=== PATIENT | female | born 1940 | race Hispanic/Latino ===

== ENCOUNTER 2017-01-24 11:18 | Day surgery (SDC) | payer MEDICARE, OTHER ==
[~2017-01-24 11:18] MED LIST: ANCEF/STERILE WATER 2 GM/20 ML 2 GM/20 ML SYRINGE IV NR
[2017-01-24] MEDS ORDERED: ZOFRAN IV PRN (12:28)
--- NOTE | 2017-01-24 12:29 | Anesthesia Day of Surgery ---
Anesthesia Day of Surgery - Day of Surgery Patient Examined: Yes Patient H&P Reviewed: Yes Patient is NPO: Yes Beta Blockers: Yes Cardiac Clearance: No Pulmonary Clearance: Yes
--- NOTE | 2017-01-24 12:32 | Anesthesia Consultation ---
Anesthesia Consult and Med Hx Date of service: 01/24/17 - Airway Anesthetic Teeth Evaluation: Dentures ROM Head & Neck: Inadequate Mental/Hyoid Distance: Inadequate Mallampati Class: Class III Intubation Access Assessment: Possibly Difficult - Pulmonary Exam CTA: Yes - Cardiac Exam Cardiac Exam: RRR - Pre-Operative Health Status ASA Pre-Surgery Classification: ASA4 Proposed Anesthetic Plan: Spinal (ga if needed/aware of pulmonary rx and hx) - Pulmonary Hx Smoking: Yes (STOPPED X 4 YRS-2PPD X 50 YRS) SOB: Yes (SOB WITH ANY ACTIVITY- IN WHEELCHAIR) COPD: Yes (SEVERE) Home Oxygen Therapy: Yes Hx Sleep Apnea: Yes (DX SLEEP APNEA WITH CPAP USE.) - Cardiovascular System Hx Hypertension: Yes (NO MEDS) - Central Nervous System Hx Back Pain: Yes - Endocrine Hx Renal Disease: Yes (CKD) - Hematic Hx Anemia: Yes (NO RECENT) - Other Systems Hx Cancer: No Hx Obesity: Yes (morbid obesity)
[2017-01-24 12:48] LABS: Eosinophils % (Auto) 4.4 % (0.0-4.3); Hematocrit 40.6 % (30.3-42.9); Hemoglobin 13.5 gm/dl (10.1-14.3); Mean Corpuscular HGB Conc 33 % (30-34); Mean Corpuscular Hemoglobin 28 pg (28-32); Mean Corpuscular Volume 85 fl (79-97); Platelet Count 263 K/mm3 (140-440); Red Cell Distribution Width 15.1 % (13.2-15.2); White Blood Count 8.3 K/mm3 (4.5-11.0)
[2017-01-24] MEDS ORDERED: PEPCID PO NR (13:00)
[2017-01-24] MEDS ORDERED: NACL 0.9% 1000 ML 1,000 ML IV SCH (13:00)
[2017-01-24] MEDS ORDERED: VERSED ONE ×2 (13:11→13:42)
[2017-01-24 13:21] LABS: BUN/Creatinine Ratio 9.23; Calcium 8.8 mg/dL (8.4-10.2); Chloride 107.4 mmol/L (98-107); Potassium 4.6 mmol/L (3.6-5.0)
[2017-01-24] MEDS ORDERED: ePHEDrine SULFATE ONE (13:28)
[2017-01-24] MEDS ORDERED: SUBLIMAZE ONE (13:32)
[2017-01-24] MEDS ORDERED: DIPRIVAN 10 MG/ML IV ONE (13:33)
[2017-01-24] MEDS ORDERED: XYLOCAINE MPF 2% ONE ×3 (13:35→14:19)
[2017-01-24] MEDS ORDERED: XYLOCAINE 2% UROJET ONE (13:40)
[2017-01-24] MEDS ORDERED: KETALAR IV ONE (13:46)
[2017-01-24] MEDS ORDERED: ANCEF ONE (14:09)
[2017-01-24] MEDS ORDERED: ZOFRAN ONE ×2 (14:15)
[2017-01-24] MEDS ORDERED: LASIX ONE (14:19)
[2017-01-24] MEDS ORDERED: WATER FOR IRRIG STERILE IR ONE (14:30)
[2017-01-24] MEDS ORDERED: XYLOCAINE 2% UROJET UR ONE (14:30)
[2017-01-24] MEDS ORDERED: SORBITOL-MANNITOL IRRIG IR ONE (14:30)
[2017-01-24] MEDS ORDERED: PHENERGAN PO PRN (15:03)
[2017-01-24] MEDS ORDERED: TRANSDERM-SCOP TD ONE (15:34)
[2017-01-24] MEDS ORDERED: TRANSDERM-SCOP TD PRN (15:38)
[2017-01-24] MEDS ORDERED: REGLAN ONE (15:47)
[2017-01-24] MEDS ORDERED: REGLAN IV PRN (15:56)
--- NOTE | 2017-01-24 16:03 | Fluoroscopy Report ---
RETROGRADE PYELOGRAM: There is adequate filling of the ureters and intrarenal collecting systems with no filling defects or anatomic abnormalities identified.
--- NOTE | 2017-01-24 16:23 | Operative Report ---
PREOPERATIVE DIAGNOSIS: Bladder cancer. POSTOPERATIVE DIAGNOSIS: Bladder cancer. PROCEDURE: Cystoscopy, transurethral resection of bladder tumor. SURGEON: NYLA ZAMBRANO M.D. ANESTHESIA: Spinal epidural combination. FINDINGS: This is a morbidly obese woman with severe COPD and medical problems, who could not be put to sleep safely. She is constantly having nausea and vomiting and she has refused treatment initially. She then came back and wants to have these treated. The tumors are right anterior wall, difficult location. She understands all the risks as does the family. DESCRIPTION OF PROCEDURE: The patient was brought to the operating room and placed on the operating table. Following induction of epidural anesthesia, placed in lithotomy position, draped in usual sterile fashion. Cystourethroscopy showed chronic inflammation with two moderately sessile tumors which looked to be a more aggressive than usual. The retrograde showed no persistent filling defects. The tumors had to be resected with the resectoscope and measured approximately 3 cm in length. It was quite difficult the angulation with her buttocks and her obesity and her intermittent nausea throughout the procedure and moving to resect this. Finally, we resected it and cauterized the base. Whether we have or not, I cannot be sure, but this was quite paralysis because they did not feel comfortable putting her to sleep and she was moving and there were not sure whether the anesthesia was taken. The patient tolerated the procedure well. We obtained good hemostasis with the ball electrode. She was brought to recovery room with a 24 Elise. Family notified, in stable condition. JOB# [id number] JULIA/[place]
[2017-01-24 17:44] VITALS: BP 138/75
== END 2017-01-24 17:55 | disposition home or self-care (01) ==
LOC: OR 11:18
PROVIDERS: ATTEND Urology
DX: C67.3 Malignant neoplasm of anterior wall of bladder (principal); J44.9 Chronic obstructive pulmonary disease, unspecified; G47.30 Sleep apnea, unspecified; I12.9 Hypertensive chronic kidney disease with stage 1 through stage 4 chronic kidney disease, or unspecified chronic kidney disease; N18.9 Chronic kidney disease, unspecified; D64.9 Anemia, unspecified; E66.01 Morbid (severe) obesity due to excess calories; Z68.43 Body mass index [BMI] 50.0-59.9, adult; Z87.891 Personal history of nicotine dependence
CPT/HCPCS: 36415; 52235; 74420; 80048; 82962; 85025; 88305; A4217; J0690; J1940; J2250; J2405; J2704; J2765; J3010; J7030; Q9967; Q0169

== ENCOUNTER 2017-08-06 04:36 | Emergency (ER) | payer MEDICARE, OTHER ==
[2017-08-06 05:30] LABS: Basophils % (Auto) 1.1 % (0.0-1.8); Hematocrit 38.5 % (30.3-42.9); Mean Corpuscular HGB Conc 34 % (30-34); Mean Corpuscular Hemoglobin 28 pg (28-32); Mean Corpuscular Volume 85 fl (79-97); Platelet Count 288 K/mm3 (140-440); Red Blood Count 4.56 M/mm3 (3.65-5.03); Red Cell Distribution Width 14.1 % (13.2-15.2); White Blood Count 8.6 K/mm3 (4.5-11.0)
[2017-08-06 05:45] LABS: Albumin 3.5 g/dL (3.9-5); Albumin/Globulin Ratio 1.8 %; Alkaline Phosphatase 108 units/L (35-129); Anion Gap 19 mmol/L; BUN/Creatinine Ratio 10; Blood Urea Nitrogen 22 mg/dL (7-17); Calcium 9.1 mg/dL (8.4-10.2); Carbon Dioxide 21 mmol/L (22-30); Chloride 104.9 mmol/L (98-107); Glucose 97 mg/dL (65-100); Lipase 29 units/L (13-60); Potassium 4.4 mmol/L (3.6-5.0); Sodium 140 mmol/L (137-145); Total Protein 5.5 g/dL (6.3-8.2)
[2017-08-06 05:50] LABS: Alanine Aminotransferase < 5 units/L (7-56)
[2017-08-06] MEDS: ZOFRAN IV ONE (07:37)
[2017-08-06] MEDS: MORPHINE IV ONE (07:37)
[2017-08-06] MEDS: NACL 0.9% 1000 ML 1,000 ML IV ONE (07:37)
[2017-08-06 08:00] LABS: Bilirubin,Urine NEG (Negative); Blood,Urine NEG (Negative); Ketones,Urine NEG (Negative); Leukocyte Esterase,Urine NEG (Negative); Mucus,Urine FEW /HPF; Nitrite,Urine NEG (Negative); Protein,Urine <15 mg/dL mg/dL (Negative); Urobilinogen,Urine < 2.0 mg/dL (<2.0)
--- NOTE | 2017-08-06 08:38 | Cat Scan Report ---
CT OF THE ABDOMEN AND PELVIS WITHOUT CONTRAST HISTORY: Abdominal pain. TECHNIQUE: Helical CT without contrast. Sagittal and coronal reformatted images. FINDINGS: Within the limits of a noncontrast exam, the abdominal and pelvic viscera are within normal limits. The liver, biliary system, pancreas, spleen, kidneys, adrenal glands and bladder are unremarkable. The bowel loops are normal caliber and wall thickness. Normal appendix. A 3.1 cm infrarenal AAA is identified. The remainder of the aorta is within normal limits. No ascites, bulky adenopathy or inflammatory changes. Hysterectomy and appendectomy changes are suspected. The lung bases are clear. Normal heart size. No suspicious bony lesion. IMPRESSION: No acute process s identified in the pelvis. No significant change since 09/19/16.
--- NOTE | 2017-08-06 10:44 | Emergency Department Report ---
HPI - General Chief Complaint: Abdominal Pain Time Seen by Provider: 08/06/17 06:44 - HPI HPI: 77 female coming in with diffuse abdominal pain starting on this morning patient had a history of irritable bowel syndrome. She states that her pain is accompanied by nausea, but no vomiting, urinary symptoms, diarrhea. Patient has been taking her usual medication at home for these symptoms. She denies any exacerbating factors. She denies any alleviating factors. She denies any recent travel, or unusual foods. She denies any sick contacts. MD Complaint: abdominal pain -: Gradual Location: Diffuse Radiation: none Migration to: no migration Severity scale (0 -10): 6 Quality: sharp Improves With: nothing Associated Symptoms: nausea, ED Past Medical Hx - Past Medical History Previous Medical History?: Yes Hx Hypertension: Yes (NO MEDS) Hx Diabetes: Yes (NO MEDS) Hx GERD: Yes Hx Renal Disease: Yes (renal insufficiency ) Hx Arthritis: Yes Hx COPD: Yes Additional medical history: bowel syndrome, hiatal hernia - Surgical History Past Surgical History?: Yes Hx Cholecystectomy: Yes Hx Appendectomy: Yes Hx Breast Surgery: Yes (LEFT BREAST MASS REMOVED) Additional Surgical History: left foot, hysterectomy, right breast, left shoulder, right eye - cataract, left eye - macula, - Social History Smoking Status: Former Smoker Substance Use Type: None - Medications Home Medications: Home Medications Medication Instructions Recorded Confirmed Last Taken Type ALPRAZolam [Xanax TAB] 0.25 mg PO PRN PRN 09/13/16 02/05/17 1 Day Ago History 0.25 Beclomethasone Dipropionate [Qvar] 2 puff IH BID 09/13/16 02/05/17 1 Day Ago History 2 Esomeprazole Magnesium [NexIUM] 40 mg PO QDAY 09/13/16 02/05/17 1 Day Ago History 40 Ipratropium/Albuterol Sulfate 1 ampul IH PRN PRN 09/13/16 02/05/17 1 Day Ago History [DUONEB *Not for PRN Use*] 1 Promethazine [Phenergan TAB] 25 mg PO Q6HR PRN 09/13/16 02/05/17 1 Day Ago History 25 Sucralfate 1 gm PO QID 09/13/16 02/05/17 1 Day Ago History 1 Theophylline Anhydrous [Chris-24] 200 mg PO BID 09/13/16 02/05/17 1 Day Ago History 200 Tiotropium [place] [Spiriva 4 gm IH DAILY 09/13/16 02/05/17 1 Day Ago History Respimat] 4 traMADol [Ultram 50 MG tab] 50 mg PO PRN PRN 09/13/16 02/05/17 1 Day Ago History 50 Indacaterol Maleate [Arcapta 75 mcg IH DAILY 01/22/17 02/05/17 1 Day Ago History Neohaler] 75 Ipratropium/Albuter (Nf) 2 puff IH QID 01/22/17 02/05/17 1 Day Ago History [Combivent Inhaler] 2 Ondansetron [Zofran TAB] 4 mg PO PRN 01/24/17 02/05/17 1 Day Ago History 4 Azithromycin [Zithromax] 250 mg PO Q24H #6 tablet 02/10/17 Unknown Rx Prednisone [predniSONE 10 mg 10 mg PO .TAPER #1 tab.ds.pk 02/10/17 Unknown Rx (6-Day Pack, 21 Tabs)] Dicyclomine [Bentyl] 20 mg PO QID #20 tablet 08/06/17 Unknown Rx ED Review of Systems ROS: Stated complaint: ABDOMINAL PAIN Other details as noted in HPI Respiratory: cough Gastrointestinal: as per HPI, abdominal pain, nausea Musculoskeletal: as per HPI Physical Exam - Physical Exam Vital Signs: Vital Signs 08/06/17 08/06/17 08/06/17 04:41 05:14 05:17 Temperature 97.9 F Pulse Rate 75 96 H 63 Respiratory 22 13 10 L Rate Blood Pressure 155/66 O2 Sat by Pulse 97 96 Oximetry 08/06/17 08/06/17 08/06/17 05:31 05:45 06:01 Temperature Pulse Rate 58 L 62 61 Respiratory 14 10 L 17 Rate Blood Pressure 102/51 102/51 145/59 O2 Sat by Pulse 96 97 96 Oximetry 08/06/17 08/06/17 08/06/17 06:15 06:44 06:45 Temperature Pulse Rate 68 60 56 L Respiratory 12 14 11 L Rate Blood Pressure 130/99 130/99 130/99 O2 Sat by Pulse 96 Oximetry 08/06/17 08/06/17 08/06/17 07:00 07:15 07:31 Temperature Pulse Rate 64 66 57 L Respiratory 15 14 12 Rate Blood Pressure 145/77 141/69 138/46 O2 Sat by Pulse 99 100 99 Oximetry 08/06/17 08/06/17 08/06/17 07:45 08:00 08:37 Temperature 98.4 F Pulse Rate 63 66 Respiratory 11 L 9 L Rate Blood Pressure 153/70 149/58 149/58 O2 Sat by Pulse 100 98 100 Oximetry 08/06/17 08/06/17 08/06/17 09:01 09:30 10:00 Temperature Pulse Rate 74 74 74 Respiratory 14 14 12 Rate Blood Pressure 131/60 127/56 129/61 O2 Sat by Pulse 97 96 97 Oximetry Physical Exam: Physical Exam: - General Limitations: No Limitations General appearance: alert, in no apparent distress, obese - Head Head exam: Present: atraumatic, normocephalic - Eye Eye exam: Present: normal appearance - ENT ENT exam: Present: mucous membranes moist - Neck Neck exam: Present: normal inspection - Respiratory Respiratory exam: Present: normal lung sounds bilaterally. Absent: respiratory distress - Cardiovascular Cardiovascular Exam: Present: normal rhythm, tachycardia. Absent: systolic murmur, diastolic murmur, rubs, gallop - GI/Abdominal GI/Abdominal exam: Present: soft, normal bowel sounds - Extremities Exam Extremities exam: Present: normal inspection - Back Exam Back exam: Present: normal inspection - Neurological Exam Neurological exam: Present: alert, oriented X3 - Psychiatric Psychiatric exam: normal affect and mood - Skin Skin exam: Present: warm, dry, intact, normal color. Absent: rash ED Course Vital Signs 08/06/17 08/06/17 08/06/17 04:41 05:14 05:17 Temperature 97.9 F Pulse Rate 75 96 H 63 Respiratory 22 13 10 L Rate Blood Pressure 155/66 O2 Sat by Pulse 97 96 Oximetry 08/06/17 08/06/17 08/06/17 05:31 05:45 06:01 Temperature Pulse Rate 58 L 62 61 Respiratory 14 10 L 17 Rate Blood Pressure 102/51 102/51 145/59 O2 Sat by Pulse 96 97 96 Oximetry 08/06/17 08/06/17 08/06/17 06:15 06:44 06:45 Temperature Pulse Rate 68 60 56 L Respiratory 12 14 11 L Rate Blood Pressure 130/99 130/99 130/99 O2 Sat by Pulse 96 Oximetry 08/06/17 08/06/17 08/06/17 07:00 07:15 07:31 Temperature Pulse Rate 64 66 57 L Respiratory 15 14 12 Rate Blood Pressure 145/77 141/69 138/46 O2 Sat by Pulse 99 100 99 Oximetry 08/06/17 08/06/17 08/06/17 07:45 08:00 08:37 Temperature 98.4 F Pulse Rate 63 66 Respiratory 11 L 9 L Rate Blood Pressure 153/70 149/58 149/58 O2 Sat by Pulse 100 98 100 Oximetry 08/06/17 08/06/17 08/06/17 09:01 09:30 10:00 Temperature Pulse Rate 74 74 74 Respiratory 14 14 12 Rate Blood Pressure 131/60 127/56 129/61 O2 Sat by Pulse 97 96 97 Oximetry ED Medical Decision Making - Lab Data Result diagrams: 08/06/17 05:02 08/06/17 05:02 Critical care attestation.: If time is entered above; I have spent that time in minutes in the direct care of this critically ill patient, excluding procedure time. ED Disposition Clinical Impression: Irritable bowel syndrome Qualifiers: Irritable bowel syndrome type: with both diarrhea and constipation Qualified Code(s): K58.2 - Mixed irritable bowel syndrome Disposition: DC-01 TO HOME OR SELFCARE Is pt being admited?: No Does the pt Need Aspirin: No Condition: Stable Instructions: Abdominal Pain (ED) Prescriptions: Dicyclomine [Bentyl] 20 mg PO QID #20 tablet Referrals: HERNESTO CANTRELL MD [Primary Care Provider] - 3-5 Days
[2017-08-06 11:12] VITALS: BP 136/52
== END 2017-08-06 11:16 | disposition home or self-care (01) ==
LOC: ED 04:36
DX: K58.2 Mixed irritable bowel syndrome (principal); I10 Essential (primary) hypertension; E11.9 Type 2 diabetes mellitus without complications; K21.9 Gastro-esophageal reflux disease without esophagitis; J44.9 Chronic obstructive pulmonary disease, unspecified; Z90.49 Acquired absence of other specified parts of digestive tract; Z90.710 Acquired absence of both cervix and uterus; N28.9 Disorder of kidney and ureter, unspecified; Z88.6 Allergy status to analgesic agent; Z88.1 Allergy status to other antibiotic agents
CPT/HCPCS: 36415; 74176; 80053; 81001; 82962; 83690; 85025; 93005; 93010; 96361; 96374; 96375; 99285; J2270; J2405; J7030

== ENCOUNTER 2017-10-31 10:14 | Day surgery (SDC) | payer MEDICARE, OTHER ==
[2017-10-31] MEDS ORDERED: ANCEF/STERILE WATER 2 GM/20 ML 2 GM/20 ML SYRINGE IV NR (11:00)
--- NOTE | 2017-10-31 11:45 | Anesthesia Consultation ---
Anesthesia Consult and Med Hx Date of service: 10/31/17 - Airway Anesthetic Teeth Evaluation: Dentures ROM Head & Neck: Adequate Mental/Hyoid Distance: Adequate Mallampati Class: Class II Intubation Access Assessment: Probably Good - Pulmonary Exam CTA: Yes - Cardiac Exam Cardiac Exam: RRR Anesthetic Concerns: Upper dentures. Pt is on home o2 and is breathing presently near her baseline. She had SAB 02/05 without problem. pt prefers SAB or local to general. - Pre-Operative Health Status ASA Pre-Surgery Classification: ASA4 - Pulmonary Hx Smoking: Yes (STOPPED X 4 YRS-2PPD X 50 YRS) SOB: Yes (SOB WITH ANY ACTIVITY- IN WHEELCHAIR) COPD: Yes (ON VENT SEVERAL TIMES DUE TO SEVERE COPD) Hx Pneumonia: Yes (09/03/17- CAUSED SEPSIS) Hx Sleep Apnea: Yes (DX SLEEP APNEA WITH IRREGULAR CPAP USE.) - Cardiovascular System Hx Hypertension: Yes (NO MEDS) - Central Nervous System Hx Back Pain: Yes - Endocrine Hx Renal Disease: Yes (Stage 4 CKD) Hx Non-Insulin Dependent Diabetes: Yes - Hematic Hx Anemia: Yes - Other Systems Hx Obesity: Yes (morbid obesity)
--- NOTE | 2017-10-31 11:45 | Anesthesia Day of Surgery ---
Anesthesia Day of Surgery - Day of Surgery Patient Examined: Yes Patient H&P Reviewed: Yes Patient is NPO: Yes
[2017-10-31] MEDS ORDERED: PERCOCET 5/325 PO PRN (11:46)
[2017-10-31] MEDS ORDERED: ZOFRAN IV PRN (11:46)
[2017-10-31] MEDS ORDERED: SUBLIMAZE IV PRN (11:46)
[2017-10-31] MEDS ORDERED: PEPCID IV NR (12:00)
[2017-10-31 12:12] LABS: Basophils # (Auto) 0.1 K/mm3 (0.0-0.1); Basophils % (Auto) 0.7 % (0.0-1.8); Eosinophils # (Auto) 0.4 K/mm3 (0.0-0.4); Eosinophils % (Auto) 4.9 % (0.0-4.3); Lymphocytes # (Auto) 1.2 K/mm3 (1.2-5.4); Lymphocytes % (Auto) 14.9 % (13.4-35.0); Mean Corpuscular HGB Conc 32 % (30-34); Mean Corpuscular Hemoglobin 28 pg (28-32); Mean Corpuscular Volume 86 fl (79-97); Monocytes # (Auto) 0.5 K/mm3 (0.0-0.8); Monocytes % (Auto) 5.9 % (0.0-7.3); Platelet Count 284 K/mm3 (140-440); Red Blood Count 4.66 M/mm3 (3.65-5.03); Red Cell Distribution Width 14.9 % (13.2-15.2)
[2017-10-31 12:28] LABS: Calcium 8.6 mg/dL (8.4-10.2)
[2017-10-31] MEDS ORDERED: WATER FOR IRRIG STERILE IR ONE ×2 (12:49)
[2017-10-31] MEDS ORDERED: NACL 0.9% 1000 ML 1,000 ML IV SCH (13:00)
[2017-10-31] MEDS ORDERED: NEO SYNEPHRINE/NS Syringe(OR USE) IV ONE (13:36)
[2017-10-31] MEDS ORDERED: VERSED ONE (13:36)
--- NOTE | 2017-10-31 13:55 | Post Operative Note ---
Date of procedure: 10/31/17 Pre-op diagnosis: bladder lesions r/o tcc Post-op diagnosis: same Findings: erythema Procedure: cysto rpg bx Anesthesia: regional Surgeon: NYLA ZAMBRANO Estimated blood loss: minimal Pathology: list (bladder) Specimen disposition: to lab Condition: stable Disposition: PACU
--- NOTE | 2017-10-31 13:56 | Discharge Summary ---
Short Stay Discharge Plan Activity: other (no straining ) Weight Bearing Status: Partial Weight Bearing Diet: low fat, low cholesterol, low salt Special Instructions: other (teach [place] care ) Durable Medical Equipment Needed Upon Discharge: other ([place] do not use tape) Follow up with: DARWIN GRAVES MD [Primary Care Provider] - 7 Days NYLA ZAMBRANO MD [Staff Physician] - 7 Days
--- NOTE | 2017-10-31 14:06 | Post Anesthesia Evaluation ---
- Post Anesthesia Evaluation Patient Participated: Yes Airway Patent: Yes Stable Respiratory Function: Yes Temp > 96.8F: Yes Pain Manageable: Yes Adequeate Hydration: Yes Anesthesia Complications: No
--- NOTE | 2017-10-31 14:36 | Fluoroscopy Report ---
RETROGRADE PYELOGRAM: History: Malignant neoplasm of bladder. There is adequate filling of the ureters and intrarenal collecting systems with no filling defects or anatomic abnormalities identified. Impression: No abnormality identified.
[2017-10-31 17:07] VITALS: BP 146/67
--- NOTE | 2017-10-31 17:29 | Operative Report ---
PREOPERATIVE DIAGNOSES: History of bladder cancer, erythema in the bladder. POSTOPERATIVE DIAGNOSES: History of bladder cancer, erythema in the bladder. PROCEDURE: Cystoscopy, retrograde, and biopsy. SURGEON: Mike Sheldon MD ANESTHESIA: General. FINDINGS: This woman with history of bladder cancer, with some erythema posterior wall. She now presents for cystoscopy. DESCRIPTION OF PROCEDURE: The patient was brought to the operating room and placed on the table. Following induction of anesthesia which was spinal, prepped and draped in usual sterile fashion. Cystourethroscopy showed a good capacity bladder, erythema right posterior lateral wall. Biopsies were obtained around the bladder. Retrograde showed slight medial deviation of the ureters with good drainage. There were no persistent filling defects, just a little peristalsis and slight narrowing, ____ excellent drainage. The patient tolerated the procedure well. There was clear efflux from each orifice, brought to recovery in stable condition with Elise catheter. Family notified. JOB# [id number] JULIA/[place]
== END 2017-10-31 10:15 | disposition home or self-care (01) ==
LOC: OR 10:14
PROVIDERS: ATTEND Urology
DX: L53.9 Erythematous condition, unspecified (principal); Z85.51 Personal history of malignant neoplasm of bladder; Z98.890 Other specified postprocedural states; F41.9 Anxiety disorder, unspecified; Z87.891 Personal history of nicotine dependence; J42 Unspecified chronic bronchitis; J44.9 Chronic obstructive pulmonary disease, unspecified; E66.01 Morbid (severe) obesity due to excess calories; K21.9 Gastro-esophageal reflux disease without esophagitis; I12.9 Hypertensive chronic kidney disease with stage 1 through stage 4 chronic kidney disease, or unspecified chronic kidney disease; E11.22 Type 2 diabetes mellitus with diabetic chronic kidney disease; N18.9 Chronic kidney disease, unspecified; M79.7 Fibromyalgia; M19.90 Unspecified osteoarthritis, unspecified site
CPT/HCPCS: 36415; 52005; 52204; 74420; 80048; 82962; 85025; 88305; A4217; C1758; J0690; J2250; J2370; J7030; Q9967

== ENCOUNTER 2018-04-17 09:39 | Day surgery (SDC) | payer MEDICARE, OTHER ==
[2018-04-17] MEDS ORDERED: ANCEF/STERILE WATER 2 GM/20 ML 2 GM/20 ML SYRINGE IV NR (11:00)
--- NOTE | 2018-04-17 11:18 | Anesthesia Day of Surgery ---
Anesthesia Day of Surgery - Day of Surgery Patient Examined: Yes Patient H&P Reviewed: Yes Patient is NPO: Yes
--- NOTE | 2018-04-17 11:18 | Anesthesia Consultation ---
Anesthesia Consult and Med Hx Date of service: 04/17/18 - Airway Anesthetic Teeth Evaluation: Poor ROM Head & Neck: Adequate Mental/Hyoid Distance: Inadequate Mallampati Class: Class IV Intubation Access Assessment: Difficult (large redundant neck tissue) - Cardiac Exam Cardiac Exam: RRR - Pre-Operative Health Status ASA Pre-Surgery Classification: ASA4 Proposed Anesthetic Plan: Spinal, MAC - Pulmonary Hx Smoking: Yes (STOPPED X 4 YRS-2PPD X 50 YRS) SOB: Yes (SOB WITH ANY ACTIVITY- IN WHEELCHAIR) COPD: Yes (ON VENT SEVERAL TIMES DUE TO SEVERE COPD) Hx Pneumonia: Yes (09/03/17- CAUSED SEPSIS) Hx Sleep Apnea: Yes (DX SLEEP APNEA WITH IRREGULAR CPAP USE.) - Cardiovascular System Hx Hypertension: Yes (NO MEDS) - Central Nervous System Hx Back Pain: Yes - Endocrine Hx Renal Disease: Yes (Stage 4 CKD) Hx Non-Insulin Dependent Diabetes: Yes - Hematic Hx Anemia: Yes - Other Systems Hx Obesity: Yes (morbid obesity)
[2018-04-17] MEDS ORDERED: NARCAN 0.4 MG/1 ML IV PRN (11:19)
[2018-04-17] MEDS ORDERED: ZOFRAN IV PRN (11:19)
[2018-04-17] MEDS ORDERED: DILAUDID IV PRN (11:19)
[2018-04-17] MEDS ORDERED: DEMEROL IV PRN (11:19)
[2018-04-17] MEDS ORDERED: NACL 0.9% IR ONE (11:30)
[2018-04-17 11:31] LABS: Hematocrit 42.1 % (30.3-42.9); Hemoglobin 13.5 gm/dl (10.1-14.3); Mean Corpuscular HGB Conc 32 % (30-34); Mean Corpuscular Hemoglobin 28 pg (28-32); Mean Corpuscular Volume 86 fl (79-97); Platelet Count 357 K/mm3 (140-440); Red Cell Distribution Width 14.8 % (13.2-15.2)
[2018-04-17] MEDS ORDERED: NACL 0.9% 1000 ML 1,000 ML ONE (11:36)
[2018-04-17] MEDS ORDERED: ZOFRAN ONE (11:45)
[2018-04-17] MEDS ORDERED: ANCEF/STERILE WATER 2 GM/20 ML 2 GM/20 ML SYRINGE IV ONE (11:45)
[2018-04-17] MEDS ORDERED: NACL 0.9% 1000 ML 1,000 ML IV NR (11:45)
[2018-04-17 11:46] LABS: Alanine Aminotransferase < 5 units/L (7-56); Albumin 3.8 g/dL (3.9-5); BUN/Creatinine Ratio 12; Blood Urea Nitrogen 28 mg/dL (7-17); Calcium 9.5 mg/dL (8.4-10.2); Hemolysis Index 5
[2018-04-17] MEDS ORDERED: LACTATED RINGERS 1,000 ML IV SCH (12:00)
[2018-04-17] MEDS ORDERED: VERSED ONE (12:22)
[2018-04-17] MEDS ORDERED: WATER FOR IRRIG STERILE IR ONE (12:38)
[2018-04-17 12:53] LABS: Band Neutrophils # (Manual) 0.5 K/mm3; Basophils % (Manual) 0 % (0.0-1.8); Eosinophils % (Manual) 0 % (0.0-4.3); Total Cells Counted 100
[2018-04-17 12:54] LABS: Platelet Estimate Consistent w Auto; RBC Morphology Normal
[2018-04-17] MEDS ORDERED: NEO SYNEPHRINE/NS Syringe(OR USE) IV ONE (13:00)
[2018-04-17] MEDS ORDERED: LASIX ONE (13:15)
--- NOTE | 2018-04-17 13:21 | Post Operative Note ---
Date of procedure: 04/17/18 Pre-op diagnosis: bladder cancer Post-op diagnosis: same Findings: bladder tumors Procedure: cysto turbt Anesthesia: GETA, regional Surgeon: NYLA ZAMBRANO Estimated blood loss: minimal Pathology: list (bladder) Specimen disposition: to lab Condition: stable Disposition: PACU
--- NOTE | 2018-04-17 13:23 | Discharge Summary ---
Short Stay Discharge Plan Activity: other (no straining ) Weight Bearing Status: Partial Weight Bearing Diet: low fat, low cholesterol, low salt Special Instructions: other (inc fluids ) Durable Medical Equipment Needed Upon Discharge: other Follow up with: PRIMARY CAREMD [Primary Care Provider] - 7 Days NYLA ZAMBRANO MD [Staff Physician] - 7 Days
--- NOTE | 2018-04-17 14:16 | Post Anesthesia Evaluation ---
- Post Anesthesia Evaluation Patient Participated: Yes Airway Patent: Yes Stable Respiratory Function: Yes Nausea/Vomiting: No Temp > 96.8F: Yes Pain Manageable: Yes Adequeate Hydration: Yes Anesthesia Complications: No Block Receding Appropriately: Yes Patient on Ventilator: No
[2018-04-17 16:20] VITALS: BP 150/95
--- NOTE | 2018-04-17 18:36 | Operative Report ---
PREOPERATIVE DIAGNOSIS: Recurrent bladder tumors, small. POSTOPERATIVE DIAGNOSIS: Recurrent bladder tumors, small. PROCEDURE: Cystoscopy, resection of bladder tumor. SURGEON: Mike Sheldon M.D. ANESTHESIA: Spinal. FINDINGS: This is a woman who is 78 years old, lots of medical problems, severely obese, who has recurrent bladder tumors, one was anteriorly at the 11 o'clock position, which was quite difficult to get. There was some friable tissue on the left lateral wall and above the orifice. DESCRIPTION OF PROCEDURE: At this point, we tried to just biopsy them and do as little as possible, but it was hard to get access. The resectoscope was inserted and the tumor at the 11 o'clock was resected, area was cauterized, posterior wall we were able to biopsy and cauterized that down to muscular fibers. We did see muscle grossly. Same thing we did on the left lateral wall. The patient tolerated the procedure well. No significant bleeding. She was brought to recovery in stable condition. JOB# [id number] [place]
== END 2018-04-17 09:40 | disposition home or self-care (01) ==
LOC: OR 09:39
PROVIDERS: ATTEND Urology
DX: C67.3 Malignant neoplasm of anterior wall of bladder (principal); C67.2 Malignant neoplasm of lateral wall of bladder; C67.4 Malignant neoplasm of posterior wall of bladder; J44.9 Chronic obstructive pulmonary disease, unspecified; G47.30 Sleep apnea, unspecified; E11.22 Type 2 diabetes mellitus with diabetic chronic kidney disease; I12.9 Hypertensive chronic kidney disease with stage 1 through stage 4 chronic kidney disease, or unspecified chronic kidney disease; N18.4 Chronic kidney disease, stage 4 (severe); E66.01 Morbid (severe) obesity due to excess calories; Z79.899 Other long term (current) drug therapy; Z87.891 Personal history of nicotine dependence
CPT/HCPCS: 36415; 52224; 80053; 82962; 85007; 85025; 88112; 88305; 88342; A4217; J0690; J1940; J2250; J2370; J2405; J7030; Q9967

== ENCOUNTER 2018-10-22 08:47 | Inpatient (IN) | payer MEDICARE, OTHER ==
[2018-10-22] MEDS ORDERED: NACL 0.9% 1000 ML 1,000 ML IV ONE (09:11)
--- NOTE | 2018-10-22 09:23 | Emergency Department Report ---
ED N/V/D HPI - General Chief complaint: Nausea/Vomiting/Diarrhea Stated complaint: NAUSEA/VOMITING/DIARRHEA Time Seen by Provider: 10/22/18 09:19 Source: EMS Mode of arrival: Stretcher Limitations: Physical Limitation - History of Present Illness Initial comments: Patient is an 78-year-old female that presents emergency room with complaints of nausea and vomiting and abdominal pain and chest pain 4 days. Patient states the nausea and vomiting or worsening and is unable to hold any by mouth intake for 4 days. Patient states that chest pain is in the center of her chest and it is nonradiating it is a 5 out of 10. Patient states the pain is better rest worse with exertion and vomiting. Patient states abdominal pain is a 6 out of 10 and is better with rest and worse with palpation and movement. Patient states the abdominal pain is nonradiating. Patient denies blood in her vomitus and stool. Patient denies diarrhea. Patient denies fever and chills. MD complaint: nausea, vomiting -: Sudden Description of Vomiting: watery Associated Abdominal Pain: Yes Location: diffuse Radiation: none Severity: moderate Pain Scale: 6 Quality: aching Consistency: constant Improves with: rest Worsens with: eating, vomiting, movement Associated Symptoms: chest pain, nausea/vomiting. denies: myalgias, cough, diaphoresis, fever/chills, headaches, loss of appetite, malaise, rash, dysuria, shortness of breath, syncope, weakness - Related Data Home Medications Medication Instructions Recorded Confirmed Last Taken ALPRAZolam [Xanax TAB] 0.25 mg PO PRN PRN 09/13/16 10/02/18 10/01/18 21:00 Ipratropium/Albuterol Sulfate 1 ampul IH QID 09/13/16 10/02/18 10/01/18 20:00 [DUONEB *Not for PRN Use*] Sucralfate 1 gm PO QID 09/13/16 10/02/18 10/02/18 07:30 Indacaterol Maleate [Arcapta 75 mcg IH DAILY 01/22/17 10/02/18 10/01/18 19:30 Neohaler] Gabapentin [Neurontin] 200 mg PO BID 09/03/17 10/02/18 10/02/18 07:30 Sodium Bicarbonate 650 mg PO BID 09/03/17 10/02/1810/02/18 07:30 Tiotropium [Spiriva] 18 mcg IH QDAY 09/03/17 10/02/18 10/02/18 07:30 Ranitidine HCl [Acid Lacquer Sizer] 150 mg PO BID 10/29/17 10/02/18 10/02/18 07:30 Beclomethasone Dipropionate [Qvar] 8.7 gm IH BID 03/29/18 10/02/18 10/02/18 07:30 guaiFENesin [Mucinex] 600 mg PO DAILY 03/29/18 10/02/18 10/02/18 07:30 Insulin NPH/Regular [NovoLIN 70/30] 10 unit SQ BID 09/19/18 10/02/18 10/01/18 19:00 Linaclotide (Nf) [Linzess (Nf)] 290 mcg PO QDAY 09/19/18 10/02/18 10/01/18 20:00 Verapamil ER [Calan Sr] 180 mg PO DAILY 09/19/18 10/02/18 10/02/18 07:30 oxyCODONE /ACETAMINOPHEN [Percocet 1 tab PO Q6HR PRN 09/19/18 10/02/18 09/30/18 20:00 5/325] predniSONE [Prednisone] 10 mg PO Q48HR 09/19/18 10/02/18 09/30/18 09:00 Allergies Allergy/AdvReac Type Severity Reaction Status Date / Time aspirin Allergy Shortness Verified 09/17/17 17:58 of Breath , CHEST PAIN escitalopram [From Lexapro] Allergy Shortness Verified 04/17/18 11:43 of Breath salmeterol xinafoate Allergy Shortness Verified 01/22/17 08:45 [From Serevent] of Breath levofloxacin [From Levaquin] AdvReac Rash Verified 09/13/16 16:22 Sulfa (Sulfonamide AdvReac contraindicated Verified 10/31/17 11:19 Antibiotics) due to kidney function tramadol AdvReac Nausea Verified 09/19/18 16:34 contrast dye AdvReac contraindicated Uncoded 04/17/18 11:59 due to renal insufficiency ED Review of Systems ROS: Stated complaint: NAUSEA/VOMITING/DIARRHEA Other details as noted in HPI Constitutional: denies: chills, fever Eyes: denies: eye pain, eye discharge, vision change ENT: denies: ear pain, throat pain Respiratory: denies: cough, shortness of breath, wheezing Cardiovascular: chest pain. denies: palpitations Endocrine: no symptoms reported Gastrointestinal: abdominal pain, nausea, vomiting. 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 Stage IV bladder cancer - Surgical History Past Surgical History?: Yes Hx Cholecystectomy: Yes Hx Appendectomy: Yes Hx Breast Surgery: Yes (LEFT BREAST MASS REMOVED) Additional Surgical History: left foot, hysterectomy, right breast, left shoulder, right eye - cataract, left eye - macula, bladder tumor removal 09/2018. - Family History Family history: no significant - Social History Smoking Status: Never Smoker Substance Use Type: None - Medications Home Medications: Home Medications Medication Instructions Recorded Confirmed Last Taken Type ALPRAZolam [Xanax TAB] 0.25 mg PO PRN PRN 09/13/16 10/02/18 10/01/18 21:00 History Ipratropium/Albuterol Sulfate 1 ampul IH QID 09/13/16 10/02/18 10/01/18 20:00 History [DUONEB *Not for PRN Use*] Sucralfate 1 gm PO QID 09/13/16 10/02/18 10/02/18 07:30 History Indacaterol Maleate [Arcapta 75 mcg IH DAILY 01/22/17 10/02/18 10/01/18 19:30 History Neohaler] Gabapentin [Neurontin] 200 mg PO BID 09/03/17 10/02/18 10/02/18 07:30 History Sodium Bicarbonate 650 mg PO BID 09/03/17 10/02/18 10/02/18 07:30 History Tiotropium [Spiriva] 18 mcg IH QDAY 09/03/17 10/02/18 10/02/18 07:30 History Ranitidine HCl [Acid Lacquer Sizer] 150 mg PO BID 10/29/17 10/02/18 10/02/18 07:30 History Beclomethasone Dipropionate [Qvar] 8.7 gm IH BID 03/29/18 10/02/18 10/02/18 07:30 History guaiFENesin [Mucinex] 600 mg PO DAILY 03/29/18 10/02/18 10/02/18 07:30 History Insulin NPH/Regular [NovoLIN 70/30] 10 unit SQ BID 09/19/18 10/02/18 10/01/18 19:00 History Linaclotide (Nf) [Linzess (Nf)] 290 mcg PO QDAY 09/19/18 10/02/18 10/01/18 20:00 History Verapamil ER [Calan Sr] 180 mg PO DAILY 09/19/18 10/02/18 10/02/18 07:30 History oxyCODONE /ACETAMINOPHEN [Percocet 1 tab PO Q6HR PRN 09/19/18 10/02/18 09/30/18 20:00 History 5/325] predniSONE [Prednisone] 10 mg PO Q48HR 09/19/18 10/02/18 09/30/18 09:00 History ED Physical Exam - General Limitations: Physical Limitation General appearance: alert, in no apparent distress - Head Head exam: Present: atraumatic, normocephalic - Eye Eye exam: Present: normal appearance - ENT ENT exam: Present: mucous membranes moist - Neck Neck exam: Present: normal inspection - Respiratory Respiratory exam: Present: normal lung sounds bilaterally. Absent: respiratory distress, chest wall tenderness - Cardiovascular Cardiovascular Exam: Present: regular rate, normal rhythm. Absent: systolic murmur, diastolic murmur, rubs, gallop - GI/Abdominal GI/Abdominal exam: Present: soft, tenderness (generalized tenderness to palpat ion.), normal bowel sounds - Extremities Exam Extremities exam: Present: normal inspection - Back Exam Back exam: Present: normal inspection - Neurological Exam Neurological exam: Present: alert, oriented X3 - Psychiatric Psychiatric exam: Present: normal affect, normal mood - Skin Skin exam: Present: warm, dry, intact, normal color. Absent: rash ED Course Vital Signs 10/22/18 10/22/18 10/22/18 09:01 10:09 10:15 Pulse Rate 88 80 80 Respiratory 18 12 14 Rate Blood Pressure 145/53 154/59 170/54 O2 Sat by Pulse 97 98 99 Oximetry 10/22/18 10/22/18 10/22/18 10:30 10:46 11:00 Pulse Rate 81 82 83 Respiratory 11 L 14 16 Rate Blood Pressure 170/54 153/48 159/42 O2 Sat by Pulse 99 98 99 Oximetry 10/22/18 10/22/18 10/22/18 11:16 11:30 11:46 Pulse Rate 84 84 83 Respiratory 16 15 19 Rate Blood Pressure 159/42 148/59 168/51 O2 Sat by Pulse 99 99 99 Oximetry 10/22/18 10/22/18 10/22/18 12:00 12:16 13:01 Pulse Rate 84 85 Respiratory 17 17 Rate Blood Pressure 157/59 157/59 136/49 O2 Sat by Pulse 97 99 Oximetry 10/22/18 14:09 Pulse Rate 89 Respiratory 15 Rate Blood Pressure 136/49 O2 Sat by Pulse 99 Oximetry - Reevaluation(s) Reevaluation #1: Discussed all results with patient. Patient admitted to the hospitalist service. Patient agrees to plan of care and admission. 10/22/18 14:00 - Consultations Consultation #1: Hospitalist consult information. Hospitalist to admit patient. 10/22/18 14:00 ED Medical Decision Making - Lab Data Result diagrams: 10/22/18 09:44 10/22/18 09:44 - EKG Data -: EKG Interpreted by [facility] EKG shows normal: sinus rhythm, axis, intervals, QRS complexes, ST-T waves Rate: normal - Radiology Data Radiology results: report reviewed FINAL REPORT EXAM: CT ABDOMEN PELVIS WO CON HISTORY: abd pain. n.v TECHNIQUE: CT of the abdomen and pelvis without IV contrast. Coronal and sagittal reconstructed imaging provided. PRIORS: None currently available. FINDINGS: ABDOMEN: Scarring in the lingula and left lung base. Spleen: 13.4 cm. No distinct lesions. Stomach: Small hiatal hernia. Otherwise unremarkable. Liver, atrophic pancreas, and adrenals are unremarkable. Gallbladder: Not clearly visualized. Contracted or surgically removed. Kidneys: No hydronephrosis. No nephroureteral stones. Right renal mid cortical cyst measures 1.7 cm. IVC is unremarkable. Mild aortic atherosclerotic disease. Infrarenal abdominal aortic aneurysm measures 3.4 cm. There is no periaortic or retroperitoneal adenopathy or mass. [id number] stool. Diverticulosis. No wall thickening or inflammatory changes. Terminal ileum is unremarkable. The appendix is not identified. There are no pericecal inflammatory changes. Small bowel loops are unremarkable. No obstructive pattern. Mesentery is unremarkable. No free air. No free fluid. PELVIS: Uterus is not clearly identified and may be surgically removed, small, or atrophic. Bladder is unremarkable. No wall thickening. No stones. There is no pelvic mass or adenopathy. Inguinal regions are unremarkable. Bones: No suspicious osseous lesions on this limited examination of the skeleton. Metastatic disease better evaluated with bone scan. Degenerative changes are in the spine. Straightening of the normal lordotic alignment. Bilateral sacroiliitis. Degenerative changes in both hips. IMPRESSION: Splenomegaly. Small hiatal hernia. Otherwise, no acute findings. Transcribed By: TYM Dictated By: TRAVIS MCKINNEY MD Electronically Authenticated By: TRAVIS MCKINNEY MD Signed Date/Time: 10/22/18 1306 - Medical Decision Making Patient is a 78-year-old female that presents emergency with complaints of intractable nausea vomiting abdominal pain and chest pain. Patient will be admitted to the hospital service for further evaluation and treatment and rule out ACS. Patient also required IV fluids for intractable nausea and vomiting. CT scan was done ER is negative. Labs unremarkable except for chronic kidney disease. - Differential Diagnosis n/v/ abd pain. cp.acs Critical Care Time: Yes Critical care attestation.: If time is entered above; I have spent that time in minutes in the direct care of this critically ill patient, excluding procedure time. Critical Care Time: 35 minutes ED Disposition Clinical Impression: Dehydration Chest pain Qualifiers: Chest pain type: unspecified Qualified Code(s): R07.9 - Chest pain, unspecified Abdominal pain Qualifiers: Abdominal location: generalized Qualified Code(s): R10.84 - Generalized abdominal pain Intractable nausea and vomiting Qualifiers: Vomiting type: unspecified Qualified Code(s): R11.2 - Nausea with vomiting, unspecified Chronic kidney disease Qualifiers: Chronic kidney disease stage: unspecified stage Qualified Code(s): N18.9 - C hronic kidney disease, unspecified Disposition: [id number] OP ADMIT IP TO THIS HOSP Is pt being admited?: Yes Does the pt Need Aspirin: No Condition: Serious Time of Disposition: 13:37
[2018-10-22 10:06] LABS: Hematocrit 36.2 % (30.3-42.9); Hemoglobin 11.6 gm/dl (10.1-14.3); Mean Corpuscular HGB Conc 32 % (30-34); Mean Corpuscular Volume 87 fl (79-97); Platelet Count 355 K/mm3 (140-440); Red Blood Count 4.16 M/mm3 (3.65-5.03); Red Cell Distribution Width 14.6 % (13.2-15.2)
[2018-10-22 10:25] LABS: Albumin 2.9 g/dL (3.9-5); BUN/Creatinine Ratio 8; Blood Urea Nitrogen 19 mg/dL (7-17); Hemolysis Index 39
[2018-10-22 10:30] LABS: Alanine Aminotransferase < 5 units/L (7-56)
[2018-10-22 11:17] LABS: Band Neutrophils # (Manual) 0.1 K/mm3; Total Cells Counted 100
[2018-10-22 11:19] LABS: Anisocytosis 1+; Platelet Estimate Cons
--- NOTE | 2018-10-22 13:06 | Cat Scan Report ---
FINAL REPORT EXAM: CT ABDOMEN PELVIS WO CON HISTORY: abd pain. n.v TECHNIQUE: CT of the abdomen and pelvis without IV contrast. Coronal and sagittal reconstructed imag ing provided. PRIORS: None currently available. FINDINGS: ABDOMEN: Scarring in the lingula and left lung base. Spleen: 13.4 cm. No distinct lesions. Stomach: Small hiatal hernia. Otherwise unremarkable. Liver, atrophic pancreas, and adrenals are unremarkable. Gallbladder: Not clearly visualized. Contracted or surgically removed. Kidneys: No hydronephrosis. No nephroureteral stones. Right renal mid cortical cyst measures 1.7 cm. IVC is unremarkable. Mild aortic atherosclerotic disease. Infrarenal abdominal aortic aneurysm measures 3.4 cm. There is no periaortic or retroperitoneal adenopathy or mass. [id number] stool. Diverticulosis. No wall thickening or inflammatory changes. Terminal ileum is unremarkable. The appendix is not identified. There are no pericecal inflammatory changes. Small bowel loops are unremarkable. No obstructive pattern. Mesentery is unremarkable. No free air. No free fluid. PELVIS: Uterus is not clearly identified and may be surgically removed, small, or atrophic. Bladder is unremarkable. No wall thickening. No stones. There is no pelvic mass or adenopathy. Inguinal regions are unremarkable. Bones: No suspicious osseous lesions on this limited examination of the skeleton. Metastatic disease better evaluated with bone scan. Degenerative changes are in the spine. Straightening of the normal lordotic alignment. Bilateral sacroiliitis. Degenerative changes in both hips. IMPRESSION: Splenomegaly. Small hiatal hernia. Otherwise, no acute findings.
[2018-10-22] MEDS: ZOFRAN IV PRN (15:08)
[2018-10-22] MEDS: DILAUDID IV PRN ×2 (15:09→19:21)
[2018-10-22] MEDS ORDERED: XANAX PO PRN (17:28)
--- NOTE | 2018-10-22 17:28 | History and Physical Report ---
History of Present Illness Date of examination: 10/22/18 Date of admission: 10/22/18 Chief complaint: N/V/D for 4 days History of present illness: 78-year-old femalewith pmh of CKD IDDM PN COPD and GERD presents to emergency room with complaints of nausea and vomiting and abdominal pain and chest pain 4 days. Patient states the nausea and vomiting is worsening and is unable to hold any by mouth intake for 4 days. Patient states that chest pain is in the center of her chest and it is nonradiating it is a 5 out of 10. Patient states the pain is better rest worse with exertion and vomiting. Patient states abdominal pain is a 6 out of 10 and is better with rest and worse with palpation and movement. Patient states the abdominal pain is nonradiating. Patient denies blood in her vomitus and stool. Patient has diarrhea too. Patient denies fever and chills. 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 Stage IV bladder cancer - Surgical History Past Surgical History?: Yes Hx Cholecystectomy: Yes Hx Appendectomy: Yes Hx Breast Surgery: Yes (LEFT BREAST MASS REMOVED) Additional Surgical History: left foot, hysterectomy, right breast, left shoulder, right eye - cataract, left eye - macula, bladder tumor removal 09/2018. - Family History Family history: no significant - Social History Smoking Status: Never Smoker Substance Use Type: None - Medications Home Medications: Home Medications Medication Instructions Recorded Confirmed Last Taken Type ALPRAZolam [Xanax TAB] 0.25 mg PO PRN PRN 09/13/16 10/02/18 10/01/18 21:00 History Ipratropium/Albuterol Sulfate 1 ampul IH QID 09/13/16 10/02/18 10/01/18 20:00 History [DUONEB *Not for PRN Use*] Sucralfate 1 gm PO QID 09/13/16 10/02/18 10/02/18 07:30 History Indacaterol Maleate [Arcapta 75 mcg IH DAILY 01/22/17 10/02/18 10/01/18 19:30 History Neohaler] Gabapentin [Neurontin] 200 mg PO BID 09/03/17 10/02/18 10/02/18 07:30 History Sodium Bicarbonate 650 mg PO BID 09/03/17 10/02/18 10/02/18 07:30 History Tiotropium [Spiriva] 18 mcg IH QDAY 09/03/17 10/02/18 10/02/18 07:30 History Ranitidine HCl [Acid Honing Machine Operator Tool] 150 mg PO BID 10/29/17 10/02/18 10/02/18 07:30 History Beclomethasone Dipropionate [Qvar] 8.7 gm IH BID 03/29/18 10/02/18 10/02/18 0 7:30 History guaiFENesin [Mucinex] 600 mg PO DAILY 03/29/18 10/02/18 10/02/18 07:30 History Insulin NPH/Regular [NovoLIN 70/30] 10 unit SQ BID 09/19/18 10/02/18 10/01/18 19:00 History Linaclotide (Nf) [Linzess (Nf)] 290 mcg PO QDAY 09/19/18 10/02/18 10/01/18 20:00 History Verapamil ER [Calan Sr] 180 mg PO DAILY 09/19/18 10/02/18 10/02/18 07:30 History oxyCODONE /ACETAMINOPHEN [Percocet 1 tab PO Q6HR PRN 09/19/18 10/02/18 09/30/18 20:00 History 5/325] predniSONE [Prednisone] 10 mg PO Q48HR 09/19/18 10/02/18 09/30/18 09:00 History Review of Systems ROS: Stated complaint: NAUSEA/VOMITING/DIARRHEA Other details as noted in HPI Constitutional: denies: chills, fever Eyes: denies: eye pain, eye discharge, vision change ENT: denies: ear pain, throat pain Respiratory: denies: cough, shortness of breath, wheezing Cardiovascular: chest pain. denies: palpitations Endocrine: no symptoms reported Gastrointestinal: abdominal pain, nausea, vomiting. denies: diarrhea Genitourinary: denies: urgency, dysuria, discharge Musculoskeletal: denies: back pain, joint swelling, arthralgia Skin: denies: rash, lesions Neurological: denies: headache, weakness, paresthesias Psychiatric: denies: anxiety, depression Hematological/Lymphatic: denies: easy bleeding, easy bruising Medications and Allergies Allergies Allergy/AdvReac Type Severity Reaction Status Date / Time aspirin Allergy Shortness Verified 09/17/17 17:58 of Breath , CHEST PAIN escitalopram [From Lexapro] Allergy Shortness Verified 04/17/18 11:43 of Breath salmeterol xinafoate Allergy Shortness Verified 01/22/17 08:45 [From Serevent] of Breath levofloxacin [From Levaquin] AdvReac Rash Verified 09/13/16 16:22 Sulfa (Sulfonamide AdvReac contraindicated Verified 10/31/17 11:19 Antibiotics) due to kidney function tramadol AdvReac Nausea Verified 09/19/18 16:34 contrast dye AdvReac contraindicated Uncoded 04/17/18 11:59 due to renal insufficiency Home Medications Medication Instructions Recorded Confirmed Last Taken Type ALPRAZolam [Xanax TAB] 0.25 mg PO PRN PRN 09/13/16 10/22/18 10/01/18 21:00 History Ipratropium/Albuterol Sulfate 1 ampul IH QID 09/13/16 10/22/18 10/22/18 20:00 History [DUONEB *Not for PRN Use*] Sucralfate 1 gm PO QID 09/13/16 10/22/18 10/22/18 22:00 History Indacaterol Maleate [Arcapta 75 mcg IH DAILY 01/22/17 10/22/18 10/01/18 19:30 History Neohaler] Gabapentin [Neurontin] 200 mg PO BID 09/03/17 10/22/18 10/22/18 22:00 History Sodium Bicarbonate 650 mg PO BID 09/03/17 10/22/18 10/22/18 22:00 History Tiotropium [Spiriva] 18 mcg IH QDAY 09/03/17 10/22/18 10/02/18 07:30 History Ranitidine HCl [Acid Honing Machine Operator Tool] 150 mg PO BID 10/29/17 10/22/18 10/22/18 22:00 History Beclomethasone Dipropionate [Qvar] 8.7 gm IH BID 03/29/18 10/22/18 10/22/18 20:00 History guaiFENesin [Mucinex] 600 mg PO DAILY 03/29/18 10/22/18 10/02/18 07:30 History Insulin NPH/Regular [NovoLIN 70/30] 10 unit SQ BID 09/19/18 10/22/18 10/01/18 19:00 History Linaclotide (Nf) [Linzess (Nf)] 290 mcg PO QDAY 09/19/18 10/22/18 10/21/18 History Verapamil ER [Calan Sr] 180 mg PO DAILY 09/19/18 10/22/18 10/02/18 07:30 History oxyCODONE /ACETAMINOPHEN [Percocet 1 tab PO Q6HR PRN 09/19/18 10/22/18 09/30/18 20:00 History 5/325] predniSONE [Prednisone] 10 mg PO Q48HR 09/19/18 10/22/18 09/30/18 09:00 History Active Meds: Active Medications Hydromorphone HCl (Dilaudid) 1 mg IV Q3H PRN PRN Reason: Pain , Severe (7-10) Last Admin: 10/22/18 15:09 Dose: 1 mg Documented by: Ondansetron HCl (Zofran) 4 mg IV Q3H PRN PRN Reason: nausea/vomiting Last Admin: 10/22/18 15:08 Dose: 4 mg Documented by: Exam - Constitutional Vitals: Temp Pulse Resp BP Pulse Ox 89 20 151/51 99 10/22/18 15:00 10/22/18 15:09 10/22/18 15:00 10/22/18 15:00 General appearance: Present: no acute distress, well-nourished - EENT Eyes: Present: PERRL ENT: hearing intact, clear oral mucosa - Neck Neck: Present: supple, normal ROM - Respiratory Respiratory effort: normal Respiratory: bilateral: CTA - Cardiovascular Heart rate: 82 Rhythm: regular Heart Sounds: Present: S1 & S2. Absent: rub, click - Extremities Extremities: no ischemia, pulses intact, pulses symmetrical, No edema Peripheral Pulses: within normal limits - Abdominal General gastrointestinal: Present: soft, non-tender, non-distended, normal bowel sounds Female genitourinary: Present: normal - Rectal Rectal Exam: deferred - Integumentary Integumentary: Present: clear, warm, dry - Musculoskeletal Musculoskeletal: gait normal, strength equal bilaterally - Psychiatric Psychiatric: appropriate mood/affect, intact judgment & insight - Neurologic Neurologic: CNII-XII intact, moves all extremities - Allied Health Allied health notes reviewed: nursing, case management Results - Labs CBC & Chem 7: 10/22/18 09:44 10/22/18 09:44 Labs: Laboratory Last Values WBC 7.2 K/mm3 (4.5-11.0) 10/22/18 09:44 RBC 4.16 M/mm3 (3.65-5.03) 10/22/18 09:44 Hgb 11.6 gm/dl (10.1-14.3) 10/22/18 09:44 Hct 36.2 % (30.3-42.9) 10/22/18 09:44 MCV 87 fl (79-97) 10/22/18 09:44 MCH 28 pg (28-32) 10/22/18 09:44 MCHC 32 % (30-34) 10/22/18 09:44 RDW 14.6 % (13.2-15.2) 10/22/18 09:44 Plt Count 355 K/mm3 (140-440) 10/22/18 09:44 Add Manual Diff Complete 10/22/18 09:44 Total Counted 100 10/22/18 09:44 Seg Neuts % (Manual) 78.0 % (40.0-70.0) H 10/22/18 09:44 Band Neutrophils % 2.0 % 10/22/18 09:44 Lymphocytes % (Manual) 13.0 % (13.4-35.0) L 10/22/18 09:44 Reactive Lymphs % (Man) 0 % 10/22/18 09:44 Monocytes % (Manual) 1.0 % (0.0-7.3) 10/22/18 09:44 Eosinophils % (Manual) 3.0 % (0.0-4.3) 10/22/18 09:44 Basophils % (Manual) 1.0 % (0.0-1.8) 10/22/18 09:44 Metamyelocytes % 2.0 % 10/22/18 09:44 Myelocytes % 0 % 10/22/18 09:44 Promyelocytes % 0 % 10/22/18 09:44 Blast Cells % 0 % 10/22/18 09:44 Nucleated RBC % Not Reportable 10/22/18 09:44 Seg Neutrophils # Man 5.6 K/mm3 (1.8-7.7) 10/22/18 09:44 Band Neutrophils # 0.1 K/mm3 10/22/18 09:44 Lymphocytes # (Manual) 0.9 K/mm3 (1.2-5.4) L 10/22/18 09:44 Abs React Lymphs (Man) 0.0 K/mm3 10/22/18 09:44 Monocytes # (Manual) 0.1 K/mm3 (0.0-0.8) 10/22/18 09:44 Eosinophils # (Manual) 0.2 K/mm3 (0.0-0.4) 10/22/18 09:44 Basophils # (Manual) 0.1 K/mm3 (0.0-0.1) 10/22/18 09:44 Metamyelocytes # 0.1 K/mm3 10/22/18 09:44 Myelocytes # 0.0 K/mm3 10/22/18 09:44 Promyelocytes # 0.0 K/mm3 10/22/18 09:44 Blast Cells # 0.0 K/mm3 10/22/18 09:44 WBC Morphology Not Reportable 10/22/18 09:44 Hypersegmented Neuts Not Reportable 10/22/18 09:44 Hyposegmented Neuts Not Reportable 10/22/18 09:44 Hypogranular Neuts Not Reportable 10/22/18 09:44 Smudge Cells Not Reportable 10/22/18 09:44 Toxic Granulation Not Reportable 10/22/18 09:44 Toxic Vacuolation Not Reportable 10/22/18 09:44 Dohle Bodies Not Reportable 10/22/18 09:44 Pelger-Huet Anomaly Not Reportable 10/22/18 09:44 Aaron Rods Not Reportable 10/22/18 09:44 Platelet Estimate Cons 10/22/18 09:44 Clumped Platelets Not Reportable 10/22/18 09:44 Plt Clumps, EDTA Not Reportable 10/22/18 09:44 Large Platelets Not Reportable 10/22/18 09:44 Giant Platelets Not Reportable 10/22/18 09:44 Platelet Satelliting Not Reportable 10/22/18 09:44 Plt Morphology Comment Not Reportable 10/22/18 09:44 RBC Morphology Not Reportable 10/22/18 09:44 Dimorphic RBCs Not Reportable 10/22/18 09:44 Polychromasia Not Reportable 10/22/18 09:44 Hypochromasia Not Reportable 10/22/18 09:44 Poikilocytosis Not Reportable 10/22/18 09:44 Anisocytosis 1+ 10/22/18 09:44 Microcytosis Not Reportable 10/22/18 09:44 Macrocytosis Not Reportable 10/22/18 09:44 Spherocytes Not Reportable 10/22/18 09:44 Pappenheimer Bodies Not Reportable 10/22/18 09:44 Sickle Cells Not Reportable 10/22/18 09:44 Target Cells Not Reportable 10/22/18 09:44 Tear Drop Cells Not Reportable 10/22/18 09:44 Ovalocytes Not Reportable 10/22/18 09:44 Helmet Cells Not Reportable 10/22/18 09:44 [place] Bodies Not Reportable 10/22/18 09:44 Willard Rings Not Reportable 10/22/18 09:44 Vikash Cells Not Reportable 10/22/18 09:44 Bite Cells Not Reportable 10/22/18 09:44 Crenated Cell Not Reportable 10/22/18 09:44 Elliptocytes Not Reportable 10/22/18 09:44 Acanthocytes (Spur) Not Reportable 10/22/18 09:44 Rouleaux Not Reportable 10/22/18 09:44 Hemoglobin C Crystals Not Reportable 10/22/18 09:44 Schistocytes Not Reportable 10/22/18 09:44 Malaria parasites Not Reportable 10/22/18 09:44 Osvaldo Bodies Not Reportable 10/22/18 09:44 Hem Pathologist Commnt No 10/22/18 09:44 Sodium 143 mmol/L (137-145) 10/22/18 09:44 Potassium 4.1 mmol/L (3.6-5.0) 10/22/18 09:44 Chloride 104.3 mmol/L (98-107) 10/22/18 09:44 Carbon Dioxide 25 mmol/L (22-30) 10/22/18 09:44 Anion Gap 18 mmol/L 10/22/18 09:44 BUN 19 mg/dL (7-17) H 10/22/18 09:44 Creatinine 2.4 mg/dL (0.7-1.2) H 10/22/18 09:44 Estimated GFR 19 ml/min 10/22/18 09:44 BUN/Creatinine Ratio 8 % 10/22/18 09:44 Glucose 118 mg/dL (65-100) H 10/22/18 09:44 Lactic Acid 0.90 mmol/L (0.7-2.0) 10/22/18 10:18 Calcium 9.0 mg/dL (8.4-10.2) 10/22/18 09:44 Total Bilirubin 0.20 mg/dL (0.1-1.2) 10/22/18 09:44 AST 14 units/L (5-40) 10/22/18 09:44 ALT < 5 units/L (7-56) L 10/22/18 09:44 Alkaline Phosphatase 89 units/L (35-129) 10/22/18 09:44 Troponin T 0.014 ng/mL (0.00-0.029) 10/22/18 12:01 Total Protein 5.7 g/dL (6.3-8.2) L 10/22/18 09:44 Albumin 2.9 g/dL (3.9-5) L 10/22/18 09:44 Albumin/Globulin Ratio 1.0 % 10/22/18 09:44 Lipase 15 units/L (13-60) 10/22/18 10:18 - Imaging and Cardiology EKG: report reviewed (Nsar 82/min) Imaging and Cardiology: Abd Ct IMPRESSION: Splenomegaly. Small hiatal hernia. Otherwise, no acute findings. Assessment and Plan Advance Directives: Yes (Full code) VTE prophylaxis?: Chemical Plan of care discussed with patient/family: Yes - Patient Problems (1) Intractable nausea and vomiting Current Visit: Yes Status: Acute Qualifiers: Vomiting type: unspecified Qualified Code(s): R11.2 - Nausea with vomiting, unspecified Plan to address problem: Symprtomatic treatment IV Fluids IV Zofran Stool cultures GI consult (2) COPD (chronic obstructive pulmonary disease) Current Visit: No Status: Chronic Qualifiers: COPD type: COPD with acute lower respiratory infection Qualified Code(s): J44.0 - Chronic obstructive pulmonary disease with acute lower respiratory infection Plan to address problem: COnt Duonebs (3) Dehydration Current Visit: Yes Status: Acute Plan to address problem: IV Fluids (4) PUMA (acute kidney injury) Current Visit: Yes Status: Acute Plan to address problem: PUMA on CKD IV Fluids Renal consult (5) IDDM (insulin dependent diabetes mellitus) Current Visit: Yes Status: Chronic Plan to address problem: Coverage for now (6) HTN (hypertension) Current Visit: Yes Status: Chronic Qualifiers: Hypertension type: essential hypertension Qualified Code(s): I10 - Essential (primary) hypertension Plan to address problem: Cont antihypertensives (7) IBS (irritable bowel syndrome) Current Visit: Yes Status: Chronic Qualifiers: Irritable bowel syndrome type: with diarrhea Qualified Code(s): K58.0 - Irritable bowel syndrome with diarrhea Plan to address problem: Cont Linzess (8) GERD (gastroesophageal reflux disease) Current Visit: Yes Status: Chronic Qualifiers: Esophagitis presence: with esophagitis Qualified Code(s): K21.0 - Gastro- esophageal reflux disease with esophagitis Plan to address problem: Cont PPI's (9) DVT prophylaxis Current Visit: Yes Status: Acute Plan to address problem: On Lovenox and GI prophylaxis
[2018-10-22] MEDS ORDERED: NON-FORMULARY (Linaclotide (Nf) 290 MCG) PO SCH (17:30)
[2018-10-22] MEDS ORDERED: SODIUM CHLORIDE FLUSH SYRINGE 10 ML IV PRN (17:31)
[2018-10-22] MEDS ORDERED: DIFLUCAN 200 ML IV SCH (18:00)
[2018-10-22] MEDS ORDERED: DILAUDID ONE (19:21)
[2018-10-22] MEDS: DUONEB *Not for PRN Use IH SCH (20:24)
[2018-10-22] MEDS ORDERED: NON-FORMULARY (Beclomethasone Dipropionate [Qvar] 8.7 GM) IH SCH (22:00)
[2018-10-22] MEDS ORDERED: NON-FORMULARY (Ranitidine Hcl [Acid Reducer] 150 MG) PO SCH (22:00)
[2018-10-22] MEDS: PROTONIX IV SCH (22:11)
[2018-10-22] MEDS: PEPCID PO SCH (22:11)
[2018-10-22] MEDS: CARAFATE PO SCH ×2 (22:11→23:29)
[2018-10-22] MEDS: SODIUM BICARBONATE PO SCH (22:11)
[2018-10-22] MEDS: NEURONTIN PO SCH (22:11)
[2018-10-22] MEDS: SODIUM CHLORIDE FLUSH SYRINGE 10 ML IV SCH (22:12)
[2018-10-22] MEDS: NACL 0.9% 1000 ML 1,000 ML IV SCH (23:07)
[2018-10-22] MEDS: CALAN SR PO SCH (23:21)
[2018-10-22] MEDS: LOVENOX SUB-Q SCH (23:30)
[2018-10-23 03:16] LABS: Hematocrit 34.2 % (30.3-42.9); Hemoglobin 11.2 gm/dl (10.1-14.3); Mean Corpuscular HGB Conc 33 % (30-34); Mean Corpuscular Volume 87 fl (79-97); Platelet Count 371 K/mm3 (140-440); Red Blood Count 3.92 M/mm3 (3.65-5.03); Red Cell Distribution Width 14.8 % (13.2-15.2)
[2018-10-23 03:50] LABS: BUN/Creatinine Ratio 8; Blood Urea Nitrogen 18 mg/dL (7-17); Calcium 8.7 mg/dL (8.4-10.2); Hemolysis Index 8
[2018-10-23 04:00] LABS: Alanine Aminotransferase < 5 units/L (7-56)
[2018-10-23 04:05] LABS: Band Neutrophils # (Manual) 0.1 K/mm3; Basophils % (Manual) 0 % (0.0-1.8); Total Cells Counted 100
[2018-10-23 04:06] LABS: Platelet Estimate Consistent w Auto; RBC Morphology Normal
[2018-10-23] MEDS: DUONEB *Not for PRN Use IH SCH ×5 (08:00→20:37)
--- NOTE | 2018-10-23 08:30 | Consultation ---
History of Present Illness - Reason for Consult Consult date: 10/23/18 chronic renal failure Requesting physician: CELI ZAMORA - History of Present Illness 78-year-old femalewith pmh of CKD IDDM PN COPD and GERD presents to emergency room with complaints of nausea and vomiting and abdominal pain and chest pain 4 days. Patient states the nausea and vomiting is worsening and is unable to hold any by mouth intake for 4 days. Patient states that chest pain is in the center of her chest and it is nonradiating it is a 5 out of 10. Patient states the pain is better rest worse with exertion and vomiting. Patient states abdominal pain is a 6 out of 10 and is better with rest and worse with palpation and movement. Patient states the abdominal pain is nonradiating. Patient denies blood in her vomitus and stool. Patient has diarrhea too. Patient denies fever and chills. Past History Past Medical History: COPD, hypertension, renal failure Past Surgical History: No surgical history Social history: no significant social history Family history: no significant family history Medications and Allergies Allergies Allergy/AdvReac Type Severity Reaction Status Date / Time aspirin Allergy Shortness Verified 09/17/17 17:58 of Breath , CHEST PAIN escitalopram [From Lexapro] Allergy Shortness Verified 04/17/18 11:43 of Breath salmeterol xinafoate Allergy Shortness Verified 01/22/17 08:45 [From Serevent] of Breath levofloxacin [From Levaquin] AdvReac Rash Verified 09/13/16 16:22 Sulfa (Sulfonamide AdvReac contraindicated Verified 10/31/17 11:19 Antibiotics) due to kidney function tramadol AdvReac Nausea Verified 09/19/18 16:34 contrast dye AdvReac contraindicated Uncoded 04/17/18 11:59 due to renal insufficiency Home Medications Medication Instructions Recorded Confirmed Last Taken Type ALPRAZolam [Xanax TAB] 0.25 mg PO PRN PRN 09/13/16 10/22/18 10/01/18 21:00 Histo ry Ipratropium/Albuterol Sulfate 1 ampul IH QID 09/13/16 10/22/18 10/22/18 20:00 History [DUONEB *Not for PRN Use*] Sucralfate 1 gm PO QID 09/13/16 10/22/18 10/22/18 22:00 History Indacaterol Maleate [Arcapta 75 mcg IH DAILY 01/22/17 10/22/18 10/01/18 19:30 History Neohaler] Gabapentin [Neurontin] 200 mg PO BID 09/03/17 10/22/18 10/22/18 22:00 History Sodium Bicarbonate 650 mg PO BID 09/03/17 10/22/18 10/22/18 22:00 History Tiotropium [Spiriva] 18 mcg IH QDAY 09/03/17 10/22/18 10/02/18 07:30 History Ranitidine HCl [Acid User Experience Team Lead] 150 mg PO BID 10/29/17 10/22/18 10/22/18 22:00 History Beclomethasone Dipropionate [Qvar] 8.7 gm IH BID 03/29/18 10/22/18 10/22/18 20:00 History guaiFENesin [Mucinex] 600 mg PO DAILY 03/29/18 10/22/18 10/02/18 07:30 History Insulin NPH/Regular [NovoLIN 70/30] 10 unit SQ BID 09/19/18 10/22/18 10/01/18 19:00 History Linaclotide (Nf) [Linzess (Nf)] 290 mcg PO QDAY 09/19/18 10/22/18 10/21/18 History Verapamil ER [Calan Sr] 180 mg PO DAILY 09/19/18 10/22/18 10/02/18 07:30 History oxyCODONE /ACETAMINOPHEN [Percocet 1 tab PO Q6HR PRN 09/19/18 10/22/18 09/30/18 20:00 History 5/325] predniSONE [Prednisone] 10 mg PO Q48HR 09/19/18 10/22/18 09/30/18 09:00 History Active Meds: Active Medications Acetaminophen (Tylenol) 650 mg PO Q4H PRN PRN Reason: Pain MILD(1-3)/Fever >100.5/[place] Albuterol/Ipratropium (Duoneb *Not For Prn Use*) 1 ampul IH QID [facility] Last Admin: 10/23/18 08:01 Dose: 1 ampul Documented by: Alprazolam (Xanax) 0.25 mg PO Q8H PRN PRN Reason: Anxiety Enoxaparin Sodium (Lovenox) 30 mg SUB-Q QDAY [facility] Last Admin: 10/22/18 23:30 Dose: Not Given Documented by: Famotidine (Pepcid) 20 mg PO BID [facility] Last Admin: 10/22/18 22:11 Dose: 20 mg Documented by: Gabapentin (Neurontin) 200 mg PO BID [facility] Last Admin: 10/22/18 22:11 Dose: 200 mg Documented by: Hydromorphone HCl (Dilaudid) 1 mg IV Q3H PRN PRN Reason: Pain , Severe (7-10) Last Admin: 10/22/18 19:21 Dose: 1 mg Documented by: Sodium Chloride (Nacl 0.9% 1000 Ml) 1,000 mls @ 75 mls/hr IV DIRECT [facility] Last Admin: 10/22/18 23:07 Dose: 75 mls/hr Documented by: Fluconazole (Diflucan) 200 mls @ 100 mls/hr IV DAILY@1800 [facility]; Protocol Miscellaneous Medication (Beclomethasone Dipropionate [Qvar]) 8.7 gm IH BID [facility] Miscellaneous Medication (Linaclotide (Nf)) 290 mcg PO QDAY [facility] Ondansetron HCl (Zofran) 4 mg IV Q3H PRN PRN Reason: nausea/vomiting Last Admin: 10/22/18 15:08 Dose: 4 mg Documented by: Ondansetron HCl (Zofran) 4 mg IV Q8H PRN PRN Reason: Nausea And Vomiting Oxycodone/Acetaminophen (Percocet 5/325) 1 tab PO Q6HR PRN PRN Reason: Pain Pantoprazole Sodium (Protonix) 40 mg IV BID [facility] Last Admin: 10/22/18 22:11 Dose: 40 mg Documented by: Prednisone (Deltasone) 10 mg PO Q48H [facility] Sodium Bicarbonate (Sodium Bicarbonate) 650 mg PO BID [facility] Last Admin: 10/22/18 22:11 Dose: 650 mg Documented by: Sodium Chloride (Sodium Chloride Flush Syringe 10 Ml) 10 ml IV BID [facility] Last Admin: 10/22/18 22:12 Dose: 10 ml Documented by: Sodium Chloride (Sodium Chloride Flush Syringe 10 Ml) 10 ml IV PRN PRN PRN Reason: LINE FLUSH Sucralfate (Carafate) 1 gm PO QID [facility] Last Admin: 10/22/18 23:29 Dose: Not Given Documented by: Tiotropium [place] (Spiriva) 1 puff IH QDAY [facility] Verapamil HCl (Calan Sr) 180 mg PO DAILY [facility] Last Admin: 10/22/18 23:21 Dose: 180 mg Documented by: Review of Systems All systems: negative (negative except as per noted above) Exam - Vital Signs Vital signs: Vital Signs Pulse Resp BP Pulse Ox 88 18 145/53 97 10/22/18 09:01 10/22/18 09:01 10/22/18 09:01 10/22/18 09:01 - General Appearance General appearance: well-developed, well-nourished, appears stated age, obese EENT: PERRL, mucous membranes moist Neck: Present: neck supple, trachea midline. Absent: JVD/HJR, Masses Respiratory: Wheezes (bilateral wheezing) Heart: regular, normal heart rate, S1S2, no murmurs Gastrointestinal: Present: normal, normoactive bowel sounds, other (abdominal wall edema noted) Integumentary: other (1+ edema) Results - Lab Results 10/23/18 02:27 10/23/18 02:27 Most recent lab results Calcium 8.7 mg/dL (8.4-10.2) 10/23/18 02:27 Assessment and Plan Impression * Acute on chronic renal failure * Nausea and vomiting * COPD * History of bladder cancer * Morbid obesity Recommendations * Patient's renal function appears to be close to baseline * Continue gentle hydration due to her GI symptoms * Check a UA as well as a fractional excretion of sodium * Avoid nephrotoxins * Monitor fluid status and electrolytes closely * Continue treatment for COPD * Check office records regarding previous renal status and workup * Thank you very much for the consultation. Shall follow along with you.
[2018-10-23] MEDS: PROTONIX IV SCH ×2 (09:26→21:16)
[2018-10-23] MEDS: LOVENOX SUB-Q SCH (09:29)
[2018-10-23] MEDS: CARAFATE PO SCH ×4 (09:30→21:15)
[2018-10-23] MEDS: NEURONTIN PO SCH ×2 (09:30→21:15)
[2018-10-23] MEDS: PEPCID PO SCH (09:30)
[2018-10-23] MEDS: SODIUM BICARBONATE PO SCH ×2 (09:30→21:15)
[2018-10-23] MEDS: CALAN SR PO SCH (09:31)
[2018-10-23] MEDS: SODIUM CHLORIDE FLUSH SYRINGE 10 ML IV SCH ×2 (09:33→21:16)
--- NOTE | 2018-10-23 10:18 | Gastroenterology Consultation ---
<SAFIA BORREGO - Last Filed: 10/23/18 10:47> History of Present Illness - Reason for Consult Consult date: 10/23/18 persistent vomiting, diarrhea Requesting physician: CELI ZAMORA - History of Present Illness Patient is a 78 y/o female with PMH of CKD, IDDM, PN, COPD (multiple previous exacerbations with intubations), bladder cancer, GERD, NSTEMI (05/2018), arthritis, and morbid obesity who presented to ED with c/o SOB, CP, N/V, abd pain, and diarrhea. Abd CT w/o acute findings upon admission. GI has been consulted for persistent vomiting and diarrhea. This morning patient was resting in bed w/o acute distress. Admits to continued SOB and mild nausea but states her CP/abd pain has resolved and diarrhea has improved with no BMs since admission. Requesting to eat. Denies fever, wt loss, dysphagia, or signs of bleeding. States she is an established patient of Dr. West and has hx of GERD and IBS-C to which she takes Linzess at home. No recent travel or known ill contacts but took antibiotics recently after bladder procedure. No hx of PUD. Last EGD a couple of years ago per patient report (results unknown; noted to be a poor historian). Past History Past Medical History: other (as per HPI) Past Surgical History: appendectomy, cholecystectomy, hysterectomy, Other (left breast mass removed,right breast, left shoulder, right eye - cataract, left eye - macula, bladder tumor removal 09/2018.) Social history: no significant social history Family history: no significant family history Medications and Allergies Allergies Allergy/AdvReac Type Severity Reaction Status Date / Time aspirin Allergy Shortness Verified 09/17/17 17:58 of Breath , CHEST PAIN escitalopram [From Lexapro] Allergy Shortness Verified 04/17/18 11:43 of Breath salmeterol xinafoate Allergy Shortness Verified 01/22/17 08:45 [From Serevent] of Breath levofloxacin [From Levaquin] AdvReac Rash Verified 09/13/16 16:22 Sulfa (Sulfonamide AdvReac contraindicated Verified 10/31/17 11:19 Antibiotics) due to kidney function tramadol AdvReac Nausea Verified 09/19/18 16:34 contrast dye AdvReac contraindicated Uncoded 04/17/18 11:59 due to renal insufficiency Home Medications Medication Instructions Recorded Confirmed Last Taken Type ALPRAZolam [Xanax TAB] 0.25 mg PO PRN PRN 09/13/16 10/22/18 10/01/18 21:00 History Ipratropium/Albuterol Sulfate 1 ampul IH QID 09/13/16 10/22/18 10/22/18 20:00 History [DUONEB *Not for PRN Use*] Sucralfate 1 gm PO QID 09/13/16 10/22/18 10/22/18 22:00 History Indacaterol Maleate [Arcapta 75 mcg IH DAILY 01/22/17 10/22/18 10/01/18 19:30 History Neohaler] Gabapentin [Neurontin] 200 mg PO BID 09/03/17 10/22/18 10/22/18 22:00 History Sodium Bicarbonate 650 mg PO BID 09/03/17 10/22/18 10/22/18 22:00 History Tiotropium [Spiriva] 18 mcg IH QDAY 09/03/17 10/22/18 10/02/18 07:30 History Ranitidine HCl [Acid Radiator Fitter] 150 mg PO BID 10/29/17 10/22/18 10/22/18 22:00 History Beclomethasone Dipropionate [Qvar] 8.7 gm IH BID 03/29/18 10/22/18 10/22/18 20:00 History guaiFENesin [Mucinex] 600 mg PO DAILY 03/29/18 10/22/18 10/02/18 07:30 History Insulin NPH/Regular [NovoLIN 70/30] 10 unit SQ BID 09/19/18 10/22/18 10/01/18 19:00 History Linaclotide (Nf) [Linzess (Nf)] 290 mcg PO QDAY 09/19/18 10/22/18 10/21/18 History Verapamil ER [Calan Sr] 180 mg PO DAILY 09/19/18 10/22/18 10/02/18 07:30 History oxyCODONE /ACETAMINOPHEN [Percocet 1 tab PO Q6HR PRN 09/19/18 10/22/18 09/30/18 20:00 History 5/325] predniSONE [Prednisone] 10 mg PO Q48HR 09/19/18 10/22/18 09/30/18 09:00 History Active Meds: Active Medications Acetaminophen (Tylenol) 650 mg PO Q4H PRN PRN Reason: Pain MILD(1-3)/Fever >100.5/[place] Albuterol/Ipratropium (Duoneb *Not For Prn Use*) 1 ampul IH QID [facility] Last Admin: 10/23/18 08:01 Dose: 1 ampul Documented by: Alprazolam (Xanax) 0.25 mg PO Q8H PRN PRN Reason: Anxiety Enoxaparin Sodium (Lovenox) 30 mg SUB-Q QDAY [facility] Last Admin: 10/23/18 09:29 Dose: 30 mg Documented by: Famotidine (Pepcid) 20 mg PO BID [facility] Last Admin: 10/23/18 09:30 Dose: 20 mg Documented by: Gabapentin (Neurontin) 200 mg PO BID [facility] Last Admin: 10/23/18 09:30 Dose: 200 mg Documented by: Hydromorphone HCl (Dilaudid) 1 mg IV Q3H PRN PRN Reason: Pain , Severe (7-10) Last Admin: 10/22/18 19:21 Dose: 1 mg Documented by: Sodium Chloride (Nacl 0.9% 1000 Ml) 1,000 mls @ 75 mls/hr IV DIRECT [facility] Last Admin: 10/22/18 23:07 Dose: 75 mls/hr Documented by: Fluconazole (Diflucan) 200 mls @ 100 mls/hr IV DAILY@1800 [facility]; Protocol Miscellaneous Medication (Beclomethasone Dipropionate [Qvar]) 8.7 gm IH BID [facility] Miscellaneous Medication (Linaclotide (Nf)) 290 mcg PO QDAY [facility] Ondansetron HCl (Zofran) 4 mg IV Q3H PRN PRN Reason: nausea/vomiting Last Admin: 10/22/18 15:08 Dose: 4 mg Documented by: Ondansetron HCl (Zofran) 4 mg IV Q8H PRN PRN Reason: Nausea And Vomiting Oxycodone/Acetaminophen (Percocet 5/325) 1 tab PO Q6HR PRN PRN Reason: Pain Pantoprazole Sodium (Protonix) 40 mg IV BID [facility] Last Admin: 01/02/19 09:26 Dose: 40 mg Documented by: Prednisone (Deltasone) 10 mg PO Q48H [facility] Sodium Bicarbonate (Sodium Bicarbonate) 650 mg PO BID [facility] Last Admin: 10/23/18 09:30 Dose: 650 mg Documented by: Sodium Chloride (Sodium Chloride Flush Syringe 10 Ml) 10 ml IV BID [facility] Last Admin: 10/23/18 09:33 Dose: Not Given Documented by: Sodium Chloride (Sodium Chloride Flush Syringe 10 Ml) 10 ml IV PRN PRN PRN Reason: LINE FLUSH Sucralfate (Carafate) 1 gm PO QID [facility] Last Admin: 10/23/18 09:30 Dose: 1 gm Documented by: Tiotropium [place] (Spiriva) 1 puff IH QDAY [facility] Verapamil HCl (Calan Sr) 180 mg PO DAILY [facility] Last Admin: 10/23/18 09:31 Dose: 180 mg Documented by: medications reviewed/updated as required Review of Systems - Review of Systems All systems: negative Respiratory: shortness of breath Gastrointestinal: abdominal pain (resolved), nausea, vomiting (resolved), diarrhea Exam - Constitutional Vital Signs: Temp Pulse Resp BP Pulse Ox 98.8 F 95 H 18 135/55 94 10/23/18 07:04 10/23/18 09:47 10/23/18 09:48 10/23/18 09:31 10/23/18 09:48 General appearance: no acute distress, obese (morbidly) - Respiratory Respiratory: bilateral: diminished - Cardiovascular Rhythm: regular Heart Sounds: Present: S1 & S2 - Gastrointestinal General gastrointestinal: Present: soft, non-tender, non-distended, normal bowel sounds, other (obese) - Neurologic Neurological: alert and oriented x3 - Labs CBC & Chem 7: 10/23/18 02:27 10/23/18 02:27 Lab Results: Laboratory Results - last 24 hr 10/22/18 10/22/18 10/22/18 09:44 09:44 10:18 WBC RBC Hgb Hct MCV MCH MCHC RDW Plt Count Add Manual Diff Complete Total Counted 100 Seg Neuts % (Manual) 78.0 H Band Neutrophils % 2.0 Lymphocytes % (Manual) 13.0 L Reactive Lymphs % (Man) 0 Monocytes % (Manual) 1.0 Eosinophils % (Manual) 3.0 Basophils % (Manual) 1.0 Metamyelocytes % 2.0 Myelocytes % 0 Promyelocytes % 0 Blast Cells % 0 Nucleated RBC % Not Reportable Seg Neutrophils # Man 5.6 Band Neutrophils # 0.1 Lymphocytes # (Manual) 0.9 L Abs React Lymphs (Man) 0.0 Monocytes # (Manual) 0.1 Eosinophils # (Manual) 0.2 Basophils # (Manual) 0.1 Metamyelocytes # 0.1 Myelocytes # 0.0 Promyelocytes # 0.0 Blast Cells # 0.0 WBC Morphology Not Reportable Hypersegmented Neuts Not Reportable Hyposegmented Neuts Not Reportable Hypogranular Neuts Not Reportable Smudge Cells Not Reportable Toxic Granulation Not Reportable Toxic Vacuolation Not Reportable Dohle Bodies Not Reportable Pelger-Huet Anomaly Not Reportable Aaron Rods Not Reportable Platelet Estimate Cons Clumped Platelets Not Reportable Plt Clumps, EDTA Not Reportable Large Platelets Not Reportable Giant Platelets Not Reportable Platelet Satelliting Not Reportable Plt Morphology Comment Not Reportable RBC Morphology Not Reportable Dimorphic RBCs Not Reportable Polychromasia Not Reportable Hypochromasia Not Reportable Poikilocytosis Not Reportable Anisocytosis 1+ Microcytosis Not Reportable Macrocytosis Not Reportable Spherocytes Not Reportable Pappenheimer Bodies Not Reportable Sickle Cells Not Reportable Target Cells Not Reportable Tear Drop Cells Not Reportable Ovalocytes Not Reportable Helmet Cells Not Reportable [place] Bodies Not Reportable [place] Rings Not Reportable Vikash Cells Not Reportable Bite Cells Not Reportable Crenated Cell Not Reportable Elliptocytes Not Reportable Acanthocytes (Spur) Not Reportable Rouleaux Not Reportable Hemoglobin C Crystals Not Reportable Schistocytes Not Reportable Malaria parasites Not Reportable Osvaldo Bodies Not Reportable Hem Pathologist Commnt No Sodium 143 Potassium 4.1 Chloride 104.3 Carbon Dioxide 25 Anion Gap 18 BUN 19 H Creatinine 2.4 H Estimated GFR 19 BUN/Creatinine Ratio 8 Glucose 118 H POC Glucose Hemoglobin A1c Lactic Acid 0.90 Calcium 9.0 Total Bilirubin 0.20 AST 14 ALT < 5 L Alkaline Phosphatase 89 Troponin T Total Protein 5.7 L Albumin 2.9 L Albumin/Globulin Ratio 1.0 Lipase 10/22/18 10/22/18 10/22/18 10:18 12:01 17:49 WBC RBC Hgb Hct MCV MCH MCHC RDW Plt Count Add Manual Diff Total Counted Seg Neuts % (Manual) Band Neutrophils % Lymphocytes % (Manual) Reactive Lymphs % (Man) Monocytes % (Manual) Eosinophils % (Manual) Basophils % (Manual) Metamyelocytes % Myelocytes % Promyelocytes % Blast Cells % Nucleated RBC % Seg Neutrophils # Man Band Neutrophils # Lymphocytes # (Manual) Abs React Lymphs (Man) Monocytes # (Manual) Eosinophils # (Manual) Basophils # (Manual) Metamyelocytes # Myelocytes # Promyelocytes # Blast Cells # WBC Morphology Hypersegmented Neuts Hyposegmented Neuts Hypogranular Neuts Smudge Cells Toxic Granulation Toxic Vacuolation Dohle Bodies Pelger-Huet Anomaly Aaron Rods Platelet Estimate Clumped Platelets Plt Clumps, EDTA Large Platelets Giant Platelets Platelet Satelliting Plt Morphology Comment RBC Morphology Dimorphic RBCs Polychromasia Hypochromasia Poikilocytosis Anisocytosis Microcytosis Macrocytosis Spherocytes Pappenheimer Bodies Sickle Cells Target Cells Tear Drop Cells Ovalocytes Helmet Cells Sol[place] Bodies [place] Rings Premium Cells Bite Cells Crenated Cell Elliptocytes Acanthocytes (Spur) Rouleaux Hemoglobin C Crystals Schistocytes Malaria parasites Osvaldo Bodies Hem Pathologist Commnt Sodium Potassium Chloride Carbon Dioxide Anion Gap BUN Creatinine Estimated GFR BUN/Creatinine Ratio Glucose POC Glucose Hemoglobin A1c 5.7 Lactic Acid Calcium Total Bilirubin AST ALT Alkaline Phosphatase Troponin T 0.014 Total Protein Albumin Albumin/Globulin Ratio Lipase 15 10/22/18 10/23/18 10/23/18 20:29 02:27 02:27 WBC 7.2 RBC 3.92 Hgb 11.2 Hct 34.2 MCV 87 MCH 28 MCHC 33 RDW 14.8 Plt Count 371 Add Manual Diff Complete Total Counted 100 Seg Neuts % (Manual) 64.0 Band Neutrophils % 1.0 Lymphocytes % (Manual) 21.0 Reactive Lymphs % (Man) 0 Monocytes % (Manual) 5.0 Eosinophils % (Manual) 9.0 H Basophils % (Manual) 0 Metamyelocytes % 0 Myelocytes % 0 Promyelocytes % 0 Blast Cells % 0 Nucleated RBC % Not Reportable Seg Neutrophils # Man 4.6 Band Neutrophils # 0.1 Lymphocytes # (Manual) 1.5 Abs React Lymphs (Man) 0.0 Monocytes # (Manual) 0.4 Eosinophils # (Manual) 0.6 H Basophils # (Manual) 0.0 Metamyelocytes # 0.0 Myelocytes # 0.0 Promyelocytes # 0.0 Blast Cells # 0.0 WBC Morphology Not Reportable Hypersegmented Neuts Not Reportable Hyposegmented Neuts Not Reportable Hypogranular Neuts Not Reportable Smudge Cells Not Reportable Toxic Granulation Not Reportable Toxic Vacuolation Not Reportable Dohle Bodies Not Reportable Pelger-Huet Anomaly Not Reportable Aaron Rods Not Reportable Platelet Estimate Consistent w auto Clumped Platelets Not Reportable Plt Clumps, EDTA Not Reportable Large Platelets Not Reportable Giant Platelets Not Reportable Platelet Satelliting Not Reportable Plt Morphology Comment Not Reportable RBC Morphology Normal Dimorphic RBCs Not Reportable Polychromasia Not Reportable Hypochromasia Not Reportable Poikilocytosis Not Reportable Anisocytosis Not Reportable Microcytosis Not Reportable Macrocytosis Not Reportable Spherocytes Not Reportable Pappenheimer Bodies Not Reportable Sickle Cells Not Reportable Target Cells Not Reportable Tear Drop Cells Not Reportable Ovalocytes Not Reportable Helmet Cells Not Reportable Sol-[place] Bodies Not Reportable [place] Rings Not Reportable Premium Cells Not Reportable Bite Cells Not Reportable Crenated Cell Not Reportable Elliptocytes Not Reportable Acanthocytes (Spur) Not Reportable Rouleaux Not Reportable Hemoglobin C Crystals Not Reportable Schistocytes Not Reportable Malaria parasites Not Reportable Osvaldo Bodies Not Reportable Hem Pathologist Commnt No Sodium 141 Potassium 4.0 Chloride 104.2 Carbon Dioxide 27 Anion Gap 14 BUN 18 H Creatinine 2.3 H Estimated GFR 20 BUN/Creatinine Ratio 8 Glucose 88 POC Glucose 84 Hemoglobin A1c Lactic Acid Calcium 8.7 Total Bilirubin 0.20 AST 15 ALT < 5 L Alkaline Phosphatase 79 Troponin T Total Protein 5.5 L Albumin 3.0 L Albumin/Globulin Ratio 1.2 Lipase 10/23/18 07:06 WBC RBC Hgb Hct MCV MCH MCHC RDW Plt Count Add Manual Diff Total Counted Seg Neuts % (Manual) Band Neutrophils % Lymphocytes % (Manual) Reactive Lymphs % (Man) Monocytes % (Manual) Eosinophils % (Manual) Basophils % (Manual) Metamyelocytes % Myelocytes % Promyelocytes % Blast Cells % Nucleated RBC % Seg Neutrophils # Man Band Neutrophils # Lymphocytes # (Manual) Abs React Lymphs (Man) Monocytes # (Manual) Eosinophils # (Manual) Basophils # (Manual) Metamyelocytes # Myelocytes # Promyelocytes # Blast Cells # WBC Morphology Hypersegmented Neuts Hyposegmented Neuts Hypogranular Neuts Smudge Cells Toxic Granulation Toxic Vacuolation Dohle Bodies Pelger-Huet Anomaly Aaron Rods Platelet Estimate Clumped Platelets Plt Clumps, EDTA Large Platelets Giant Platelets Platelet Satelliting Plt Morphology Comment RBC Morphology Dimorphic RBCs Polychromasia Hypochromasia Poikilocytosis Anisocytosis Microcytosis Macrocytosis Spherocytes Pappenheimer Bodies Sickle Cells Target Cells Tear Drop Cells Ovalocytes Helmet Cells Sol-[place] Bodies [place] Rings Premium Cells Bite Cells Crenated Cell Elliptocytes Acanthocytes (Spur) Rouleaux Hemoglobin C Crystals Schistocytes Malaria parasites Osvaldo Bodies Hem Pathologist Commnt Sodium Potassium Chloride Carbon Dioxide Anion Gap BUN Creatinine Estimated GFR BUN/Creatinine Ratio Glucose POC Glucose 89 Hemoglobin A1c Lactic Acid Calcium Total Bilirubin AST ALT Alkaline Phosphatase Troponin T Total Protein Albumin Albumin/Globulin Ratio Lipase Assessment and Plan 1.persistent N/V 2.diarrhea 3.H/o GERD 4.H/o IBS-C -afebrile -WBC-WNL -abd CT- no acute findings -etiology unclear- antibiotic induced? vs IBS flare? vs other -clinically, patient reports abd pain and vomiting now resolved. Admits to some mild nausea but is requesting to eat. Diarrhea improved with no BMs since admission -no plans for scope at this time (consider based on progress) -stool studies pending -start on trial of clear liquids -continue PPI and antiemetics -continue supportive care -further recommendations to follow <MAILE BERUMEN R - Last Filed: 10/23/18 15:27> Medications and Allergies Active Meds: Active Medications Acetaminophen (Tylenol) 650 mg PO Q4H PRN PRN Reason: Pain MILD(1-3)/Fever >100.5/[place] Albuterol (Proventil) 2.5 mg IH Q6HRT [facility] Alprazolam (Xanax) 0.25 mg PO Q8H PRN PRN Reason: Anxiety Last Admin: 10/23/18 14:32 Dose: 0.25 mg Documented by: Enoxaparin Sodium (Lovenox) 30 mg SUB-Q QDAY [facility] Last Admin: 10/23/18 09:29 Dose: 30 mg Documented by: Gabapentin (Neurontin) 200 mg PO BID [facility] Last Admin: 10/23/18 09:30 Dose: 200 mg Documented by: Hydromorphone HCl (Dilaudid) 1 mg IV Q3H PRN PRN Reason: Pain , Severe (7-10) Last Admin: 10/22/18 19:21 Dose: 1 mg Documented by: Sodium Chloride (Nacl 0.9% 1000 Ml) 1,000 mls @ 75 mls/hr IV DIRECT [facility] Last Admin: 10/23/18 14:31 Dose: 75 mls/hr Documented by: Fluconazole (Diflucan) 200 mls @ 100 mls/hr IV DAILY@1800 [facility]; Protocol Miscellaneous Medication (Beclomethasone Dipropionate [Qvar]) 8.7 gm IH BID [facility] Miscellaneous Medication (Linaclotide (Nf)) 290 mcg PO QDAY [facility] Ondansetron HCl (Zofran) 4 mg IV Q8H PRN PRN Reason: Nausea And Vomiting Oxycodone/Acetaminophen (Percocet 5/325) 1 tab PO Q6HR PRN PRN Reason: Pain Pantoprazole Sodium (Protonix) 40 mg IV BID [facility] Last Admin: 10/23/18 09:26 Dose: 40 mg Documented by: Prednisone (Deltasone) 10 mg PO Q48H [facility] Sodium Bicarbonate (Sodium Bicarbonate) 650 mg PO BID [facility] Last Admin: 10/23/18 09:30 Dose: 650 mg Documented by: Sodium Chloride (Sodium Chloride Flush Syringe 10 Ml) 10 ml IV BID [facility] Last Admin: 10/23/18 09:33 Dose: Not Given Documented by: Sodium Chloride (Sodium Chloride Flush Syringe 10 Ml) 10 ml IV PRN PRN PRN Reason: LINE FLUSH Sucralfate (Carafate) 1 gm PO QID [facility] Last Admin: 10/23/18 13:37 Dose: 1 gm Documented by: Tiotropium [place] (Spiriva) 1 puff IH QDAY [facility] Last Admin: 10/23/18 12:32 Dose: 1 puff Documented by: Verapamil HCl (Calan Sr) 180 mg PO DAILY [facility] Last Admin: 10/23/18 09:31 Dose: 180 mg Documented by: Exam - Constitutional Vital Signs: Temp Pulse Resp BP Pulse Ox 98.8 F 95 H 18 135/55 94 10/23/18 07:04 10/23/18 09:47 10/23/18 09:48 10/23/18 09:31 10/23/18 12:09 - Labs CBC & Chem 7: 10/23/18 02:27 10/23/18 08:31 Lab Results: Laboratory Results - last 24 hr 10/22/18 10/22/18 10/23/18 17:49 20:29 02:27 WBC 7.2 RBC 3.92 Hgb 11.2 Hct 34.2 MCV 87 MCH 28 MCHC 33 RDW 14.8 Plt Count 371 Add Manual Diff Complete Total Counted 100 Seg Neuts % (Manual) 64.0 Band Neutrophils % 1.0 Lymphocytes % (Manual) 21.0 Reactive Lymphs % (Man) 0 Monocytes % (Manual) 5.0 Eosinophils % (Manual) 9.0 H Basophils % (Manual) 0 Metamyelocytes % 0 Myelocytes % 0 Promyelocytes % 0 Blast Cells % 0 Nucleated RBC % Not Reportable Seg Neutrophils # Man 4.6 Band Neutrophils # 0.1 Lymphocytes # (Manual) 1.5 Abs React Lymphs (Man) 0.0 Monocytes # (Manual) 0.4 Eosinophils # (Manual) 0.6 H Basophils # (Manual) 0.0 Metamyelocytes # 0.0 Myelocytes # 0.0 Promyelocytes # 0.0 Blast Cells # 0.0 WBC Morphology Not Reportable Hypersegmented Neuts Not Reportable Hyposegmented Neuts Not Reportable Hypogranular Neuts Not Reportable Smudge Cells Not Reportable Toxic Granulation Not Reportable Toxic Vacuolation Not Reportable Dohle Bodies Not Reportable Pelger-Huet Anomaly Not Reportable Aaron Rods Not Reportable Platelet Estimate Consistent w auto Clumped Platelets Not Reportable Plt Clumps, EDTA Not Reportable Large Platelets Not Reportable Giant Platelets Not Reportable Platelet Satelliting Not Reportable Plt Morphology Comment Not Reportable RBC Morphology Normal Dimorphic RBCs Not Reportable Polychromasia Not Reportable Hypochromasia Not Reportable Poikilocytosis Not Reportable Anisocytosis Not Reportable Microcytosis Not Reportable Macrocytosis Not Reportable Spherocytes Not Reportable Pappenheimer Bodies Not Reportable Sickle Cells Not Reportable Target Cells Not Reportable Tear Drop Cells Not Reportable Ovalocytes Not Reportable Helmet Cells Not Reportable Sol-[place] Bodies Not Reportable [place] Rings Not Reportable Vikash Cells Not Reportable Bite Cells Not Reportable Crenated Cell Not Reportable Elliptocytes Not Reportable Acanthocytes (Spur) Not Reportable Rouleaux Not Reportable Hemoglobin C Crystals Not Reportable Schistocytes Not Reportable Malaria parasites Not Reportable [place] Bodies Not Reportable Hem Pathologist Commnt No Sodium Potassium Chloride Carbon Dioxide Anion Gap BUN Creatinine Estimated GFR BUN/Creatinine Ratio Glucose POC Glucose 84 Hemoglobin A1c 5.7 Calcium Total Bilirubin AST ALT Alkaline Phosphatase Total Protein Albumin Albumin/Globulin Ratio Urine Color Urine Turbidity Urine pH Ur Specific [place] Urine Protein Urine Glucose (UA) Urine Ketones Urine Blood Urine Nitrite Urine Bilirubin Urine Urobilinogen Ur Leukocyte Esterase Urine WBC (Auto) Urine RBC (Auto) Urine Bacteria (Auto) Urine WBC Clumps Urine Mucus Urine Creatinine Urine Sodium Fraction Sodium Excret 10/23/18 10/23/18 10/23/18 02:27 07:06 08:31 WBC RBC Hgb Hct MCV MCH MCHC RDW Plt Count Add Manual Diff Total Counted Seg Neuts % (Manual) Band Neutrophils % Lymphocytes % (Manual) Reactive Lymphs % (Man) Monocytes % (Manual) Eosinophils % (Manual) Basophils % (Manual) Metamyelocytes % Myelocytes % Promyelocytes % Blast Cells % Nucleated RBC % Seg Neutrophils # Man Band Neutrophils # Lymphocytes # (Manual) Abs React Lymphs (Man) Monocytes # (Manual) Eosinophils # (Manual) Basophils # (Manual) Metamyelocytes # Myelocytes # Promyelocytes # Blast Cells # WBC Morphology Hypersegmented Neuts Hyposegmented Neuts Hypogranular Neuts Smudge Cells Toxic Granulation Toxic Vacuolation Dohle Bodies Pelger-Huet Anomaly Aaron Rods Platelet Estimate Clumped Platelets Plt Clumps, EDTA Large Platelets Giant Platelets Platelet Satelliting Plt Morphology Comment RBC Morphology Dimorphic RBCs Polychromasia Hypochromasia Poikilocytosis Anisocytosis Microcytosis Macrocytosis Spherocytes Pappenheimer Bodies Sickle Cells Target Cells Tear Drop Cells Ovalocytes Helmet Cells Sol-[place] Bodies [place] Rings Premium Cells Bite Cells Crenated Cell Elliptocytes Acanthocytes (Spur) Rouleaux Hemoglobin C Crystals Schistocytes Malaria parasites Osvaldo Bodies Hem Pathologist Commnt Sodium 141 Potassium 4.0 Chloride 104.2 Carbon Dioxide 27 Anion Gap 14 BUN 18 H Creatinine 2.3 H Estimated GFR 20 BUN/Creatinine Ratio 8 Glucose 88 POC Glucose 89 Hemoglobin A1c Calcium 8.7 Total Bilirubin 0.20 AST 15 ALT < 5 L Alkaline Phosphatase 79 Total Protein 5.5 L Albumin 3.0 L Albumin/Globulin Ratio 1.2 Urine Color Yellow Urine Turbidity Slightly-cloudy Urine pH 5.0 Ur Specific [place] 1.011 Urine Protein 30 mg/dl Urine Glucose (UA) Neg Urine Ketones Neg Urine Blood Mod Urine Nitrite Neg Urine Bilirubin Neg Urine Urobilinogen < 2.0 Ur Leukocyte Esterase Mod Urine WBC (Auto) 40.0 H Urine RBC (Auto) 35.0 Urine Bacteria (Auto) 1+ Urine WBC Clumps 3+ Urine Mucus Few Urine Creatinine Urine Sodium Fraction Sodium Excret 10/23/18 10/23/18 10/23/18 08:31 08:31 11:28 WBC RBC Hgb Hct MCV MCH MCHC RDW Plt Count Add Manual Diff Total Counted Seg Neuts % (Manual) Band Neutrophils % Lymphocytes % (Manual) Reactive Lymphs % (Man) Monocytes % (Manual) Eosinophils % (Manual) Basophils % (Manual) Metamyelocytes % Myelocytes % Promyelocytes % Blast Cells % Nucleated RBC % Seg Neutrophils # Man Band Neutrophils # Lymphocytes # (Manual) Abs React Lymphs (Man) Monocytes # (Manual) Eosinophils # (Manual) Basophils # (Manual) Metamyelocytes # Myelocytes # Promyelocytes # Blast Cells # WBC Morphology Hypersegmented Neuts Hyposegmented Neuts Hypogranular Neuts Smudge Cells Toxic Granulation Toxic Vacuolation Dohle Bodies Pelger-Huet Anomaly Aaron Rods Platelet Estimate Clumped Platelets Plt Clumps, EDTA Large Platelets Giant Platelets Platelet Satelliting Plt Morphology Comment RBC Morphology Dimorphic RBCs Polychromasia Hypochromasia Poikilocytosis Anisocytosis Microcytosis Macrocytosis Spherocytes Pappenheimer Bodies Sickle Cells Target Cells Tear Drop Cells Ovalocytes Helmet Cells Sol-[place] Bodies [place] Rings Premium Cells Bite Cells Crenated Cell Elliptocytes Acanthocytes (Spur) Rouleaux Hemoglobin C Crystals Schistocytes Malaria parasites Osvaldo Bodies Hem Pathologist Commnt Sodium 140 Potassium Chloride Carbon Dioxide Anion Gap BUN Creatinine 2.5 H Estimated GFR BUN/Creatinine Ratio Glucose POC Glucose 88 Hemoglobin A1c Calcium Total Bilirubin AST ALT Alkaline Phosphatase Total Protein Albumin Albumin/Globulin Ratio Urine Color Urine Turbidity Urine pH Ur Specific [place] Urine Protein Urine Glucose (UA) Urine Ketones Urine Blood Urine Nitrite Urine Bilirubin Urine Urobilinogen Ur Leukocyte Esterase Urine WBC (Auto) Urine RBC (Auto) Urine Bacteria (Auto) Urine WBC Clumps Urine Mucus Urine Creatinine 175.8 H Urine Sodium 71 Fraction Sodium Excret 0.5 Assessment and Plan Pt seen and examined. Pt has long hx of similar symptoms. Etiology unclear, and may be functional. Pt has multiple medical problems, and states she is almost an invalid and bedbound. No significant weight loss. Symptomatic therapy for now, and may consider trial of Ativan.
[2018-10-23 10:51] LABS: Bacteria,Urine 1+ /HPF (Negative); Bilirubin,Urine NEG (Negative); Blood,Urine MOD (Negative); Color,Urine Yellow (Yellow); Mucus,Urine FEW /HPF; Urobilinogen,Urine < 2.0 mg/dL (<2.0)
[2018-10-23 10:53] LABS: Creatinine,Urine 175.8 mg/dL (0.1-20.0); Fractional Sodium Excretion 0.5
[2018-10-23] MEDS: SPIRIVA IH SCH ×2 (12:21→12:32)
[2018-10-23] MEDS: ZOFRAN IV PRN (12:56)
[2018-10-23] MEDS ORDERED: PROVENTIL IH SCH (14:00)
[2018-10-23] MEDS: NACL 0.9% 1000 ML 1,000 ML IV SCH (14:31)
--- NOTE | 2018-10-23 16:09 | Progress Note ---
Assessment and Plan Assessment and plan: Patient is a 78 yo woman with a history of CKD 3, SAKSHI, IDDM with PN, NSTEMI, end stage COPD (multiple previous exacerbations with intubations) with chronic hypoxic respiratory failure on 3 liters, bladder cancer (s/p surgery here in 09/2018), GERD, NSTEMI (05/2018), Arthritis, and morbid obesity who presented to [facility] ED with SOB, n/v, CP, abd pains and diarrhea, nausea, vomiting and chest pain. * CT abd/pelvis wo contrast IMPRESSION: Splenomegaly. Small hiatal hernia. Otherwise, no acute findings. Intractable nausea and vomiting: treat with antiemetics Chest pains with neg troponin x 1: repeat troponins, Consulted Cardiology due to history of nstemi and unable to get cardiac cath due to renal dysfunction, did not tolerated stress test in May 2018 COPD (chronic obstructive pulmonary disease) by history Functional quadriplegia due to COPD and other co-morbidities: consult PT/OT SAKSHI: consult Respiratory therapy Morbid obesity, BMI 54: counseling done Chronic hypoxic respiratory failure on 3Liters around the clock at home: nebs, continue 3Liters PUMA (acute kidney injury), vasomotor nephropathy/CKD 3: IVF, renal consulted IDDM (insulin dependent diabetes mellitus): SSI HTN (hypertension): continue home regimen IBS (irritable bowel syndrome: Gi is following, on Linzess GERD (gastroesophageal reflux disease): ppi DVT prophylaxis: On Lovenox and GI prophylaxis History Interval history: Patient was seen and examined. Follow-up on current diagnosis of n/v/sob/chest pains/diarrhea, all improving. Overnight uneventful. Patient denies any chest pain, shortness breath, nausea/vomiting or severe headaches. Imaging, nursing note, chart, labs and old chart reviewed. Discussed with patient. Hospitalist Physical - Physical exam Narrative exam: Gen: WDWN, NAD, Awake, Alert, Orientated x 3, bmi 53.2 HEENT: NCAT, EOMI, PERRL, OP Clear Neck: supple, no adenopathy, no thyromegaly, no JVD CVS/Heart: RRR, normal S1S2, pulses present bilaterally Chest/Lungs: CTA B, Symmetrical chest expansion, good air entry bilaterally GI/Abdomen: soft, diffuse tenderness, good bowel sounds, no guarding or rebound /Bladder: no suprapubic tenderness, no CVA or paraspinal tenderness Extermity/Skin: no c/c/e, no obvious rash MSK: FROM x 4 Neuro: CN 2-12 grossly intact, no new focal deficits Psych: calm - Constitutional Vitals: Temp Pulse Resp BP Pulse Ox 98.8 F 95 H 18 135/55 94 10/23/18 07:04 10/23/18 09:47 10/23/18 09:48 10/23/18 09:31 10/23/18 12:09 General appearance: Present: no acute distress, well-nourished Results - Labs CBC & Chem 7: 10/23/18 02:27 10/23/18 08:31 Labs: Laboratory Last Values WBC 7.2 K/mm3 (4.5-11.0) 10/23/18 02:27 RBC 3.92 M/mm3 (3.65-5.03) 10/23/18 02:27 Hgb 11.2 gm/dl (10.1-14.3) 10/23/18 02:27 Hct 34.2 % (30.3-42.9) 10/23/18 02:27 MCV 87 fl (79-97) 10/23/18 02:27 MCH 28 pg (28-32) 10/23/18 02:27 MCHC 33 % (30-34) 10/23/18 02:27 RDW 14.8 % (13.2-15.2) 10/23/18 02:27 Plt Count 371 K/mm3 (140-440) 10/23/18 02:27 Add Manual Diff Complete 10/23/18 02:27 Total Counted 100 10/23/18 02:27 Seg Neuts % (Manual) 64.0 % (40.0-70.0) 10/23/18 02:27 Band Neutrophils % 1.0 % 10/23/18 02:27 Lymphocytes % (Manual) 21.0 % (13.4-35.0) 10/23/18 02:27 Reactive Lymphs % (Man) 0 % 10/23/18 02:27 Monocytes % (Manual) 5.0 % (0.0-7.3) 10/23/18 02:27 Eosinophils % (Manual) 9.0 % (0.0-4.3) H 10/23/18 02:27 Basophils % (Manual) 0 % (0.0-1.8) 10/23/18 02:27 Metamyelocytes % 0 % 10/23/18 02:27 Myelocytes % 0 % 10/23/18 02:27 Promyelocytes % 0 % 10/23/18 02:27 Blast Cells % 0 % 10/23/18 02:27 Nucleated RBC % Not Reportable 10/23/18 02:27 Seg Neutrophils # Man 4.6 K/mm3 (1.8-7.7) 10/23/18 02:27 Band Neutrophils # 0.1 K/mm3 10/23/18 02:27 Lymphocytes # (Manual) 1.5 K/mm3 (1.2-5.4) 10/23/18 02:27 Abs React Lymphs (Man) 0.0 K/mm3 10/23/18 02:27 Monocytes # (Manual) 0.4 K/mm3 (0.0-0.8) 10/23/18 02:27 Eosinophils # (Manual) 0.6 K/mm3 (0.0-0.4) H 10/23/18 02:27 Basophils # (Manual) 0.0 K/mm3 (0.0-0.1) 10/23/18 02:27 Metamyelocytes # 0.0 K/mm3 10/23/18 02:27 Myelocytes # 0.0 K/mm3 10/23/18 02:27 Promyelocytes # 0.0 K/mm3 10/23/18 02:27 Blast Cells # 0.0 K/mm3 10/23/18 02:27 WBC Morphology Not Reportable 10/23/18 02:27 Hypersegmented Neuts Not Reportable 10/23/18 02:27 Hyposegmented Neuts Not Reportable 10/23/18 02:27 Hypogranular Neuts Not Reportable 10/23/18 02:27 Smudge Cells Not Reportable 10/23/18 02:27 Toxic Granulation Not Reportable 10/23/18 02:27 Toxic Vacuolation Not Reportable 10/23/18 02:27 Dohle Bodies Not Reportable 10/23/18 02:27 Pelger-Huet Anomaly Not Reportable 10/23/18 02:27 Aaron Rods Not Reportable 10/23/18 02:27 Platelet Estimate Consistent w auto 10/23/18 02:27 Clumped Platelets Not Reportable 10/23/18 02:27 Plt Clumps, EDTA Not Reportable 10/23/18 02:27 Large Platelets Not Reportable 10/23/18 02:27 Giant Platelets Not Reportable 10/23/18 02:27 Platelet Satelliting Not Reportable 10/23/18 02:27 Plt Morphology Comment Not Reportable 10/23/18 02:27 RBC Morphology Normal 10/23/18 02:27 Dimorphic RBCs Not Reportable 10/23/18 02:27 Polychromasia Not Reportable 10/23/18 02:27 Hypochromasia Not Reportable 10/23/18 02:27 Poikilocytosis Not Reportable 10/23/18 02:27 Anisocytosis Not Reportable 10/23/18 02:27 Microcytosis Not Reportable 10/23/18 02:27 Macrocytosis Not Reportable 10/23/18 02:27 Spherocytes Not Reportable 10/23/18 02:27 Pappenheimer Bodies Not Reportable 10/23/18 02:27 Sickle Cells Not Reportable 10/23/18 02:27 Target Cells Not Reportable 10/23/18 02:27 Tear Drop Cells Not Reportable 10/23/18 02:27 Ovalocytes Not Reportable 10/23/18 02:27 Helmet Cells Not Reportable 10/23/18 02:27 [place] Bodies Not Reportable 10/23/18 02:27 [place] Rings Not Reportable 10/23/18 02:27 Vikash Cells Not Reportable 10/23/18 02:27 Bite Cells Not Reportable 10/23/18 02:27 Crenated Cell Not Reportable 10/23/18 02:27 Elliptocytes Not Reportable 10/23/18 02:27 Acanthocytes (Spur) Not Reportable 10/23/18 02:27 Rouleaux Not Reportable 10/23/18 02:27 Hemoglobin C Crystals Not Reportable 10/23/18 02:27 Schistocytes Not Reportable 10/23/18 02:27 Malaria parasites Not Reportable 10/23/18 02:27 Osvaldo Bodies Not Reportable 10/23/18 02:27 Hem Pathologist Commnt No 10/23/18 02:27 Sodium 140 mmol/L (137-145) 10/23/18 08:31 Potassium 4.0 mmol/L (3.6-5.0) 10/23/18 02:27 Chloride 104.2 mmol/L (98-107) 10/23/18 02:27 Carbon Dioxide 27 mmol/L (22-30) 10/23/18 02:27 Anion Gap 14 mmol/L 10/23/18 02:27 BUN 18 mg/dL (7-17) H 10/23/18 02:27 Creatinine 2.5 mg/dL (0.7-1.2) H 10/23/18 08:31 Estimated GFR 20 ml/min 10/23/18 02:27 BUN/Creatinine Ratio 8 % 10/23/18 02:27 Glucose 88 mg/dL (65-100) 10/23/18 02:27 POC Glucose 88 (70-105) 10/23/18 11:28 Hemoglobin A1c 5.7 % (4-6) 10/22/18 17:49 Lactic Acid 0.90 mmol/L (0.7-2.0) 10/22/18 10:18 Calcium 8.7 mg/dL (8.4-10.2) 10/23/18 02:27 Total Bilirubin 0.20 mg/dL (0.1-1.2) 10/23/18 02:27 AST 15 units/L (5-40) 10/23/18 02:27 ALT < 5 units/L (7-56) L 10/23/18 02:27 Alkaline Phosphatase 79 units/L (35-129) 10/23/18 02:27 Troponin T 0.014 ng/mL (0.00-0.029) 10/22/18 12:01 Total Protein 5.5 g/dL (6.3-8.2) L 10/23/18 02:27 Albumin 3.0 g/dL (3.9-5) L 10/23/18 02:27 Albumin/Globulin Ratio 1.2 % 10/23/18 02:27 Lipase 15 units/L (13-60) 10/22/18 10:18 Urine Color Yellow (Yellow) 10/23/18 08:31 Urine Turbidity Slightly-cloudy (Clear) 10/23/18 08:31 Urine pH 5.0 (5.0-7.0) 10/23/18 08:31 Ur Specific [place] 1.011 (1.003-1.030) 10/23/18 08:31 Urine Protein 30 mg/dl mg/dL (Negative) 10/23/18 08:31 Urine Glucose (UA) Neg mg/dL (Negative) 10/23/18 08:31 Urine Ketones Neg mg/dL (Negative) 10/23/18 08:31 Urine Blood Mod (Negative) 10/23/18 08:31 Urine Nitrite Neg (Negative) 10/23/18 08:31 Urine Bilirubin Neg (Negative) 10/23/18 08:31 Urine Urobilinogen < 2.0 mg/dL (<2.0) 10/23/18 08:31 Ur Leukocyte Esterase Mod (Negative) 10/23/18 08:31 Urine WBC (Auto) 40.0 /HPF (0.0-6.0) H 10/23/18 08:31 Urine RBC (Auto) 35.0 /HPF (0.0-6.0) 10/23/18 08:31 Urine Bacteria (Auto) 1+ /HPF (Negative) 10/23/18 08:31 Urine WBC Clumps 3+ /HPF 10/23/18 08:31 Urine Mucus Few /HPF 10/23/18 08:31 Urine Creatinine 175.8 mg/dL (0.1-20.0) H 10/23/18 08:31 Urine Sodium 71 mmol/L 10/23/18 08:31 Fraction Sodium Excret 0.5 10/23/18 08:31 Nutrition/Malnutrition Assess - Dietary Evaluation Nutrition/Malnutrition Findings: Nutrition Notes Start: 10/23/18 14:46 Freq: Status: Active Protocol: Document 10/23/18 14:46 RM (Rec: 10/23/18 14:47 RM [id number]) Nutrition Notes Need for Assessment generated from: health service coordinator Initial or Follow up Brief Note Current Diagnoses Acute Kidney Injury CKD(stage I-IV) COPD Hypertension Other Pertinent Diagnosis GERD, N/V Subjective/Other Information Pt screened for difficulty chewing and skin risk. Yehuda 16 points. Pt asleep at time of visit. Nutrition Intervention Follow-Up By: 10/24/18 Additional Comments Follow for assessment
[2018-10-23] MEDS: DIFLUCAN 200 ML IV SCH (17:30)
[2018-10-23] MEDS: PERCOCET 5/325 PO PRN (21:14)
[2018-10-24] MEDS: DILAUDID IV PRN (02:36)
[2018-10-24] MEDS: ZOFRAN IV PRN (04:45)
[2018-10-24 05:53] LABS: Hematocrit 34.1 % (30.3-42.9); Mean Corpuscular HGB Conc 32 % (30-34); Mean Corpuscular Volume 88 fl (79-97); Platelet Count 417 K/mm3 (140-440); Red Blood Count 3.89 M/mm3 (3.65-5.03); Red Cell Distribution Width 14.7 % (13.2-15.2)
[2018-10-24 06:11] LABS: Calcium 8.1 mg/dL (8.4-10.2)
[2018-10-24] MEDS: PERCOCET 5/325 PO PRN (06:38)
[2018-10-24] MEDS: NACL 0.9% 1000 ML 1,000 ML IV SCH ×2 (06:40→22:34)
--- NOTE | 2018-10-24 08:29 | Progress Note ---
Assessment and Plan Impression * Acute on chronic renal failure * Nausea and vomiting * COPD * History of bladder cancer * Morbid obesity * Urinary tract infection Recommendations * Patient's renal function appears to be close to baseline * Continue gentle hydration due to her GI symptoms * Her urine shows 1+ to stick protein as well as pyuria and microhematuria * Blood culture results pending. Check urine culture. Add empiric antibiotics * fractional excretion of sodium is 0.5% * Avoid nephrotoxins * Monitor fluid status and electrolytes closely * Continue treatment for COPD * Check office records regarding previous renal status and workup * Thank you very much for the consultation. Shall follow along with you. Subjective Date of service: 10/24/18 Interval history: Patient still complains of some abdominal pain as well as nausea. No vomiting or diarrhea. Shortness of breath is improving Objective - Vital Signs Vital signs: Vital Signs - 12hr 10/23/18 10/24/18 22:00 01:40 Temperature 98.9 F Pulse Rate 95 H 81 Respiratory 18 Rate Blood Pressure 113/41 O2 Sat by Pulse 94 Oximetry - General Appearance General appearance: well-developed, well-nourished, appears stated age, obese EENT: PERRL, mucous membranes moist Neck: no JVD, no thyromegaly, no carotid bruit, supple Respiratory: Present: Wheezes Cardiology: regular, normal heart rate Gastrointestinal: normoactive bowel sounds, other (abdominal wall edema noted) Integumentary: other (trace edema) - Lab 10/24/18 04:43 10/24/18 04:43 Most recent lab results Calcium 8.1 mg/dL (8.4-10.2) L 10/24/18 04:43 Urine Creatinine 175.8 mg/dL (0.1-20.0) H 10/23/18 08:31 Urine Sodium 71 mmol/L 10/23/18 08:31 Medications & Allergies - Medications Allergies/Adverse Reactions: Allergies aspirin Allergy (Verified 09/17/17 17:58) Shortness of Breath , CHEST PAIN escitalopram [From Lexapro] Allergy (Verified 04/17/18 11:43) Shortness of Breath salmeterol xinafoate [From Serevent] Allergy (Verified 01/22/17 08:45) Shortness of Breath levofloxacin [From Levaquin] Adverse Reaction (Verified 11/23/16 16:22) Rash Sulfa (Sulfonamide Antibiotics) Adverse Reaction (Verified 10/31/17 11:19) contraindicated due to kidney function states her doctor told her to not take sulfa due to renal insufficiency tramadol Adverse Reaction (Verified 09/19/18 16:34) Nausea contrast dye Adverse Reaction (Uncoded 04/17/18 11:59) contraindicated due to renal insufficiency Home Medications: Home Medications Medication Instructions Recorded Confirmed Last Taken Type ALPRAZolam [Xanax TAB] 0.25 mg PO PRN PRN 09/13/16 10/22/18 10/01/18 21:00 History Ipratropium/Albuterol Sulfate 1 ampul IH QID 09/13/16 10/22/18 10/22/18 20:00 History [DUONEB *Not for PRN Use*] Sucralfate 1 gm PO QID 09/13/16 10/22/18 10/22/18 22:00 History Indacaterol Maleate [Arcapta 75 mcg IH DAILY 01/22/17 10/22/18 10/01/18 19:30 History Neohaler] Gabapentin [Neurontin] 200 mg PO BID 09/03/17 10/22/18 10/22/18 22:00 History Sodium Bicarbonate 650 mg PO BID 09/03/17 10/22/18 10/22/18 22:00 History Tiotropium [Spiriva] 18 mcg IH QDAY 09/03/17 10/22/18 10/02/18 07:30 History Ranitidine HCl [Acid Instrument Repairer] 150 mg PO BID 10/29/17 10/22/18 10/22/18 22:00 History Beclomethasone Dipropionate [Qvar] 8.7 gm IH BID 03/29/18 10/22/18 10/22/18 20:00 History guaiFENesin [Mucinex] 600 mg PO DAILY 03/29/18 10/22/18 10/02/18 07:30 History Insulin NPH/Regular [NovoLIN 70/30] 10 unit SQ BID 09/19/18 10/22/18 10/01/18 19:00 History Linaclotide (Nf) [Linzess (Nf)] 290 mcg PO QDAY 09/19/18 10/22/18 10/21/18 History Verapamil ER [Calan Sr] 180 mg PO DAILY 09/19/18 10/22/18 10/02/18 07:30 History oxyCODONE /ACETAMINOPHEN [Percocet 1 tab PO Q6HR PRN 09/19/18 10/22/18 09/30/18 20:00 History 5/325] predniSONE [Prednisone] 10 mg PO Q48HR 09/19/18 10/22/18 09/30/18 09:00 History Active Medications: Generic Name Dose Route Start Last Admin Trade Name Freq PRN Reason Stop Dose Admin Acetaminophen 650 mg 10/22/18 17:31 Tylenol PO Q4H PRN Pain MILD(1-3)/Fever >100.5/[place] Albuterol 2.5 mg 10/23/18 20:38 Proventil IH Q4HRT PRN Shortness Of Breath Albuterol/Ipratropium 1 ampul 10/23/18 20:00 10/23/18 20:37 Duoneb *Not For Prn Use* IH Not Given TIDRT KELLY Alprazolam 0.25 mg 10/22/18 17:28 10/23/18 14:32 Xanax PO 0.25 mg Q8H PRN Administration Anxiety Enoxaparin Sodium 30 mg 10/22/18 18:00 10/23/18 09:29 Lovenox SUB-Q 30 mg QDAY KELLY Administration Gabapentin 200 mg 10/22/18 22:00 10/23/18 21:15 Neurontin PO 200 mg BID KELLY Administration Hydromorphone HCl 1 mg 10/22/18 14:29 10/24/18 02:36 Dilaudid IV 1 mg Q3H PRN Administration Pain , Severe (7-10) Sodium Chloride 1,000 mls @ 75 mls/hr 10/22/18 18:00 10/24/18 06:40 Nacl 0.9% 1000 Ml IV 75 mls/hr DIRECT KELLY Administration Fluconazole 200 mls @ 100 mls/hr 10/23/18 18:00 10/23/18 17:30 Diflucan IV 100 mls/hr DAILY@1800 KELLY Administration Protocol Ceftriaxone Sodium 1 gm in 50 mls @ 100 mls/hr 10/24/18 10:00 Rocephin/Ns 1 Gm/50 Ml IV Q24HR KELLY Protocol Miscellaneous Medication 8.7 gm 10/22/18 22:00 Beclomethasone Dipropionate [Qvar] IH BID KELLY Miscellaneous Medication 290 mcg 10/22/18 17:30 Linaclotide (Nf) PO QDAY KELLY Ondansetron HCl 4 mg 10/22/18 17:31 10/24/18 04:45 Zofran IV 4 mg Q8H PRN Administration Nausea And Vomiting Oxycodone/Acetaminophen 1 tab 10/22/18 17:28 10/24/18 06:38 Percocet 5/325 PO 1 tab Q6HR PRN Administration Pain Pantoprazole Sodium 40 mg 10/22/18 22:00 10/23/18 21:16 Protonix IV 40 mg BID KELLY Administration Prednisone 10 mg 10/24/18 10:00 Deltasone PO Q48H KELLY Sodium Bicarbonate 650 mg 10/22/18 22:00 10/23/18 21:15 Sodium Bicarbonate PO 650 mg BID KELLY Administration Sodium Chloride 10 ml 10/22/18 22:00 10/23/18 21:16 Sodium Chloride Flush Syringe 10 Ml IV 10 ml BID KELLY Administration Sodium Chloride 10 ml 10/22/18 17:31 Sodium Chloride Flush Syringe 10 Ml IV PRN PRN LINE FLUSH Sucralfate 1 gm 10/22/18 18:00 10/23/18 21:15 Carafate PO 1 gm QID KELLY Administration Tiotropium [place] 1 puff 10/22/18 17:30 10/23/18 12:32 Spiriva IH 1 puff QDAY KELLY Administration Verapamil HCl 180 mg 10/22/18 18:00 10/23/18 09:31 Calan Sr PO 180 mg DAILY KELLY Administration
[2018-10-24] MEDS: SODIUM CHLORIDE FLUSH SYRINGE 10 ML IV SCH (09:51)
[2018-10-24] MEDS: LOVENOX SUB-Q SCH (09:52)
[2018-10-24] MEDS: SODIUM BICARBONATE PO SCH ×2 (09:52→22:39)
[2018-10-24] MEDS: CARAFATE PO SCH ×4 (09:52→22:39)
[2018-10-24] MEDS: ROCEPHIN/NS 1 GM/50 ML 1 GM/50 ML BAG IV SCH (09:52)
[2018-10-24] MEDS: PROTONIX IV SCH ×2 (09:53→22:39)
[2018-10-24] MEDS: DELTASONE PO SCH (09:53)
[2018-10-24] MEDS: NEURONTIN PO SCH ×2 (09:53→22:42)
[2018-10-24] MEDS ORDERED: NON-FORMULARY (Prednisone [Prednisone] 10 MG) PO SCH (10:00)
--- NOTE | 2018-10-24 10:54 | Gastroenterology Progress Note ---
<SAFIA BORREGO - Last Filed: 10/24/18 10:54> Assessment and Plan 1.persistent N/V 2.diarrhea 3.H/o GERD 4.H/o IBS-C (on linzess) -abd CT- no acute findings -patient has long hx of similar symptoms with extensive workup in the past (scopes, CT, GES) -etiology-likely functional -clinically, patient is stable. Reports mild nausea but no vomiting or abd pain. Diarrhea resolved. -no plans for scope at this time -continue clear liquids-advance diet as tolerated -continue PPI and antiemetics -continue supportive care -consider trial of Ativan is symptoms persist -once tolerating PO, patient is okay to be d/c per GI standpoint with f/u in clinic with Dr. West Subjective Date of service: 10/24/18 Principal diagnosis: N/V, diarrhea Interval history: No acute distress. Reports continued mild nausea but no vomiting or diarrhea. Denies abd pain. Objective - Constitutional Vitals: Temp Pulse Resp BP Pulse Ox 99.5 F 87 22 149/59 91 10/24/18 07:32 10/24/18 07:32 10/24/18 07:32 10/24/18 07:32 10/24/18 07:32 General appearance: no acute distress, obese (morbidly) - Respiratory Respiratory: bilateral: diminished - Cardiovascular Rhythm: regular Heart Sounds: Present: S1 & S2 - Gastrointestinal General gastrointestinal: Present: soft, non-tender, non-distended, normal bowel sounds, other (obese) - Neurologic Neurological: alert and oriented x3 - Labs CBC & Chem 7: 10/24/18 04:43 10/24/18 04:43 Labs: Laboratory Results - last 24 hr 10/23/18 10/23/18 10/23/18 08:31 08:31 08:31 WBC RBC Hgb Hct MCV MCH MCHC RDW Plt Count Sodium 140 Potassium Chloride Carbon Dioxide Anion Gap BUN Creatinine 2.5 H Estimated GFR BUN/Creatinine Ratio Glucose POC Glucose Calcium Troponin T Urine Color Yellow Urine Turbidity Slightly-cloudy Urine pH 5.0 Ur Specific [place] 1.011 Urine Protein 30 mg/dl Urine Glucose (UA) Neg Urine Ketones Neg Urine Blood Mod Urine Nitrite Neg Urine Urobilinogen < 2.0 Ur Leukocyte Esterase Mod Urine WBC (Auto) 40.0 H Urine Bacteria (Auto) 1+ Urine WBC Clumps 3+ Urine Mucus Few Urine Creatinine 175.8 H Urine Sodium 71 Fraction Sodium Excret 0.5 10/23/18 10/23/18 10/23/18 11:28 16:17 17:53 WBC RBC Hgb Hct MCV MCH MCHC RDW Plt Count Sodium Potassium Chloride Carbon Dioxide Anion Gap BUN Creatinine Estimated GFR BUN/Creatinine Ratio Glucose POC Glucose 88 95 Calcium Troponin T 0.018 Urine Color Urine Turbidity Urine pH Ur Specific [place] Urine Protein Urine Glucose (UA) Urine Ketones Urine Blood Urine Nitrite Urine Urobilinogen Ur Leukocyte Esterase Urine WBC (Auto) Urine Bacteria (Auto) Urine WBC Clumps Urine Mucus Urine Creatinine Urine Sodium Fraction Sodium Excret 10/23/18 10/24/18 10/24/18 21:08 04:43 04:43 WBC 9.7 RBC 3.89 Hgb 11.0 Hct 34.1 MCV 88 MCH 28 MCHC 32 RDW 14.7 Plt Count 417 Sodium 139 Potassium 4.3 Chloride 103.5 Carbon Dioxide 24 Anion Gap 16 BUN 19 H Creatinine 2.6 H Estimated GFR 18 BUN/Creatinine Ratio 7 Glucose 93 POC Glucose 96 Calcium 8.1 L Troponin T Urine Color Urine Turbidity Urine pH Ur Specific [place] Urine Protein Urine Glucose (UA) Urine Ketones Urine Blood Urine Nitrite Urine Urobilinogen Ur Leukocyte Esterase Urine WBC (Auto) Urine Bacteria (Auto) Urine WBC Clumps Urine Mucus Urine Creatinine Urine Sodium Fraction Sodium Excret 10/24/18 08:13 WBC RBC Hgb Hct MCV MCH MCHC RDW Plt Count Sodium Potassium Chloride Carbon Dioxide Anion Gap BUN Creatinine Estimated GFR BUN/Creatinine Ratio Glucose POC Glucose 103 Calcium Troponin T Urine Color Urine Turbidity Urine pH Ur Specific [place] Urine Protein Urine Glucose (UA) Urine Ketones Urine Blood Urine Nitrite Urine Urobilinogen Ur Leukocyte Esterase Urine WBC (Auto) Urine Bacteria (Auto) Urine WBC Clumps Urine Mucus Urine Creatinine Urine Sodium Fraction Sodium Excret <MAILE BERUMEN R - Last Filed: 10/24/18 14:55> Assessment and Plan Spoke with pt and her son and [id number]. Pt has lifelong hx of stomach problems, with N/V for at least 5-6 years, and yet no weight loss. Her social/living situation is not good. Symptoms most c/w functional etiology. Have initiated Ativan, 0.5 mg bid, IV. If does well and tolerates po, may D/C with short course, and f/u with primary GI. Objective - Constitutional Vitals: Temp Pulse Resp BP Pulse Ox 99.6 F 86 22 190/57 94 10/24/18 13:57 10/24/18 14:03 10/24/18 13:57 10/24/18 14:03 10/24/18 13:57 - Labs CBC & Chem 7: 10/24/18 04:43 10/24/18 04:43 Labs: Laboratory Results - last 24 hr 10/23/18 10/23/18 10/23/18 16:17 17:53 21:08 WBC RBC Hgb Hct MCV MCH MCHC RDW Plt Count Sodium Potassium Chloride Carbon Dioxide Anion Gap BUN Creatinine Estimated GFR BUN/Creatinine Ratio Glucose POC Glucose 95 96 Calcium Troponin T 0.018 10/24/18 10/24/18 10/24/18 04:43 04:43 04:43 WBC 9.7 RBC 3.89 Hgb 11.0 Hct 34.1 MCV 88 MCH 28 MCHC 32 RDW 14.7 Plt Count 417 Sodium 139 Potassium 4.3 Chloride 103.5 Carbon Dioxide 24 Anion Gap 16 BUN 19 H Creatinine 2.6 H Estimated GFR 18 BUN/Creatinine Ratio 7 Glucose 93 POC Glucose Calcium 8.1 L Troponin T 0.022 10/24/18 10/24/18 08:13 11:21 WBC RBC Hgb Hct MCV MCH MCHC RDW Plt Count Sodium Potassium Chloride Carbon Dioxide Anion Gap BUN Creatinine Estimated GFR BUN/Creatinine Ratio Glucose POC Glucose 103 99 Calcium Troponin T
[2018-10-24] MEDS: SPIRIVA IH SCH (11:13)
[2018-10-24] MEDS: DUONEB *Not for PRN Use IH SCH ×3 (11:13→20:14)
--- NOTE | 2018-10-24 12:00 | Consultation ---
History of Present Illness Consult date: 10/24/18 Past History Past Medical History: other (as per HPI) Past Surgical History: appendectomy, cholecystectomy, hysterectomy, Other (left breast mass removed,right breast, left shoulder, right eye - cataract, left eye - macula, bladder tumor removal 09/2018.) Social history: no significant social history Family history: no significant family history Medications and Allergies Allergies Allergy/AdvReac Type Severity Reaction Status Date / Time aspirin Allergy Shortness Verified 09/17/17 17:58 of Breath , CHEST PAIN escitalopram [From Lexapro] Allergy Shortness Verified 04/17/18 11:43 of Breath salmeterol xinafoate Allergy Shortness Verified 01/22/17 08:45 [From Serevent] of Breath levofloxacin [From Levaquin] AdvReac Rash Verified 09/13/16 16:22 Sulfa (Sulfonamide AdvReac contraindicated Verified 10/31/17 11:19 Antibiotics) due to kidney function tramadol AdvReac Nausea Verified 09/19/18 16:34 contrast dye AdvReac contraindicated Uncoded 04/17/18 11:59 due to renal insufficiency Home Medications Medication Instructions Recorded Confirmed Last Taken Type ALPRAZolam [Xanax TAB] 0.25 mg PO PRN PRN 09/13/16 10/22/18 10/01/18 21:00 History Ipratropium/Albuterol Sulfate 1 ampul IH QID 09/13/16 10/22/18 10/22/18 20:00 History [DUONEB *Not for PRN Use*] Sucralfate 1 gm PO QID 09/13/16 10/22/18 10/22/18 22:00 History Indacaterol Maleate [Arcapta 75 mcg IH DAILY 01/22/17 10/22/18 10/01/18 19:30 History Neohaler] Gabapentin [Neurontin] 200 mg PO BID 09/03/17 10/22/18 10/22/18 22:00 History Sodium Bicarbonate 650 mg PO BID 09/03/17 10/22/18 10/22/18 22:00 History Tiotropium [Spiriva] 18 mcg IH QDAY 09/03/17 10/22/18 10/02/18 07:30 History Ranitidine HCl [Acid Tyre Retreader] 150 mg PO BID 10/29/17 10/22/18 10/22/18 22:00 History Beclomethasone Dipropionate [Qvar] 8.7 gm IH BID 03/29/18 10/22/18 10/22/18 20:00 History guaiFENesin [Mucinex] 600 mg PO DAILY 03/29/18 10/22/18 10/02/18 07:30 History Insulin NPH/Regular [NovoLIN 70/30] 10 unit SQ BID 09/19/18 10/22/18 10/01/18 19:00 History Linaclotide (Nf) [Linzess (Nf)] 290 mcg PO QDAY 09/19/18 10/22/18 10/21/18 History Verapamil ER [Calan Sr] 180 mg PO DAILY 09/19/18 10/22/18 10/02/18 07:30 History oxyCODONE /ACETAMINOPHEN [Percocet 1 tab PO Q6HR PRN 09/19/18 10/22/18 09/30/18 20:00 History 5/325] predniSONE [Prednisone] 10 mg PO Q48HR 09/19/18 10/22/18 09/30/18 09:00 History Active Meds: Active Medications Acetaminophen (Tylenol) 650 mg PO Q4H PRN PRN Reason: Pain MILD(1-3)/Fever >100.5/[place] Albuterol (Proventil) 2.5 mg IH Q4HRT PRN PRN Reason: Shortness Of Breath Albuterol/Ipratropium (Duoneb *Not For Prn Use*) 1 ampul IH TIDRT [facility] Last Admin: 10/24/18 11:13 Dose: 1 ampul Documented by: Alprazolam (Xanax) 0.25 mg PO Q8H PRN PRN Reason: Anxiety Last Admin: 10/23/18 14:32 Dose: 0.25 mg Documented by: Enoxaparin Sodium (Lovenox) 30 mg SUB-Q QDAY [facility] Last Admin: 10/24/18 09:52 Dose: 30 mg Documented by: Gabapentin (Neurontin) 200 mg PO BID [facility] Last Admin: 10/24/18 09:53 Dose: 200 mg Documented by: Hydromorphone HCl (Dilaudid) 1 mg IV Q3H PRN PRN Reason: Pain , Severe (7-10) Last Admin: 10/24/18 02:36 Dose: 1 mg Documented by: Sodium Chloride (Nacl 0.9% 1000 Ml) 1,000 mls @ 75 mls/hr IV DIRECT [facility] Last Admin: 10/24/18 06:40 Dose: 75 mls/hr Documented by: Fluconazole (Diflucan) 200 mls @ 100 mls/hr IV DAILY@1800 [facility]; Protocol Last Admin: 10/23/18 17:30 Dose: 100 mls/hr Documented by: Ceftriaxone Sodium (Rocephin/Ns 1 Gm/50 Ml) 1 gm in 50 mls @ 100 mls/hr IV Q24HR [facility]; Protocol Last Admin: 10/24/18 09:52 Dose: 100 mls/hr Documented by: Levofloxacin/Dextrose (Levaquin 250mg/50ml) 250 mg in 50 mls @ 50 mls/hr IV Q24HR [facility]; Protocol Miscellaneous Medication (Beclomethasone Dipropionate [Qvar]) 8.7 gm IH BID [facility] Miscellaneous Medication (Linaclotide (Nf)) 290 mcg PO QDAY [facility] Ondansetron HCl (Zofran) 4 mg IV Q8H PRN PRN Reason: Nausea And Vomiting Last Admin: 10/24/18 04:45 Dose: 4 mg Documented by: Oxycodone/Acetaminophen (Percocet 5/325) 1 tab PO Q6HR PRN PRN Reason: Pain Last Admin: 10/24/18 06:38 Dose: 1 tab Documented by: Pantoprazole Sodium (Protonix) 40 mg IV BID [facility] Last Admin: 10/24/18 09:53 Dose: 40 mg Documented by: Prednisone (Deltasone) 10 mg PO Q48H [facility] Last Admin: 10/24/18 09:53 Dose: 10 mg Documented by: Sodium Bicarbonate (Sodium Bicarbonate) 650 mg PO BID [facility] Last Admin: 10/24/18 09:52 Dose: 650 mg Documented by: Sodium Chloride (Sodium Chloride Flush Syringe 10 Ml) 10 ml IV BID [facility] Last Admin: 10/24/18 09:51 Dose: 10 ml Documented by: Sodium Chloride (Sodium Chloride Flush Syringe 10 Ml) 10 ml IV PRN PRN PRN Reason: LINE FLUSH Sucralfate (Carafate) 1 gm PO QID [facility] Last Admin: 10/24/18 09:52 Dose: 1 gm Documented by: Tiotropium [place] (Spiriva) 1 puff IH QDAY [facility] Last Admin: 10/24/18 11:13 Dose: 1 puff Documented by: Verapamil HCl (Calan Sr) 180 mg PO DAILY [facility] Last Admin: 10/23/18 09:31 Dose: 180 mg Documented by: Physical Examination Vital Signs Pulse Resp BP Pulse Ox 88 18 145/53 97 10/22/18 09:01 10/22/18 09:01 10/22/18 09:01 10/22/18 09:01 Results 10/24/18 04:43 10/24/18 04:43 CBC 10/24/18 Range/Units 04:43 WBC 9.7 (4.5-11.0) K/mm3 RBC 3.89 (3.65-5.03) M/mm3 Hgb 11.0 (10.1-14.3) gm/dl Hct 34.1 (30.3-42.9) % Plt Count 417 (140-440) K/mm3 Comprehensive Metabolic Panel 10/23/18 10/24/18 Range/Units 08:31 04:43 Sodium 140 139 (137-145) mmol/L Potassium 4.3 (3.6-5.0) mmol/L Chloride 103.5 (98-107) mmol/L Carbon Dioxide 24 (22-30) mmol/L BUN 19 H (7-17) mg/dL Creatinine 2.5 H 2.6 H (0.7-1.2) mg/dL Glucose 93 (65-100) mg/dL Calcium 8.1 L (8.4-10.2) mg/dL Assessment and Plan Detailed Cardiology consult dictated.
[2018-10-24] MEDS: LEVAQUIN 250MG/50ML 250 MG/50 ML BAG IV SCH (13:25)
[2018-10-24] MEDS: ATIVAN IV SCH (14:02)
[2018-10-24] MEDS: CALAN SR PO SCH (14:03)
--- NOTE | 2018-10-24 17:05 | Progress Note ---
Assessment and Plan Assessment and plan: Patient is a 78 yo woman with a history of CKD 3, SAKSHI, IDDM with PN, NSTEMI, end stage COPD (multiple previous exacerbations with intubations) with chronic hypoxic respiratory failure on 3 liters, bladder cancer (s/p surgery here in 09/2018), GERD, NSTEMI (05/2018), Arthritis, and morbid obesity who presented to [facility] ED with SOB, n/v, CP, abd pains and diarrhea, nausea, vomiting and chest pain. * CT abd/pelvis wo contrast IMPRESSION: Splenomegaly. Small hiatal hernia. Otherwise, no acute findings. Intractable nausea and vomiting: treat with antiemetics Chest pains with neg troponin x 1: repeat troponins, Consulted Cardiology due to history of nstemi and unable to get cardiac cath due to renal dysfunction, did not tolerated stress test in May 2018 COPD (chronic obstructive pulmonary disease) by history Functional quadriplegia due to COPD and other co-morbidities: consult PT/OT SAKSHI: consult Respiratory therapy Morbid obesity, BMI 54: counseling done Chronic hypoxic respiratory failure on 3Liters around the clock at home: nebs, continue 3Liters PUMA (acute kidney injury), vasomotor nephropathy/CKD 3: IVF, renal consulted IDDM (insulin dependent diabetes mellitus): SSI HTN (hypertension): continue home regimen IBS (irritable bowel syndrome: Gi is following, on Linzess GERD (gastroesophageal reflux disease): ppi DVT prophylaxis: On Lovenox and GI prophylaxis History Interval history: Patient was seen and examined. Follow-up on current diagnosis of n/v/sob/chest pains/diarrhea, all improving. Overnight uneventful. Patient denies any chest pain, shortness breath, nausea/vomiting or severe headaches. Imaging, nursing note, chart, labs and old chart reviewed. Discussed with patient. Hospitalist Physical - Physical exam Narrative exam: Gen: WDWN, NAD, Awake, Alert, Orientated x 3, bmi 53.2 HEENT: NCAT, EOMI, PERRL, OP Clear Neck: supple, no adenopathy, no thyromegaly, no JVD CVS/Heart: RRR, normal S1S2, pulses present bilaterally Chest/Lungs: CTA B, Symmetrical chest expansion, good air entry bilaterally GI/Abdomen: soft, diffuse tenderness, good bowel sounds, no guarding or rebound /Bladder: no suprapubic tenderness, no CVA or paraspinal tenderness Extermity/Skin: no c/c/e, no obvious rash MSK: FROM x 4 Neuro: CN 2-12 grossly intact, no new focal deficits Psych: calm - Constitutional Vitals: Temp Pulse Resp BP Pulse Ox 99.6 F 87 20 190/57 94 10/24/18 13:57 10/24/18 15:03 10/24/18 15:03 10/24/18 14:03 10/24/18 13:57 General appearance: Present: no acute distress, well-nourished Results - Labs CBC & Chem 7: 10/24/18 04:43 10/24/18 04:43 Labs: Laboratory Last Values WBC 9.7 K/mm3 (4.5-11.0) 10/24/18 04:43 RBC 3.89 M/mm3 (3.65-5.03) 10/24/18 04:43 Hgb 11.0 gm/dl (10.1-14.3) 10/24/18 04:43 Hct 34.1 % (30.3-42.9) 10/24/18 04:43 MCV 88 fl (79-97) 10/24/18 04:43 MCH 28 pg (28-32) 10/24/18 04:43 MCHC 32 % (30-34) 10/24/18 04:43 RDW 14.7 % (13.2-15.2) 10/24/18 04:43 Plt Count 417 K/mm3 (140-440) 10/24/18 04:43 Add Manual Diff Complete 10/23/18 02:27 Total Counted 100 10/23/18 02:27 Seg Neuts % (Manual) 64.0 % (40.0-70.0) 10/23/18 02:27 Band Neutrophils % 1.0 % 10/23/18 02:27 Lymphocytes % (Manual) 21.0 % (13.4-35.0) 10/23/18 02:27 Reactive Lymphs % (Man) 0 % 10/23/18 02:27 Monocytes % (Manual) 5.0 % (0.0-7.3) 10/23/18 02:27 Eosinophils % (Manual) 9.0 % (0.0-4.3) H 10/23/18 02:27 Basophils % (Manual) 0 % (0.0-1.8) 10/23/18 02:27 Metamyelocytes % 0 % 10/23/18 02:27 Myelocytes % 0 % 10/23/18 02:27 Promyelocytes % 0 % 10/23/18 02:27 Blast Cells % 0 % 10/23/18 02:27 Nucleated RBC % Not Reportable 10/23/18 02:27 Seg Neutrophils # Man 4.6 K/mm3 (1.8-7.7) 10/23/18 02:27 Band Neutrophils # 0.1 K/mm3 10/23/18 02:27 Lymphocytes # (Manual) 1.5 K/mm3 (1.2-5.4) 10/23/18 02:27 Abs React Lymphs (Man) 0.0 K/mm3 10/23/18 02:27 Monocytes # (Manual) 0.4 K/mm3 (0.0-0.8) 10/23/18 02:27 Eosinophils # (Manual) 0.6 K/mm3 (0.0-0.4) H 10/23/18 02:27 Basophils # (Manual) 0.0 K/mm3 (0.0-0.1) 10/23/18 02:27 Metamyelocytes # 0.0 K/mm3 10/23/18 02:27 Myelocytes # 0.0 K/mm3 10/23/18 02:27 Promyelocytes # 0.0 K/mm3 10/23/18 02:27 Blast Cells # 0.0 K/mm3 10/23/18 02:27 WBC Morphology Not Reportable 10/23/18 02:27 Hypersegmented Neuts Not Reportable 10/23/18 02:27 Hyposegmented Neuts Not Reportable 10/23/18 02:27 Hypogranular Neuts Not Reportable 10/23/18 02:27 Smudge Cells Not Reportable 10/23/18 02:27 Toxic Granulation Not Reportable 10/23/18 02:27 Toxic Vacuolation Not Reportable 10/23/18 02:27 Dohle Bodies Not Reportable 10/23/18 02:27 Pelger-Huet Anomaly Not Reportable 10/23/18 02:27 Aaron Rods Not Reportable 10/23/18 02:27 Platelet Estimate Consistent w auto 10/23/18 02:27 Clumped Platelets Not Reportable 10/23/18 02:27 Plt Clumps, EDTA Not Reportable 10/23/18 02:27 Large Platelets Not Reportable 10/23/18 02:27 Giant Platelets Not Reportable 10/23/18 02:27 Platelet Satelliting Not Reportable 10/23/18 02:27 Plt Morphology Comment Not Reportable 10/23/18 02:27 RBC Morphology Normal 10/23/18 02:27 Dimorphic RBCs Not Reportable 10/23/18 02:27 Polychromasia Not Reportable 10/23/18 02:27 Hypochromasia Not Reportable 10/23/18 02:27 Poikilocytosis Not Reportable 10/23/18 02:27 Anisocytosis Not Reportable 10/23/18 02:27 Microcytosis Not Reportable 10/23/18 02:27 Macrocytosis Not Reportable 10/23/18 02:27 Spherocytes Not Reportable 10/23/18 02:27 Pappenheimer Bodies Not Reportable 10/23/18 02:27 Sickle Cells Not Reportable 10/23/18 02:27 Target Cells Not Reportable 10/23/18 02:27 Tear Drop Cells Not Reportable 10/23/18 02:27 Ovalocytes Not Reportable 10/23/18 02:27 Helmet Cells Not Reportable 10/23/18 02:27 Sol-Hermosa Bodies Not Reportable 10/23/18 02:27 [place] Rings Not Reportable 10/23/18 02:27 [place] Cells Not Reportable 10/23/18 02:27 Bite Cells Not Reportable 10/23/18 02:27 Crenated Cell Not Reportable 10/23/18 02:27 Elliptocytes Not Reportable 10/23/18 02:27 Acanthocytes (Spur) Not Reportable 10/23/18 02:27 Rouleaux Not Reportable 10/23/18 02:27 Hemoglobin C Crystals Not Reportable 10/23/18 02:27 Schistocytes Not Reportable 10/23/18 02:27 Malaria parasites Not Reportable 10/23/18 02:27 Osvaldo Bodies Not Reportable 10/23/18 02:27 Hem Pathologist Commnt No 10/23/18 02:27 Sodium 139 mmol/L (137-145) 10/24/18 04:43 Potassium 4.3 mmol/L (3.6-5.0) 10/24/18 04:43 Chloride 103.5 mmol/L (98-107) 10/24/18 04:43 Carbon Dioxide 24 mmol/L (22-30) 10/24/18 04:43 Anion Gap 16 mmol/L 10/24/18 04:43 BUN 19 mg/dL (7-17) H 10/24/18 04:43 Creatinine 2.6 mg/dL (0.7-1.2) H 10/24/18 04:43 Estimated GFR 18 ml/min 10/24/18 04:43 BUN/Creatinine Ratio 7 % 10/24/18 04:43 Glucose 93 mg/dL (65-100) 10/24/18 04:43 POC Glucose 127 (70-105) H 10/24/18 16:25 Hemoglobin A1c 5.7 % (4-6) 10/22/18 17:49 Lactic Acid 0.90 mmol/L (0.7-2.0) 10/22/18 10:18 Calcium 8.1 mg/dL (8.4-10.2) L 10/24/18 04:43 Total Bilirubin 0.20 mg/dL (0.1-1.2) 10/23/18 02:27 AST 15 units/L (5-40) 10/23/18 02:27 ALT < 5 units/L (7-56) L 10/23/18 02:27 Alkaline Phosphatase 79 units/L (35-129) 10/23/18 02:27 Troponin T 0.022 ng/mL (0.00-0.029) 10/24/18 04:43 Total Protein 5.5 g/dL (6.3-8.2) L 10/23/18 02:27 Albumin 3.0 g/dL (3.9-5) L 10/23/18 02:27 Albumin/Globulin Ratio 1.2 % 10/23/18 02:27 Lipase 15 units/L (13-60) 10/22/18 10:18 Urine Color Yellow (Yellow) 10/23/18 08:31 Urine Turbidity Slightly-cloudy (Clear) 10/23/18 08:31 Urine pH 5.0 (5.0-7.0) 10/23/18 08:31 Ur Specific [place] 1.011 (1.003-1.030) 10/23/18 08:31 Urine Protein 30 mg/dl mg/dL (Negative) 10/23/18 08:31 Urine Glucose (UA) Neg mg/dL (Negative) 10/23/18 08:31 Urine Ketones Neg mg/dL (Negative) 10/23/18 08:31 Urine Blood Mod (Negative) 10/23/18 08:31 Urine Nitrite Neg (Negative) 10/23/18 08:31 Urine Bilirubin Neg (Negative) 10/23/18 08:31 Urine Urobilinogen < 2.0 mg/dL (<2.0) 10/23/18 08:31 Ur Leukocyte Esterase Mod (Negative) 10/23/18 08:31 Urine WBC (Auto) 40.0 /HPF (0.0-6.0) H 10/23/18 08:31 Urine RBC (Auto) 35.0 /HPF (0.0-6.0) 10/23/18 08:31 Urine Bacteria (Auto) 1+ /HPF (Negative) 10/23/18 08:31 Urine WBC Clumps 3+ /HPF 10/23/18 08:31 Urine Mucus Few /HPF 10/23/18 08:31 Urine Creatinine 175.8 mg/dL (0.1-20.0) H 10/23/18 08:31 Urine Sodium 71 mmol/L 10/23/18 08:31 Fraction Sodium Excret 0.5 10/23/18 08:31 C. difficile Toxin A&B Negative (Negative) 10/23/18 Unknown Nutrition/Malnutrition Assess - Dietary Evaluation Nutrition/Malnutrition Findings: Nutrition Notes Start: 10/23/18 14:46 Freq: Status: Active Protocol: Document 10/24/18 15:25 OH (Rec: 10/24/18 15:48 OH [id number]) Nutrition Notes Initial or Follow up Assessment Current Diagnoses Acute Kidney Injury CKD(stage I-IV) COPD Hypertension Other Pertinent Diagnosis GERD, N/V Current Diet CLEAR LIQUID Labs/Tests GLU 99 cR 2.6 BUN 19 Medications Lovenox Height 5 ft 6 in Weight 149.232 kg [place] Body Weight (lbs) 130.0 BMI 53.1 Weight Status Morbidly Obese Subjective/Other Information F/U: Pt. reports that she feels nauseous all the time. Pt. 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 MD notes indicate pt has long hx of GI issues/conditions, nausea included. Percent of energy/protein needs met: <35/20% GI Symptoms Nausea Current % PO POOR (25-49%) #1 Nutrition Diagnoses Inadequate oral intake Etiology poor appetite As Evidenced by Signs and Symptoms nausea/clear liquid diet Diagnosis Progress(for reassessment Continues documentation) Is patient on ventilator? No Is Patient Ambulatory and/or Out of Bed No REE-([facility]-confined to bed) 2380.776 Kcal/Kg value to use for calculation 11 Approximate Energy Requirements Using 1642 kcal/Kg Calculation Used for Recommendations Kcal/kg Additional Notes adj bw 104.16 KGS FLUID: 1 mL/kcal PROTEIN: 0.8-1 G/KG/ADJ BW (83 -104 G/DAY) Malnutrition Assessment Malnutrition Related to Morbid Obesity BMI>OR EQUAL TO 40 Malnutrition Related to Morbid Obesity Yes Clinical Findings Show: Moderate Malnutrition Is clinical finding present on admission Yes ? Nutrition Intervention Change Diet Order: Advance diet as tolerated Goal #1 Advance diet as medically indicated Anticipated Discharge Needs: unable to determine at this time Follow-Up By: 10/28/18 Additional Comments f/u: diet advancement; po intake; ONS initiation
[2018-10-24] MEDS: DIFLUCAN 200 ML IV SCH (17:46)
[2018-10-25] MEDS: ATIVAN IV SCH ×2 (02:43→13:08)
[2018-10-25] MEDS: SODIUM CHLORIDE FLUSH SYRINGE 10 ML IV SCH ×3 (02:43→22:47)
--- NOTE | 2018-10-25 06:05 | Consultation ---
CARDIOLOGY CONSULTATION REFERRING PHYSICIAN: Dr. Martinez, hospitalist. HISTORY OF PRESENT ILLNESS: An 78-year-old morbidly obese (BMI of 53.1) pleasant white woman with a history of multiple medical problems of hypertension, type 2 diabetes mellitus, chronic kidney disease, obstructive sleep apnea (on CPAP), GERD, and COPD, was admitted with a history of abdominal pain, nausea, vomiting 4 days before the time of admission. She also had episodic substernal and moderate pressure-like chest pains, not radiating, not associated with any palpitations, presyncope or syncope. The pain is atypical for myocardial ischemia. Serum troponin was mildly increased to 0.018. Creatinine during this admission is 2.6. She also has a history of hiatal hernia. At the time of examination, the patient does not have any chest pains. The symptoms of nausea and vomiting were getting better. The patient also has urinary tract infection and she is being treated with intravenous antibiotics. PAST MEDICAL HISTORY: History of multiple medical problems as described above. Her echocardiogram done during 05/2018 revealed a low normal LVEF of 50%-55%, mild left ventricular hypertrophy, mild mitral and mild tricuspid regurgitation. No history of CAD or myocardial infarction in the past. She has a history of multiple surgical procedures in the past - during 09/2018, she had a surgery for bladder cancer, stage 4. She has had a cholecystectomy, appendectomy, hysterectomy in the past. She also had a left breast surgery (mass removal), history of right breast and left shoulder surgery and eye surgery in the past. SOCIAL HISTORY: Not a smoker, not an alcoholic, no history of drug abuse. FAMILY HISTORY: Negative for premature coronary artery disease. ALLERGIES: Iodine-containing contrast, aspirin, Levaquin, sulfa, and tramadol. MEDICATIONS: DuoNeb inhalation 3 times daily, albuterol 2.5 mg every 4 hours p.r.n., Xanax for anxiety, IV ceftriaxone 1 gram daily, Lovenox 30 mg subcutaneous daily, Diflucan IV, gabapentin 200 mg p.o. b.i.d., IV Levaquin 250 mg daily, Protonix 40 mg IV b.i.d., prednisone 10 mg p.o. once in 2 days, Carafate 1 gram p.o. 4 times daily, and Calan SR (verapamil hydrochloride) 180 mg p.o. daily. REVIEW OF SYSTEMS: CARDIOVASCULAR: As described in the history. PULMONARY: As described in the history. GASTROINTESTINAL: As described in the history. RENAL: As described in the history. BONES AND JOINTS: As described in the history. Review of rest of the 10 systems is negative. PHYSICAL EXAMINATION: GENERAL: An 78-year-old morbidly obese pleasant white woman, resting in bed, not in acute distress. VITAL SIGNS: Temperature is 99.5, blood pressure 149/59 mmHg, and pulse 82 per minute and regular. NEUROLOGIC: She is alert, awake, and responds to commands. HEENT: Negative. NECK: Supple, no JVD, no bruit, no thyromegaly. HEART: PMI could not be felt. No palpable thrills. Auscultation of the heart reveals muffled heart sounds. No murmur or rub is appreciated. EXTREMITIES: Peripheral pulses felt. Bilateral trace edema. LUNGS: Decreased air entry over the bases. No bronchial breathing, no wheezing. ABDOMEN: Soft. No tenderness. Bowel sounds heard. SKIN: Negative. BONE AND JOINTS: Negative. LABORATORY DATA: Troponin as described above. WBC and platelet count are within normal limits. Hemoglobin and hematocrit are 11 and 34.1 respectively. Potassium 4.3, BUN and creatinine 19 and 2.6. Blood cultures are pending at this time. Urinalysis is suggestive of urinary tract infection. EKG is normal sinus rhythm, low voltage complexes, possible old septal CO. IMPRESSION: 1. Atypical chest pains with mild increase in troponins (the patient has history of acute on chronic kidney disease). 2. Morbid obesity with possible obesity hypoventilation syndrome. 3. Obstructive sleep apnea (on CPAP on a regular basis). 4. History of chronic obstructive pulmonary disease. 5. Type 2 diabetes mellitus. 6. Abnormal EKG. 7. History of hypertension. 8. History of multiple other medical problems, gastroesophageal reflux disease, chronic obstructive pulmonary disease, and hiatal hernia. 9. History of multiple surgical procedures in the past. 10. Urinary tract infection. RECOMMENDATIONS: 1. We will obtain two more sets of troponins and follow it up. 2. We will continue present management. Follow up with GI and Renal. 3. Further recommendations will follow. JOB# [id number] [facility]
[2018-10-25 06:11] LABS: Calcium 7.8 mg/dL (8.4-10.2)
[2018-10-25] MEDS: DUONEB *Not for PRN Use IH SCH ×3 (08:51→19:36)
[2018-10-25] MEDS: SPIRIVA IH SCH (09:00)
[2018-10-25] MEDS: LEVAQUIN 250MG/50ML 250 MG/50 ML BAG IV SCH (09:25)
[2018-10-25] MEDS: ROCEPHIN/NS 1 GM/50 ML 1 GM/50 ML BAG IV SCH (09:32)
[2018-10-25] MEDS: CARAFATE PO SCH ×4 (09:33→22:47)
[2018-10-25] MEDS: SODIUM BICARBONATE PO SCH ×2 (09:33→22:47)
[2018-10-25] MEDS: NEURONTIN PO SCH ×2 (09:33→22:47)
[2018-10-25] MEDS: PROTONIX IV SCH (09:33)
[2018-10-25] MEDS: LOVENOX SUB-Q SCH (09:33)
[2018-10-25] MEDS: CALAN SR PO SCH (09:34)
--- NOTE | 2018-10-25 09:46 | Progress Note ---
Assessment and Plan Troponins minimally elevated and currently nonspecific in setting of acute on chronic renal failure. Pt reports resolution of chest pain. No current indication for ischemic evaluation at this time. Echo from 05/2018 reviewed - EF 50-55%, mild LVH, mild MR, mild TR, trivial pericardial effusion. Currently stable cardiac status. Nothing further to add from cardiac perspective at this time. Will sign off. Recommend follow up in our office with Dr. Sellers within 1-2 weeks of hospital discharge ([phone]). The patient has been seen in conjunction with Dr. Joel who agrees with the assessment and plan of care. - Patient Problems (1) Atypical chest pain Current Visit: Yes Status: Acute (2) Elevated troponin Current Visit: Yes Status: Acute (3) Intractable nausea and vomiting Current Visit: Yes Status: Acute Qualifiers: Vomiting type: unspecified Qualified Code(s): R11.2 - Nausea with vomiting, unspecified (4) Acute on chronic renal failure Current Visit: Yes Status: Acute (5) UTI (urinary tract infection) Current Visit: Yes Status: Acute (6) Diabetes Current Visit: Yes Status: Chronic (7) HTN (hypertension) Current Visit: Yes Status: Chronic Qualifiers: Hypertension type: essential hypertension Qualified Code(s): I10 - Essential (primary) hypertension (8) COPD (chronic obstructive pulmonary disease) Current Visit: No Status: Chronic Qualifiers: COPD type: COPD with acute lower respiratory infection Qualified Code(s): J44.0 - Chronic obstructive pulmonary disease with acute lower respiratory infection (9) Morbid obesity Current Visit: Yes Status: Chronic (10) Obstructive sleep apnea Current Visit: Yes Status: Chronic Subjective Date of service: 10/25/18 Principal diagnosis: N/V, diarrhea Interval history: pt resting in bed, no current cardiac complaints. has been able to drink some juice and coffee this AM with no n/v or abdominal pain. Objective Last Vital Signs Temp 98.7 F 10/25/18 07:26 Pulse 71 10/25/18 09:34 Resp 26 H 10/25/18 08:50 BP 141/64 10/25/18 09:34 Pulse Ox 95 10/25/18 08:56 - Physical Examination General: No Apparent Distress HEENT: Positive: PERRL Neck: Positive: neck supple, trachea midline. Negative: JVD/HJR, Masses Cardiac: Positive: Reg Rate and Rhythm, S1/S2 Lungs: Positive: Decreased Breath Sounds Neuro: Positive: Grossly Intact Abdomen: Positive: Soft Skin: Negative: Rash, Wound Musculoskeletal: No Pain Extremities: Present: edema (trace BLE) - Labs and Meds Comprehensive Metabolic Panel 10/25/18 Range/Units 05:09 Sodium 140 (137-145) mmol/L Potassium 5.0 (3.6-5.0) mmol/L Chloride 102.3 (98-107) mmol/L Carbon Dioxide 24 (22-30) mmol/L BUN 23 H (7-17) mg/dL Creatinine 3.2 H (0.7-1.2) mg/dL Glucose 97 (65-100) mg/dL Calcium 7.8 L (8.4-10.2) mg/dL - Imaging and Cardiology EKG: report reviewed (Nsar 82/min) - Telemetry EKG Rhythm: Sinus Rhythm
--- NOTE | 2018-10-25 10:03 | Gastroenterology Progress Note ---
<SAFIA BORREGO - Last Filed: 10/25/18 09:58> Assessment and Plan 1.persistent N/V 2.diarrhea 3.H/o GERD 4.H/o IBS-C (on linzess) -abd CT- no acute findings -patient has long hx of similar symptoms with extensive workup in the past (scopes, CT, GES) -etiology-most likely functional -clinically, patient is stable. N/V improved. No abd pain or diarrhea. Tolerating clears. -no plans for scope at this time -advance diet to GI soft -continue PPI and Ativan -continue supportive care -if patient tolerates diet, okay to d/c per GI standpoint with short course of Ativan and f/u with primary GI -will sign off, please call if needed Subjective Date of service: 10/25/18 Principal diagnosis: N/V, diarrhea Interval history: No acute distress. Tolerating clears w/o N/V. Denies abd pain. Objective - Constitutional Vitals: Temp Pulse Resp BP Pulse Ox 98.7 F 71 26 H 141/64 95 10/25/18 07:26 10/25/18 09:34 10/25/18 08:50 10/25/18 09:34 10/25/18 08:56 General appearance: no acute distress, obese (morbidly) - Respiratory Respiratory: bilateral: diminished - Cardiovascular Rhythm: regular Heart Sounds: Present: S1 & S2 - Gastrointestinal General gastrointestinal: Present: soft, non-tender, non-distended, normal bowel sounds, other (obese) - Neurologic Neurological: alert and oriented x3 - Labs CBC & Chem 7: 10/24/18 04:43 10/25/18 05:09 Labs: Laboratory Results - last 24 hr 10/23/18 10/24/18 10/24/18 Unknown 04:43 11:21 Sodium Potassium Chloride Carbon Dioxide Anion Gap BUN Creatinine Estimated GFR BUN/Creatinine Ratio Glucose POC Glucose 99 Calcium Troponin T 0.022 C. difficile Toxin A&B Negative 10/24/18 10/24/18 10/25/18 16:25 21:14 05:09 Sodium 140 Potassium 5.0 Chloride 102.3 Carbon Dioxide 24 Anion Gap 19 BUN 23 H Creatinine 3.2 H Estimated GFR 14 BUN/Creatinine Ratio 7 Glucose 97 POC Glucose 127 H 114 H Calcium 7.8 L Troponin T C. difficile Toxin A&B 10/25/18 07:34 Sodium Potassium Chloride Carbon Dioxide Anion Gap BUN Creatinine Estimated GFR BUN/Creatinine Ratio Glucose POC Glucose 94 Calcium Troponin T C. difficile Toxin A&B <MAILE BERUMEN Dana - Last Filed: 10/25/18 15:01> Assessment and Plan Pt tolerated chicken pot pie and sweet peas for lunch, with some reflux, and nausea for 20-30', which is similar to her chronic, baseline, symptoms. However, she was lying down in bed while eating. - okay to D/C from GI standpoint - advised to sit up while eating - chronic PPI, and short-term, 3-5 days, course of Ativan - f/u with primary GI or with as as outpatient Will sign off. Discussed with Dr. Martinez Objective - Constitutional Vitals: Temp Pulse Resp BP Pulse Ox 98.7 F 71 26 H 141/64 95 10/25/18 07:26 10/25/18 09:34 10/25/18 08:50 10/25/18 09:34 10/25/18 08:56 - Labs CBC & Chem 7: 10/24/18 04:43 10/25/18 05:09 Labs: Laboratory Results - last 24 hr 10/23/18 10/24/18 10/24/18 Unknown 16:25 21:14 Sodium Potassium Chloride Carbon Dioxide Anion Gap BUN Creatinine Estimated GFR BUN/Creatinine Ratio Glucose POC Glucose 127 H 114 H Calcium C. difficile Toxin A&B Negative 10/25/18 10/25/18 10/25/18 05:09 07:34 11:44 Sodium 140 Potassium 5.0 Chloride 102.3 Carbon Dioxide 24 Anion Gap 19 BUN 23 H Creatinine 3.2 H Estimated GFR 14 BUN/Creatinine Ratio 7 Glucose 97 POC Glucose 94 107 H Calcium 7.8 L C. difficile Toxin A&B
[2018-10-25] MEDS: DIFLUCAN/NS 100 MG/50 ML 100 MG/50 ML BAG IV SCH (10:25)
--- NOTE | 2018-10-25 13:05 | Progress Note ---
Assessment and Plan Assessment and plan: Patient is a 78 yo woman with a history of CKD 3, SAKSHI, IDDM with PN, NSTEMI, end stage COPD (multiple previous exacerbations with intubations) with chronic hypoxic respiratory failure on 3 liters, bladder cancer (s/p surgery here in 09/2018), GERD, NSTEMI (05/2018), Arthritis, and morbid obesity with functional quadriplegia mostly bedbound per patient who presented to [facility] ED with SOB, n/v, CP, abd pains and diarrhea, nausea, vomiting and chest pain. * CT abd/pelvis wo contrast IMPRESSION: Splenomegaly. Small hiatal hernia. Otherwise, no acute findings. PUMA (acute kidney injury), vasomotor nephropathy/CKD 3: worsening, Nephrology is following. UTI, urine culture growing GN rods, await Identity and sensitivities on IV rocephin, Chest pains, atypical with history of nstemi and unable to get cardiac cath due to renal dysfunction, she did not tolerated stress test in May 2018: Ca rdiology did evaluate and signed off. COPD (chronic obstructive pulmonary disease) by history: continue bronchodilators Intractable nausea and vomiting and diarrhea treated with antiemetics Functional quadriplegia due to COPD and other co-morbidities: consulted PT/OT, patient denied ROSS/rehab SAKSHI: consulted Respiratory therapy Morbid obesity, BMI 54: counseling done Chronic hypoxic respiratory failure on 3 Liters around the clock o2 at home: neb s and continue 3 Liters IDDM (insulin dependent diabetes mellitus): SSI HTN (hypertension): continue home regimen IBS (irritable bowel syndrome: Gi is following, on Linzess GERD (gastroesophageal reflux disease): ppi DVT prophylaxis: On Lovenox and GI prophylaxis Disposition: continue inpatient care, await urine ctx and renal function to improve then d/c home with home health. I called son Ruiz, no answer and grandson Ruiz (not personal number) unable to reach. History Interval history: Patient was seen and examined. Follow-up on current diagnosis of n/v/sob/chest pains/diarrhea, all resolved but still sob. Overnight uneventful. Patient denies any chest pain, nausea/vomiting or severe headaches. Imaging, nursing note, chart, labs and old chart reviewed. Discussed with patient. Hospitalist Physical - Physical exam Narrative exam: Gen: WDWN, NAD, Awake, Alert, Orientated x 3, bmi 53.2 HEENT: NCAT, EOMI, PERRL, OP Clear Neck: supple, no adenopathy, no thyromegaly, no JVD CVS/Heart: RRR, normal S1S2, pulses present bilaterally Chest/Lungs: CTA B, Symmetrical chest expansion, good air entry bilaterally GI/Abdomen: soft, diffuse tenderness, good bowel sounds, no guarding or rebound /Bladder: no suprapubic tenderness, no CVA or paraspinal tenderness Extermity/Skin: no c/c/e, no obvious rash MSK: FROM x 4 Neuro: CN 2-12 grossly intact, no new focal deficits Psych: calm - Constitutional Vitals: Temp Pulse Resp BP Pulse Ox 98.7 F 71 26 H 141/64 95 10/25/18 07:26 10/25/18 09:34 10/25/18 08:50 10/25/18 09:34 10/25/18 08:56 General appearance: Present: no acute distress, well-nourished Results - Labs CBC & Chem 7: 10/24/18 04:43 10/25/18 05:09 Labs: Laboratory Last Values WBC 9.7 K/mm3 (4.5-11.0) 10/24/18 04:43 RBC 3.89 M/mm3 (3.65-5.03) 10/24/18 04:43 Hgb 11.0 gm/dl (10.1-14.3) 10/24/18 04:43 Hct 34.1 % (30.3-42.9) 10/24/18 04:43 MCV 88 fl (79-97) 10/24/18 04:43 MCH 28 pg (28-32) 10/24/18 04:43 MCHC 32 % (30-34) 10/24/18 04:43 RDW 14.7 % (13.2-15.2) 10/24/18 04:43 Plt Count 417 K/mm3 (140-440) 10/24/18 04:43 Add Manual Diff Complete 10/23/18 02:27 Total Counted 100 10/23/18 02:27 Seg Neuts % (Manual) 64.0 % (40.0-70.0) 10/23/18 02:27 Band Neutrophils % 1.0 % 10/23/18 02:27 Lymphocytes % (Manual) 21.0 % (13.4-35.0) 10/23/18 02:27 Reactive Lymphs % (Man) 0 % 10/23/18 02:27 Monocytes % (Manual) 5.0 % (0.0-7.3) 10/23/18 02:27 Eosinophils % (Manual) 9.0 % (0.0-4.3) H 10/23/18 02:27 Basophils % (Manual) 0 % (0.0-1.8) 10/23/18 02:27 Metamyelocytes % 0 % 10/23/18 02:27 Myelocytes % 0 % 10/23/18 02:27 Promyelocytes % 0 % 10/23/18 02:27 Blast Cells % 0 % 10/23/18 02:27 Nucleated RBC % Not Reportable 10/23/18 02:27 Seg Neutrophils # Man 4.6 K/mm3 (1.8-7.7) 10/23/18 02:27 Band Neutrophils # 0.1 K/mm3 10/23/18 02:27 Lymphocytes # (Manual) 1.5 K/mm3 (1.2-5.4) 10/23/18 02:27 Abs React Lymphs (Man) 0.0 K/mm3 10/23/18 02:27 Monocytes # (Manual) 0.4 K/mm3 (0.0-0.8) 10/23/18 02:27 Eosinophils # (Manual) 0.6 K/mm3 (0.0-0.4) H 10/23/18 02:27 Basophils # (Manual) 0.0 K/mm3 (0.0-0.1) 10/23/18 02:27 Metamyelocytes # 0.0 K/mm3 10/23/18 02:27 Myelocytes # 0.0 K/mm3 10/23/18 02:27 Promyelocytes # 0.0 K/mm3 10/23/18 02:27 Blast Cells # 0.0 K/mm3 10/23/18 02:27 WBC Morphology Not Reportable 10/23/18 02:27 Hypersegmented Neuts Not Reportable 10/23/18 02:27 Hyposegmented Neuts Not Reportable 10/23/18 02:27 Hypogranular Neuts Not Reportable 10/23/18 02:27 Smudge Cells Not Reportable 10/23/18 02:27 Toxic Granulation Not Reportable 10/23/18 02:27 Toxic Vacuolation Not Reportable 10/23/18 02:27 Dohle Bodies Not Reportable 10/23/18 02:27 Pelger-Huet Anomaly Not Reportable 10/23/18 02:27 Aaron Rods Not Reportable 10/23/18 02:27 Platelet Estimate Consistent w auto 10/23/18 02:27 Clumped Platelets Not Reportable 10/23/18 02:27 Plt Clumps, EDTA Not Reportable 10/23/18 02:27 Large Platelets Not Reportable 10/23/18 02:27 Giant Platelets Not Reportable 10/23/18 02:27 Platelet Satelliting Not Reportable 10/23/18 02:27 Plt Morphology Comment Not Reportable 10/23/18 02:27 RBC Morphology Normal 10/23/18 02:27 Dimorphic RBCs Not Reportable 10/23/18 02:27 Polychromasia Not Reportable 10/23/18 02:27 Hypochromasia Not Reportable 10/23/18 02:27 Poikilocytosis Not Reportable 10/23/18 02:27 Anisocytosis Not Reportable 10/23/18 02:27 Microcytosis Not Reportable 10/23/18 02:27 Macrocytosis Not Reportable 10/23/18 02:27 Spherocytes Not Reportable 10/23/18 02:27 Pappenheimer Bodies Not Reportable 10/23/18 02:27 Sickle Cells Not Reportable 10/23/18 02:27 Target Cells Not Reportable 10/23/18 02:27 Tear Drop Cells Not Reportable 10/23/18 02:27 Ovalocytes Not Reportable 10/23/18 02:27 Helmet Cells Not Reportable 10/23/18 02:27 [place] Bodies Not Reportable 10/23/18 02:27 Tasley Rings Not Reportable 10/23/18 02:27 Vikash Cells Not Reportable 10/23/18 02:27 Bite Cells Not Reportable 10/23/18 02:27 Crenated Cell Not Reportable 10/23/18 02:27 Elliptocytes Not Reportable 10/23/18 02:27 Acanthocytes (Spur) Not Reportable 10/23/18 02:27 Rouleaux Not Reportable 10/23/18 02:27 Hemoglobin C Crystals Not Reportable 10/23/18 02:27 Schistocytes Not Reportable 10/23/18 02:27 Malaria parasites Not Reportable 10/23/18 02:27 Osvaldo Bodies Not Reportable 10/23/18 02:27 Hem Pathologist Commnt No 10/23/18 02:27 Sodium 140 mmol/L (137-145) 10/25/18 05:09 Potassium 5.0 mmol/L (3.6-5.0) 10/25/18 05:09 Chloride 102.3 mmol/L (98-107) 10/25/18 05:09 Carbon Dioxide 24 mmol/L (22-30) 10/25/18 05:09 Anion Gap 19 mmol/L 10/25/18 05:09 BUN 23 mg/dL (7-17) H 10/25/18 05:09 Creatinine 3.2 mg/dL (0.7-1.2) H 10/25/18 05:09 Estimated GFR 14 ml/min 10/25/18 05:09 BUN/Creatinine Ratio 7 % 10/25/18 05:09 Glucose 97 mg/dL (65-100) 10/25/18 05:09 POC Glucose 107 (70-105) H 10/25/18 11:44 Hemoglobin A1c 5.7 % (4-6) 10/22/18 17:49 Lactic Acid 0.90 mmol/L (0.7-2.0) 10/22/18 10:18 Calcium 7.8 mg/dL (8.4-10.2) L 10/25/18 05:09 Total Bilirubin 0.20 mg/dL (0.1-1.2) 10/23/18 02:27 AST 15 units/L (5-40) 10/23/18 02:27 ALT < 5 units/L (7-56) L 10/23/18 02:27 Alkaline Phosphatase 79 units/L (35-129) 10/23/18 02:27 Troponin T 0.022 ng/mL (0.00-0.029) 10/24/18 04:43 Total Protein 5.5 g/dL (6.3-8.2) L 10/23/18 02:27 Albumin 3.0 g/dL (3.9-5) L 10/23/18 02:27 Albumin/Globulin Ratio 1.2 % 10/23/18 02:27 Lipase 15 units/L (13-60) 10/22/18 10:18 Urine Color Yellow (Yellow) 10/23/18 08:31 Urine Turbidity Slightly-cloudy (Clear) 10/23/18 08:31 Urine pH 5.0 (5.0-7.0) 10/23/18 08:31 Ur Specific [place] 1.011 (1.003-1.030) 10/23/18 08:31 Urine Protein 30 mg/dl mg/dL (Negative) 10/23/18 08:31 Urine Glucose (UA) Neg mg/dL (Negative) 10/23/18 08:31 Urine Ketones Neg mg/dL (Negative) 10/23/18 08:31 Urine Blood Mod (Negative) 10/23/18 08:31 Urine Nitrite Neg (Negative) 10/23/18 08:31 Urine Bilirubin Neg (Negative) 10/23/18 08:31 Urine Urobilinogen < 2.0 mg/dL (<2.0) 10/23/18 08:31 Ur Leukocyte Esterase Mod (Negative) 10/23/18 08:31 Urine WBC (Auto) 40.0 /HPF (0.0-6.0) H 10/23/18 08:31 Urine RBC (Auto) 35.0 /HPF (0.0-6.0) 10/23/18 08:31 Urine Bacteria (Auto) 1+ /HPF (Negative) 10/23/18 08:31 Urine WBC Clumps 3+ /HPF 10/23/18 08:31 Urine Mucus Few /HPF 10/23/18 08:31 Urine Creatinine 175.8 mg/dL (0.1-20.0) H 10/23/18 08:31 Urine Sodium 71 mmol/L 10/23/18 08:31 Fraction Sodium Excret 0.5 10/23/18 08:31 C. difficile Toxin A&B Negative (Negative) 10/23/18 Unknown Nutrition/Malnutrition Assess - Dietary Evaluation Nutrition/Malnutrition Findings: Nutrition Notes Start: 10/23/18 14:46 Freq: Status: Active Protocol: Document 10/24/18 15:25 OH (Rec: 10/24/18 15:48 OH [id number]) Nutrition Notes Initial or Follow up Assessment Current Diagnoses Acute Kidney Injury CKD(stage I-IV) COPD Hypertension Other Pertinent Diagnosis GERD, N/V Current Diet CLEAR LIQUID Labs/Tests GLU 99 cR 2.6 BUN 19 Medications Lovenox Height 5 ft 6 in Weight 149.232 kg [place] Body Weight (lbs) 130.0 BMI 53.1 Weight Status Morbidly Obese Subjective/Other Information F/U: Pt. reports that she feels nauseous all the time. Pt. 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 MD notes indicate pt has long hx of GI issues/conditions, nausea included. Percent of energy/protein needs met: <35/20% GI Symptoms Nausea Current % PO POOR (25-49%) #1 Nutrition Diagnoses Inadequate oral intake Etiology poor appetite As Evidenced by Signs and Symptoms nausea/clear liquid diet Diagnosis Progress(for reassessment Continues documentation) Is patient on ventilator? No Is Patient Ambulatory and/or Out of Bed No REE-([place]-St. Jeor-confined to bed) 2380.776 Kcal/Kg value to use for calculation 11 Approximate Energy Requirements Using 1642 kcal/Kg Calculation Used for Recommendations Kcal/kg Additional Notes adj bw 104.16 KGS FLUID: 1 mL/kcal PROTEIN: 0.8-1 G/KG/ADJ BW (83 -104 G/DAY) Malnutrition Assessment Malnutrition Related to Morbid Obesity BMI>OR EQUAL TO 40 Malnutrition Related to Morbid Obesity Yes Clinical Findings Show: Moderate Malnutrition Is clinical finding present on admission Yes ? Nutrition Intervention Change Diet Order: Advance diet as tolerated Goal #1 Advance diet as medically indicated Anticipated Discharge Needs: unable to determine at this time Follow-Up By: 10/28/18 Additional Comments f/u: diet advancement; po intake; ONS initiation
[2018-10-25] MEDS: NACL 0.9% 1000 ML 1,000 ML IV SCH (13:08)
--- NOTE | 2018-10-25 13:14 | Progress Note ---
Assessment and Plan Impression * Acute on chronic renal failure * Nausea and vomiting * COPD * History of bladder cancer * Morbid obesity * Urinary tract infection Recommendations * Patient's renal function seems to be getting worse. She does still have some nausea and vomiting * Continue gentle hydration due to her GI symptoms * Her urine shows 1+ to stick protein as well as pyuria and microhematuria * Blood culture results pending. Check urine culture. Add empiric antibiotics * fractional excretion of sodium is 0.5% * Avoid nephrotoxins * Monitor fluid status and electrolytes closely * Continue treatment for COPD * Patient states that she is allergic to Levaquin. Patient has gram-negative rods in her urine culture. Sensitivity pending. Agree with Rocephin for her UTI Subjective Date of service: 10/25/18 Principal diagnosis: N/V, diarrhea Interval history: Patient is awake and alert. Denies any shortness of breath. However patient states that she feels somewhat different today. Has had some difficulty with his sleep as well Objective - Vital Signs Vital signs: Vital Signs - 12hr 10/25/18 10/25/18 10/25/18 02:19 06:14 07:26 Temperature 97.3 F L 98.7 F Pulse Rate 70 69 71 Pulse Rate [ Bilateral] Respiratory 18 20 Rate Respiratory Rate [Bilateral ] Blood Pressure 132/53 141/64 O2 Sat by Pulse 93 95 Oximetry 10/25/18 10/25/18 10/25/18 08:50 08:56 09:34 Temperature Pulse Rate 71 Pulse Rate [ 71 Bilateral] Respiratory Rate Respiratory 26 H Rate [Bilateral ] Blood Pressure 141/64 O2 Sat by Pulse 95 Oximetry - General Appearance General appearance: well-developed, well-nourished, appears stated age, obese EENT: PERRL, mucous membranes moist Neck: no JVD, no thyromegaly, no carotid bruit, supple Respiratory: Present: Wheezes Cardiology: regular, normal heart rate Gastrointestinal: normoactive bowel sounds, other (abdominal wall edema noted) Integumentary: other (1+ edema) - Lab 10/24/18 04:43 10/25/18 05:09 Most recent lab results Calcium 7.8 mg/dL (8.4-10.2) L 10/25/18 05:09 Urine Creatinine 175.8 mg/dL (0.1-20.0) H 10/23/18 08:31 Urine Sodium 71 mmol/L 10/23/18 08:31 Medications & Allergies - Medications Allergies/Adverse Reactions: Allergies aspirin Allergy (Verified 09/17/17 17:58) Shortness of Breath , CHEST PAIN escitalopram [From Lexapro] Allergy (Verified 04/17/18 11:43) Shortness of Breath salmeterol xinafoate [From Serevent] Allergy (Verified 01/22/17 08:45) Shortness of Breath levofloxacin [From Levaquin] Adverse Reaction (Verified 09/13/16 16:22) Rash Sulfa (Sulfonamide Antibiotics) Adverse Reaction (Verified 10/31/17 11:19) contraindicated due to kidney function states her doctor told her to not take sulfa due to renal insufficiency tramadol Adverse Reaction (Verified 09/19/18 16:34) Nausea contrast dye Adverse Reaction (Uncoded 04/17/18 11:59) contraindicated due to renal insufficiency Home Medications: Home Medications Medication Instructions Recorded Confirmed Last Taken Type ALPRAZolam [Xanax TAB] 0.25 mg PO PRN PRN 09/13/16 10/22/18 10/01/18 21:00 History Ipratropium/Albuterol Sulfate 1 ampul IH QID 09/13/16 10/22/18 10/22/18 20:00 History [DUONEB *Not for PRN Use*] Sucralfate 1 gm PO QID 09/13/16 10/22/18 10/22/18 22:00 History Indacaterol Maleate [Arcapta 75 mcg IH DAILY 01/22/17 10/22/18 10/01/18 19:30 History Neohaler] Gabapentin [Neurontin] 200 mg PO BID 09/03/17 10/22/18 10/22/18 22:00 History Sodium Bicarbonate 650 mg PO BID 09/03/17 10/22/18 10/22/18 22:00 History Tiotropium [Spiriva] 18 mcg IH QDAY 09/03/17 10/22/18 10/02/18 07:30 History Ranitidine HCl [Acid Assistant Import Manager] 150 mg PO BID 10/29/17 10/22/18 10/22/18 22:00 History Beclomethasone Dipropionate [Qvar] 8.7 gm IH BID 0610/22/18 10/22/18 20:00 History guaiFENesin [Mucinex] 600 mg PO DAILY 03/29/18 10/22/18 10/02/18 07:30 History Insulin NPH/Regular [NovoLIN 70/30] 10 unit SQ BID 09/19/18 10/22/18 10/01/18 19:00 History Linaclotide (Nf) [Linzess (Nf)] 290 mcg PO QDAY 09/19/18 10/22/18 10/21/18 History Verapamil ER [Calan Sr] 180 mg PO DAILY 09/19/18 10/22/18 10/02/18 07:30 History oxyCODONE /ACETAMINOPHEN [Percocet 1 tab PO Q6HR PRN 09/19/18 10/22/18 09/30/18 20:00 History 5/325] predniSONE [Prednisone] 10 mg PO Q48HR 09/19/18 10/22/18 09/30/18 09:00 History Active Medications: Generic Name Dose Route Start Last Admin Trade Name Freq PRN Reason Stop Dose Admin Acetaminophen 650 mg 10/22/18 17:31 Tylenol PO Q4H PRN Pain MILD(1-3)/Fever >100.5/[place] Albuterol 2.5 mg 10/23/18 20:38 Proventil IH Q4HRT PRN Shortness Of Breath Albuterol/Ipratropium 1 ampul 10/23/18 20:00 10/25/18 08:51 Duoneb *Not For Prn Use* IH 1 ampul TIDRT KELLY Administration Enoxaparin Sodium 30 mg 10/22/18 18:00 10/25/18 09:33 Lovenox SUB-Q 30 mg QDAY KELLY Administration Gabapentin 200 mg 10/22/18 22:00 10/25/18 09:33 Neurontin PO 200 mg BID KELLY Administration Hydromorphone HCl 1 mg 10/22/18 14:29 10/24/18 02:36 Dilaudid IV 1 mg Q3H PRN Administration Pain , Severe (7-10) Sodium Chloride 1,000 mls @ 75 mls/hr 10/22/18 18:00 10/25/18 13:08 Nacl 0.9% 1000 Ml IV 75 mls/hr DIRECT KELLY Administration Ceftriaxone Sodium 1 gm in 50 mls @ 100 mls/hr 10/24/18 10:00 10/25/18 09:32 Rocephin/Ns 1 Gm/50 Ml IV 100 mls/hr Q24HR KELLY Administration Protocol Fluconazole 100 mg in 50 mls @ 50 mls/hr 10/25/18 10:00 10/25/18 10:25 Diflucan/Ns 100 Mg/50 Ml IV 50 mls/hr Q24HR KELLY Administration Lorazepam 0.5 mg 10/24/18 13:30 10/25/18 13:08 Ativan IV 0.5 mg Q12H KELLY Administration Miscellaneous Medication 8.7 gm 10/22/18 22:00 Beclomethasone Dipropionate [Qvar] IH BID KELLY Miscellaneous Medication 290 mcg 10/22/18 17:30 Linaclotide (Nf) PO QDAY KELLY Ondansetron HCl 4 mg 10/22/18 17:31 10/24/18 04:45 Zofran IV 4 mg Q8H PRN Administration Nausea And Vomiting Oxycodone/Acetaminophen 1 tab 10/22/18 17:28 10/24/18 06:38 Percocet 5/325 PO 1 tab Q6HR PRN Administration Pain Pantoprazole Sodium 40 mg 10/25/18 14:00 Protonix PO QDAY KELLY Prednisone 10 mg 10/24/18 10:00 10/24/18 09:53 Deltasone PO 10 mg Q48H KELLY Administration Sodium Bicarbonate 650 mg 10/22/18 22:00 10/25/18 09:33 Sodium Bicarbonate PO 650 mg BID KELLY Administration Sodium Chloride 10 ml 10/22/18 22:00 10/25/18 09:34 Sodium Chloride Flush Syringe 10 Ml IV 10 ml BID KELLY Administration Sodium Chloride 10 ml 10/22/18 17:31 Sodium Chloride Flush Syringe 10 Ml IV PRN PRN LINE FLUSH Sucralfate 1 gm 10/22/18 18:00 10/25/18 13:08 Carafate PO 1 gm QID KELLY Administration Tiotropium [place] 1 puff 10/22/18 17:30 10/24/18 11:13 Spiriva IH 1 puff QDAY KELLY Administration Verapamil HCl 180 mg 10/22/18 18:00 10/25/18 09:34 Calan Sr PO 180 mg DAILY KELLY Administration
[2018-10-25] MEDS: PROTONIX PO SCH (13:15)
[2018-10-25] MEDS: ZOFRAN IV PRN (13:15)
[2018-10-25] MEDS: PERCOCET 5/325 PO PRN (22:46)
[2018-10-25] MEDS: PROVENTIL IH PRN (23:50)
[2018-10-26] MEDS: TYLENOL PO PRN ×2 (02:24→18:13)
[2018-10-26] MEDS: ATIVAN IV SCH ×2 (02:24→13:54)
[2018-10-26] MEDS: NACL 0.9% 1000 ML 1,000 ML IV SCH ×2 (02:26→22:57)
[2018-10-26 06:04] LABS: Calcium 7.9 mg/dL (8.4-10.2)
[2018-10-26] MEDS: SPIRIVA IH SCH ×2 (07:43→16:27)
[2018-10-26] MEDS: ROCEPHIN/NS 1 GM/50 ML 1 GM/50 ML BAG IV SCH (09:44)
[2018-10-26] MEDS: DELTASONE PO SCH (09:45)
[2018-10-26] MEDS: NEURONTIN PO SCH ×2 (09:45→22:54)
[2018-10-26] MEDS: CARAFATE PO SCH ×4 (09:45→22:53)
[2018-10-26] MEDS: SODIUM BICARBONATE PO SCH ×2 (09:45→22:53)
[2018-10-26] MEDS: LOVENOX SUB-Q SCH (09:45)
[2018-10-26] MEDS: CALAN SR PO SCH (09:46)
[2018-10-26] MEDS: PROTONIX PO SCH (09:51)
[2018-10-26] MEDS: SODIUM CHLORIDE FLUSH SYRINGE 10 ML IV SCH (10:00)
--- NOTE | 2018-10-26 12:01 | Progress Note ---
Assessment and Plan Impression * Acute on chronic renal failure * Nausea and vomiting * COPD * History of bladder cancer * Morbid obesity * Urinary tract infection Recommendations * Patient's renal function seems to be stabilizing . She does still have some nausea but no vomiting * Reduce IV fluid * Her urine shows 1+ to stick protein as well as pyuria and microhematuria * Blood culture results pending. Check urine culture. Add empiric antibiotics * fractional excretion of sodium is 0.5% * Avoid nephrotoxins * Monitor fluid status and electrolytes closely * Continue treatment for COPD * Patient states that she is allergic to Levaquin. Urine culture growing Es cherichia coli sensitive to Rocephin. Continue Rocephin for now Subjective Date of service: 10/26/18 Principal diagnosis: N/V, diarrhea Interval history: Patient is comfortable today. She does have some nausea but no vomiting. Objective - Vital Signs Vital signs: Vital Signs - 12hr 10/26/18 10/26/18 10/26/18 00:00 02:24 03:22 Temperature 98.0 F Pulse Rate 77 Pulse Rate [ 96 H Bilateral] Respiratory 20 18 Rate Respiratory 20 Rate [Bilateral ] Blood Pressure 150/56 O2 Sat by Pulse 94 Oximetry 10/26/18 10/26/18 10/26/18 03:24 03:46 05:30 Temperature Pulse Rate 78 Pulse Rate [ 80 Bilateral] Respiratory 20 Rate Respiratory 20 Rate [Bilateral ] Blood Pressure O2 Sat by Pulse Oximetry 10/26/18 10/26/18 10/26/18 05:40 07:33 09:41 Temperature 99.5 F Pulse Rate 73 Pulse Rate [ 82 Bilateral] Respiratory 20 Rate Respiratory 20 Rate [Bilateral ] Blood Pressure 104/41 119/46 O2 Sat by Pulse 92 Oximetry 10/26/18 10/26/18 09:43 09:46 Temperature Pulse Rate 77 Pulse Rate [ Bilateral] Respiratory Rate Respiratory Rate [Bilateral ] Blood Pressure 123/49 123/49 O2 Sat by Pulse Oximetry - General Appearance General appearance: well-developed, well-nourished, appears stated age, obese EENT: PERRL, mucous membranes moist Neck: no JVD, no thyromegaly, no carotid bruit, supple Respiratory: Present: Wheezes Cardiology: regular, normal heart rate Gastrointestinal: normal, normoactive bowel sounds, other (abdominal wall edema) Integumentary: other (1+ edema) - Lab 10/24/18 04:43 10/26/18 05:12 Most recent lab results Calcium 7.9 mg/dL (8.4-10.2) L 10/26/18 05:12 Urine Creatinine 175.8 mg/dL (0.1-20.0) H 10/23/18 08:31 Urine Sodium 71 mmol/L 10/23/18 08:31 Medications & Allergies - Medications Allergies/Adverse Reactions: Allergies aspirin Allergy (Verified 09/17/17 17:58) Shortness of Breath , CHEST PAIN escitalopram [From Lexapro] Allergy (Verified 04/17/18 11:43) Shortness of Breath salmeterol xinafoate [From Serevent] Allergy (Verified 01/22/17 08:45) Shortness of Breath levofloxacin [From Levaquin] Adverse Reaction (Verified 09/13/16 16:22) Rash Sulfa (Sulfonamide Antibiotics) Adverse Reaction (Verified 10/31/17 11:19) contraindicated due to kidney function states her doctor told her to not take sulfa due to renal insufficiency tramadol Adverse Reaction (Verified 09/19/18 16:34) Nausea contrast dye Adverse Reaction (Uncoded 04/17/18 11:59) contraindicated due to renal insufficiency Home Medications: Home Medications Medication Instructions Recorded Confirmed Last Taken Type ALPRAZolam [Xanax TAB] 0.25 mg PO PRN PRN 09/13/16 10/22/18 10/01/18 21:00 History Ipratropium/Albuterol Sulfate 1 ampul IH QID 09/13/16 10/22/18 10/22/18 20:00 History [DUONEB *Not for PRN Use*] Sucralfate 1 gm PO QID 09/13/16 10/22/18 10/22/18 22:00 History Indacaterol Maleate [Arcapta 75 mcg IH DAILY 01/22/17 10/22/18 10/01/18 19:30 History Neohaler] Gabapentin [Neurontin] 200 mg PO BID 09/03/17 10/22/18 10/22/18 22:00 History Sodium Bicarbonate 650 mg PO BID 09/03/17 10/22/18 10/22/18 22:00 History Tiotropium [Spiriva] 18 mcg IH QDAY 09/03/17 10/22/18 10/02/18 07:30 History Ranitidine HCl [Acid Shop Girl] 150 mg PO BID 10/29/17 10/22/18 10/22/18 22:00 History Beclomethasone Dipropionate [Qvar] 8.7 gm IH BID 03/29/18 10/22/18 10/22/18 20:00 History guaiFENesin [Mucinex] 600 mg PO DAILY 03/29/18 10/22/18 10/02/18 07:30 History Insulin NPH/Regular [NovoLIN 70/30] 10 unit SQ BID 09/19/18 10/22/18 10/01/18 19:00 History Linaclotide (Nf) [Linzess (Nf)] 290 mcg PO QDAY 09/19/18 10/22/18 10/21/18 History Verapamil ER [Calan Sr] 180 mg PO DAILY 09/19/18 10/22/18 10/02/18 07:30 History oxyCODONE /ACETAMINOPHEN [Percocet 1 tab PO Q6HR PRN 09/19/18 10/22/18 09/30/18 20:00 History 5/325] predniSONE [Prednisone] 10 mg PO Q48HR 09/19/18 10/22/18 09/30/18 09:00 History Active Medications: Generic Name Dose Route Start Last Admin Trade Name Freq PRN Reason Stop Dose Admin Acetaminophen 650 mg 10/22/18 17:31 10/26/18 02:24 Tylenol PO 650 mg Q4H PRN Administration Pain MILD(1-3)/Fever >100.5/[place] Albuterol 2.5 mg 10/23/18 20:38 10/25/18 23:50 Proventil IH 2.5 mg Q4HRT PRN Administration Shortness Of Breath Albuterol/Ipratropium 1 ampul 10/23/18 20:00 10/25/18 19:36 Duoneb *Not For Prn Use* IH 1 ampul TIDRT KELLY Administration Enoxaparin Sodium 30 mg 10/22/18 18:00 10/26/18 09:45 Lovenox SUB-Q 30 mg QDAY KELLY Administration Gabapentin 200 mg 10/22/18 22:00 10/26/18 09:45 Neurontin PO 200 mg BID KELLY Administration Hydromorphone HCl 1 mg 10/22/18 14:29 10/24/18 02:36 Dilaudid IV 1 mg Q3H PRN Administration Pain , Severe (7-10) Sodium Chloride 1,000 mls @ 75 mls/hr 10/22/18 18:00 10/26/18 02:26 Nacl 0.9% 1000 Ml IV 75 mls/hr DIRECT KELLY Administration Ceftriaxone Sodium 1 gm in 50 mls @ 100 mls/hr 10/24/18 10:00 10/26/18 09:44 Rocephin/Ns 1 Gm/50 Ml IV 100 mls/hr Q24HR KELLY Administration Protocol Fluconazole 100 mg in 50 mls @ 50 mls/hr 10/25/18 10:00 10/25/18 10:25 Diflucan/Ns 100 Mg/50 Ml IV 50 mls/hr Q24HR KELLY Administration Lorazepam 0.5 mg 10/24/18 13:30 10/26/18 02:24 Ativan IV 0.5 mg Q12H KELLY Administration Miscellaneous Medication 8.7 gm 10/22/18 22:00 Beclomethasone Dipropionate [Qvar] IH BID KELLY Miscellaneous Medication 290 mcg 10/22/18 17:30 Linaclotide (Nf) PO QDAY KELLY Ondansetron HCl 4 mg 10/22/18 17:31 10/25/18 13:15 Zofran IV 4 mg Q8H PRN Administration Nausea And Vomiting Oxycodone/Acetaminophen 1 tab 10/22/18 17:28 10/25/18 22:46 Percocet 5/325 PO 1 tab Q6HR PRN Administration Pain Pantoprazole Sodium 40 mg 10/25/18 14:00 10/26/18 09:51 Protonix PO 40 mg QDAY KELLY Administration Prednisone 10 mg 10/24/18 10:00 10/26/18 09:45 Deltasone PO 10 mg Q48H KELLY Administration Sodium Bicarbonate 650 mg 10/22/18 22:00 10/26/18 09:45 Sodium Bicarbonate PO 650 mg BID KELLY Administration Sodium Chloride 10 ml 10/22/18 22:00 10/25/18 22:47 Sodium Chloride Flush Syringe 10 Ml IV 10 ml BID KELLY Administration Sodium Chloride 10 ml 10/22/18 17:31 Sodium Chloride Flush Syringe 10 Ml IV PRN PRN LINE FLUSH Sucralfate 1 gm 10/22/18 18:00 10/26/18 09:45 Carafate PO 1 gm QID KELLY Administration Tiotropium [place] 1 puff 10/22/18 17:30 10/26/18 07:43 Spiriva IH 1 puff QDAY KELLY Administration Verapamil HCl 180 mg 10/22/18 18:00 10/26/18 09:46 Calan Sr PO Not Given DAILY KELLY
[2018-10-26] MEDS: PERCOCET 5/325 PO PRN (14:32)
[2018-10-26] MEDS: DIFLUCAN/NS 100 MG/50 ML 100 MG/50 ML BAG IV SCH (14:32)
[2018-10-26] MEDS: DUONEB *Not for PRN Use IH SCH ×3 (16:27→19:41)
--- NOTE | 2018-10-26 18:18 | Progress Note ---
Assessment and Plan Assessment and plan: Patient is a 78 yo woman with a history of CKD 3, SAKSHI, IDDM with PN, NSTEMI, end stage COPD (multiple previous exacerbations with intubations) with chronic hypoxic respiratory failure on 3 liters, bladder cancer (s/p surgery here in 09/2018), GERD, NSTEMI (05/2018), Arthritis, and morbid obesity with functional quadriplegia mostly bedbound per patient who presented to [facility] ED with SOB, n/v, CP, abd pains and diarrhea, nausea, vomiting and chest pain. * CT abd/pelvis wo contrast IMPRESSION: Splenomegaly. Small hiatal hernia. Otherwise, no acute findings. PUMA (acute kidney injury), vasomotor nephropathy/CKD 3: worsening, Nephrology is following. UTI, urine culture growing GN rods, await Identity and sensitivities on IV rocephin, Chest pains, atypical with history of nstemi and unable to get cardiac cath due to renal dysfunction, she did not tolerated stress test in May 2018: Ca rdiology did evaluate and signed off. COPD (chronic obstructive pulmonary disease) by history: continue bronchodilators Intractable nausea and vomiting and diarrhea treated with antiemetics Functional quadriplegia due to COPD and other co-morbidities: consulted PT/OT, patient denied ROSS/rehab SAKSHI: consulted Respiratory therapy Morbid obesity, BMI 54: counseling done Chronic hypoxic respiratory failure on 3 Liters around the clock o2 at home: neb s and continue 3 Liters IDDM (insulin dependent diabetes mellitus): SSI HTN (hypertension): continue home regimen IBS (irritable bowel syndrome: Gi is following, on Linzess GERD (gastroesophageal reflux disease): ppi DVT prophylaxis: On Lovenox and GI prophylaxis Disposition: continue inpatient care, await urine ctx and renal function to improve then d/c home with home health. I called son Ruiz, no answer and grandson Ruiz (not personal number) unable to reach. History Interval history: Patient was seen and examined. Follow-up on current diagnosis of n/v/sob/chest pains/diarrhea, all resolved but still sob. Overnight uneventful. Patient denies any chest pain, nausea/vomiting or severe headaches. Imaging, nursing note, chart, labs and old chart reviewed. Discussed with patient. Hospitalist Physical - Physical exam Narrative exam: Gen: WDWN, NAD, Awake, Alert, Orientated x 3, bmi 53.2 HEENT: NCAT, EOMI, PERRL, OP Clear Neck: supple, no adenopathy, no thyromegaly, no JVD CVS/Heart: RRR, normal S1S2, pulses present bilaterally Chest/Lungs: CTA B, Symmetrical chest expansion, good air entry bilaterally GI/Abdomen: soft, diffuse tenderness, good bowel sounds, no guarding or rebound /Bladder: no suprapubic tenderness, no CVA or paraspinal tenderness Extermity/Skin: no c/c/e, no obvious rash MSK: FROM x 4 Neuro: CN 2-12 grossly intact, no new focal deficits Psych: calm - Constitutional Vitals: Temp Pulse Resp BP Pulse Ox 98.7 F 69 21 123/51 93 10/26/18 13:18 10/26/18 17:56 10/26/18 17:56 10/26/18 13:18 10/26/18 13:18 General appearance: Present: no acute distress, well-nourished Results - Labs CBC & Chem 7: 10/24/18 04:43 10/26/18 05:12 Labs: Laboratory Last Values WBC 9.7 K/mm3 (4.5-11.0) 10/24/18 04:43 RBC 3.89 M/mm3 (3.65-5.03) 10/24/18 04:43 Hgb 11.0 gm/dl (10.1-14.3) 10/24/18 04:43 Hct 34.1 % (30.3-42.9) 10/24/18 04:43 MCV 88 fl (79-97) 10/24/18 04:43 MCH 28 pg (28-32) 10/24/18 04:43 MCHC 32 % (30-34) 10/24/18 04:43 RDW 14.7 % (13.2-15.2) 10/24/18 04:43 Plt Count 417 K/mm3 (140-440) 10/24/18 04:43 Add Manual Diff Complete 10/23/18 02:27 Total Counted 100 10/23/18 02:27 Seg Neuts % (Manual) 64.0 % (40.0-70.0) 10/23/18 02:27 Band Neutrophils % 1.0 % 10/23/18 02:27 Lymphocytes % (Manual) 21.0 % (13.4-35.0) 10/23/18 02:27 Reactive Lymphs % (Man) 0 % 10/23/18 02:27 Monocytes % (Manual) 5.0 % (0.0-7.3) 10/23/18 02:27 Eosinophils % (Manual) 9.0 % (0.0-4.3) H 10/23/18 02:27 Basophils % (Manual) 0 % (0.0-1.8) 10/23/18 02:27 Metamyelocytes % 0 % 10/23/18 02:27 Myelocytes % 0 % 10/23/18 02:27 Promyelocytes % 0 % 10/23/18 02:27 Blast Cells % 0 % 10/23/18 02:27 Nucleated RBC % Not Reportable 10/23/18 02:27 Seg Neutrophils # Man 4.6 K/mm3 (1.8-7.7) 10/23/18 02:27 Band Neutrophils # 0.1 K/mm3 10/23/18 02:27 Lymphocytes # (Manual) 1.5 K/mm3 (1.2-5.4) 10/23/18 02:27 Abs React Lymphs (Man) 0.0 K/mm3 10/23/18 02:27 Monocytes # (Manual) 0.4 K/mm3 (0.0-0.8) 10/23/18 02:27 Eosinophils # (Manual) 0.6 K/mm3 (0.0-0.4) H 10/23/18 02:27 Basophils # (Manual) 0.0 K/mm3 (0.0-0.1) 10/23/18 02:27 Metamyelocytes # 0.0 K/mm3 10/23/18 02:27 Myelocytes # 0.0 K/mm3 10/23/18 02:27 Promyelocytes # 0.0 K/mm3 10/23/18 02:27 Blast Cells # 0.0 K/mm3 10/23/18 02:27 WBC Morphology Not Reportable 10/23/18 02:27 Hypersegmented Neuts Not Reportable 10/23/18 02:27 Hyposegmented Neuts Not Reportable 10/23/18 02:27 Hypogranular Neuts Not Reportable 10/23/18 02:27 Smudge Cells Not Reportable 10/23/18 02:27 Toxic Granulation Not Reportable 10/23/18 02:27 Toxic Vacuolation Not Reportable 10/23/18 02:27 Dohle Bodies Not Reportable 10/23/18 02:27 Pelger-Huet Anomaly Not Reportable 10/23/18 02:27 Aaron Rods Not Reportable 10/23/18 02:27 Platelet Estimate Consistent w auto 10/23/18 02:27 Clumped Platelets Not Reportable 10/23/18 02:27 Plt Clumps, EDTA Not Reportable 10/23/18 02:27 Large Platelets Not Reportable 10/23/18 02:27 Giant Platelets Not Reportable 10/23/18 02:27 Platelet Satelliting Not Reportable 10/23/18 02:27 Plt Morphology Comment Not Reportable 10/23/18 02:27 RBC Morphology Normal 10/23/18 02:27 Dimorphic RBCs Not Reportable 10/23/18 02:27 Polychromasia Not Reportable 10/23/18 02:27 Hypochromasia Not Reportable 10/23/18 02:27 Poikilocytosis Not Reportable 10/23/18 02:27 Anisocytosis Not Reportable 10/23/18 02:27 Microcytosis Not Reportable 10/23/18 02:27 Macrocytosis Not Reportable 10/23/18 02:27 Spherocytes Not Reportable 10/23/18 02:27 Pappenheimer Bodies Not Reportable 10/23/18 02:27 Sickle Cells Not Reportable 10/23/18 02:27 Target Cells Not Reportable 10/23/18 02:27 Tear Drop Cells Not Reportable 10/23/18 02:27 Ovalocytes Not Reportable 10/23/18 02:27 Helmet Cells Not Reportable 10/23/18 02:27 Sol-[place] Bodies Not Reportable 10/23/18 02:27 [place] Rings Not Reportable 10/23/18 02:27 [place] Cells Not Reportable 10/23/18 02:27 Bite Cells Not Reportable 10/23/18 02:27 Crenated Cell Not Reportable 10/23/18 02:27 Elliptocytes Not Reportable 10/23/18 02:27 Acanthocytes (Spur) Not Reportable 10/23/18 02:27 Rouleaux Not Reportable 10/23/18 02:27 Hemoglobin C Crystals Not Reportable 10/23/18 02:27 Schistocytes Not Reportable 10/23/18 02:27 Malaria parasites Not Reportable 10/23/18 02:27 [place] Bodies Not Reportable 10/23/18 02:27 Hem Pathologist Commnt No 10/23/18 02:27 Sodium 139 mmol/L (137-145) 10/26/18 05:12 Potassium 4.7 mmol/L (3.6-5.0) 10/26/18 05:12 Chloride 104.4 mmol/L (98-107) 10/26/18 05:12 Carbon Dioxide 25 mmol/L (22-30) 10/26/18 05:12 Anion Gap 14 mmol/L 10/26/18 05:12 BUN 23 mg/dL (7-17) H 10/26/18 05:12 Creatinine 3.3 mg/dL (0.7-1.2) H 10/26/18 05:12 Estimated GFR 13 ml/min 10/26/18 05:12 BUN/Creatinine Ratio 7 % 10/26/18 05:12 Glucose 104 mg/dL (65-100) H 10/26/18 05:12 POC Glucose 103 (70-105) 10/26/18 16:23 Hemoglobin A1c 5.7 % (4-6) 10/22/18 17:49 Lactic Acid 0.90 mmol/L (0.7-2.0) 10/22/18 10:18 Calcium 7.9 mg/dL (8.4-10.2) L 10/26/18 05:12 Total Bilirubin 0.20 mg/dL (0.1-1.2) 10/23/18 02:27 AST 15 units/L (5-40) 10/23/18 02:27 ALT < 5 units/L (7-56) L 10/23/18 02:27 Alkaline Phosphatase 79 units/L (35-129) 10/23/18 02:27 Troponin T 0.022 ng/mL (0.00-0.029) 10/24/18 04:43 Total Protein 5.5 g/dL (6.3-8.2) L 10/23/18 02:27 Albumin 3.0 g/dL (3.9-5) L 10/23/18 02:27 Albumin/Globulin Ratio 1.2 % 10/23/18 02:27 Lipase 15 units/L (13-60) 10/22/18 10:18 Urine Color Yellow (Yellow) 10/23/18 08:31 Urine Turbidity Slightly-cloudy (Clear) 10/23/18 08:31 Urine pH 5.0 (5.0-7.0) 10/23/18 08:31 Ur Specific [place] 1.011 (1.003-1.030) 10/23/18 08:31 Urine Protein 30 mg/dl mg/dL (Negative) 10/23/18 08:31 Urine Glucose (UA) Neg mg/dL (Negative) 10/23/18 08:31 Urine Ketones Neg mg/dL (Negative) 10/23/18 08:31 Urine Blood Mod (Negative) 10/23/18 08:31 Urine Nitrite Neg (Negative) 10/23/18 08:31 Urine Bilirubin Neg (Negative) 10/23/18 08:31 Urine Urobilinogen < 2.0 mg/dL (<2.0) 10/23/18 08:31 Ur Leukocyte Esterase Mod (Negative) 10/23/18 08:31 Urine WBC (Auto) 40.0 /HPF (0.0-6.0) H 10/23/18 08:31 Urine RBC (Auto) 35.0 /HPF (0.0-6.0) 10/23/18 08:31 Urine Bacteria (Auto) 1+ /HPF (Negative) 10/23/18 08:31 Urine WBC Clumps 3+ /HPF 10/23/18 08:31 Urine Mucus Few /HPF 10/23/18 08:31 Urine Creatinine 175.8 mg/dL (0.1-20.0) H 10/23/18 08:31 Urine Sodium 71 mmol/L 10/23/18 08:31 Fraction Sodium Excret 0.5 10/23/18 08:31 C. difficile Toxin A&B Negative (Negative) 10/23/18 Unknown Nutrition/Malnutrition Assess - Dietary Evaluation Nutrition/Malnutrition Findings: Nutrition Notes Start: 10/23/18 14:46 Freq: Status: Active Protocol: Document 10/24/18 15:25 OH (Rec: 10/24/18 15:48 OH [id number]) Nutrition Notes Initial or Follow up Assessment Current Diagnoses Acute Kidney Injury CKD(stage I-IV) COPD Hypertension Other Pertinent Diagnosis GERD, N/V Current Diet CLEAR LIQUID Labs/Tests GLU 99 cR 2.6 BUN 19 Medications Lovenox Height 5 ft 6 in Weight 149.232 kg [place] Body Weight (lbs) 130.0 BMI 53.1 Weight Status Morbidly Obese Subjective/Other Information F/U: Pt. reports that she feels nauseous all the time. Pt. reports she has a mat packer that lives with her and prepares meals. MD notes indicate pt has long hx of GI issues/conditions, nausea included. Percent of energy/protein needs met: <35/20% GI Symptoms Nausea Current % PO POOR (25-49%) #1 Nutrition Diagnoses Inadequate oral intake Etiology poor appetite As Evidenced by Signs and Symptoms nausea/clear liquid diet Diagnosis Progress(for reassessment Continues documentation) Is patient on ventilator? No Is Patient Ambulatory and/or Out of Bed No REE-([place]. Jeor-confined to bed) 2380.776 Kcal/Kg value to use for calculation 11 Approximate Energy Requirements Using 1642 kcal/Kg Calculation Used for Recommendations Kcal/kg Additional Notes adj bw 104.16 KGS FLUID: 1 mL/kcal PROTEIN: 0.8-1 G/KG/ADJ BW (83 -104 G/DAY) Malnutrition Assessment Malnutrition Related to Morbid Obesity BMI>OR EQUAL TO 40 Malnutrition Related to Morbid Obesity Yes Clinical Findings Show: Moderate Malnutrition Is clinical finding present on admission Yes ? Nutrition Intervention Change Diet Order: Advance diet as tolerated Goal #1 Advance diet as medically indicated Anticipated Discharge Needs: unable to determine at this time Follow-Up By: 10/28/18 Additional Comments f/u: diet advancement; po intake; ONS initiation
[2018-10-27 05:11] LABS: Calcium 7.8 mg/dL (8.4-10.2)
[2018-10-27] MEDS: PROVENTIL IH PRN ×2 (07:29→13:37)
[2018-10-27] MEDS: SPIRIVA IH SCH ×2 (07:29→10:11)
[2018-10-27] MEDS: NACL 0.9% 1000 ML 1,000 ML IV SCH (07:35)
[2018-10-27] MEDS ORDERED: DIFLUCAN PO SCH (10:00)
[2018-10-27] MEDS: SODIUM CHLORIDE FLUSH SYRINGE 10 ML IV SCH ×3 (10:00→22:58)
[2018-10-27] MEDS: CALAN SR PO SCH (10:05)
[2018-10-27] MEDS: ROCEPHIN/NS 1 GM/50 ML 1 GM/50 ML BAG IV SCH (10:06)
[2018-10-27] MEDS: NEURONTIN PO SCH ×2 (10:06→21:59)
[2018-10-27] MEDS: SODIUM BICARBONATE PO SCH ×2 (10:07→21:59)
[2018-10-27] MEDS: CARAFATE PO SCH ×4 (10:07→21:59)
[2018-10-27] MEDS: PROTONIX PO SCH (10:07)
[2018-10-27] MEDS: PERCOCET 5/325 PO PRN (10:08)
[2018-10-27] MEDS: DUONEB *Not for PRN Use IH SCH ×3 (10:10→20:21)
[2018-10-27] MEDS: LOVENOX SUB-Q SCH (10:26)
--- NOTE | 2018-10-27 11:11 | Progress Note ---
Assessment and Plan Impression * Acute on chronic renal failure * Nausea and vomiting * COPD * History of bladder cancer * Morbid obesity * Urinary tract infection Recommendations * serum creatinine still slowly rising. She does still have some nausea but no vomiting * check an ultrasound of her bladder with postvoid residual * Her urine shows 1+ to stick protein as well as pyuria and microhematuria * Blood culture results pending. Check urine culture. Add empiric antibiotics * fractional excretion of sodium is 0.5% * Avoid nephrotoxins * Monitor fluid status and electrolytes closely * Continue treatment for COPD * Patient states that she is allergic to Levaquin. Urine culture growing Escherichia coli sensitive to Rocephin. Continue Rocephin for now Subjective Date of service: 10/27/18 Principal diagnosis: N/V, diarrhea Interval history: Patient is comfortable today. She does have some nausea but no vomiting. Objective - Vital Signs Vital signs: Vital Signs - 12hr 10/27/18 10/27/18 10/27/18 03:29 03:33 08:00 Temperature 100.1 F H Pulse Rate 73 74 Respiratory 24 Rate Blood Pressure 141/64 O2 Sat by Pulse 92 Oximetry 10/27/18 10/27/18 08:17 10:05 Temperature 98.5 F Pulse Rate 74 Respiratory 24 Rate Blood Pressure 128/58 128/54 O2 Sat by Pulse Oximetry - General Appearance General appearance: well-developed, well-nourished, appears stated age, obese EENT: PERRL, mucous membranes moist Neck: no JVD, no thyromegaly, no carotid bruit, supple Respiratory: Present: [facility] Cardiology: regular, normal heart rate Gastrointestinal: normal, normoactive bowel sounds, other (abdominal wall edema noted) Integumentary: other (1+ edema) - Lab 10/24/18 04:43 10/27/18 04:40 Most recent lab results Calcium 7.8 mg/dL (8.4-10.2) L 10/27/18 04:40 Urine Creatinine 175.8 mg/dL (0.1-20.0) H 10/23/18 08:31 Urine Sodium 71 mmol/L 10/23/18 08:31 Medications & Allergies - Medications Allergies/Adverse Reactions: Allergies aspirin Allergy (Verified 09/17/17 17:58) Shortness of Breath , CHEST PAIN escitalopram [From Lexapro] Allergy (Verified 04/17/18 11:43) Shortness of Breath salmeterol xinafoate [From Serevent] Allergy (Verified 01/22/17 08:45) Shortness of Breath levofloxacin [From Levaquin] Adverse Reaction (Verified 09/13/16 16:22) Rash Sulfa (Sulfonamide Antibiotics) Adverse Reaction (Verified 10/31/17 11:19) contraindicated due to kidney function states her doctor told her to not take sulfa due to renal insufficiency tramadol Adverse Reaction (Verified 09/19/18 16:34) Nausea contrast dye Adverse Reaction (Uncoded 04/17/18 11:59) contraindicated due to renal insufficiency Home Medications: Home Medications Medication Instructions Recorded Confirmed Last Taken Type ALPRAZolam [Xanax TAB] 0.25 mg PO PRN PRN 09/13/16 10/22/18 10/01/18 21:00 His tory Ipratropium/Albuterol Sulfate 1 ampul IH QID 09/13/16 10/22/18 10/22/18 20:00 History [DUONEB *Not for PRN Use*] Sucralfate 1 gm PO QID 09/13/16 10/22/18 10/22/18 22:00 History Indacaterol Maleate [Arcapta 75 mcg IH DAILY 01/22/17 10/22/18 10/01/18 19:30 History Neohaler] Gabapentin [Neurontin] 200 mg PO BID 09/03/17 10/22/18 10/22/18 22:00 History Sodium Bicarbonate 650 mg PO BID 09/03/17 10/22/18 10/22/18 22:00 History Tiotropium [Spiriva] 18 mcg IH QDAY 09/03/17 10/22/18 10/02/18 07:30 History Ranitidine HCl [Acid Wire Photo Operator] 150 mg PO BID 10/29/17 10/22/18 10/22/18 22:00 History Beclomethasone Dipropionate [Qvar] 8.7 gm IH BID 03/29/18 10/22/18 10/22/18 20:0 0 History guaiFENesin [Mucinex] 600 mg PO DAILY 03/29/18 10/22/18 10/02/18 07:30 History Insulin NPH/Regular [NovoLIN 70/30] 10 unit SQ BID 09/19/18 10/22/18 10/01/18 19:00 History Linaclotide (Nf) [Linzess (Nf)] 290 mcg PO QDAY 09/19/18 10/22/18 10/21/18 History Verapamil ER [Calan Sr] 180 mg PO DAILY 09/19/18 10/22/18 10/02/18 07:30 History oxyCODONE /ACETAMINOPHEN [Percocet 1 tab PO Q6HR PRN 09/19/18 10/22/18 09/30/18 20:00 History 5/325] predniSONE [Prednisone] 10 mg PO Q48HR 09/19/18 10/22/18 09/30/18 09:00 History Active Medications: Generic Name Dose Route Start Last Admin Trade Name Freq PRN Reason Stop Dose Admin Acetaminophen 650 mg 10/22/18 17:31 10/26/18 18:13 Tylenol PO 650 mg Q4H PRN Administration Pain MILD(1-3)/Fever >100.5/[place] Albuterol 2.5 mg 10/23/18 20:38 10/27/18 07:29 Proventil IH 2.5 mg Q4HRT PRN Administration Shortness Of Breath Albuterol/Ipratropium 1 ampul 10/23/18 20:00 10/27/18 10:10 Duoneb *Not For Prn Use* IH Not Given TIDRT KELLY Enoxaparin Sodium 30 mg 10/22/18 18:00 10/27/18 10:26 Lovenox SUB-Q 30 mg QDAY KELLY Administration Fluconazole 100 mg 10/27/18 10:00 10/27/18 10:07 Diflucan PO 100 mg QDAY KELLY Administration Gabapentin 200 mg 10/22/18 22:00 10/27/18 10:06 Neurontin PO 200 mg BID KELLY Administration Hydromorphone HCl 1 mg 10/22/18 14:29 10/24/18 02:36 Dilaudid IV 1 mg Q3H PRN Administration Pain , Severe (7-10) Sodium Chloride 1,000 mls @ 40 mls/hr 10/22/18 18:00 10/27/18 07:35 Nacl 0.9% 1000 Ml IV 75 mls/hr DIRECT KELLY Administration Ceftriaxone Sodium 1 gm in 50 mls @ 100 mls/hr 10/24/18 10:00 10/27/18 10:06 Rocephin/Ns 1 Gm/50 Ml IV 100 mls/hr Q24HR KELLY Administration Protocol Lorazepam 0.5 mg 10/24/18 13:30 10/26/18 13:54 Ativan IV Not Given Q12H KELLY Ondansetron HCl 4 mg 10/22/18 17:31 10/25/18 13:15 Zofran IV 4 mg Q8H PRN Administration Nausea And Vomiting Oxycodone/Acetaminophen 1 tab 10/22/18 17:28 10/27/18 10:08 Percocet 5/325 PO 1 tab Q6HR PRN Administration Pain Pantoprazole Sodium 40 mg 10/25/18 14:00 10/27/18 10:07 Protonix PO 40 mg QDAY KELLY Administration Prednisone 10 mg 10/24/18 10:00 10/26/18 09:45 Deltasone PO 10 mg Q48H KELLY Administration Sodium Bicarbonate 650 mg 10/22/18 22:00 10/27/18 10:07 Sodium Bicarbonate PO 650 mg BID KELLY Administration Sodium Chloride 10 ml 10/22/18 22:00 10/26/18 10:00 Sodium Chloride Flush Syringe 10 Ml IV 10 ml BID KELLY Administration Sodium Chloride 10 ml 10/22/18 17:31 Sodium Chloride Flush Syringe 10 Ml IV PRN PRN LINE FLUSH Sucralfate 1 gm 10/22/18 18:00 10/27/18 10:07 Carafate PO 1 gm QID KELLY Administration Tiotropium Spencer 1 puff 10/22/18 17:30 10/27/18 10:11 Spiriva IH Not Given QDAY KELLY Verapamil HCl 180 mg 10/22/18 18:00 10/27/18 10:05 Calan Sr PO Not Given DAILY KELLY
--- NOTE | 2018-10-27 15:09 | Progress Note ---
Assessment and Plan Assessment and plan: Patient is a 78 yo woman with a history of CKD 3, SAKSHI, IDDM with PN, NSTEMI, end stage COPD (multiple previous exacerbations with intubations) with chronic hypoxic respiratory failure on 3 liters, bladder cancer (s/p surgery here in 09/2018), GERD, NSTEMI (05/2018), Arthritis, and morbid obesity with functional quadriplegia mostly bedbound per patient who presented to [facility] ED with SOB, n/v, CP, abd pains and diarrhea, nausea, vomiting and chest pain. * CT abd/pelvis wo contrast IMPRESSION: Splenomegaly. Small hiatal hernia. Otherwise, no acute findings. PUMA (acute kidney injury), vasomotor nephropathy/CKD 3: worsening, Nephrology is following. UTI, E.coli: continue IV rocephin, Chest pains, atypical: Cardiology did evaluate and signed off. COPD (chronic obstructive pulmonary disease) by history: continue bronchodilators Intractable nausea and vomiting and diarrhea treated with antiemetics Functional quadriplegia due to COPD and other co-morbidities: consulted PT/OT, patient denied ROSS/rehab SAKSHI: consulted Respiratory therapy Morbid obesity, BMI 54: counseling done Chronic hypoxic respiratory failure on 3 Liters around the clock o2 at home: nebs and continue 3 Liters IDDM (insulin dependent diabetes mellitus): SSI HTN (hypertension): continue home regimen IBS (irritable bowel syndrome: Gi is following, on Linzess GERD (gastroesophageal reflux disease): ppi DVT prophylaxis: On Lovenox and GI prophylaxis Disposition: continue inpatient care History Interval history: Patient was seen and examined. Follow-up on current diagnosis of n/v/sob/chest pains/diarrhea, all resolved but still sob. Overnight uneventful. Patient denies any chest pain, nausea/vomiting or severe headaches. Imaging, nursing note, chart, labs and old chart reviewed. Discussed with patient. Hospitalist Physical - Physical exam Narrative exam: Gen: WDWN, NAD, Awake, Alert, Orientated x 3, bmi 53.2 HEENT: NCAT, EOMI, PERRL, OP Clear Neck: supple, no adenopathy, no thyromegaly, no JVD CVS/Heart: RRR, normal S1S2, pulses present bilaterally Chest/Lungs: CTA B, Symmetrical chest expansion, good air entry bilaterally GI/Abdomen: soft, diffuse tenderness, good bowel sounds, no guarding or rebound /Bladder: no suprapubic tenderness, no CVA or paraspinal tenderness Extermity/Skin: no c/c/e, no obvious rash MSK: FROM x 4 Neuro: CN 2-12 grossly intact, no new focal deficits Psych: calm - Constitutional Vitals: Temp Pulse Resp BP Pulse Ox 98.7 F 83 20 126/67 91 10/27/18 13:36 10/27/18 13:36 10/27/18 13:36 10/27/18 13:36 10/27/18 13:36 General appearance: Present: no acute distress, well-nourished Results - Labs CBC & Chem 7: 10/24/18 04:43 10/27/18 04:40 Labs: Laboratory Last Values WBC 9.7 K/mm3 (4.5-11.0) 10/24/18 04:43 RBC 3.89 M/mm3 (3.65-5.03) 10/24/18 04:43 Hgb 11.0 gm/dl (10.1-14.3) 10/24/18 04:43 Hct 34.1 % (30.3-42.9) 10/24/18 04:43 MCV 88 fl (79-97) 10/24/18 04:43 MCH 28 pg (28-32) 10/24/18 04:43 MCHC 32 % (30-34) 10/24/18 04:43 RDW 14.7 % (13.2-15.2) 10/24/18 04:43 Plt Count 417 K/mm3 (140-440) 10/24/18 04:43 Add Manual Diff Complete 10/23/18 02:27 Total Counted 100 10/23/18 02:27 Seg Neuts % (Manual) 64.0 % (40.0-70.0) 10/23/18 02:27 Band Neutrophils % 1.0 % 10/23/18 02:27 Lymphocytes % (Manual) 21.0 % (13.4-35.0) 10/23/18 02:27 Reactive Lymphs % (Man) 0 % 10/23/18 02:27 Monocytes % (Manual) 5.0 % (0.0-7.3) 10/23/18 02:27 Eosinophils % (Manual) 9.0 % (0.0-4.3) H 10/23/18 02:27 Basophils % (Manual) 0 % (0.0-1.8) 10/23/18 02:27 Metamyelocytes % 0 % 10/23/18 02:27 Myelocytes % 0 % 10/23/18 02:27 Promyelocytes % 0 % 10/23/18 02:27 Blast Cells % 0 % 10/23/18 02:27 Nucleated RBC % Not Reportable 10/23/18 02:27 Seg Neutrophils # Man 4.6 K/mm3 (1.8-7.7) 10/23/18 02:27 Band Neutrophils # 0.1 K/mm3 10/23/18 02:27 Lymphocytes # (Manual) 1.5 K/mm3 (1.2-5.4) 10/23/18 02:27 Abs React Lymphs (Man) 0.0 K/mm3 10/23/18 02:27 Monocytes # (Manual) 0.4 K/mm3 (0.0-0.8) 10/23/18 02:27 Eosinophils # (Manual) 0.6 K/mm3 (0.0-0.4) H 10/23/18 02:27 Basophils # (Manual) 0.0 K/mm3 (0.0-0.1) 10/23/18 02:27 Metamyelocytes # 0.0 K/mm3 10/23/18 02:27 Myelocytes # 0.0 K/mm3 10/23/18 02:27 Promyelocytes # 0.0 K/mm3 10/23/18 02:27 Blast Cells # 0.0 K/mm3 10/23/18 02:27 WBC Morphology Not Reportable 10/23/18 02:27 Hypersegmented Neuts Not Reportable 10/23/18 02:27 Hyposegmented Neuts Not Reportable 10/23/18 02:27 Hypogranular Neuts Not Reportable 10/23/18 02:27 Smudge Cells Not Reportable 10/23/18 02:27 Toxic Granulation Not Reportable 10/23/18 02:27 Toxic Vacuolation Not Reportable 10/23/18 02:27 Dohle Bodies Not Reportable 10/23/18 02:27 Pelger-Huet Anomaly Not Reportable 10/23/18 02:27 Aaron Rods Not Reportable 10/23/18 02:27 Platelet Estimate Consistent w auto 10/23/18 02:27 Clumped Platelets Not Reportable 10/23/18 02:27 Plt Clumps, EDTA Not Reportable 10/23/18 02:27 Large Platelets Not Reportable 10/23/18 02:27 Giant Platelets Not Reportable 10/23/18 02:27 Platelet Satelliting Not Reportable 10/23/18 02:27 Plt Morphology Comment Not Reportable 10/23/18 02:27 RBC Morphology Normal 10/23/18 02:27 Dimorphic RBCs Not Reportable 10/23/18 02:27 Polychromasia Not Reportable 10/23/18 02:27 Hypochromasia Not Reportable 10/23/18 02:27 Poikilocytosis Not Reportable 10/23/18 02:27 Anisocytosis Not Reportable 10/23/18 02:27 Microcytosis Not Reportable 10/23/18 02:27 Macrocytosis Not Reportable 10/23/18 02:27 Spherocytes Not Reportable 10/23/18 02:27 Pappenheimer Bodies Not Reportable 10/23/18 02:27 Sickle Cells Not Reportable 10/23/18 02:27 Target Cells Not Reportable 10/23/18 02:27 Tear Drop Cells Not Reportable 10/23/18 02:27 Ovalocytes Not Reportable 10/23/18 02:27 Helmet Cells Not Reportable 10/23/18 02:27 [place] Bodies Not Reportable 10/23/18 02:27 [place] Rings Not Reportable 10/23/18 02:27 Vikash Cells Not Reportable 10/23/18 02:27 Bite Cells Not Reportable 10/23/18 02:27 Crenated Cell Not Reportable 10/23/18 02:27 Elliptocytes Not Reportable 10/23/18 02:27 Acanthocytes (Spur) Not Reportable 10/23/18 02:27 Rouleaux Not Reportable 10/23/18 02:27 Hemoglobin C Crystals Not Reportable 10/23/18 02:27 Schistocytes Not Reportable 10/23/18 02:27 Malaria parasites Not Reportable 10/23/18 02:27 Osvaldo Bodies Not Reportable 10/23/18 02:27 Hem Pathologist Commnt No 10/23/18 02:27 Sodium 137 mmol/L (137-145) 10/27/18 04:40 Potassium 4.9 mmol/L (3.6-5.0) 10/27/18 04:40 Chloride 103.1 mmol/L (98-107) 10/27/18 04:40 Carbon Dioxide 24 mmol/L (22-30) 10/27/18 04:40 Anion Gap 15 mmol/L 10/27/18 04:40 BUN 24 mg/dL (7-17) H 10/27/18 04:40 Creatinine 3.9 mg/dL (0.7-1.2) H 10/27/18 04:40 Estimated GFR 11 ml/min 10/27/18 04:40 BUN/Creatinine Ratio 6 % 10/27/18 04:40 Glucose 111 mg/dL (65-100) H 10/27/18 04:40 POC Glucose 105 (70-105) 10/27/18 09:12 Hemoglobin A1c 5.7 % (4-6) 10/22/18 17:49 Lactic Acid 0.90 mmol/L (0.7-2.0) 10/22/18 10:18 Calcium 7.8 mg/dL (8.4-10.2) L 10/27/18 04:40 Total Bilirubin 0.20 mg/dL (0.1-1.2) 10/23/18 02:27 AST 15 units/L (5-40) 10/23/18 02:27 ALT < 5 units/L (7-56) L 10/23/18 02:27 Alkaline Phosphatase 79 units/L (35-129) 10/23/18 02:27 Troponin T 0.022 ng/mL (0.00-0.029) 10/24/18 04:43 Total Protein 5.5 g/dL (6.3-8.2) L 10/23/18 02:27 Albumin 3.0 g/dL (3.9-5) L 10/23/18 02:27 Albumin/Globulin Ratio 1.2 % 10/23/18 02:27 Lipase 15 units/L (13-60) 10/22/18 10:18 Urine Color Yellow (Yellow) 10/23/18 08:31 Urine Turbidity Slightly-cloudy (Clear) 10/23/18 08:31 Urine pH 5.0 (5.0-7.0) 10/23/18 08:31 Ur Specific [place] 1.011 (1.003-1.030) 10/23/18 08:31 Urine Protein 30 mg/dl mg/dL (Negative) 10/23/18 08:31 Urine Glucose (UA) Neg mg/dL (Negative) 10/23/18 08:31 Urine Ketones Neg mg/dL (Negative) 10/23/18 08:31 Urine Blood Mod (Negative) 10/23/18 08:31 Urine Nitrite Neg (Negative) 10/23/18 08:31 Urine Bilirubin Neg (Negative) 10/23/18 08:31 Urine Urobilinogen < 2.0 mg/dL (<2.0) 10/23/18 08:31 Ur Leukocyte Esterase Mod (Negative) 10/23/18 08:31 Urine WBC (Auto) 40.0 /HPF (0.0-6.0) H 10/23/18 08:31 Urine RBC (Auto) 35.0 /HPF (0.0-6.0) 10/23/18 08:31 Urine Bacteria (Auto) 1+ /HPF (Negative) 10/23/18 08:31 Urine WBC Clumps 3+ /HPF 10/23/18 08:31 Urine Mucus Few /HPF 10/23/18 08:31 Urine Creatinine 175.8 mg/dL (0.1-20.0) H 10/23/18 08:31 Urine Sodium 71 mmol/L 10/23/18 08:31 Fraction Sodium Excret 0.5 10/23/18 08:31 C. difficile Toxin A&B Negative (Negative) 10/23/18 Unknown Nutrition/Malnutrition Assess - Dietary Evaluation Nutrition/Malnutrition Findings: Nutrition Notes Start: 10/23/18 14:46 Freq: Status: Active Protocol: Document 10/24/18 15:25 OH (Rec: 10/24/18 15:48 OH [id number]) Nutrition Notes Initial or Follow up Assessment Current Diagnoses Acute Kidney Injury CKD(stage I-IV) COPD Hypertension Other Pertinent Diagnosis GERD, N/V Current Diet CLEAR LIQUID Labs/Tests GLU 99 cR 2.6 BUN 19 Medications Lovenox Height 5 ft 6 in Weight 149.232 kg [place] Body Weight (lbs) 130.0 BMI 53.1 Weight Status Morbidly Obese Subjective/Other Information F/U: Pt. reports that she feels nauseous all the time. Pt. 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 MD notes indicate pt has long hx of GI issues/conditions, nausea included. Percent of energy/protein needs met: <35/20% GI Symptoms Nausea Current % PO POOR (25-49%) #1 Nutrition Diagnoses Inadequate oral intake Etiology poor appetite As Evidenced by Signs and Symptoms nausea/clear liquid diet Diagnosis Progress(for reassessment Continues documentation) Is patient on ventilator? No Is Patient Ambulatory and/or Out of Bed No REE-([facility]-confined to bed) 2380.776 Kcal/Kg value to use for calculation 11 Approximate Energy Requirements Using 1642 kcal/Kg Calculation Used for Recommendations Kcal/kg Additional Notes adj bw 104.16 KGS FLUID: 1 mL/kcal PROTEIN: 0.8-1 G/KG/ADJ BW (83 -104 G/DAY) Malnutrition Assessment Malnutrition Related to Morbid Obesity BMI>OR EQUAL TO 40 Malnutrition Related to Morbid Obesity Yes Clinical Findings Show: Moderate Malnutrition Is clinical finding present on admission Yes ? Nutrition Intervention Change Diet Order: Advance diet as tolerated Goal #1 Advance diet as medically indicated Anticipated Discharge Needs: unable to determine at this time Follow-Up By: 10/28/18 Additional Comments f/u: diet advancement; po intake; ONS initiation
[2018-10-27] MEDS: ATIVAN IV SCH (15:20)
[2018-10-28] MEDS: ATIVAN IV SCH ×2 (04:15→14:15)
--- NOTE | 2018-10-28 08:02 | Progress Note ---
Assessment and Plan Impression * Acute on chronic renal failure * Nausea and vomiting * COPD * History of bladder cancer * Morbid obesity * Urinary tract infection Recommendations * serum creatinine still slowly rising. She does still have some nausea but no vomiting * check an ultrasound of her bladder with postvoid residual * Her urine shows 1+ dipstick protein as well as pyuria and microhematuria * Blood culture -4 days * fractional excretion of sodium is 0.5% * Avoid nephrotoxins * Monitor fluid status and electrolytes closely * Continue treatment for COPD * Patient states that she is allergic to Levaquin. Urine culture growing Escherichia coli sensitive to Rocephin. Continue Rocephin for now Subjective Date of service: 10/28/18 Principal diagnosis: N/V, diarrhea Interval history: Patient is clinically about the same. She still has some nausea but no vomiting . Denies any further diarrhea at this time Objective - Vital Signs Vital signs: Vital Signs - 12hr 10/27/18 10/27/18 10/28/18 20:22 20:36 00:54 Temperature 98.9 F Pulse Rate 94 H Pulse Rate [ 86 88 Bilateral] Respiratory 18 Rate Respiratory 18 20 Rate [Bilateral ] Blood Pressure 167/69 O2 Sat by Pulse 94 91 Oximetry 10/28/18 07:43 Temperature 98.2 F Pulse Rate 89 Pulse Rate [ Bilateral] Respiratory 22 Rate Respiratory Rate [Bilateral ] Blood Pressure 189/77 O2 Sat by Pulse 93 Oximetry - General Appearance General appearance: well-developed, well-nourished, appears stated age, obese EENT: PERRL, mucous membranes moist Neck: no JVD, no thyromegaly Respiratory: Present: Wheezes Cardiology: regular, normal heart rate Gastrointestinal: normoactive bowel sounds, other (abdominal wall edema noted) Integumentary: other (1+ edema) - Lab 10/24/18 04:43 10/27/18 04:40 Most recent lab results Calcium 7.8 mg/dL (8.4-10.2) L 10/27/18 04:40 Urine Creatinine 175.8 mg/dL (0.1-20.0) H 10/23/18 08:31 Urine Sodium 71 mmol/L 10/23/18 08:31 Medications & Allergies - Medications Allergies/Adverse Reactions: Allergies aspirin Allergy (Verified 09/17/17 17:58) Shortness of Breath , CHEST PAIN escitalopram [From Lexapro] Allergy (Verified 04/17/18 11:43) Shortness of Breath salmeterol xinafoate [From Serevent] Allergy (Verified 01/22/17 08:45) Shortness of Breath levofloxacin [From Levaquin] Adverse Reaction (Verified 09/13/16 16:22) Rash Sulfa (Sulfonamide Antibiotics) Adverse Reaction (Verified 10/31/17 11:19) contraindicated due to kidney function states her doctor told her to not take sulfa due to renal insufficiency tramadol Adverse Reaction (Verified 09/19/18 16:34) Nausea contrast dye Adverse Reaction (Uncoded 04/17/18 11:59) contraindicated due to renal insufficiency Home Medications: Home Medications Medication Instructions Recorded Confirmed Last Taken Type ALPRAZolam [Xanax TAB] 0.25 mg PO PRN PRN 09/13/16 10/22/18 10/01/18 21:00 History Ipratropium/Albuterol Sulfate 1 ampul IH QID 09/13/16 10/22/18 10/22/18 20:00 History [DUONEB *Not for PRN Use*] Sucralfate 1 gm PO QID 09/13/16 10/22/18 10/22/18 22:00 History Indacaterol Maleate [Arcapta 75 mcg IH DAILY 01/22/17 10/22/18 10/01/18 19:30 History Neohaler] Gabapentin [Neurontin] 200 mg PO BID 09/03/17 10/22/18 10/22/18 22:00 History Sodium Bicarbonate 650 mg PO BID 09/03/17 10/22/18 10/22/18 22:00 History Tiotropium [Spiriva] 18 mcg IH QDAY 09/03/17 10/22/18 10/02/18 07:30 History Ranitidine HCl [Acid Cable Spooler] 150 mg PO BID 10/29/17 10/22/18 10/22/18 22:00 History Beclomethasone Dipropionate [Qvar] 8.7 gm IH BID 03/29/18 10/22/18 10/22/18 20:00 History guaiFENesin [Mucinex] 600 mg PO DAILY 03/29/18 10/22/18 10/02/18 07:30 History Insulin NPH/Regular [NovoLIN 70/30] 10 unit SQ BID 09/19/18 10/22/18 10/01/18 19:00 History Linaclotide (Nf) [Linzess (Nf)] 290 mcg PO QDAY 09/19/18 10/22/18 10/21/18 History Verapamil ER [Calan Sr] 180 mg PO DAILY 09/19/18 10/22/18 10/02/18 07:30 History oxyCODONE /ACETAMINOPHEN [Percocet 1 tab PO Q6HR PRN 09/19/18 10/22/18 09/30/18 20:00 History 5/325] predniSONE [Prednisone] 10 mg PO Q48HR 09/19/18 10/22/18 09/30/18 09:00 History Active Medications: Generic Name Dose Route Start Last Admin Trade Name Freq PRN Reason Stop Dose Admin Acetaminophen 650 mg 10/22/18 17:31 10/26/18 18:13 Tylenol PO 650 mg Q4H PRN Administration Pain MILD(1-3)/Fever >100.5/[place] Albuterol 2.5 mg 10/23/18 20:38 10/27/18 13:37 Proventil IH 2.5 mg Q4HRT PRN Administration Shortness Of Breath Albuterol/Ipratropium 1 ampul 10/23/18 20:00 10/27/18 20:21 Duoneb *Not For Prn Use* IH 1 ampul TIDRT KELLY Administration Gabapentin 200 mg 10/22/18 22:00 10/27/18 21:59 Neurontin PO 200 mg BID KELLY Administration Hydromorphone HCl 1 mg 10/22/18 14:29 10/24/18 02:36 Dilaudid IV 1 mg Q3H PRN Administration Pain , Severe (7-10) Sodium Chloride 1,000 mls @ 40 mls/hr 10/22/18 18:00 10/27/18 07:35 Nacl 0.9% 1000 Ml IV 75 mls/hr DIRECT KELLY Administration Lorazepam 0.5 mg 10/24/18 13:30 10/28/18 04:15 Ativan IV Not Given Q12H KELLY Ondansetron HCl 4 mg 10/22/18 17:31 10/25/18 13:15 Zofran IV 4 mg Q8H PRN Administration Nausea And Vomiting Oxycodone/Acetaminophen 1 tab 10/22/18 17:28 10/27/18 10:08 Percocet 5/325 PO 1 tab Q6HR PRN Administration Pain Pantoprazole Sodium 40 mg 10/25/18 14:00 10/27/18 10:07 Protonix PO 40 mg QDAY KELLY Administration Prednisone 10 mg 10/24/18 10:00 10/26/18 09:45 Deltasone PO 10 mg Q48H KELLY Administration Sodium Bicarbonate 650 mg 10/22/18 22:00 10/27/18 21:59 Sodium Bicarbonate PO 650 mg BID KELLY Administration Sodium Chloride 10 ml 10/22/18 22:00 10/27/18 22:58 Sodium Chloride Flush Syringe 10 Ml IV 10 ml BID KELLY Administration Sodium Chloride 10 ml 10/22/18 17:31 Sodium Chloride Flush Syringe 10 Ml IV PRN PRN LINE FLUSH Sucralfate 1 gm 10/22/18 18:00 10/27/18 21:59 Carafate PO 1 gm QID KELLY Administration Tiotropium [place] 1 puff 10/22/18 17:30 10/27/18 10:11 Spiriva IH Not Given QDAY KELLY Verapamil HCl 180 mg 10/22/18 18:00 10/27/18 10:05 Calan Sr PO Not Given DAILY KELLY
[2018-10-28] MEDS: DUONEB *Not for PRN Use IH SCH ×2 (08:07→13:51)
[2018-10-28] MEDS: SPIRIVA IH SCH (09:33)
[2018-10-28] MEDS: SODIUM BICARBONATE PO SCH ×2 (09:59→23:55)
[2018-10-28] MEDS: NEURONTIN PO SCH ×2 (09:59→23:55)
[2018-10-28] MEDS: DELTASONE PO SCH (10:00)
[2018-10-28] MEDS: CALAN SR PO SCH (10:00)
[2018-10-28] MEDS: CARAFATE PO SCH ×4 (10:00→23:56)
--- NOTE | 2018-10-28 10:47 | Progress Note ---
Assessment and Plan Assessment and plan: Patient is a 78 yo woman with a history of CKD 3, SAKSHI, IDDM with PN, NSTEMI, end stage COPD (multiple previous exacerbations with intubations) with chronic hypoxic respiratory failure on 3 liters, bladder cancer (s/p surgery here in 09/2018), GERD, NSTEMI (05/2018), Arthritis, and morbid obesity with functional quadriplegia mostly bedbound per patient who presented to [facility] ED with SOB, n/v, CP, abd pains and diarrhea, nausea, vomiting and chest pain. * CT abd/pelvis wo contrast IMPRESSION: Splenomegaly. Small hiatal hernia. Otherwise, no acute findings. PUMA (acute kidney injury), vasomotor nephropathy/CKD 3: worsening, Nephrology is following. UTI, E.coli: continue IV rocephin, Chest pains, atypical: Cardiology did evaluate and signed off. COPD (chronic obstructive pulmonary disease) by history: continue bronchodilators Intractable nausea and vomiting and diarrhea treated with antiemetics Functional quadriplegia due to COPD and other co-morbidities: consulted PT/OT, patient denied ROSS/rehab SAKSHI: consulted Respiratory therapy Morbid obesity, BMI 54: counseling done Chronic hypoxic respiratory failure on 3 Liters around the clock o2 at home: nebs and continue 3 Liters IDDM (insulin dependent diabetes mellitus): SSI HTN (hypertension): continue home regimen IBS (irritable bowel syndrome: Gi is following, on Linzess GERD (gastroesophageal reflux disease): ppi DVT prophylaxis: On Lovenox and GI prophylaxis Disposition: continue inpatient care History Interval history: Patient was seen and examined. Follow-up on current diagnosis of n/v/sob/chest pains/diarrhea, all resolved but still sob. Overnight uneventful. Patient denies any chest pain, nausea/vomiting or severe headaches. Imaging, nursing note, chart, labs and old chart reviewed. Discussed with patient. Hospitalist Physical - Physical exam Narrative exam: Gen: WDWN, NAD, Awake, Alert, Orientated x 3, bmi 53.2 HEENT: NCAT, EOMI, PERRL, OP Clear Neck: supple, no adenopathy, no thyromegaly, no JVD CVS/Heart: RRR, normal S1S2, pulses present bilaterally Chest/Lungs: CTA B, Symmetrical chest expansion, good air entry bilaterally GI/Abdomen: soft, diffuse tenderness, good bowel sounds, no guarding or rebound /Bladder: no suprapubic tenderness, no CVA or paraspinal tenderness Extermity/Skin: no c/c/e, no obvious rash MSK: FROM x 4 Neuro: CN 2-12 grossly intact, no new focal deficits Psych: calm - Constitutional Vitals: Temp Pulse Resp BP Pulse Ox 98.2 F 90 19 189/77 97 10/28/18 07:43 10/28/18 08:08 10/28/18 08:08 10/28/18 07:43 10/28/18 08:09 General appearance: Present: no acute distress, well-nourished Results - Labs CBC & Chem 7: 10/24/18 04:43 10/27/18 04:40 Labs: Laboratory Last Values WBC 9.7 K/mm3 (4.5-11.0) 10/24/18 04:43 RBC 3.89 M/mm3 (3.65-5.03) 10/24/18 04:43 Hgb 11.0 gm/dl (10.1-14.3) 10/24/18 04:43 Hct 34.1 % (30.3-42.9) 10/24/18 04:43 MCV 88 fl (79-97) 10/24/18 04:43 MCH 28 pg (28-32) 10/24/18 04:43 MCHC 32 % (30-34) 10/24/18 04:43 RDW 14.7 % (13.2-15.2) 10/24/18 04:43 Plt Count 417 K/mm3 (140-440) 10/24/18 04:43 Add Manual Diff Complete 10/23/18 02:27 Total Counted 100 10/23/18 02:27 Seg Neuts % (Manual) 64.0 % (40.0-70.0) 10/23/18 02:27 Band Neutrophils % 1.0 % 10/23/18 02:27 Lymphocytes % (Manual) 21.0 % (13.4-35.0) 10/23/18 02:27 Reactive Lymphs % (Man) 0 % 10/23/18 02:27 Monocytes % (Manual) 5.0 % (0.0-7.3) 10/23/18 02:27 Eosinophils % (Manual) 9.0 % (0.0-4.3) H 10/23/18 02:27 Basophils % (Manual) 0 % (0.0-1.8) 10/23/18 02:27 Metamyelocytes % 0 % 10/23/18 02:27 Myelocytes % 0 % 10/23/18 02:27 Promyelocytes % 0 % 10/23/18 02:27 Blast Cells % 0 % 10/23/18 02:27 Nucleated RBC % Not Reportable 10/23/18 02:27 Seg Neutrophils # Man 4.6 K/mm3 (1.8-7.7) 10/23/18 02:27 Band Neutrophils # 0.1 K/mm3 10/23/18 02:27 Lymphocytes # (Manual) 1.5 K/mm3 (1.2-5.4) 10/23/18 02:27 Abs React Lymphs (Man) 0.0 K/mm3 10/23/18 02:27 Monocytes # (Manual) 0.4 K/mm3 (0.0-0.8) 10/23/18 02:27 Eosinophils # (Manual) 0.6 K/mm3 (0.0-0.4) H 10/23/18 02:27 Basophils # (Manual) 0.0 K/mm3 (0.0-0.1) 10/23/18 02:27 Metamyelocytes # 0.0 K/mm3 10/23/18 02:27 Myelocytes # 0.0 K/mm3 10/23/18 02:27 Promyelocytes # 0.0 K/mm3 10/23/18 02:27 Blast Cells # 0.0 K/mm3 10/23/18 02:27 WBC Morphology Not Reportable 10/23/18 02:27 Hypersegmented Neuts Not Reportable 10/23/18 02:27 Hyposegmented Neuts Not Reportable 10/23/18 02:27 Hypogranular Neuts Not Reportable 10/23/18 02:27 Smudge Cells Not Reportable 10/23/18 02:27 Toxic Granulation Not Reportable 10/23/18 02:27 Toxic Vacuolation Not Reportable 10/23/18 02:27 Dohle Bodies Not Reportable 10/23/18 02:27 Pelger-Huet Anomaly Not Reportable 10/23/18 02:27 Aaron Rods Not Reportable 10/23/18 02:27 Platelet Estimate Consistent w auto 10/23/18 02:27 Clumped Platelets Not Reportable 10/23/18 02:27 Plt Clumps, EDTA Not Reportable 10/23/18 02:27 Large Platelets Not Reportable 10/23/18 02:27 Giant Platelets Not Reportable 10/23/18 02:27 Platelet Satelliting Not Reportable 10/23/18 02:27 Plt Morphology Comment Not Reportable 10/23/18 02:27 RBC Morphology Normal 10/23/18 02:27 Dimorphic RBCs Not Reportable 10/23/18 02:27 Polychromasia Not Reportable 10/23/18 02:27 Hypochromasia Not Reportable 10/23/18 02:27 Poikilocytosis Not Reportable 10/23/18 02:27 Anisocytosis Not Reportable 10/23/18 02:27 Microcytosis Not Reportable 10/23/18 02:27 Macrocytosis Not Reportable 10/23/18 02:27 Spherocytes Not Reportable 10/23/18 02:27 Pappenheimer Bodies Not Reportable 10/23/18 02:27 Sickle Cells Not Reportable 10/23/18 02:27 Target Cells Not Reportable 10/23/18 02:27 Tear Drop Cells Not Reportable 10/23/18 02:27 Ovalocytes Not Reportable 10/23/18 02:27 Helmet Cells Not Reportable 10/23/18 02:27 Sol-Caney Bodies Not Reportable 10/23/18 02:27 Hood Rings Not Reportable 10/23/18 02:27 Vikash Cells Not Reportable 10/23/18 02:27 Bite Cells Not Reportable 10/23/18 02:27 Crenated Cell Not Reportable 10/23/18 02:27 Elliptocytes Not Reportable 10/23/18 02:27 Acanthocytes (Spur) Not Reportable 10/23/18 02:27 Rouleaux Not Reportable 10/23/18 02:27 Hemoglobin C Crystals Not Reportable 10/23/18 02:27 Schistocytes Not Reportable 10/23/18 02:27 Malaria parasites Not Reportable 10/23/18 02:27 Osvaldo Bodies Not Reportable 10/23/18 02:27 Hem Pathologist Commnt No 10/23/18 02:27 Sodium 137 mmol/L (137-145) 10/27/18 04:40 Potassium 4.9 mmol/L (3.6-5.0) 10/27/18 04:40 Chloride 103.1 mmol/L (98-107) 10/27/18 04:40 Carbon Dioxide 24 mmol/L (22-30) 10/27/18 04:40 Anion Gap 15 mmol/L 10/27/18 04:40 BUN 24 mg/dL (7-17) H 10/27/18 04:40 Creatinine 3.9 mg/dL (0.7-1.2) H 10/27/18 04:40 Estimated GFR 11 ml/min 10/27/18 04:40 BUN/Creatinine Ratio 6 % 10/27/18 04:40 Glucose 111 mg/dL (65-100) H 10/27/18 04:40 POC Glucose 97 (70-105) 10/28/18 07:47 Hemoglobin A1c 5.7 % (4-6) 10/22/18 17:49 Lactic Acid 0.90 mmol/L (0.7-2.0) 10/22/18 10:18 Calcium 7.8 mg/dL (8.4-10.2) L 10/27/18 04:40 Total Bilirubin 0.20 mg/dL (0.1-1.2) 10/23/18 02:27 AST 15 units/L (5-40) 10/23/18 02:27 ALT < 5 units/L (7-56) L 10/23/18 02:27 Alkaline Phosphatase 79 units/L (35-129) 10/23/18 02:27 Troponin T 0.022 ng/mL (0.00-0.029) 10/24/18 04:43 Total Protein 5.5 g/dL (6.3-8.2) L 10/23/18 02:27 Albumin 3.0 g/dL (3.9-5) L 10/23/18 02:27 Albumin/Globulin Ratio 1.2 % 10/23/18 02:27 Lipase 15 units/L (13-60) 10/22/18 10:18 Urine Color Yellow (Yellow) 10/23/18 08:31 Urine Turbidity Slightly-cloudy (Clear) 10/23/18 08:31 Urine pH 5.0 (5.0-7.0) 10/23/18 08:[address] [place] 1.011 (1.003-1.030) 10/23/18 08:31 Urine Protein 30 mg/dl mg/dL (Negative) 10/23/18 08:31 Urine Glucose (UA) Neg mg/dL (Negative) 10/23/18 08:31 Urine Ketones Neg mg/dL (Negative) 10/23/18 08:31 Urine Blood Mod (Negative) 10/23/18 08:31 Urine Nitrite Neg (Negative) 10/23/18 08:31 Urine Bilirubin Neg (Negative) 10/23/18 08:31 Urine Urobilinogen < 2.0 mg/dL (<2.0) 10/23/18 08:31 Ur Leukocyte Esterase Mod (Negative) 10/23/18 08:31 Urine WBC (Auto) 40.0 /HPF (0.0-6.0) H 10/23/18 08:31 Urine RBC (Auto) 35.0 /HPF (0.0-6.0) 10/23/18 08:31 Urine Bacteria (Auto) 1+ /HPF (Negative) 10/23/18 08:31 Urine WBC Clumps 3+ /HPF 10/23/18 08:31 Urine Mucus Few /HPF 10/23/18 08:31 Urine Creatinine 175.8 mg/dL (0.1-20.0) H 10/23/18 08:31 Urine Sodium 71 mmol/L 10/23/18 08:31 Fraction Sodium Excret 0.5 10/23/18 08:31 C. difficile Toxin A&B Negative (Negative) 10/23/18 Unknown Nutrition/Malnutrition Assess - Dietary Evaluation Nutrition/Malnutrition Findings: Nutrition Notes Start: 10/23/18 14:46 Freq: Status: Active Protocol: Document 10/24/18 15:25 OH (Rec: 10/24/18 15:48 OH [id number]) Nutrition Notes Initial or Follow up Assessment Current Diagnoses Acute Kidney Injury CKD(stage I-IV) COPD Hypertension Other Pertinent Diagnosis GERD, N/V Current Diet CLEAR LIQUID Labs/Tests GLU 99 cR 2.6 BUN 19 Medications Lovenox Height 5 ft 6 in Weight 149.232 kg [place] Body Weight (lbs) 130.0 BMI 53.1 Weight Status Morbidly Obese Subjective/Other Information F/U: Pt. reports that she feels nauseous all the time. Pt. reports she has a principal biostatistician that lives with her and prepares meals. MD notes indicate pt has long hx of GI issues/conditions, nausea included. Percent of energy/protein needs met: <35/20% GI Symptoms Nausea Current % PO POOR (25-49%) #1 Nutrition Diagnoses Inadequate oral intake Etiology poor appetite As Evidenced by Signs and Symptoms nausea/clear liquid diet Diagnosis Progress(for reassessment Continues documentation) Is patient on ventilator? No Is Patient Ambulatory and/or Out of Bed No REE-([place]-confined to bed) 2380.776 Kcal/Kg value to use for calculation 11 Approximate Energy Requirements Using 1642 kcal/Kg Calculation Used for Recommendations Kcal/kg Additional Notes adj bw 104.16 KGS FLUID: 1 mL/kcal PROTEIN: 0.8-1 G/KG/ADJ BW (83 -104 G/DAY) Malnutrition Assessment Malnutrition Related to Morbid Obesity BMI>OR EQUAL TO 40 Malnutrition Related to Morbid Obesity Yes Clinical Findings Show: Moderate Malnutrition Is clinical finding present on admission Yes ? Nutrition Intervention Change Diet Order: Advance diet as tolerated Goal #1 Advance diet as medically indicated Anticipated Discharge Needs: unable to determine at this time Follow-Up By: 10/28/18 Additional Comments f/u: diet advancement; po intake; ONS initiation
[2018-10-28] MEDS: SODIUM CHLORIDE FLUSH SYRINGE 10 ML IV SCH (11:50)
[2018-10-28] MEDS: PROTONIX PO SCH (11:50)
[2018-10-28] MEDS: TYLENOL PO PRN (12:06)
[2018-10-28] MEDS ORDERED: LASIX IV ONE (12:19)
[2018-10-28 15:37] LABS: Calcium 8.4 mg/dL (8.4-10.2)
[2018-10-29 05:52] LABS: Calcium 8.5 mg/dL (8.4-10.2)
[2018-10-29] MEDS: DUONEB *Not for PRN Use IH SCH ×4 (07:04→19:34)
--- NOTE | 2018-10-29 08:55 | Progress Note ---
Assessment and Plan Impression * Acute on chronic renal failure stage 4--baseline 2.4 * Nausea and vomiting * COPD * History of bladder cancer * Morbid obesity * Urinary tract infection Recommendations * serum creatinine better today. She does still have some nausea but no vomiting * check an ultrasound of her bladder with postvoid residual * Her urine shows 1+ dipstick protein as well as pyuria and microhematuria * Blood culture -4 days * fractional excretion of sodium is 0.5% * Avoid nephrotoxins * Monitor fluid status and electrolytes closely * Continue treatment for COPD * Patient states that she is allergic to Levaquin. Urine culture growing Escherichia coli sensitive to Rocephin. Continue Rocephin for now Subjective Date of service: 10/29/18 Principal diagnosis: N/V, diarrhea Interval history: resting well in bed today Objective - Exam Narrative Exam: General appearance: well-developed, well-nourished, appears stated age, obese EENT: PERRL, mucous membranes moist Neck: no JVD, no thyromegaly Respiratory: Present: Wheezes Cardiology: regular, normal heart rate Gastrointestinal: normoactive bowel sounds, other (abdominal wall edema noted) Integumentary: other (1+ edema) - Vital Signs Vital signs: Vital Signs - 12hr 10/29/18 10/29/18 10/29/18 01:55 07:04 07:12 Temperature 98.2 F Pulse Rate 75 Pulse Rate [ 68 68 Bilateral] Respiratory 18 Rate Respiratory 20 20 Rate [Bilateral ] Blood Pressure 167/60 O2 Sat by Pulse 85 95 Oximetry 10/29/18 07:29 Temperature 97.5 F L Pulse Rate 68 Pulse Rate [ Bilateral] Respiratory 22 Rate Respiratory Rate [Bilateral ] Blood Pressure 142/59 O2 Sat by Pulse 95 Oximetry - Lab 10/24/18 04:43 10/29/18 05:00 Most recent lab results Calcium 8.5 mg/dL (8.4-10.2) 10/29/18 05:00 Urine Creatinine 175.8 mg/dL (0.1-20.0) H 10/23/18 08:31 Urine Sodium 71 mmol/L 10/23/18 08:31 Medications & Allergies - Medications Allergies/Adverse Reactions: Allergies aspirin Allergy (Verified 09/17/17 17:58) Shortness of Breath , CHEST PAIN escitalopram [From Lexapro] Allergy (Verified 04/17/18 11:43) Shortness of Breath salmeterol xinafoate [From Serevent] Allergy (Verified 01/22/17 08:45) Shortness of Breath levofloxacin [From Levaquin] Adverse Reaction (Verified 09/13/16 16:22) Rash Sulfa (Sulfonamide Antibiotics) Adverse Reaction (Verified 10/31/17 11:19) contraindicated due to kidney function states her doctor told her to not take sulfa due to renal insufficiency tramadol Adverse Reaction (Verified 09/19/18 16:34) Nausea contrast dye Adverse Reaction (Uncoded 04/17/18 11:59) contraindicated due to renal insufficiency Home Medications: Home Medications Medication Instructions Recorded Confirmed Last Taken Type ALPRAZolam [Xanax TAB] 0.25 mg PO PRN PRN 09/13/16 10/22/18 10/01/18 21:00 History Ipratropium/Albuterol Sulfate 1 ampul IH QID 09/13/16 10/22/18 10/22/18 20:00 History [DUONEB *Not for PRN Use*] Sucralfate 1 gm PO QID 09/13/16 10/22/18 10/22/18 22:00 History Indacaterol Maleate [Arcapta 75 mcg IH DAILY 01/22/17 10/22/18 10/01/18 19:30 History Neohaler] Gabapentin [Neurontin] 200 mg PO BID 09/03/17 10/22/18 10/22/18 22:00 History Sodium Bicarbonate 650 mg PO BID 09/03/17 10/22/18 10/22/18 22:00 History Tiotropium [Spiriva] 18 mcg IH QDAY 09/03/17 10/22/18 10/02/18 07:30 History Ranitidine HCl [Acid Elementary Substitute Teacher] 150 mg PO BID 10/29/17 10/22/18 10/22/18 22:00 History Beclomethasone Dipropionate [Qvar] 8.7 gm IH BID 03/29/18 10/22/18 10/22/18 20:00 History guaiFENesin [Mucinex] 600 mg PO DAILY 03/29/18 10/22/18 10/02/18 07:30 History Insulin NPH/Regular [NovoLIN 70/30] 10 unit SQ BID 09/19/18 10/22/18 10/01/18 19:00 History Linaclotide (Nf) [Linzess (Nf)] 290 mcg PO QDAY 09/19/18 10/22/18 10/21/18 History Verapamil ER [Calan Sr] 180 mg PO DAILY 09/19/18 10/22/18 10/02/18 07:30 History oxyCODONE /ACETAMINOPHEN [Percocet 1 tab PO Q6HR PRN 09/19/18 10/22/18 09/30/18 20:00 History 5/325] predniSONE [Prednisone] 10 mg PO Q48HR 09/19/18 10/22/18 09/30/18 09:00 History Active Medications: Generic Name Dose Route Start Last Admin Trade Name Freq PRN Reason Stop Dose Admin Acetaminophen 650 mg 10/22/18 17:31 10/28/18 12:06 Tylenol PO 650 mg Q4H PRN Administration Pain MILD(1-3)/Fever >100.5/[place] Albuterol 2.5 mg 10/23/18 20:38 10/27/18 13:37 Proventil IH 2.5 mg Q4HRT PRN Administration Shortness Of Breath Albuterol/Ipratropium 1 ampul 10/23/18 20:00 10/29/18 07:19 Duoneb *Not For Prn Use* IH Not Given TIDRT KELLY Gabapentin 200 mg 10/22/18 22:00 10/28/18 23:55 Neurontin PO 200 mg BID KELLY Administration Hydromorphone HCl 1 mg 10/22/18 14:29 10/24/18 02:36 Dilaudid IV 1 mg Q3H PRN Administration Pain , Severe (7-10) Lorazepam 0.5 mg 10/24/18 13:30 10/28/18 14:15 Ativan IV Not Given Q12H KELLY Ondansetron HCl 4 mg 10/22/18 17:31 10/25/18 13:15 Zofran IV 4 mg Q8H PRN Administration Nausea And Vomiting Oxycodone/Acetaminophen 1 tab 10/22/18 17:28 10/27/18 10:08 Percocet 5/325 PO 1 tab Q6HR PRN Administration Pain Pantoprazole Sodium 40 mg 10/25/18 14:00 10/28/18 11:50 Protonix PO 40 mg QDAY KELLY Administration Prednisone 10 mg 10/24/18 10:00 10/28/18 10:00 Deltasone PO 10 mg Q48H KELLY Administration Sodium Bicarbonate 650 mg 10/22/18 22:00 10/28/18 23:55 Sodium Bicarbonate PO 650 mg BID KELLY Administration Sodium Chloride 10 ml 10/22/18 22:00 10/28/18 11:50 Sodium Chloride Flush Syringe 10 Ml IV 10 ml BID KELLY Administration Sodium Chloride 10 ml 10/22/18 17:31 Sodium Chloride Flush Syringe 10 Ml IV PRN PRN LINE FLUSH Sucralfate 1 gm 10/22/18 18:00 10/28/18 23:56 Carafate PO 1 gm QID KELLY Administration Verapamil HCl 180 mg 10/22/18 18:00 10/28/18 10:00 Calan Sr PO 180 mg DAILY KELLY Administration
[2018-10-29] MEDS: CARAFATE PO SCH ×4 (10:00→21:40)
[2018-10-29] MEDS: PROTONIX PO SCH (10:00)
[2018-10-29] MEDS: SODIUM BICARBONATE PO SCH ×2 (10:00→21:40)
[2018-10-29] MEDS: SODIUM CHLORIDE FLUSH SYRINGE 10 ML IV SCH ×3 (10:00→21:41)
[2018-10-29] MEDS: NEURONTIN PO SCH ×2 (10:00→21:40)
[2018-10-29] MEDS: TYLENOL PO PRN ×2 (10:01→17:44)
[2018-10-29] MEDS: CALAN SR PO SCH (10:04)
[2018-10-29] MEDS: PROVENTIL IH PRN (12:13)
[2018-10-29] MEDS: ATIVAN IV SCH ×3 (13:49→21:00)
--- NOTE | 2018-10-29 14:03 | Discharge Summary ---
Providers - Providers Date of Admission: 10/22/18 17:31 Date of discharge: 10/30/18 Attending physician: FRANKLIN BARBA 10/22/18 17:31 Consult to Physician [CONS] Routine Comment: FRANCA Consulting Provider: MAILE BERUMEN Physician Instructions: CONSULT WAS CALLED TO DR. BERUMEN/DWIGHT Reason For Exam: persistent vomiting and diarrhea 10/23/18 01:37 Consult to Physician [CONS] Routine Comment: FRANCA Consulting Provider: JHOAN CHAMBERS Physician Instructions: WAS NOTIFIED. Reason For Exam: PUMA/CKD 10/23/18 16:25 Occupational Therapy Evaluate and Treat [CONS] Routine Comment: Reason For Exam: ADLs evaluation Physical Therapy Evaluation and Treat [CONS] Routine Comment: Reason For Exam: gait evaluation/ambulatory dysfunction 10/28/18 10:59 PICC Line Insertion [Consult to PICC Line RN] [CONS] Urgent Reason For Exam: patient hard stick picc line or mid line insertio Type Line:: PICC Primary care physician: INDEX EDITOR Hospitalization Condition: Stable Hospital course: Patient is a 78 yo woman with a history of CKD 3, SAKSHI, IDDM with PN, NSTEMI, end stage COPD (multiple previous exacerbations with intubations) with chronic hypoxic respiratory failure on 3 liters, bladder cancer (s/p surgery here in 09/2018), GERD, NSTEMI (05/2018), Arthritis, and morbid obesity with fu nctional quadriplegia mostly bedbound per patient who presented to [facility] ED with SOB, n/v, CP, abd pains and diarrhea, nausea, vomiting and chest pain. * CT abd/pelvis wo contrast IMPRESSION: Splenomegaly. Small hiatal hernia. Otherwise, no acute findings. PUMA (acute kidney injury), vasomotor nephropathy/CKD 3: plateau, Nephrology is following. UTI, E.coli: discharged on ceftin H/O Bladder cancer s/p recent surgery Chest pains, atypical: Cardiology did evaluate and signed off. COPD (chronic obstructive pulmonary disease) by history: continue bronchodilators Intractable nausea and vomiting and diarrhea treated with antiemetics Functional quadriplegia due to COPD and other co-morbidities/weight: consulted PT/OT, patient refuses to go ROSS/rehab SAKSHI: consulted Respiratory therapy Morbid obesity, BMI 75.4: counseling done Chronic hypoxic respiratory failure on 3 Liters around the clock o2 at home: nebs and continue 3 Liters IDDM (insulin dependent diabetes mellitus): SSI HTN (hypertension): continue home regimen IBS (irritable bowel syndrome: Gi is following, on Linzess GERD (gastroesophageal reflux disease): ppi DVT prophylaxis: On Lovenox and GI prophylaxis Disposition: continue inpatient care SNF was recommended but she refused then family spoke with patient and she changed her mind, She was discharged to [facility] Disposition: DC/[place]-03 SNF W ISSA CERT Time spent for discharge: 32 minutes Core Measure Documentation - Palliative Care Palliative Care/ Comfort Measures: Not Applicable - Core Measures Any of the following diagnoses?: none - VTE Discharge Requirements Deep Vein Thrombosis/Pulmonary Embolism Present on Admission: No Has pt received <5 days of overlap therapy or INR<2.0: No Anticoagulant overlap therapy prescribed at discharge: No Contraindication No Overlap Therapy order at DC: Not Indicated Exam - Physical Exam Narrative exam: Gen: WDWN, NAD, Awake, Alert, Orientated x 3, bmi 53.2 HEENT: NCAT, EOMI, PERRL, OP Clear Neck: supple, no adenopathy, no thyromegaly, no JVD CVS/Heart: RRR, normal S1S2, pulses present bilaterally Chest/Lungs: CTA B, Symmetrical chest expansion, good air entry bilaterally GI/Abdomen: soft, diffuse tenderness, good bowel sounds, no guarding or rebound /Bladder: no suprapubic tenderness, no CVA or paraspinal tenderness Extermity/Skin: no c/c/e, no obvious rash MSK: FROM x 4 Neuro: CN 2-12 grossly intact, no new focal deficits Psych: calm - Constitutional Vitals: Temp Pulse Resp BP Pulse Ox 97.5 F L 68 24 142/59 95 10/29/18 07:29 10/29/18 12:13 10/29/18 12:13 10/29/18 10:04 10/29/18 07:29 Plan Activity: up only with assistance, fall precautions, other (no strenous activity, frequent 2 hours turn off back) Diet: renal Special Instructions: physical therapy, occupational therapy, home health RN Follow up with: DONNA PAULSON MD [Primary Care Provider] - 7 Days JHOAN CHAMBERS MD [Staff Physician] - 7 Days MAILE BERUMEN MD [Staff Physician] - 7 Days Prescriptions: Acetaminophen [Acetaminophen TAB] 650 mg PO Q4H PRN #15 tablet PRN Reason: Pain MILD(1-3)/Fever >100.5/[place] ALBUTEROL NEB's [Proventil 0.083% NEBS] 2.5 mg IH Q4HRT PRN #30 nebu PRN Reason: Shortness Of Breath ALPRAZolam [Xanax TAB] 0.25 mg PO Q8H PRN #10 tablet PRN Reason: Anxiety cefUROXime [Ceftin] 500 mg PO BID #8 tablet oxyCODONE /ACETAMINOPHEN [Percocet 5/325 mg] 1 tab PO Q6HR PRN #10 tablet PRN Reason: Pain Pantoprazole [Protonix TAB] 40 mg PO QDAY #30 tablet predniSONE [Deltasone] 10 mg PO Q48H 30 Days tablet Sodium Bicarbonate 650 mg PO BID #60 tablet Sucralfate 1 gm PO QID #120 tablet
--- NOTE | 2018-10-29 14:04 | Progress Note ---
Assessment and Plan Assessment and plan: Patient is a 78 yo woman with a history of CKD 3, SAKSHI, IDDM with PN, NSTEMI, end stage COPD (multiple previous exacerbations with intubations) with chronic hypoxic respiratory failure on 3 liters, bladder cancer (s/p surgery here in 09/2018), GERD, NSTEMI (05/2018), Arthritis, and morbid obesity with functional quadriplegia mostly bedbound per patient who presented to [facility] with SOB, n/v, CP, abd pains and diarrhea, nausea, vomiting and chest pain. * CT abd/pelvis wo contrast IMPRESSION: Splenomegaly. Small hiatal hernia. Otherwise, no acute findings. PUMA (acute kidney injury), vasomotor nephropathy/CKD 3: worsening, Nephrology is following. UTI, E.coli: continue IV rocephin, Chest pains, atypical: Cardiology did evaluate and signed off. COPD (chronic obstructive pulmonary disease) by history: continue bronchodilators Intractable nausea and vomiting and diarrhea treated with antiemetics Functional quadriplegia due to COPD and other co-morbidities: consulted PT/OT, patient denied ROSS/rehab SAKSHI: consulted Respiratory therapy Morbid obesity, bmi 75.4: counseling done Chronic hypoxic respiratory failure on 3 Liters around the clock o2 at home: nebs and continue 3 Liters IDDM (insulin dependent diabetes mellitus): SSI HTN (hypertension): continue home regimen IBS (irritable bowel syndrome: Gi is following, on Linzess GERD (gastroesophageal reflux disease): ppi DVT prophylaxis: On Lovenox and GI prophylaxis Disposition: continue inpatient care History Interval history: Patient was seen and examined. Follow-up on current diagnosis of n/v/sob/chest pains/diarrhea, all resolved but still sob. Overnight uneventful. Patient denies any chest pain, nausea/vomiting or severe headaches. Imaging, nursing note, chart, labs and old chart reviewed. Discussed with patient. Hospitalist Physical - Physical exam Narrative exam: Gen: WDWN, NAD, Awake, Alert, Orientated x 3, bmi 75.4 HEENT: NCAT, EOMI, PERRL, OP Clear Neck: supple, no adenopathy, no thyromegaly, no JVD CVS/Heart: RRR, normal S1S2, pulses present bilaterally Chest/Lungs: CTA B, Symmetrical chest expansion, good air entry bilaterally GI/Abdomen: soft, diffuse tenderness, good bowel sounds, no guarding or rebound /Bladder: no suprapubic tenderness, no CVA or paraspinal tenderness Extermity/Skin: no c/c/e, no obvious rash MSK: FROM x 4 Neuro: CN 2-12 grossly intact, no new focal deficits Psych: calm - Constitutional Vitals: Temp Pulse Resp BP Pulse Ox 97.5 F L 68 24 142/59 95 10/29/18 07:29 10/29/18 12:13 10/29/18 12:13 10/29/18 10:04 10/29/18 07:29 General appearance: Present: no acute distress, well-nourished Results - Labs CBC & Chem 7: 10/24/18 04:43 10/29/18 05:00 Labs: Laboratory Last Values WBC 9.7 K/mm3 (4.5-11.0) 10/24/18 04:43 RBC 3.89 M/mm3 (3.65-5.03) 10/24/18 04:43 Hgb 11.0 gm/dl (10.1-14.3) 10/24/18 04:43 Hct 34.1 % (30.3-42.9) 10/24/18 04:43 MCV 88 fl (79-97) 10/24/18 04:43 MCH 28 pg (28-32) 10/24/18 04:43 MCHC 32 % (30-34) 10/24/18 04:43 RDW 14.7 % (13.2-15.2) 10/24/18 04:43 Plt Count 417 K/mm3 (140-440) 10/24/18 04:43 Add Manual Diff Complete 10/23/18 02:27 Total Counted 100 10/23/18 02:27 Seg Neuts % (Manual) 64.0 % (40.0-70.0) 10/23/18 02:27 Band Neutrophils % 1.0 % 10/23/18 02:27 Lymphocytes % (Manual) 21.0 % (13.4-35.0) 10/23/18 02:27 Reactive Lymphs % (Man) 0 % 10/23/18 02:27 Monocytes % (Manual) 5.0 % (0.0-7.3) 10/23/18 02:27 Eosinophils % (Manual) 9.0 % (0.0-4.3) H 10/23/18 02:27 Basophils % (Manual) 0 % (0.0-1.8) 10/23/18 02:27 Metamyelocytes % 0 % 10/23/18 02:27 Myelocytes % 0 % 10/23/18 02:27 Promyelocytes % 0 % 10/23/18 02:27 Blast Cells % 0 % 10/23/18 02:27 Nucleated RBC % Not Reportable 10/23/18 02:27 Seg Neutrophils # Man 4.6 K/mm3 (1.8-7.7) 10/23/18 02:27 Band Neutrophils # 0.1 K/mm3 10/23/18 02:27 Lymphocytes # (Manual) 1.5 K/mm3 (1.2-5.4) 10/23/18 02:27 Abs React Lymphs (Man) 0.0 K/mm3 10/23/18 02:27 Monocytes # (Manual) 0.4 K/mm3 (0.0-0.8) 10/23/18 02:27 Eosinophils # (Manual) 0.6 K/mm3 (0.0-0.4) H 10/23/18 02:27 Basophils # (Manual) 0.0 K/mm3 (0.0-0.1) 10/23/18 02:27 Metamyelocytes # 0.0 K/mm3 10/23/18 02:27 Myelocytes # 0.0 K/mm3 10/23/18 02:27 Promyelocytes # 0.0 K/mm3 10/23/18 02:27 Blast Cells # 0.0 K/mm3 10/23/18 02:27 WBC Morphology Not Reportable 10/23/18 02:27 Hypersegmented Neuts Not Reportable 10/23/18 02:27 Hyposegmented Neuts Not Reportable 10/23/18 02:27 Hypogranular Neuts Not Reportable 10/23/18 02:27 Smudge Cells Not Reportable 10/23/18 02:27 Toxic Granulation Not Reportable 10/23/18 02:27 Toxic Vacuolation Not Reportable 10/23/18 02:27 Dohle Bodies Not Reportable 10/23/18 02:27 Pelger-Huet Anomaly Not Reportable 10/23/18 02:27 Aaron Rods Not Reportable 10/23/18 02:27 Platelet Estimate Consistent w auto 10/23/18 02:27 Clumped Platelets Not Reportable 10/23/18 02:27 Plt Clumps, EDTA Not Reportable 10/23/18 02:27 Large Platelets Not Reportable 10/23/18 02:27 Giant Platelets Not Reportable 10/23/18 02:27 Platelet Satelliting Not Reportable 10/23/18 02:27 Plt Morphology Comment Not Reportable 10/23/18 02:27 RBC Morphology Normal 10/23/18 02:27 Dimorphic RBCs Not Reportable 10/23/18 02:27 Polychromasia Not Reportable 10/23/18 02:27 Hypochromasia Not Reportable 10/23/18 02:27 Poikilocytosis Not Reportable 10/23/18 02:27 Anisocytosis Not Reportable 10/23/18 02:27 Microcytosis Not Reportable 10/23/18 02:27 Macrocytosis Not Reportable 10/23/18 02:27 Spherocytes Not Reportable 10/23/18 02:27 Pappenheimer Bodies Not Reportable 10/23/18 02:27 Sickle Cells Not Reportable 10/23/18 02:27 Target Cells Not Reportable 10/23/18 02:27 Tear Drop Cells Not Reportable 10/23/18 02:27 Ovalocytes Not Reportable 10/23/18 02:27 Helmet Cells Not Reportable 10/23/18 02:27 [place] Bodies Not Reportable 10/23/18 02:27 [place] Rings Not Reportable 10/23/18 02:27 [place] Cells Not Reportable 10/23/18 02:27 Bite Cells Not Reportable 10/23/18 02:27 Crenated Cell Not Reportable 10/23/18 02:27 Elliptocytes Not Reportable 10/23/18 02:27 Acanthocytes (Spur) Not Reportable 10/23/18 02:27 Rouleaux Not Reportable 10/23/18 02:27 Hemoglobin C Crystals Not Reportable 10/23/18 02:27 Schistocytes Not Reportable 10/23/18 02:27 Malaria parasites Not Reportable 10/23/18 02:27 [place] Bodies Not Reportable 10/23/18 02:27 Hem Pathologist Commnt No 10/23/18 02:27 Sodium 138 mmol/L (137-145) 10/29/18 05:00 Potassium 5.0 mmol/L (3.6-5.0) 10/29/18 05:00 Chloride 102.3 mmol/L (98-107) 10/29/18 05:00 Carbon Dioxide 24 mmol/L (22-30) 10/29/18 05:00 Anion Gap 17 mmol/L 10/29/18 05:00 BUN 32 mg/dL (7-17) H 10/29/18 05:00 Creatinine 3.7 mg/dL (0.7-1.2) H 10/29/18 05:00 Estimated GFR 12 ml/min 10/29/18 05:00 BUN/Creatinine Ratio 9 % 10/29/18 05:00 Glucose 116 mg/dL (65-100) H 10/29/18 05:00 POC Glucose 116 (70-105) H 10/29/18 11:26 Hemoglobin A1c 5.7 % (4-6) 10/22/18 17:49 Lactic Acid 0.90 mmol/L (0.7-2.0) 10/22/18 10:18 Calcium 8.5 mg/dL (8.4-10.2) 10/29/18 05:00 Total Bilirubin 0.20 mg/dL (0.1-1.2) 10/23/18 02:27 AST 15 units/L (5-40) 10/23/18 02:27 ALT < 5 units/L (7-56) L 10/23/18 02:27 Alkaline Phosphatase 79 units/L (35-129) 10/23/18 02:27 Troponin T 0.022 ng/mL (0.00-0.029) 10/24/18 04:43 Total Protein 5.5 g/dL (6.3-8.2) L 10/23/18 02:27 Albumin 3.0 g/dL (3.9-5) L 10/23/18 02:27 Albumin/Globulin Ratio 1.2 % 10/23/18 02:27 Lipase 15 units/L (13-60) 10/22/18 10:18 Urine Color Yellow (Yellow) 10/23/18 08:31 Urine Turbidity Slightly-cloudy (Clear) 10/23/18 08:31 Urine pH 5.0 (5.0-7.0) 10/23/18 08:31 Ur Specific [place] 1.011 (1.003-1.030) 10/23/18 08:31 Urine Protein 30 mg/dl mg/dL (Negative) 10/23/18 08:31 Urine Glucose (UA) Neg mg/dL (Negative) 10/23/18 08:31 Urine Ketones Neg mg/dL (Negative) 10/23/18 08:31 Urine Blood Mod (Negative) 10/23/18 08:31 Urine Nitrite Neg (Negative) 10/23/18 08:31 Urine Bilirubin Neg (Negative) 10/23/18 08:31 Urine Urobilinogen < 2.0 mg/dL (<2.0) 10/23/18 08:31 Ur Leukocyte Esterase Mod (Negative) 10/23/18 08:31 Urine WBC (Auto) 40.0 /HPF (0.0-6.0) H 10/23/18 08:31 Urine RBC (Auto) 35.0 /HPF (0.0-6.0) 10/23/18 08:31 Urine Bacteria (Auto) 1+ /HPF (Negative) 10/23/18 08:31 Urine WBC Clumps 3+ /HPF 10/23/18 08:31 Urine Mucus Few /HPF 10/23/18 08:31 Urine Creatinine 175.8 mg/dL (0.1-20.0) H 10/23/18 08:31 Urine Sodium 71 mmol/L 10/23/18 08:31 Fraction Sodium Excret 0.5 10/23/18 08:31 C. difficile Toxin A&B Negative (Negative) 10/23/18 Unknown Nutrition/Malnutrition Assess - Dietary Evaluation Nutrition/Malnutrition Findings: Nutrition Notes Start: 10/23/18 14:46 Freq: Status: Active Protocol: Document 10/28/18 16:33 RM (Rec: 10/28/18 16:39 RM [id number]) Nutrition Notes Initial or Follow up Reassessment Current Diagnoses Acute Kidney Injury CKD(stage I-IV) COPD Hypertension Other Pertinent Diagnosis GERD, N/V Current Diet GI soft Labs/Tests Reviewed Medications Prednisone Height 5 ft 6 in Weight 212.5 kg [place] Body Weight (lbs) 130.0 BMI 75.6 Subjective/Other Information Pt and pt tech in room at time of visit. Pt somewhat confused so tech assisted in answering questions. Pt stated that her appetite is good. Pt tech stated that pt ate all of her breakfast. Percent of energy/protein needs met: 88%/98% #1 Nutrition Diagnoses Inadequate oral intake As Evidenced by Signs and Symptoms pt tech statement that pt ate all of her breakfast Diagnosis Progress(for reassessment Improved documentation) Is patient on ventilator? No Is Patient Ambulatory and/or Out of Bed No REE-([facility]-confined to bed) 3139.236 Kcal/Kg value to use for calculation 11 Approximate Energy Requirements Using 2338 kcal/Kg Calculation Used for Recommendations Kcal/kg Additional Notes adj bw 104.16 KGS FLUID: 1 mL/kcal PROTEIN: 0.8-1 G/KG/ADJ BW (83 -104 G/DAY) Nutrition Intervention Change Diet Order: GI Soft, Renal Goal #1 Continue to meet at least 75% of calorie and protein needs Anticipated Discharge Needs: unable to determine at this time Follow-Up By: 10/31/18 Additional Comments Follow for PO intakes
[2018-10-30] MEDS: ATIVAN IV SCH ×2 (01:48→13:45)
[2018-10-30] MEDS: PERCOCET 5/325 PO PRN ×2 (01:48→14:47)
[2018-10-30] MEDS: PROVENTIL IH PRN (02:31)
[2018-10-30 05:50] LABS: Calcium 8.6 mg/dL (8.4-10.2)
--- NOTE | 2018-10-30 08:24 | Ultrasound Report ---
FINAL REPORT EXAM: US BLADDER RESIDUAL HISTORY: PUMA TECHNIQUE: Ultrasound of the bladder. Pre and postvoid imaging. PRIORS: None. FINDINGS: Prevoid bladder dimensions correspond to volume of approximately 295 cc. Postvoid bladder dimensions correspond to approximate volume of 291 cc. Grossly there is no bladder wall thickening or other significant abnormality seen. IMPRESSION: No significant voiding. Large postvoid bladder residual.
[2018-10-30] MEDS: DUONEB *Not for PRN Use IH SCH ×3 (08:25→21:53)
--- NOTE | 2018-10-30 08:46 | Progress Note ---
Assessment and Plan Impression * Acute on chronic renal failure stage 4--baseline 2.4 * Nausea and vomiting * COPD * History of bladder cancer * Morbid obesity * uti * Urinary tract infection Recommendations * serum creatinine better today. She does still have some nausea but no vomiting * follow up repeat ua * ultrasound of her bladder with large postvoid residual--will need periodic straight cath or [place] * Her urine shows 1+ dipstick protein as well as pyuria and microhematuria * Blood culture -4 days * fractional excretion of sodium is 0.5% * Avoid nephrotoxins * Monitor fluid status and electrolytes closely * Continue treatment for COPD * Patient states that she is allergic to Levaquin. Urine culture growing Escherichia coli sensitive to Rocephin. Continue Rocephin for now Subjective Date of service: 10/30/18 Principal diagnosis: N/V, diarrhea Interval history: resting well in bed today Objective - Exam Narrative Exam: General appearance: well-developed, well-nourished, appears stated age, obese EENT: PERRL, mucous membranes moist Neck: no JVD, no thyromegaly Respiratory: Present: Wheezes Cardiology: regular, normal heart rate Gastrointestinal: normoactive bowel sounds, other (abdominal wall edema noted) Integumentary: other (1+ edema) - Vital Signs Vital signs: Vital Signs - 12hr 10/29/18 10/30/18 10/30/18 22:00 02:31 02:39 Temperature 98.6 F Pulse Rate 63 Pulse Rate [ 63 Throughout] Respiratory 20 Rate Respiratory 18 Rate [ Throughout] Blood Pressure 127/38 O2 Sat by Pulse Oximetry 10/30/18 10/30/18 10/30/18 02:41 07:28 08:25 Temperature 98.0 F Pulse Rate 66 Pulse Rate [ 63 63 Throughout] Respiratory 23 Rate Respiratory 18 20 Rate [ Throughout] Blood Pressure 166/52 O2 Sat by Pulse 95 Oximetry 10/30/18 10/30/18 08:27 08:33 Temperature Pulse Rate Pulse Rate [ 66 Throughout] Respiratory Rate Respiratory 20 Rate [ Throughout] Blood Pressure O2 Sat by Pulse 97 Oximetry - Lab 10/24/18 04:43 10/30/18 04:46 Most recent lab results Calcium 8.6 mg/dL (8.4-10.2) 10/30/18 04:46 Urine Creatinine 175.8 mg/dL (0.1-20.0) H 10/23/18 08:31 Urine Sodium 71 mmol/L 10/23/18 08:31 Medications & Allergies - Medications Allergies/Adverse Reactions: Allergies aspirin Allergy (Verified 09/17/17 17:58) Shortness of Breath , CHEST PAIN escitalopram [From Lexapro] Allergy (Verified 04/17/18 11:43) Shortness of Breath salmeterol xinafoate [From Serevent] Allergy (Verified 01/22/17 08:45) Shortness of Breath levofloxacin [From Levaquin] Adverse Reaction (Verified 09/13/16 16:22) Rash Sulfa (Sulfonamide Antibiotics) Adverse Reaction (Verified 10/31/17 11:19) contraindicated due to kidney function states her doctor told her to not take sulfa due to renal insufficiency tramadol Adverse Reaction (Verified 09/19/18 16:34) Nausea contrast dye Adverse Reaction (Uncoded 04/17/18 11:59) contraindicated due to renal insufficiency Home Medications: Home Medications Medication Instructions Recorded Confirmed Last Taken Type Ipratropium/Albuterol Sulfate 1 ampul IH QID 09/13/16 10/22/18 10/22/18 20:00 History [DUONEB *Not for PRN Use*] Indacaterol Maleate [Arcapta 75 mcg IH DAILY 01/22/17 10/22/18 10/01/18 19:30 History Neohaler] Tiotropium [Spiriva] 18 mcg IH QDAY 09/03/17 10/22/18 10/02/18 07:30 History Ranitidine HCl [Acid Attacher] 150 mg PO BID 10/29/17 10/22/18 10/22/18 22:00 History Beclomethasone Dipropionate [Qvar] 8.7 gm IH BID 03/29/18 10/22/18 10/22/18 20:00 History guaiFENesin [Mucinex] 600 mg PO DAILY 03/29/18 10/22/18 10/02/18 07:30 History Insulin NPH/Regular [NovoLIN 70/30] 10 unit SQ BID 09/19/18 10/22/18 10/01/18 19:00 History Linaclotide (Nf) [Linzess (Nf)] 290 mcg PO QDAY 09/19/18 10/22/18 10/21/18 History predniSONE [Prednisone] 10 mg PO Q48HR 09/19/18 10/22/18 09/30/18 09:00 History ALBUTEROL NEB's [Proventil 0.083% 2.5 mg IH Q4HRT PRN #30 nebu 10/29/18 Unknown Rx NEBS] ALPRAZolam [Xanax TAB] 0.25 mg PO Q8H PRN #10 tablet 10/29/18 Unknown Rx Acetaminophen [Acetaminophen TAB] 650 mg PO Q4H PRN #15 tablet 10/29/18 Unknown Rx Gabapentin [Neurontin] 200 mg PO BID #60 10/29/18 10/22/18 10/22/18 22:00 Rx Pantoprazole [Protonix TAB] 40 mg PO QDAY #30 tablet 10/29/18 Unknown Rx Sodium Bicarbonate 650 mg PO BID #60 tablet 10/29/18 Unknown Rx Sucralfate 1 gm PO QID #120 tablet 10/29/18 Unknown Rx Verapamil ER [Calan SR] 180 mg PO DAILY #30 10/29/18 10/22/18 10/02/18 07:30 Rx cefUROXime [Ceftin] 500 mg PO BID #8 tablet 10/29/18 Unknown Rx oxyCODONE /ACETAMINOPHEN [Percocet 1 tab PO Q6HR PRN #10 tablet 10/29/18 Unknown Rx 5/325 mg] predniSONE [Deltasone] 10 mg PO Q48H 30 Days tablet 10/29/18 Unknown Rx Active Medications: Generic Name Dose Route Start Last Admin Trade Name Freq PRN Reason Stop Dose Admin Acetaminophen 650 mg 10/22/18 17:31 10/29/18 17:44 Tylenol PO 650 mg Q4H PRN Administration Pain MILD(1-3)/Fever >100.5/[place] Albuterol 2.5 mg 10/23/18 20:38 10/30/18 02:31 Proventil IH 2.5 mg Q4HRT PRN Administration Shortness Of Breath Albuterol/Ipratropium 1 ampul 10/23/18 20:00 10/30/18 08:25 Duoneb *Not For Prn Use* IH 1 ampul TIDRT KELLY Administration Gabapentin 200 mg 10/22/18 22:00 10/29/18 21:40 Neurontin PO 200 mg BID KELLY Administration Hydromorphone HCl 1 mg 10/22/18 14:29 10/24/18 02:36 Dilaudid IV 1 mg Q3H PRN Administration Pain , Severe (7-10) Lorazepam 0.5 mg 10/24/18 13:30 10/30/18 01:48 Ativan IV Not Given Q12H KELLY Ondansetron HCl 4 mg 10/22/18 17:31 10/25/18 13:15 Zofran IV 4 mg Q8H PRN Administration Nausea And Vomiting Oxycodone/Acetaminophen 1 tab 10/22/18 17:28 10/30/18 01:48 Percocet 5/325 PO 1 tab Q6HR PRN Administration Pain Pantoprazole Sodium 40 mg 10/25/18 14:00 10/29/18 10:00 Protonix PO 40 mg QDAY KELLY Administration Prednisone 10 mg 10/24/18 10:00 10/28/18 10:00 Deltasone PO 10 mg Q48H KELLY Administration Sodium Bicarbonate 650 mg 10/22/18 22:00 10/29/18 21:40 Sodium Bicarbonate PO 650 mg BID KELLY Administration Sodium Chloride 10 ml 10/22/18 22:00 10/29/18 21:41 Sodium Chloride Flush Syringe 10 Ml IV 10 ml BID KELLY Administration Sodium Chloride 10 ml 10/22/18 17:31 Sodium Chloride Flush Syringe 10 Ml IV PRN PRN LINE FLUSH Sucralfate 1 gm 10/22/18 18:00 10/29/18 21:40 Carafate PO 1 gm QID KELLY Administration Verapamil HCl 180 mg 10/22/18 18:00 10/29/18 10:04 Calan Sr PO 180 mg DAILY KELLY Administration
[2018-10-30] MEDS ORDERED: ROCEPHIN/NS 1 GM/50 ML 1 GM/50 ML BAG IV SCH (10:00)
[2018-10-30] MEDS: NEURONTIN PO SCH (10:25)
[2018-10-30] MEDS: CARAFATE PO SCH ×3 (10:25→18:05)
[2018-10-30] MEDS: PROTONIX PO SCH (10:25)
[2018-10-30] MEDS: DELTASONE PO SCH (10:25)
[2018-10-30] MEDS: SODIUM BICARBONATE PO SCH (10:25)
[2018-10-30] MEDS: CALAN SR PO SCH (10:26)
[2018-10-30] MEDS: SODIUM CHLORIDE FLUSH SYRINGE 10 ML IV SCH (10:27)
[2018-10-30 10:36] LABS: Bacteria,Urine 1+ /HPF (Negative); Bilirubin,Urine NEG (Negative); Blood,Urine SM (Negative); Color,Urine Yellow (Yellow); Mucus,Urine FEW /HPF; Protein,Urine <15 mg/dL mg/dL (Negative); Urobilinogen,Urine < 2.0 mg/dL (<2.0)
--- NOTE | 2018-10-30 15:23 | Progress Note ---
Assessment and Plan Assessment and plan: Patient is a 78 yo woman with a history of CKD 3, SAKSHI, IDDM with PN, NSTEMI, end stage COPD (multiple previous exacerbations with intubations) with chronic hypoxic respiratory failure on 3 liters, bladder cancer (s/p surgery here in 09/2018), GERD, NSTEMI (05/2018), Arthritis, and morbid obesity with functional quadriplegia mostly bedbound per patient who presented to [facility] ED with SOB, n/v, CP, abd pains and diarrhea, nausea, vomiting and chest pain. * CT abd/pelvis wo contrast IMPRESSION: Splenomegaly. Small hiatal hernia. Otherwise, no acute findings. PUMA (acute kidney injury), vasomotor nephropathy/CKD 3: worsening, Nephrology is following. UTI, E.coli: continue IV rocephin, Chest pains, atypical: Cardiology did evaluate and signed off. COPD (chronic obstructive pulmonary disease) by history: continue bronchodilators Intractable nausea and vomiting and diarrhea treated with antiemetics Functional quadriplegia due to COPD and other co-morbidities: consulted PT/OT, patient denied ROSS/rehab SAKSHI: consulted Respiratory therapy Morbid obesity, bmi 75.4: counseling done Chronic hypoxic respiratory failure on 3 Liters around the clock o2 at home: nebs and continue 3 Liters IDDM (insulin dependent diabetes mellitus): SSI HTN (hypertension): continue home regimen IBS (irritable bowel syndrome: Gi is following, on Linzess GERD (gastroesophageal reflux disease): ppi DVT prophylaxis: On Lovenox and GI prophylaxis Disposition: continue inpatient care, SNF Awaiting SNF placement History Interval history: Patient was seen and examined. Follow-up on current diagnosis of n/v/sob/chest pains/diarrhea, all resolved but still sob. Overnight uneventful. Patient denies any chest pain, nausea/vomiting or severe headaches. Imaging, nursing note, chart, labs and old chart reviewed. Discussed with patient. Hospitalist Physical - Physical exam Narrative exam: Gen: WDWN, NAD, Awake, Alert, Orientated x 3, bmi 75.4 HEENT: NCAT, EOMI, PERRL, OP Clear Neck: supple, no adenopathy, no thyromegaly, no JVD CVS/Heart: RRR, normal S1S2, pulses present bilaterally Chest/Lungs: CTA B, Symmetrical chest expansion, good air entry bilaterally GI/Abdomen: soft, diffuse tenderness, good bowel sounds, no guarding or rebound /Bladder: no suprapubic tenderness, no CVA or paraspinal tenderness Extermity/Skin: no c/c/e, no obvious rash MSK: FROM x 4 Neuro: CN 2-12 grossly intact, no new focal deficits Psych: calm - Constitutional Vitals: Temp Pulse Resp BP Pulse Ox 98.9 F 62 20 154/53 95 10/30/18 14:28 10/30/18 14:28 10/30/18 14:47 10/30/18 14:28 10/30/18 14:28 General appearance: Present: no acute distress, well-nourished Results - Labs CBC & Chem 7: 10/24/18 04:43 10/30/18 04:46 Labs: Laboratory Last Values WBC 9.7 K/mm3 (4.5-11.0) 10/24/18 04:43 RBC 3.89 M/mm3 (3.65-5.03) 10/24/18 04:43 Hgb 11.0 gm/dl (10.1-14.3) 10/24/18 04:43 Hct 34.1 % (30.3-42.9) 10/24/18 04:43 MCV 88 fl (79-97) 10/24/18 04:43 MCH 28 pg (28-32) 10/24/18 04:43 MCHC 32 % (30-34) 10/24/18 04:43 RDW 14.7 % (13.2-15.2) 10/24/18 04:43 Plt Count 417 K/mm3 (140-440) 10/24/18 04:43 Add Manual Diff Complete 10/23/18 02:27 Total Counted 100 10/23/18 02:27 Seg Neuts % (Manual) 64.0 % (40.0-70.0) 10/23/18 02:27 Band Neutrophils % 1.0 % 10/23/18 02:27 Lymphocytes % (Manual) 21.0 % (13.4-35.0) 10/23/18 02:27 Reactive Lymphs % (Man) 0 % 10/23/18 02:27 Monocytes % (Manual) 5.0 % (0.0-7.3) 10/23/18 02:27 Eosinophils % (Manual) 9.0 % (0.0-4.3) H 10/23/18 02:27 Basophils % (Manual) 0 % (0.0-1.8) 10/23/18 02:27 Metamyelocytes % 0 % 10/23/18 02:27 Myelocytes % 0 % 10/23/18 02:27 Promyelocytes % 0 % 10/23/18 02:27 Blast Cells % 0 % 10/23/18 02:27 Nucleated RBC % Not Reportable 10/23/18 02:27 Seg Neutrophils # Man 4.6 K/mm3 (1.8-7.7) 10/23/18 02:27 Band Neutrophils # 0.1 K/mm3 10/23/18 02:27 Lymphocytes # (Manual) 1.5 K/mm3 (1.2-5.4) 10/23/18 02:27 Abs React Lymphs (Man) 0.0 K/mm3 10/23/18 02:27 Monocytes # (Manual) 0.4 K/mm3 (0.0-0.8) 10/23/18 02:27 Eosinophils # (Manual) 0.6 K/mm3 (0.0-0.4) H 10/23/18 02:27 Basophils # (Manual) 0.0 K/mm3 (0.0-0.1) 10/23/18 02:27 Metamyelocytes # 0.0 K/mm3 10/23/18 02:27 Myelocytes # 0.0 K/mm3 10/23/18 02:27 Promyelocytes # 0.0 K/mm3 10/23/18 02:27 Blast Cells # 0.0 K/mm3 10/23/18 02:27 WBC Morphology Not Reportable 10/23/18 02:27 Hypersegmented Neuts Not Reportable 10/23/18 02:27 Hyposegmented Neuts Not Reportable 10/23/18 02:27 Hypogranular Neuts Not Reportable 10/23/18 02:27 Smudge Cells Not Reportable 10/23/18 02:27 Toxic Granulation Not Reportable 10/23/18 02:27 Toxic Vacuolation Not Reportable 10/23/18 02:27 Dohle Bodies Not Reportable 10/23/18 02:27 Pelger-Huet Anomaly Not Reportable 10/23/18 02:27 Aaron Rods Not Reportable 10/23/18 02:27 Platelet Estimate Consistent w auto 10/23/18 02:27 Clumped Platelets Not Reportable 10/23/18 02:27 Plt Clumps, EDTA Not Reportable 10/23/18 02:27 Large Platelets Not Reportable 10/23/18 02:27 Giant Platelets Not Reportable 10/23/18 02:27 Platelet Satelliting Not Reportable 10/23/18 02:27 Plt Morphology Comment Not Reportable 10/23/18 02:27 RBC Morphology Normal 10/23/18 02:27 Dimorphic RBCs Not Reportable 10/23/18 02:27 Polychromasia Not Reportable 10/23/18 02:27 Hypochromasia Not Reportable 10/23/18 02:27 Poikilocytosis Not Reportable 10/23/18 02:27 Anisocytosis Not Reportable 10/23/18 02:27 Microcytosis Not Reportable 10/23/18 02:27 Macrocytosis Not Reportable 10/23/18 02:27 Spherocytes Not Reportable 10/23/18 02:27 Pappenheimer Bodies Not Reportable 10/23/18 02:27 Sickle Cells Not Reportable 10/23/18 02:27 Target Cells Not Reportable 10/23/18 02:27 Tear Drop Cells Not Reportable 10/23/18 02:27 Ovalocytes Not Reportable 10/23/18 02:27 Helmet Cells Not Reportable 10/23/18 02:27 Sol-Commack Bodies Not Reportable 10/23/18 02:27 [place] Rings Not Reportable 10/23/18 02:27 [place]bury Cells Not Reportable 10/23/18 02:27 Bite Cells Not Reportable 10/23/18 02:27 Crenated Cell Not Reportable 10/23/18 02:27 Elliptocytes Not Reportable 10/23/18 02:27 Acanthocytes (Spur) Not Reportable 10/23/18 02:27 Rouleaux Not Reportable 10/23/18 02:27 Hemoglobin C Crystals Not Reportable 10/23/18 02:27 Schistocytes Not Reportable 10/23/18 02:27 Malaria parasites Not Reportable 10/23/18 02:27 Osvaldo Bodies Not Reportable 10/23/18 02:27 Hem Pathologist Commnt No 10/23/18 02:27 Sodium 139 mmol/L (137-145) 10/30/18 04:46 Potassium 4.5 mmol/L (3.6-5.0) 10/30/18 04:46 Chloride 103.6 mmol/L (98-107) 10/30/18 04:46 Carbon Dioxide 24 mmol/L (22-30) 10/30/18 04:46 Anion Gap 16 mmol/L 10/30/18 04:46 BUN 33 mg/dL (7-17) H 10/30/18 04:46 Creatinine 3.4 mg/dL (0.7-1.2) H 10/30/18 04:46 Estimated GFR 13 ml/min 10/30/18 04:46 BUN/Creatinine Ratio 10 % 10/30/18 04:46 Glucose 95 mg/dL (65-100) 10/30/18 04:46 POC Glucose 93 (70-105) 10/30/18 11:22 Hemoglobin A1c 5.7 % (4-6) 10/22/18 17:49 Lactic Acid 0.90 mmol/L (0.7-2.0) 10/22/18 10:18 Calcium 8.6 mg/dL (8.4-10.2) 10/30/18 04:46 Total Bilirubin 0.20 mg/dL (0.1-1.2) 10/23/18 02:27 AST 15 units/L (5-40) 10/23/18 02:27 ALT < 5 units/L (7-56) L 10/23/18 02:27 Alkaline Phosphatase 79 units/L (35-129) 10/23/18 02:27 Troponin T 0.022 ng/mL (0.00-0.029) 10/24/18 04:43 Total Protein 5.5 g/dL (6.3-8.2) L 10/23/18 02:27 Albumin 3.0 g/dL (3.9-5) L 10/23/18 02:27 Albumin/Globulin Ratio 1.2 % 10/23/18 02:27 Lipase 15 units/L (13-60) 10/22/18 10:18 Urine Color Yellow (Yellow) 10/30/18 Unknown Urine Turbidity Slightly-cloudy (Clear) 10/30/18 Unknown Urine pH 5.0 (5.0-7.0) 10/30/18 Unknown Ur Specific Henning 1.009 (1.003-1.030) 10/30/18 Unknown Urine Protein <15 mg/dl mg/dL (Negative) 10/30/18 Unknown Urine Glucose (UA) Neg mg/dL (Negative) 10/30/18 Unknown Urine Ketones Neg mg/dL (Negative) 10/30/18 Unknown Urine Blood Sm (Negative) 10/30/18 Unknown Urine Nitrite Neg (Negative) 10/30/18 Unknown Urine Bilirubin Neg (Negative) 10/30/18 Unknown Urine Urobilinogen < 2.0 mg/dL (<2.0) 10/30/18 Unknown Ur Leukocyte Esterase Lg (Negative) 10/30/18 Unknown Urine WBC (Auto) 46.0 /HPF (0.0-6.0) H 10/30/18 Unknown Urine RBC (Auto) 15.0 /HPF (0.0-6.0) 10/30/18 Unknown U Epithel Cells (Auto) 4.0 /HPF (0-13.0) 10/30/18 Unknown Urine Bacteria (Auto) 1+ /HPF (Negative) 10/30/18 Unknown Urine WBC Clumps 3+ /HPF 10/23/18 08:31 Urine Mucus Few /HPF 10/30/18 Unknown Urine Creatinine 175.8 mg/dL (0.1-20.0) H 10/23/18 08:31 Urine Sodium 71 mmol/L 10/23/18 08:31 Fraction Sodium Excret 0.5 10/23/18 08:31 C. difficile Toxin A&B Negative (Negative) 10/23/18 Unknown Nutrition/Malnutrition Assess - Dietary Evaluation Nutrition/Malnutrition Findings: Nutrition Notes Start: 10/23/18 14:46 Freq: Status: Active Protocol: Document 10/28/18 16:33 RM (Rec: 10/28/18 16:39 RM [id number]) Nutrition Notes Initial or Follow up Reassessment Current Diagnosis Acute Kidney Injury CKD(stage I-IV) COPD Hypertension Other Pertinent Diagnosis GERD, N/V Current Diet GI soft Labs/Tests Reviewed Pertinent Medications Prednisone Height 5 ft 6 in Weight 212.5 kg [place] Body Weight (lbs) 130.0 BMI 75.6 Subjective/Other Information Pt and pt tech in room at time of visit. Pt somewhat confused so tech assisted in answering questions. Pt stated that her appetite is good. Pt tech stated that pt ate all of her breakfast. Percent of energy/protein needs met: 88%/98% #1 Nutrition Diagnosis Inadequate oral intake As Evidenced by Signs and Symptoms pt tech statement that pt ate all of her breakfast Diagnosis Progress(for reassessment Improved documentation) Is patient on ventilator? No Is Patient Ambulatory and/or Out of Bed No REE-([place]-confined to bed) 3139.236 Kcal/Kg value to use for calculation 11 Approximate Energy Requirements Using 2338 kcal/Kg Calculation Used for Recommendations Kcal/kg Additional Notes adj bw 104.16 KGS FLUID: 1 mL/kcal PROTEIN: 0.8-1 G/KG/ADJ BW (83 -104 G/DAY) Nutrition Intervention Change Diet Order: GI Soft, Renal Goal #1 Continue to meet at least 75% of calorie and protein needs Anticipated Discharge Needs: unable to determine at this time Follow-Up By: 10/31/18 Additional Comments Follow for PO intakes
[2018-10-30 18:08] VITALS: BP 135/45
== END 2018-10-30 20:00 | DRG 682 ==
LOC: ED 08:47 → 2B-ACE 17:31
PROVIDERS: ADMIT Internal Medicine; ATTEND Internal Medicine
DX: N17.0 Acute kidney failure with tubular necrosis (principal); R53.2 Functional quadriplegia; N39.0 Urinary tract infection, site not specified; J96.11 Chronic respiratory failure with hypoxia; Z68.45 Body mass index [BMI] 70 or greater, adult; E66.01 Morbid (severe) obesity due to excess calories; E86.0 Dehydration; K58.0 Irritable bowel syndrome with diarrhea; G47.33 Obstructive sleep apnea (adult) (pediatric); E11.22 Type 2 diabetes mellitus with diabetic chronic kidney disease; M19.90 Unspecified osteoarthritis, unspecified site; K44.9 Diaphragmatic hernia without obstruction or gangrene; B96.20 Unspecified Escherichia coli [E. coli] as the cause of diseases classified elsewhere; E07.89 Other specified disorders of thyroid; J44.9 Chronic obstructive pulmonary disease, unspecified; I12.9 Hypertensive chronic kidney disease with stage 1 through stage 4 chronic kidney disease, or unspecified chronic kidney disease; N18.4 Chronic kidney disease, stage 4 (severe); K21.0 Gastro-esophageal reflux disease with esophagitis; Z79.4 Long term (current) use of insulin; I25.2 Old myocardial infarction; Z85.51 Personal history of malignant neoplasm of bladder; Z99.81 Dependence on supplemental oxygen; Z90.49 Acquired absence of other specified parts of digestive tract; Z90.710 Acquired absence of both cervix and uterus
CPT/HCPCS: 36415; 74176; 76857; 80048; 80053; 81001; 82140; 82565; 82570; 82962; 83036; 83690; 84295; 84300; 84484; 85007; 85025; 85027; 87040; 87076; 87086; 87186; 87324; 93005; 93010; 94640; 94760; 99291; G0378; C9113; J0696; J1170; J1450; J1650; J1940; J1956; J2060; J2405; J7030; J7512

== ENCOUNTER 2018-12-24 13:50 | Inpatient (IN) | payer MEDICARE, OTHER ==
--- NOTE | 2018-12-24 14:57 | XRay Report ---
AP CHEST: HISTORY: Shortness of breath Limited exam with rotation to the left. Mild cardiomegaly and pulmonary venous congestion are suspected. The lungs are generally clear although the left lower lobe is obscured by the heart. No large pleural fluid collection or pneumothorax. IMPRESSION: Limited exam with rotation. Mild cardiomegaly and pulmonary venous congestion are suspected.
[2018-12-24] MEDS ORDERED: ZOFRAN IV ONE (15:11)
[2018-12-24 15:29] LABS: Basophils # (Auto) 0.1 K/mm3 (0.0-0.1); Basophils % (Auto) 0.6 % (0.0-1.8); Eosinophils # (Auto) 0.1 K/mm3 (0.0-0.4); Eosinophils % (Auto) 1.5 % (0.0-4.3); Hematocrit 37.6 % (30.3-42.9); Hemoglobin 12.1 gm/dl (10.1-14.3); Lymphocytes # (Auto) 0.4 K/mm3 (1.2-5.4); Lymphocytes % (Auto) 4.6 % (13.4-35.0); Mean Corpuscular HGB Conc 32 % (30-34); Mean Corpuscular Volume 85 fl (79-97); Monocytes # (Auto) 0.6 K/mm3 (0.0-0.8); Monocytes % (Auto) 6.1 % (0.0-7.3); Platelet Count 288 K/mm3 (140-440); Red Blood Count 4.41 M/mm3 (3.65-5.03); Red Cell Distribution Width 14.3 % (13.2-15.2)
[2018-12-24 15:52] LABS: Calcium 8.5 mg/dL (8.4-10.2)
[2018-12-24 15:54] LABS: Alanine Aminotransferase 8 units/L (7-56); Albumin 3.2 g/dL (3.9-5)
[2018-12-24 16:04] LABS: Bilirubin,Direct < 0.2 mg/dL (0-0.2)
--- NOTE | 2018-12-24 16:45 | Cat Scan Report ---
PROCEDURE: CT ABDOMEN PELVIS WO CON TECHNIQUE: Computerized axial tomography of the abdomen and pelvis was performed without intravenous contrast. This study is performed without intravascular contrast material and its sensitivity for ab dominal and pelvic pathology, including neoplasms, inflammation, abscess, free fluid, thrombosis, art erial dissection and infarction, is reduced compared with a contrast enhanced study. CT DOSE LENGTH PRODUCT: 1995.60 mGy-cm. HISTORY: abdominal pain COMPARISONS: None currently available. FINDINGS: Abdomen: Minimal scarring and/or discoid subsegmental atelectasis in both lung base. Kidneys: Cortical thinning. Mild chronic perinephric stranding. No hydronephrosis. No nephroureteral stone. A low-density lesion mid right renal cortex measures 1.5 cm. Liver, stomach, spleen, pancreas, and adrenals are unremarkable. No aneurysm. Mild atherosclerotic disease. IVC is unremarkable. There is no periaortic or retroperitoneal adenopathy or mass. Sections of the ascending and transverse colon are collapsed which limits evaluation for wall thicken ing. A mild colitis is not entirely excluded. No stranding. Diverticulosis. Mild to moderate stool in the remainder of the colon without wall thickening or stranding. More moderate stool in the sigmoid colon and rectum. Terminal ileum is unremarkable. The appendix is not identified. There are no pericecal inflammatory changes. Small bowel loops are unremarkable. No obstructive pattern. No air-fluid levels. No free air. No free fluid. Mesentery is unremarkable. Pelvis: Uterus is not clearly see and may be surgically removed, small, or atrophic. Bladder: Unremarkable. There is no pelvic mass or adenopathy. Inguinal regions are unremarkable. Bones: No suspicious osseous lesions on this limited examination of the skeleton. Metastatic disease better evaluated with bone scan. Degenerative changes are in the spine and hips. Bilateral sacroiliitis. IMPRESSION: * Cortical thinning of both kidneys. Please correlate for medical renal disease. * Probable right renal cyst. * Possible constipation. * Otherwise, no acute bowel findings. This document is electronically signed by Leonides Zavaleta MD., December 24 2018 04:43:23 PM ET
[2018-12-24] MEDS ORDERED: ZOFRAN ONE (17:26)
[2018-12-24] MEDS ORDERED: LASIX IV ONE (17:50)
--- NOTE | 2018-12-24 19:14 | Emergency Department Report ---
ED General Adult HPI - General Chief complaint: Dyspnea/Respdistress Stated complaint: SHORTNESS OF BREATH Time Seen by Provider: 12/24/18 14:59 Source: patient, EMS Mode of arrival: Stretcher Limitations: Other - History of Present Illness Initial comments: Patient presents to the emergency department with a complaint of shortness of breath started 2 days ago. The patient has a history of COPD and normally wears 3 L of oxygen at home. The patient denies any chest pain. -: Gradual Severity scale (0 -10): 0 Improves with: rest Worsens with: movement Associated Symptoms: denies other symptoms Treatments Prior to Arrival: none - Related Data Home Medications Medication Instructions Recorded Confirmed Last Taken Theophylline Anhydrous ER [Theodur] 150 mg PO QPM 12/24/18 12/24/18 Unknown Theophylline Anhydrous ER [Theodur] 300 mg PO QAM 12/24/18 12/24/18 Unknown Previous Rx's Medication Instructions Recorded Last Taken Type Sodium Bicarbonate 650 mg PO BID #60 tablet 10/29/18 Unknown Rx Verapamil ER [Calan SR] 180 mg PO DAILY #30 10/29/18 10/02/18 07:30 Rx predniSONE [Deltasone] 10 mg PO Q48H 30 Days tablet 10/29/18 Unknown Rx Allergies Allergy/AdvReac Type Severity Reaction Status Date / Time aspirin Allergy Shortness Verified 09/17/17 17:58 of Breath , CHEST PAIN escitalopram [From Lexapro] Allergy Shortness Verified 04/17/18 11:43 of Breath salmeterol xinafoate Allergy Shortness Verified 01/22/17 08:45 [From Serevent] of Breath levofloxacin [From Levaquin] AdvReac Rash Verified 09/13/16 16:22 Sulfa (Sulfonamide AdvReac contraindicated Verified 10/31/17 11:19 Antibiotics) due to kidney function tramadol AdvReac Nausea Verified 09/19/18 16:34 contrast dye AdvReac contraindicated Uncoded 04/17/18 11:59 due to renal insufficiency ED Review of Systems ROS: Stated complaint: SHORTNESS OF BREATH Other details as noted in HPI Comment: All other systems reviewed and negative Constitutional: denies: chills, fever Eyes: denies: eye pain, eye discharge, vision change ENT: denies: ear pain, throat pain Respiratory: shortness of breath. denies: cough, wheezing Cardiovascular: denies: chest pain, palpitations Endocrine: no symptoms reported Gastrointestinal: abdominal pain. denies: nausea, diarrhea Genitourinary: denies: urgency, dysuria, discharge Musculoskeletal: denies: back pain, joint swelling, arthralgia Skin: denies: rash, lesions Neurological: denies: headache, weakness, paresthesias Psychiatric: denies: anxiety, depression Hematological/Lymphatic: denies: easy bleeding, easy bruising ED Past Medical Hx - Past Medical History Hx Hypertension: Yes Hx Heart Attack/AMI: No Hx Diabetes: Yes (RECENTLY STARTED ON INSULIN) Hx GERD: Yes Hx Liver Disease: No Hx Renal Disease: Yes (CKD 4, fruit pitter 2.3) Hx Arthritis: Yes Hx Seizures: No Hx COPD: Yes (multiple previous exerbations with intubations;) Hx HIV: No Additional medical history: bowel syndrome, hiatal hernia. Stage IV bladder cancer - Surgical History Hx Cholecystectomy: Yes Hx Appendectomy: Yes Hx Breast Surgery: Yes (LEFT BREAST MASS REMOVED) Additional Surgical History: left foot, hysterectomy, right breast, left shoulder, right eye - cataract, left eye - macula, bladder tumor removal 09/2018. - Social History Smoking Status: Never Smoker - Medications Home Medications: Home Medications Medication Instructions Recorded Confirmed Last Taken Type Sodium Bicarbonate 650 mg PO BID #60 tablet 10/29/18 12/24/18 Unknown Rx Verapamil ER [Calan SR] 180 mg PO DAILY #30 10/29/18 12/24/18 10/02/18 07:30 Rx predniSONE [Deltasone] 10 mg PO Q48H 30 Days tablet 10/29/18 12/24/18 Unknown Rx Theophylline Anhydrous ER [Theodur] 150 mg PO QPM 12/24/18 12/24/18 Unknown History Theophylline Anhydrous ER [Theodur] 300 mg PO QAM 12/24/18 12/24/18 Unknown History ED Physical Exam - General Limitations: Other General appearance: alert, other (bowel respiratory distress) - Head Head exam: Present: atraumatic, normocephalic - Eye Eye exam: Present: normal appearance. Absent: PERRL, EOMI - ENT ENT exam: Present: mucous membranes dry - Neck Neck exam: Present: normal inspection - Respiratory Respiratory exam: Present: normal lung sounds bilaterally, wheezes, rales. Absent: respiratory distress - Cardiovascular Cardiovascular Exam: Present: regular rate, normal rhythm. Absent: systolic murmur, diastolic murmur, rubs, gallop - GI/Abdominal GI/Abdominal exam: Present: soft, tenderness (diffuse tenderness to palpation), normal bowel sounds. Absent: distended - Extremities Exam Extremities exam: Present: normal inspection - Back Exam Back exam: Present: normal inspection - Neurological Exam Neurological exam: Present: alert, oriented X3, CN II-XII intact. Absent: motor sensory deficit - Psychiatric Psychiatric exam: Present: normal affect, normal mood - Skin Skin exam: Present: warm, dry, intact, normal color. Absent: rash ED Course Vital Signs 12/24/18 12/24/18 12/24/18 14:09 14:11 14:16 Temperature 99.8 F H 99.8 F H Pulse Rate 103 H 103 H Pulse Rate [ Anterior Bilateral Throughout] Respiratory 22 22 20 Rate Respiratory Rate [Anterior Bilateral Throughout] Blood Pressure 147/63 Blood Pressure 147/63 [Left] O2 Sat by Pulse 97 97 97 Oximetry 12/24/18 12/24/18 12/24/18 15:06 15:16 15:30 Temperature Pulse Rate 105 H 104 H 99 H Pulse Rate [ Anterior Bilateral Throughout] Respiratory 9 L 24 26 H Rate Respiratory Rate [Anterior Bilateral Throughout] Blood Pressure Blood Pressure [Left] O2 Sat by Pulse 97 96 95 Oximetry 12/24/18 12/24/18 12/24/18 15:46 16:20 16:30 Temperature Pulse Rate 98 H 105 H 109 H Pulse Rate [ Anterior Bilateral Throughout] Respiratory 25 H 10 L 15 Rate Respiratory Rate [Anterior Bilateral Throughout] Blood Pressure Blood Pressure [Left] O2 Sat by Pulse 93 95 95 Oximetry 12/24/18 12/24/18 12/24/18 16:46 17:00 17:16 Temperature Pulse Rate 106 H 100 H 98 H Pulse Rate [ Anterior Bilateral Throughout] Respiratory 11 L 20 22 Rate Respiratory Rate [Anterior Bilateral Throughout] Blood Pressure Blood Pressure [Left] O2 Sat by Pulse 93 92 95 Oximetry 12/24/18 12/24/18 12/24/18 17:30 17:46 18:00 Temperature Pulse Rate 99 H 101 H 100 H Pulse Rate [ Anterior Bilateral Throughout] Respiratory 24 27 H 25 H Rate Respiratory Rate [Anterior Bilateral Throughout] Blood Pressure Blood Pressure [Left] O2 Sat by Pulse 94 94 91 Oximetry 12/24/18 12/24/1812/24/19 18:16 18:30 18:46 Temperature Pulse Rate 102 H 101 H 100 H Pulse Rate [ Anterior Bilateral Throughout] Respiratory 18 25 H 24 Rate Respiratory Rate [Anterior Bilateral Throughout] Blood Pressure Blood Pressure [Left] O2 Sat by Pulse 90 93 95 Oximetry 12/24/18 12/24/18 12/24/18 19:00 19:16 19:30 Temperature Pulse Rate 101 H 102 H 103 H Pulse Rate [ Anterior Bilateral Throughout] Respiratory 23 20 20 Rate Respiratory Rate [Anterior Bilateral Throughout] Blood Pressure 155/46 155/46 Blood Pressure [Left] O2 Sat by Pulse 95 91 Oximetry 12/24/18 12/24/18 12/24/18 19:46 19:52 20:00 Temperature Pulse Rate 100 H Pulse Rate [ 95 H 93 H Anterior Bilateral Throughout] Respiratory 17 Rate Respiratory 17 19 Rate [Anterior Bilateral Throughout] Blood Pressure 155/46 Blood Pressure [Left] O2 Sat by Pulse Oximetry ED Medical Decision Making - Lab Data Result diagrams: 12/24/18 14:54 12/24/18 14:54 Lab Results 12/24/18 12/24/18 12/24/18 Range/Units 14:54 14:54 15:15 WBC 9.7 (4.5-11.0) K/mm3 RBC 4.41 (3.65-5.03) M/mm3 Hgb 12.1 (10.1-14.3) gm/dl Hct 37.6 (30.3-42.9) % MCV 85 (79-97) fl MCH 28 (28-32) pg MCHC 32 (30-34) % RDW 14.3 (13.2-15.2) % Plt Count 288 (140-440) K/mm3 Lymph % (Auto) 4.6 L (13.4-35.0) % [place] % (Auto) 6.1 (0.0-7.3) % Eos % (Auto) 1.5 (0.0-4.3) % Baso % (Auto) 0.6 (0.0-1.8) % Lymph # 0.4 L (1.2-5.4) K/mm3 [place] # 0.6 (0.0-0.8) K/mm3 Eos # 0.1 (0.0-0.4) K/mm3 Baso # 0.1 (0.0-0.1) K/mm3 Seg Neutrophils % 87.2 H (40.0-70.0) % Seg Neutrophils # 8.5 H (1.8-7.7) K/mm3 Sodium 138 (137-145) mmol/L Potassium 4.7 (3.6-5.0) mmol/L Chloride 99.9 (98-107) mmol/L Carbon Dioxide 26 (22-30) mmol/L Anion Gap 17 mmol/L BUN 23 H (7-17) mg/dL Creatinine 2.3 H (0.7-1.2) mg/dL Estimated GFR 20 ml/min BUN/Creatinine Ratio 10 % Glucose 125 H (65-100) mg/dL Calcium 8.5 (8.4-10.2) mg/dL Total Bilirubin 0.50 (0.1-1.2) mg/dL Direct Bilirubin < 0.2 (0-0.2) mg/dL Indirect Bilirubin 0.3 mg/dL AST 11 (5-40) units/L ALT 8 (7-56) units/L Alkaline Phosphatase 87 (35-129) units/L NT-Pro-B Natriuret Pep 1627 H (0-900) pg/mL Total Protein 5.2 L (6.3-8.2) g/dL Albumin 3.2 L (3.9-5) g/dL Albumin/Globulin Ratio 1.6 % Lipase 12 L (13-60) units/L - EKG Data -: EKG Interpreted by [place] EKG shows normal: sinus rhythm Rate: tachycardia - Radiology Data Radiology results: report reviewed - Medical Decision Making Patient did not have relief of symptoms with 2 breathing treatments and IV Lasix Aspirin given due to allergy Critical Care Time: Yes Critical care time in (mins) excluding proc time.: 30 Critical care attestation.: If time is entered above; I have spent that time in minutes in the direct care of this critically ill patient, excluding procedure time. ED Disposition Clinical Impression: COPD (chronic obstructive pulmonary disease), Chronic kidney disease, CHF (congestive heart failure) Disposition: OP ADMIT IP TO THIS HOSP Is pt being admited?: Yes Does the pt Need Aspirin: No Condition: Stable Referrals: DRE NICOLE MD [Primary Care Provider] - 3-5 Days
[2018-12-24] MEDS ORDERED: DUONEB *Not for PRN Use IH ONE ×2 (19:45→20:03)
[2018-12-24] MEDS ORDERED: SOLU-Medrol IV ONE (20:04)
[2018-12-24] MEDS ORDERED: ZOFRAN IV PRN (20:37)
[2018-12-24] MEDS ORDERED: TYLENOL PO PRN (20:37)
[2018-12-24] MEDS ORDERED: SODIUM CHLORIDE FLUSH SYRINGE 10 ML IV PRN (20:37)
[2018-12-24] MEDS ORDERED: SODIUM CHLORIDE FLUSH SYRINGE 10 ML IV SCH (22:00)
--- NOTE | 2018-12-25 00:57 | History and Physical Report ---
History of Present Illness Date of examination: 12/25/18 Date of admission: 12/25/18 Chief complaint: dyspnea respiratory distress History of present illness: Patient is an 78 year old female with PMHx of CKD, DM type 2, COPD (home [id number]), GERD, obesity who presents to the ER with a complaint of shortness of breath for 2 days. Pt states that she uses 3 L of oxygen at home daily and takes her inhaler without improvement of her symptoms. Pt reports occasional wet cough, dyspnea, worse with activity, reports congestion, elevated temp of 102.0, denies chills, denies chest pain, denies headache or dizziness. In the ER pt's temp was 99.8, his WBC was 9.7, BNP was 1627, chest x-ray shows mild cardiomegally and pulmonary venous congestion. Pt was initially treated in the ER and was admitted for further evaluation and treatment. Past History Past Medical History: diabetes, hyperthyroidism, hypertension, renal failure Past Surgical History: No surgical history Social history: no significant social history Family history: no significant family history Medications and Allergies Allergies Allergy/AdvReac Type Severity Reaction Status Date / Time aspirin Allergy Shortness Verified 09/17/17 17:58 of Breath , CHEST PAIN escitalopram [From Lexapro] Allergy Shortness Verified 04/17/18 11:43 of Breath salmeterol xinafoate Allergy Shortness Verified 01/22/17 08:45 [From Serevent] of Breath levofloxacin [From Levaquin] AdvReac Rash Verified 09/13/16 16:22 Sulfa (Sulfonamide AdvReac contraindicated Verified 10/31/17 11:19 Antibiotics) due to kidney function tramadol AdvReac Nausea Verified 09/19/18 16:34 contrast dye AdvReac contraindicated Uncoded 04/17/18 11:59 due to renal insufficiency Home Medications Medication Instructions Recorded Confirmed Last Taken Type Sodium Bicarbonate 650 mg PO BID #60 tablet 10/29/18 12/24/18 Unknown Rx Verapamil ER [Calan SR] 180 mg PO DAILY #30 10/29/18 12/24/18 10/02/18 07:30 Rx predniSONE [Deltasone] 10 mg PO Q48H 30 Days tablet 10/29/18 12/24/18 Unknown Rx Theophylline Anhydrous ER [Theodur] 150 mg PO QPM 12/24/18 12/24/18 Unknown History Theophylline Anhydrous ER [Theodur] 300 mg PO QAM 12/24/18 12/24/18 Unknown H istory Active Meds: Active Medications Acetaminophen (Tylenol) 650 mg PO Q4H PRN PRN Reason: Pain MILD(1-3)/Fever >100.5/[place] Acetaminophen (Tylenol) 650 mg PO Q4H PRN PRN Reason: Pain MILD(1-3)/Fever >100.5/[place] Furosemide (Lasix) 20 mg IV QDAY KELLY Ondansetron HCl (Zofran) 4 mg IV Q8H PRN PRN Reason: Nausea And Vomiting Ondansetron HCl (Zofran) 4 mg IV Q8H PRN PRN Reason: Nausea And Vomiting Sodium Chloride (Sodium Chloride Flush Syringe 10 Ml) 10 ml IV BID KELLY Sodium Chloride (Sodium Chloride Flush Syringe 10 Ml) 10 ml IV PRN PRN PRN Reason: LINE FLUSH Sodium Chloride (Sodium Chloride Flush Syringe 10 Ml) 10 ml IV BID [facility] Review of Systems Constitutional: fever Breasts: deferred Respiratory: cough, shortness of breath, congestion Psychiatric: anxiety Exam - Constitutional Vitals: Temp Pulse Resp BP Pulse Ox 99.8 F H 88 17 122/50 97 12/24/18 14:16 12/25/18 00:21 12/25/18 00:21 12/25/18 00:21 12/25/18 00:21 General appearance: Present: mild distress - EENT ENT: hearing intact - Neck Neck: Present: normal ROM - Respiratory Respiratory effort: normal Respiratory: bilateral: diminished - Extremities Extremities: no ischemia Peripheral Pulses: within normal limits - Abdominal General gastrointestinal: Present: deferred Female genitourinary: Present: deferred - Rectal Rectal Exam: deferred - Integumentary Integumentary: Present: clear, warm - Musculoskeletal Musculoskeletal: strength equal bilaterally - Psychiatric Psychiatric: cooperative - Neurologic Neurologic: moves all extremities Results - Labs CBC & Chem 7: 12/24/18 14:54 12/24/18 14:54 Labs: Laboratory Last Values WBC 9.7 K/mm3 (4.5-11.0) 12/24/18 14:54 RBC 4.41 M/mm3 (3.65-5.03) 12/24/18 14:54 Hgb 12.1 gm/dl (10.1-14.3) 12/24/18 14:54 Hct 37.6 % (30.3-42.9) 12/24/18 14:54 MCV 85 fl (79-97) 12/24/18 14:54 MCH 28 pg (28-32) 12/24/18 14:54 MCHC 32 % (30-34) 12/24/18 14:54 RDW 14.3 % (13.2-15.2) 12/24/18 14:54 Plt Count 288 K/mm3 (140-440) 12/24/18 14:54 Lymph % (Auto) 4.6 % (13.4-35.0) L 12/24/18 14:54 [place] % (Auto) 6.1 % (0.0-7.3) 12/24/18 14:54 Eos % (Auto) 1.5 % (0.0-4.3) 12/24/18 14:54 Baso % (Auto) 0.6 % (0.0-1.8) 12/24/18 14:54 Lymph # 0.4 K/mm3 (1.2-5.4) L 12/24/18 14:54 [place] # 0.6 K/mm3 (0.0-0.8) 12/24/18 14:54 Eos # 0.1 K/mm3 (0.0-0.4) 12/24/18 14:54 Baso # 0.1 K/mm3 (0.0-0.1) 12/24/18 14:54 Seg Neutrophils % 87.2 % (40.0-70.0) H 12/24/18 14:54 Seg Neutrophils # 8.5 K/mm3 (1.8-7.7) H 12/24/18 14:54 Sodium 138 mmol/L (137-145) 12/24/18 14:54 Potassium 4.7 mmol/L (3.6-5.0) 12/24/18 14:54 Chloride 99.9 mmol/L (98-107) 12/24/18 14:54 Carbon Dioxide 26 mmol/L (22-30) 12/24/18 14:54 Anion Gap 17 mmol/L 12/24/18 14:54 BUN 23 mg/dL (7-17) H 12/24/18 14:54 Creatinine 2.3 mg/dL (0.7-1.2) H 12/24/18 14:54 Estimated GFR 20 ml/min 12/24/18 14:54 BUN/Creatinine Ratio 10 % 12/24/18 14:54 Glucose 125 mg/dL (65-100) H 12/24/18 14:54 Calcium 8.5 mg/dL (8.4-10.2) 12/24/18 14:54 Total Bilirubin 0.50 mg/dL (0.1-1.2) 12/24/18 15:15 Direct Bilirubin < 0.2 mg/dL (0-0.2) 12/24/18 15:15 Indirect Bilirubin 0.3 mg/dL 12/24/18 15:15 AST 11 units/L (5-40) 12/24/18 15:15 ALT 8 units/L (7-56) 12/24/18 15:15 Alkaline Phosphatase 87 units/L (35-129) 12/24/18 15:15 NT-Pro-B Natriuret Pep 1627 pg/mL (0-900) H 12/24/18 15:15 Total Protein 5.2 g/dL (6.3-8.2) L 12/24/18 15:15 Albumin 3.2 g/dL (3.9-5) L 12/24/18 15:15 Albumin/Globulin Ratio 1.6 % 12/24/18 15:15 Lipase 12 units/L (13-60) L 12/24/18 15:15 Assessment and Plan Assessment and plan: 1. COPD with Acute exacerbation (home [id number]) 2. CHF elevated (BNP 1697, 3. Acute Dyspnea 4. CKD (bun/creat at baseline) 5. DM type 2 (blood glucose stable) 6. SAKSHI 7. GERD 8. Obesity Plan: Admit to [facility] Nebulizer tx PRN for SOB O2 to keep sat >92% Lasix 20 mg by mouth daily Monitor electrolytes Monitor I&O Monitor temp/VS per unit routine Solumedrol 60mg IV q6hr Resume home meds Accucheck ACHS with insulin per sliding scale Advance Directives: Yes VTE prophylaxis?: Chemical Plan of care discussed with patient/family: Yes
[2018-12-25 09:52] LABS: Calcium 8.7 mg/dL (8.4-10.2)
[2018-12-25] MEDS ORDERED: DUONEB *Not for PRN Use IH ONE ×2 (10:00→10:45)
[2018-12-25] MEDS: LOVENOX SUB-Q SCH (10:41)
[2018-12-25] MEDS: SOLU-Medrol IV SCH ×3 (10:41→17:20)
[2018-12-25] MEDS: LASIX IV SCH (10:41)
[2018-12-25] MEDS: SODIUM CHLORIDE FLUSH SYRINGE 10 ML IV SCH ×2 (10:44→22:15)
[2018-12-25] MEDS: ALUM-MAG HYDROX-SIMETH 200-200-20MG/5ML PO PRN (13:46)
--- NOTE | 2018-12-25 15:51 | Event Note ---
Date: 12/25/18 Patient was admitted early this morning with worsening shortness of breath and acute exacerbation of COPD Patient seen and evaluated, medical records reviewed Agree with the current management
[2018-12-25] MEDS: PROVENTIL IH PRN ×2 (17:16→19:41)
[2018-12-25] MEDS: THEODUR PO SCH (17:39)
[2018-12-25] MEDS: TYLENOL PO PRN (22:14)
[2018-12-25] MEDS: SODIUM BICARBONATE PO SCH (22:14)
[2018-12-26] MEDS: SOLU-Medrol IV SCH ×4 (00:45→17:56)
[2018-12-26] MEDS: PROVENTIL IH PRN (08:12)
[2018-12-26] MEDS: SODIUM BICARBONATE PO SCH ×2 (11:13→21:09)
[2018-12-26] MEDS: CALAN SR PO SCH (11:13)
[2018-12-26] MEDS: THEODUR PO SCH ×2 (11:15→17:56)
[2018-12-26] MEDS: SODIUM CHLORIDE FLUSH SYRINGE 10 ML IV SCH ×2 (11:15→21:12)
[2018-12-26] MEDS: LOVENOX SUB-Q SCH (11:15)
[2018-12-26] MEDS: ZOFRAN IV PRN ×2 (11:15→21:08)
[2018-12-26] MEDS: LASIX IV SCH (11:15)
--- NOTE | 2018-12-26 11:27 | Progress Note ---
Assessment and Plan Assessment and plan: --Acute exacerbation of COPD; Oxygen titrate to O2 sats more than 90%, nebulizers and IV steroids IV antibiotic inhalation steroids supportive care --Acute on chronic hypoxic respiratory failure; Secondary to COPD exacerbation, home oxygen dependent Continue about treatment --Chronic kidney disease; closely monitor renal function Avoid nephrotoxins, nephrology evaluation if needed --Morbid obesity; BMI 50.8, advised weight reduction and medically stable --Congestive heart failure --Type 2 diabetes mellitus; moderate control Accu-Chek sliding scale coverage and ADA diet and long-acting insulin --Possible obstructive sleep apnea; CPAP BiPAP at night --Gastroesophageal reflux disease; Protonix -- DVT prophylaxis Lovenox Physical therapy occupational therapy Closely monitor the patient and adjust management as needed History Interval history: Patient seen and examined medical records reviewed No new events reported by the nursing staff Patient complains of generalized body pains Mild improvement of shortness of breath Alert awake oriented 3 In mild distress Hospitalist Physical - Constitutional Vitals: Temp Pulse Resp BP Pulse Ox 98.4 F 107 H 20 148/67 94 12/26/18 11:06 12/26/18 11:06 12/26/18 11:06 12/26/18 11:06 12/26/18 11:06 General appearance: Present: mild distress, well-nourished, obese (morbidly obese) - EENT Eyes: Present: PERRL, EOM intact - Neck Neck: Present: supple, normal ROM - Respiratory Respiratory effort: normal Respiratory: bilateral: diminished, rhonchi, negative: rales, wheezing - Cardiovascular Rhythm: regular Heart Sounds: Present: S1 & S2 - Extremities Extremities: no ischemia Extremity abnormal: edema - Abdominal General gastrointestinal: soft, non-tender, non-distended, normal bowel sounds - Integumentary Integumentary: Present: clear, warm - Psychiatric Psychiatric: appropriate mood/affect, cooperative - Neurologic Neurologic: moves all extremities Results - Labs CBC & Chem 7: 12/24/18 14:54 12/25/18 05:45 Labs: Laboratory Last Values WBC 9.7 K/mm3 (4.5-11.0) 12/24/18 14:54 RBC 4.41 M/mm3 (3.65-5.03) 12/24/18 14:54 Hgb 12.1 gm/dl (10.1-14.3) 12/24/18 14:54 Hct 37.6 % (30.3-42.9) 12/24/18 14:54 MCV 85 fl (79-97) 12/24/18 14:54 MCH 28 pg (28-32) 12/24/18 14:54 MCHC 32 % (30-34) 12/24/18 14:54 RDW 14.3 % (13.2-15.2) 12/24/18 14:54 Plt Count 288 K/mm3 (140-440) 12/24/18 14:54 Lymph % (Auto) 4.6 % (13.4-35.0) L 12/24/18 14:54 [place] % (Auto) 6.1 % (0.0-7.3) 12/24/18 14:54 Eos % (Auto) 1.5 % (0.0-4.3) 12/24/18 14:54 Baso % (Auto) 0.6 % (0.0-1.8) 12/24/18 14:54 Lymph # 0.4 K/mm3 (1.2-5.4) L 12/24/18 14:54 [place] # 0.6 K/mm3 (0.0-0.8) 12/24/18 14:54 Eos # 0.1 K/mm3 (0.0-0.4) 12/24/18 14:54 Baso # 0.1 K/mm3 (0.0-0.1) 12/24/18 14:54 Seg Neutrophils % 87.2 % (40.0-70.0) H 12/24/18 14:54 Seg Neutrophils # 8.5 K/mm3 (1.8-7.7) H 12/24/18 14:54 Sodium 142 mmol/L (137-145) 12/25/18 05:45 Potassium 4.4 mmol/L (3.6-5.0) 12/25/18 05:45 Chloride 101.0 mmol/L (98-107) 12/25/18 05:45 Carbon Dioxide 22 mmol/L (22-30) 12/25/18 05:45 Anion Gap 23 mmol/L 12/25/18 05:45 BUN 26 mg/dL (7-17) H 12/25/18 05:45 Creatinine 2.6 mg/dL (0.7-1.2) H 12/25/18 05:45 Estimated GFR 18 ml/min 12/25/18 05:45 BUN/Creatinine Ratio 10 % 12/25/18 05:45 Glucose 108 mg/dL (65-100) H 12/25/18 05:45 POC Glucose 187 (70-105) H 12/26/18 08:43 Calcium 8.7 mg/dL (8.4-10.2) 12/25/18 05:45 Total Bilirubin 0.50 mg/dL (0.1-1.2) 12/24/18 15:15 Direct Bilirubin < 0.2 mg/dL (0-0.2) 12/24/18 15:15 Indirect Bilirubin 0.3 mg/dL 12/24/18 15:15 AST 11 units/L (5-40) 12/24/18 15:15 ALT 8 units/L (7-56) 12/24/18 15:15 Alkaline Phosphatase 87 units/L (35-129) 12/24/18 15:15 NT-Pro-B Natriuret Pep 1627 pg/mL (0-900) H 12/24/18 15:15 Total Protein 5.2 g/dL (6.3-8.2) L 12/24/18 15:15 Albumin 3.2 g/dL (3.9-5) L 12/24/18 15:15 Albumin/Globulin Ratio 1.6 % 12/24/18 15:15 Lipase 12 units/L (13-60) L 12/24/18 15:15 Nutrition/Malnutrition Assess - Dietary Evaluation Nutrition/Malnutrition Findings: Nutrition Notes Start: 12/25/18 15:17 Freq: Status: Active Protocol: Document 12/25/18 15:17 RM (Rec: 12/25/18 15:18 RM [id number]) Nutrition 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 No fay score in record. No skin problems noted in record. Nutrition Intervention Revisit per MD consult or patient Sign Off request:
[2018-12-26] MEDS ORDERED: DULCOLAX PO ONE (12:54)
[2018-12-26] MEDS: ALUM-MAG HYDROX-SIMETH 200-200-20MG/5ML PO PRN (15:11)
[2018-12-26] MEDS ORDERED: DUONEB *Not for PRN Use IH SCH (16:00)
[2018-12-26] MEDS ORDERED: ULTRAM PO PRN (17:10)
[2018-12-26] MEDS: HumaLOG SUB-Q SCH ×2 (17:56→22:50)
[2018-12-26] MEDS ORDERED: LASIX IV ONE (19:26)
[2018-12-26] MEDS ORDERED: PULMICORT 0.5 MG, BROVANA NEBU 15 MCG IH SCH (20:00)
[2018-12-26] MEDS: DUONEB *Not for PRN Use IH SCH (20:58)
[2018-12-26] MEDS: PULMICORT IH SCH (20:58)
[2018-12-26] MEDS: PROVENTIL IH SCH ×2 (20:58→21:02)
[2018-12-26] MEDS: BROVANA NEBU IH SCH (20:58)
[2018-12-26] MEDS: PERCOCET 5/325 PO PRN (21:09)
[2018-12-26] MEDS: MUCINEX ER PO SCH (21:09)
[2018-12-26] MEDS: NEURONTIN PO SCH (21:09)
[2018-12-26] MEDS ORDERED: PROVENTIL IH PRN (21:47)
[2018-12-27] MEDS: SOLU-Medrol IV SCH ×4 (00:35→17:47)
[2018-12-27] MEDS: DUONEB *Not for PRN Use IH SCH ×5 (03:40→21:10)
[2018-12-27] MEDS: LASIX IV SCH ×2 (06:22→17:48)
[2018-12-27] MEDS: BROVANA NEBU IH SCH ×2 (09:02→21:10)
[2018-12-27] MEDS: PULMICORT IH SCH ×2 (09:02→21:10)
[2018-12-27] MEDS: ALUM-MAG HYDROX-SIMETH 200-200-20MG/5ML PO PRN (09:57)
[2018-12-27] MEDS: HumaLOG SUB-Q SCH ×4 (09:58→22:06)
[2018-12-27] MEDS: SODIUM CHLORIDE FLUSH SYRINGE 10 ML IV SCH ×2 (09:59→21:50)
[2018-12-27] MEDS: SPIRIVA IH SCH (10:00)
[2018-12-27] MEDS: ZITHROMAX 500 MG in NACL 0.9% 250ML 250 ML IV SCH (10:12)
[2018-12-27] MEDS: CALAN SR PO SCH (10:13)
[2018-12-27] MEDS: SODIUM BICARBONATE PO SCH ×2 (10:14→21:49)
[2018-12-27] MEDS: MILK OF MAGNESIA PO PRN (10:14)
[2018-12-27] MEDS: NEURONTIN PO SCH ×2 (10:14→21:49)
[2018-12-27] MEDS: MUCINEX ER PO SCH ×2 (10:14→21:49)
[2018-12-27] MEDS: PROTONIX PO SCH (10:14)
[2018-12-27] MEDS: LOVENOX SUB-Q SCH (10:14)
[2018-12-27] MEDS: THEODUR PO SCH ×2 (10:14→17:47)
--- NOTE | 2018-12-27 10:23 | XRay Report ---
AP CHEST: HISTORY: Dyspnea Compared to 12/24/18. Mild cardiomegaly, mild pulmonary venous congestion and small left pleural effusion are suspected. There is no obvious infiltrate. No pneumothorax. The bony structures are grossly intact. IMPRESSION: Mild CHF.
[2018-12-27 10:46] LABS: Calcium 8.8 mg/dL (8.4-10.2)
--- NOTE | 2018-12-27 11:47 | Consultation ---
History of Present Illness Reason for consult: dyspnea, asthma, COPD, other (SAKSHI) History of present illness: Called to see case of an 78-year-old female with prior history of asthma/COPD/SAKSHI, admitted due to confusional state and respiratory distress. Per notes, the patient presents to the ER with a complaint of shortness of breath for 2 days. Pt states that she uses 3 L of oxygen at home daily and takes her inhaler without improvement of her symptoms. Pt reports occasional wet cough, dyspnea, worse with activity, reports congestion, elevated temp of 102.0, denies chills, denies chest pain, denies headache or dizziness. In the ER pt's temp was 99.8, his WBC was 9.7, BNP was 1627, chest x-ray shows mild cardio megally and pulmonary venous congestion. When I talked to her she mentioned that she was kind of confused with limited recall her of the referral to the ER. She still wheezing and coughing. Past History Past Medical History: diabetes, hyperthyroidism, hypertension, renal failure Past Surgical History: No surgical history Social history: no significant social history Family history: no significant family history Medications and Allergies Allergies Allergy/AdvReac Type Severity Reaction Status Date / Time aspirin Allergy Shortness Verified 09/17/17 17:58 of Breath , CHEST PAIN escitalopram [From Lexapro] Allergy Shortness Verified 04/17/18 11:43 of Breath salmeterol xinafoate Allergy Shortness Verified 01/22/17 08:45 [From Serevent] of Breath levofloxacin [From Levaquin] AdvReac Rash Verified 09/13/16 16:22 Sulfa (Sulfonamide AdvReac contraindicated Verified 10/31/17 11:19 Antibiotics) due to kidney function tramadol AdvReac Nausea Verified 09/19/18 16:34 contrast dye AdvReac contraindicated Uncoded 04/17/18 11:59 due to renal insufficiency Home Medications Medication Instructions Recorded Confirmed Last Taken Type Sodium Bicarbonate 650 mg PO BID #60 tablet 10/29/18 12/24/18 Unknown Rx Verapamil ER [Calan SR] 180 mg PO DAILY #30 10/29/18 12/24/18 10/02/18 07:30 Rx predniSONE [Deltasone] 10 mg PO Q48H 30 Days tablet 10/29/18 12/24/18 Unknown Rx Theophylline Anhydrous ER [Theodur] 150 mg PO QPM 12/24/18 12/24/18 Unknown History Theophylline Anhydrous ER [Theodur] 300 mg PO QAM 12/24/18 12/24/18 Unknown History Beclomethasone Dipropionate [Qvar 2 inhalation IH BID 12/26/18 12/26/18 Unknown History Redihaler] Gabapentin [Neurontin] 100 mg PO TID 12/26/18 12/26/18 Unknown History Indacaterol Maleate [Arcapta 75 mcg IH DAILY 12/26/18 12/26/18 12/24/18 History Neohaler] Insulin NPH Hum/Reg Insulin Hm 100 unit SQ QAC 12/26/18 12/26/18 Unknown History [Novolin 70-30 100 Unit/ml Vial] Ipratropium [place] [Atrovent Hfa] 12.9 gm IH 4XD 12/26/18 12/26/18 12/24/18 History Ipratropium/Albuterol Sulfate 1 spray IH QID 12/26/18 12/26/18 Unknown History [Combivent Respimat] Linaclotide (Nf) [Linzess (Nf)] 290 mcg PO QDAY 12/26/18 12/26/18 Unknown H istory Ondansetron [Zofran TAB] 4 mg PO Q6HR 12/26/18 12/26/18 12/24/18 History Ranitidine HCl [Zantac 150 MG TAB] 150 mg PO BID 12/26/18 12/26/18 12/24/18 History Sucralfate [Carafate] 1 gm PO Q6HR 12/26/18 12/26/18 Unknown History Tiotropium [place] [Spiriva] 18 mcg IH 4XD 12/26/18 12/26/18 12/24/18 History Active Meds: Active Medications Acetaminophen (Tylenol) 650 mg PO Q4H PRN PRN Reason: Pain MILD(1-3)/Fever >100.5/[place] Last Admin: 12/25/18 22:14 Dose: 650 mg Documented by: Al Hydrox/Mg Hydrox/Simethicone (Alum-Mag Hydrox-Simeth [id number]/5ml) 30 ml PO DAILY PRN PRN Reason: Indigestion Last Admin: 12/27/18 09:57 Dose: 30 ml Documented by: Albuterol (Proventil) 2.5 mg IH Q4HRT PRN PRN Reason: Shortness Of Breath Albuterol/Ipratropium (Duoneb *Not For Prn Use*) 1 ampul IH Q6HRT [facility] Last Admin: 12/27/18 09:03 Dose: Not Given Documented by: Albuterol/Ipratropium (Duoneb *Not For Prn Use*) 1 ampul IH Q4HRT [facility] Alprazolam (Xanax) 0.25 mg PO Q8H PRN PRN Reason: Anxiety Arformoterol Tartrate (Brovana Nebu) 15 mcg IH Q12HRT [facility] Last Admin: 12/27/18 09:02 Dose: 15 mcg Documented by: Bisacodyl (Dulcolax) 10 mg PO QDAY PRN PRN Reason: Constipation Budesonide (Pulmicort) 0.5 mg IH Q12HRT [facility] Last Admin: 12/27/18 09:02 Dose: 0.5 mg Documented by: Enoxaparin Sodium (Lovenox) 30 mg SUB-Q QDAY [facility] Last Admin: 12/27/18 10:14 Dose: 30 mg Documented by: Furosemide (Lasix) 40 mg IV 0600,1800 [facility] Last Admin: 12/27/18 06:22 Dose: 40 mg Documented by: Gabapentin (Neurontin) 200 mg PO BID [facility] Last Admin: 12/27/18 10:14 Dose: 200 mg Documented by: Guaifenesin (Mucinex Er) 600 mg PO BID [facility] Last Admin: 12/27/18 10:14 Dose: 600 mg Documented by: Azithromycin 500 mg/ Sodium (Chloride) 250 mls @ 250 mls/hr IV Q24HR [facility] Last Admin: 12/27/18 10:12 Dose: 250 mls/hr Documented by: Insulin Human Isoph/Insulin Regular (Humulin 70/30) 10 unit SUB-Q BIDDIAB [facility] Last Admin: 12/27/18 09:57 Dose: 10 unit Documented by: Insulin Human Lispro (Humalog) 0 unit SUB-Q ACHS [facility]; Protocol Last Admin: 12/27/18 09:58 Dose: 3 unit Documented by: Magnesium Hydroxide (Milk Of Magnesia) 30 ml PO QDAY PRN PRN Reason: costipation Last Admin: 12/27/18 10:14 Dose: 30 ml Documented by: Methylprednisolone Sodium Succinate (Solu-Medrol) 60 mg IV Q6HR [facility] Last Admin: 12/27/18 06:20 Dose: 60 mg Documented by: Morphine Sulfate (Morphine) 2 mg IV Q6H PRN PRN Reason: Pain, Moderate (4-6) Ondansetron HCl (Zofran) 4 mg IV Q8H PRN PRN Reason: Nausea And Vomiting Last Admin: 12/26/18 21:08 Dose: 4 mg Documented by: Oxycodone/Acetaminophen (Percocet 5/325) 1 tab PO Q6H PRN PRN Reason: Pain, Moderate (4-6) Last Admin: 12/26/18 21:09 Dose: 1 tab Documented by: Pantoprazole Sodium (Protonix) 40 mg PO QDAY [facility] Last Admin: 12/27/18 10:14 Dose: 40 mg Documented by: Sodium Bicarbonate (Sodium Bicarbonate) 650 mg PO BID [facility] Last Admin: 12/27/18 10:14 Dose: 650 mg Documented by: Sodium Chloride (Sodium Chloride Flush Syringe 10 Ml) 10 ml IV PRN PRN PRN Reason: LINE FLUSH Sodium Chloride (Sodium Chloride Flush Syringe 10 Ml) 10 ml IV BID [facility] Last Admin: 12/27/18 09:59 Dose: 10 ml Documented by: Theophylline (Theodur) 150 mg PO QPM [facility] Last Admin: 12/26/18 17:56 Dose: 150 mg Documented by: Theophylline (Theodur) 300 mg PO QAM [facility] Last Admin: 12/27/18 10:14 Dose: 300 mg Documented by: Tiotropium [place] (Spiriva) 1 puff IH Q24HRT [facility] Last Admin: 12/27/18 10:00 Dose: Not Given Documented by: Verapamil HCl (Calan Sr) 180 mg PO DAILY [facility] Last Admin: 12/27/18 10:13 Dose: 180 mg Documented by: Review of Systems All systems: negative Constitutional: weight gain Physical Examination Vital signs: Vital Signs Temp Pulse Resp BP Pulse Ox 99.8 F H 103 H 22 147/63 97 12/24/18 14:09 12/24/18 14:09 12/24/18 14:09 12/24/18 14:09 12/24/18 14:09 General appearance: other (general morbidly obese female in mild distress) Eyes: non-icteric ENT: oropharynx moist Neck: supple, no JVD (but large neck) Ascultation: Bilateral: diminished breath sounds, wheezes, rhonchi Cardiovascular: regular rate and rhythm Gastrointestinal: normoactive bowel sounds, non-distended, other (Limited exam due to morbid obesity) Integumentary: normal Extremities: no cyanosis, other (mild pretibial edema) Musculoskeletal: no deformities normal mental status, non-focal exam, CN II-XII normal anxious Results - Laboratory Findings CBC and BMP: 12/24/18 14:54 12/27/18 09:47 Abnormal lab findings: Abnormal Labs 12/24/18 12/24/18 12/24/18 14:54 14:54 15:15 Lymph % (Auto) 4.6 L Lymph # 0.4 L Seg Neutrophils % 87.2 H Seg Neutrophils # 8.5 H Sodium Chloride BUN 23 H Creatinine 2.3 H Glucose 125 H POC Glucose NT-Pro-B Natriuret Pep 1627 H Total Protein 5.2 L Albumin 3.2 L Lipase 12 L 12/25/18 12/25/18 12/25/18 05:45 17:23 20:59 Lymph % (Auto) Lymph # Seg Neutrophils % Seg Neutrophils # Sodium Chloride BUN 26 H Creatinine 2.6 H Glucose 108 H POC Glucose 155 H 209 H NT-Pro-B Natriuret Pep Total Protein Albumin Lipase 12/26/18 12/26/18 12/26/18 08:43 11:11 16:41 Lymph % (Auto) Lymph # Seg Neutrophils % Seg Neutrophils # Sodium Chloride BUN Creatinine Glucose POC Glucose 187 H 204 H 198 H NT-Pro-B Natriuret Pep Total Protein Albumin Lipase 12/26/18 12/27/18 12/27/18 20:52 09:29 09:47 Lymph % (Auto) Lymph # Seg Neutrophils % Seg Neutrophils # Sodium 136 L Chloride 90.2 L BUN 34 H Creatinine 2.6 H Glucose 303 H POC Glucose 198 H 266 H NT-Pro-B Natriuret Pep 2536 H Total Protein Albumin Lipase - Diagnostic Findings Chest x-ray: report reviewed, image reviewed Assessment and Plan COPD with exacerbation Mild CHF exacerbation. See x-rays Mild confusional state Appears to be transitional and resolved, most likely due to respiratory distress History of morbid obesity Hypertension SAKSHI CKD Recommendations Gentle diuretics. Monitor renal function status, output Will increase DUONEB to every 4 hours Solu-Medrol 40-60 mg IV every 6-8 hours Monitor blood sugar Oxygen support via nasal cannula or mask to maintain oximetry over 92% Avoid strong sedatives DVT prophylaxis Discussed with patient in detail. All questions answered. Thanks
[2018-12-27] MEDS ORDERED: DUONEB *Not for PRN Use IH SCH (12:00)
--- NOTE | 2018-12-27 12:11 | Consultation ---
History of Present Illness - History of Present Illness 78-year-old lady with medical history significant for hypertension, diabetes mellitus type 2, chronic kidney disease stage III [address] Bueno, COPD on home oxygen 4 L recently with hospitalization and prolonged stay in rehabilitation admitted following episode of confusion and concern for poor responsiveness she has been started on diuretics. She admits to cough she also reports associated fevers and hot flashes. She denies any diarrhea she does report exertional dyspnea she has a lifetime history of smoking of at least [id number]. She is aware of having chronic kidney disease and was not on diuretics prior to admission she does exist CPAP at night and is associated having orthopnea or PND she reports recent instability episode I was told she'll need additional procedures at some points by cardiology. She also reports a recent echocardiogram was told that her pump shortness function EF was normal she has some lower extremity edema. She was recently started on prednisone due to shortness of breath Past History Past Medical History: diabetes, hyperthyroidism, hypertension, renal failure Past Surgical History: No surgical history Social history: no significant social history Family history: no significant family history Medications and Allergies Allergies Allergy/AdvReac Type Severity Reaction Status Date / Time aspirin Allergy Shortness Verified 09/17/17 17:58 of Breath , CHEST PAIN escitalopram [From Lexapro] Allergy Shortness Verified 04/17/18 11:43 of Breath salmeterol xinafoate Allergy Shortness Verified 01/22/17 08:45 [From Serevent] of Breath levofloxacin [From Levaquin] AdvReac Rash Verified 09/13/16 16:22 Sulfa (Sulfonamide AdvReac contraindicated Verified 10/31/17 11:19 Antibiotics) due to kidney function tramadol AdvReac Nausea Verified 09/19/18 16:34 contrast dye AdvReac contraindicated Uncoded 04/17/18 11:59 due to renal insufficiency Home Medications Medication Instructions Recorded Confirmed Last Taken Type Sodium Bicarbonate 650 mg PO BID #60 tablet 10/29/18 12/24/18 Unknown Rx Verapamil ER [Calan SR] 180 mg PO DAILY #30 10/29/18 12/24/18 10/02/18 07:30 Rx predniSONE [Deltasone] 10 mg PO Q48H 30 Days tablet 10/29/18 12/24/18 Unknown Rx Theophylline Anhydrous ER [Theodur] 150 mg PO QPM 12/24/18 12/24/18 Unknown History Theophylline Anhydrous ER [Theodur] 300 mg PO QAM 12/24/18 12/24/18 Unknown History Beclomethasone Dipropionate [Qvar 2 inhalation IH BID 12/26/18 12/26/18 Unknown History Redihaler] Gabapentin [Neurontin] 100 mg PO TID 12/26/18 12/26/18 Unknown History Indacaterol Maleate [Arcapta 75 mcg IH DAILY 12/26/18 12/26/18 12/24/18 History Neohaler] Insulin NPH Hum/Reg Insulin Hm 100 unit SQ QAC 12/26/18 12/26/18 Unknown History [Novolin 70-30 100 Unit/ml Vial] Ipratropium [place] [Atrovent Hfa] 12.9 gm IH 4XD 12/26/18 12/26/18 12/24/18 History Ipratropium/Albuterol Sulfate 1 spray IH QID 12/26/18 12/26/18 Unknown History [Combivent Respimat] Linaclotide (Nf) [Linzess (Nf)] 290 mcg PO QDAY 12/26/18 12/26/18 Unknown History Ondansetron [Zofran TAB] 4 mg PO Q6HR 12/26/18 12/26/18 12/24/18 History Ranitidine HCl [Zantac 150 MG TAB] 150 mg PO BID 12/26/18 12/26/18 12/24/18 History Sucralfate [Carafate] 1 gm PO Q6HR 12/26/18 12/26/18 Unknown History Tiotropium [place] [Spiriva] 18 mcg IH 4XD 12/26/18 12/26/18 12/24/18 History Active Meds: Active Medications Acetaminophen (Tylenol) 650 mg PO Q4H PRN PRN Reason: Pain MILD(1-3)/Fever >100.5/[place] Last Admin: 12/25/18 22:14 Dose: 650 mg Documented by: Al Hydrox/Mg Hydrox/Simethicone (Alum-Mag Hydrox-Simeth [id number]/5ml) 30 ml PO DAILY PRN PRN Reason: Indigestion Last Admin: 12/27/18 09:57 Dose: 30 ml Documented by: Albuterol (Proventil) 2.5 mg IH Q4HRT PRN PRN Reason: Shortness Of Breath Albuterol/Ipratropium (Duoneb *Not For Prn Use*) 1 ampul IH Q6HRT [facility] Last Admin: 12/27/18 09:03 Dose: Not Given Documented by: Alprazolam (Xanax) 0.25 mg PO Q8H PRN PRN Reason: Anxiety Arformoterol Tartrate (Brovana Nebu) 15 mcg IH Q12HRT [facility] Last Admin: 12/27/18 09:02 Dose: 15 mcg Documented by: Bisacodyl (Dulcolax) 10 mg PO QDAY PRN PRN Reason: Constipation Budesonide (Pulmicort) 0.5 mg IH Q12HRT [facility] Last Admin: 12/27/18 09:02 Dose: 0.5 mg Documented by: Enoxaparin Sodium (Lovenox) 30 mg SUB-Q QDAY [facility] Last Admin: 12/27/18 10:14 Dose: 30 mg Documented by: Furosemide (Lasix) 40 mg IV 0600,1800 [facility] Last Admin: 12/27/18 06:22 Dose: 40 mg Documented by: Gabapentin (Neurontin) 200 mg PO BID [facility] Last Admin: 12/27/18 10:14 Dose: 200 mg Documented by: Guaifenesin (Mucinex Er) 600 mg PO BID [facility] Last Admin: 12/27/18 10:14 Dose: 600 mg Documented by: Azithromycin 500 mg/ Sodium (Chloride) 250 mls @ 250 mls/hr IV Q24HR [facility] Last Admin: 12/27/18 10:12 Dose: 250 mls/hr Documented by: Insulin Human Isoph/Insulin Regular (Humulin 70/30) 10 unit SUB-Q BIDDIAB [facility] Last Admin: 12/27/18 09:57 Dose: 10 unit Documented by: Insulin Human Lispro (Humalog) 0 unit SUB-Q [facility]; Protocol Last Admin: 12/27/18 09:58 Dose: 3 unit Documented by: Magnesium Hydroxide (Milk Of Magnesia) 30 ml PO QDAY PRN PRN Reason: costipation Last Admin: 12/27/18 10:14 Dose: 30 ml Documented by: Methylprednisolone Sodium Succinate (Solu-Medrol) 60 mg IV Q6HR [facility] Last Admin: 12/27/18 06:20 Dose: 60 mg Documented by: Morphine Sulfate (Morphine) 2 mg IV Q6H PRN PRN Reason: Pain, Moderate (4-6) Ondansetron HCl (Zofran) 4 mg IV Q8H PRN PRN Reason: Nausea And Vomiting Last Admin: 12/26/18 21:08 Dose: 4 mg Documented by: Oxycodone/Acetaminophen (Percocet 5/325) 1 tab PO Q6H PRN PRN Reason: Pain, Moderate (4-6) Last Admin: 12/26/18 21:09 Dose: 1 tab Documented by: Pantoprazole Sodium (Protonix) 40 mg PO QDAY [facility] Last Admin: 12/27/18 10:14 Dose: 40 mg Documented by: Sodium Bicarbonate (Sodium Bicarbonate) 650 mg PO BID [facility] Last Admin: 12/27/18 10:14 Dose: 650 mg Documented by: Sodium Chloride (Sodium Chloride Flush Syringe 10 Ml) 10 ml IV PRN PRN PRN Reason: LINE FLUSH Sodium Chloride (Sodium Chloride Flush Syringe 10 Ml) 10 ml IV BID [facility] Last Admin: 12/27/18 09:59 Dose: 10 ml Documented by: Theophylline (Theodur) 150 mg PO QPM [facility] Last Admin: 12/26/18 17:56 Dose: 150 mg Documented by: Theophylline (Theodur) 300 mg PO QAM [facility] Last Admin: 12/27/18 10:14 Dose: 300 mg Documented by: Tiotropium [place] (Spiriva) 1 puff IH Q24HRT [facility] Last Admin: 12/27/18 10:00 Dose: Not Given Documented by: Verapamil HCl (Calan Sr) 180 mg PO DAILY [facility] Last Admin: 12/27/18 10:13 Dose: 180 mg Documented by: Review of Systems Constitutional: weight gain, fever, chills, sweats, fatigue, weakness Ears, nose, mouth and throat: no epistaxis Breasts: no deferred Cardiovascular: orthopnea, dyspnea on exertion Respiratory: no cough Gastrointestinal: no abdominal pain, no nausea, no vomiting, no diarrhea Neurological: change in mentation, confusion, memory loss, no change in speech Psychiatric: anxiety, memory loss Endocrine: no cold intolerance, no heat intolerance Hematologic/Lymphatic: no easy bruising, no easy bleeding Allergic/Immunologic: no urticaria, no allergic rhinitis Exam - Vital Signs Vital signs: Vital Signs Temp Pulse Resp BP Pulse Ox 99.8 F H 103 H 22 147/63 97 12/24/18 14:09 12/24/18 14:09 12/24/18 14:09 12/24/18 14:09 12/24/18 14:09 - General Appearance General appearance: obese, anxious EENT: ATNC, PERRL Neck: Present: neck supple, trachea midline Respiratory: Ronchi, Wheezes Heart: regular, S1S2 Gastrointestinal: Present: normoactive bowel sounds, obese. Absent: tenderness Integumentary: no rash Neurologic: alert and oriented x3 Musculoskeletal: Present: joint swelling Psychiatric: mood/affect appropriate, cooperative Results - Lab Results 12/24/18 14:54 12/27/18 09:47 Most recent lab results Calcium 8.8 mg/dL (8.4-10.2) 12/27/18 09:47 Assessment and Plan - Patient Problems (1) Acute kidney injury superimposed on chronic kidney disease Current Visit: Yes Status: Acute Plan to address problem: Acute kidney injury superimposed on chronic kidney disease worsening History of acute kidney injury in the past admitted with creatinine of 2.3 mg/DL Current creatinine is 2.6 mg/DL chest x-ray with congestion and effusions We'll obtain urinalysis Reviewed abdominal CT which perinephric stranding and cortical thinning and renal cyst We'll continue diuretics given oxygen requirements and congestion Avoid nephrotoxic medications check renal function panel (2) Acute on chronic respiratory failure with hypoxemia Current Visit: Yes Status: Acute Plan to address problem: Acute on chronic respiratory failure with hypoxemia in a patient with severe COPD on 4 L of oxygen chest x-ray with effusions and cardiomegaly Etiology is combination of COPD and probable pulmonary congestion Currently on steroids for COPD exacerbation Agree with diuretics 40 mg Lasix IV twice a day (3) Volume overload Current Visit: Yes Status: Acute Plan to address problem: Volume overload Chest x-ray with effusions and congestion IV previous echocardiogram which showed EF 50-55%, left ventricular hypertrophy, no comment on diastolic dysfunction, I agree with Diuretics 40 mg Lasix twice a day for now Worsening BMP Daily weights if possible (4) Hyponatremia Current Visit: Yes Status: Acute Plan to address problem: Hyponatremia mild Likely secondary to volume overload Continue diuretics Recheck renal function panel
[2018-12-27] MEDS: PERCOCET 5/325 PO PRN (17:47)
--- NOTE | 2018-12-27 19:27 | Progress Note ---
Assessment and Plan Assessment and plan: --Acute on chronic hypoxic respiratory failure; Secondary to COPD exacerbation, home oxygen dependent Continue about treatmen --Acute exacerbation of COPD; Oxygen titrate to O2 sats more than 90%, nebulizers and IV steroids IV antibiotic inhalation steroids supportive care --Chronic kidney disease; closely monitor renal function Avoid nephrotoxins, nephrology evaluation if needed --Morbid obesity; BMI 50.8, advised weight reduction and medically stable --Congestive heart failure --Type 2 diabetes mellitus; moderate control Accu-Chek sliding scale coverage and ADA diet and long-acting insulin --Possible obstructive sleep apnea; CPAP BiPAP at night --Gastroesophageal reflux disease; Protonix -- DVT prophylaxis Lovenox Physical therapy occupational therapy Closely monitor the patient and adjust management as needed History Interval history: Patient seen and examined medical records reviewed Patient feels slightly better today Denies any chest pain and mild shortness of breath Vital signs reviewed Hospitalist Physical - Constitutional Vitals: Temp Pulse Resp BP Pulse Ox 98.0 F 107 H 18 123/59 92 12/27/18 19:17 12/27/18 19:17 12/27/18 19:17 12/27/18 19:17 12/27/18 19:17 General appearance: Present: no acute distress, well-nourished, obese (morbidly obese) - EENT Eyes: Present: PERRL, EOM intact - Neck Neck: Present: supple, normal ROM - Respiratory Respiratory effort: normal Respiratory: bilateral: diminished, rhonchi, negative: rales, wheezing - Cardiovascular Rhythm: regular Heart Sounds: Present: S1 & S2 - Extremities Extremities: no ischemia Extremity abnormal: edema - Abdominal General gastrointestinal: soft, non-tender, non-distended, normal bowel sounds - Integumentary Integumentary: Present: clear, warm - Psychiatric Psychiatric: appropriate mood/affect, cooperative - Neurologic Neurologic: CNII-XII intact, moves all extremities Results - Labs CBC & Chem 7: 12/24/18 14:54 12/27/18 09:47 Labs: Laboratory Last Values WBC 9.7 K/mm3 (4.5-11.0) 12/24/18 14:54 RBC 4.41 M/mm3 (3.65-5.03) 12/24/18 14:54 Hgb 12.1 gm/dl (10.1-14.3) 12/24/18 14:54 Hct 37.6 % (30.3-42.9) 12/24/18 14:54 MCV 85 fl (79-97) 12/24/18 14:54 MCH 28 pg (28-32) 12/24/18 14:54 MCHC 32 % (30-34) 12/24/18 14:54 RDW 14.3 % (13.2-15.2) 12/24/18 14:54 Plt Count 288 K/mm3 (140-440) 12/24/18 14:54 Lymph % (Auto) 4.6 % (13.4-35.0) L 12/24/18 14:54 [place] % (Auto) 6.1 % (0.0-7.3) 12/24/18 14:54 Eos % (Auto) 1.5 % (0.0-4.3) 12/24/18 14:54 Baso % (Auto) 0.6 % (0.0-1.8) 12/24/18 14:54 Lymph # 0.4 K/mm3 (1.2-5.4) L 12/24/18 14:54 [place] # 0.6 K/mm3 (0.0-0.8) 12/24/18 14:54 Eos # 0.1 K/mm3 (0.0-0.4) 12/24/18 14:54 Baso # 0.1 K/mm3 (0.0-0.1) 12/24/18 14:54 Seg Neutrophils % 87.2 % (40.0-70.0) H 12/24/18 14:54 Seg Neutrophils # 8.5 K/mm3 (1.8-7.7) H 12/24/18 14:54 Sodium 136 mmol/L (137-145) L 12/27/18 09:47 Potassium 4.0 mmol/L (3.6-5.0) 12/27/18 09:47 Chloride 90.2 mmol/L (98-107) L 12/27/18 09:47 Carbon Dioxide 28 mmol/L (22-30) 12/27/18 09:47 Anion Gap 22 mmol/L 12/27/18 09:47 BUN 34 mg/dL (7-17) H 12/27/18 09:47 Creatinine 2.6 mg/dL (0.7-1.2) H 12/27/18 09:47 Estimated GFR 18 ml/min 12/27/18 09:47 BUN/Creatinine Ratio 13 % 12/27/18 09:47 Glucose 303 mg/dL (65-100) H 12/27/18 09:47 POC Glucose 242 (70-105) H 12/27/18 16:55 Calcium 8.8 mg/dL (8.4-10.2) 12/27/18 09:47 Total Bilirubin 0.50 mg/dL (0.1-1.2) 12/24/18 15:15 Direct Bilirubin < 0.2 mg/dL (0-0.2) 12/24/18 15:15 Indirect Bilirubin 0.3 mg/dL 12/24/18 15:15 AST 11 units/L (5-40) 12/24/18 15:15 ALT 8 units/L (7-56) 12/24/18 15:15 Alkaline Phosphatase 87 units/L (35-129) 12/24/18 15:15 NT-Pro-B Natriuret Pep 2536 pg/mL (0-900) H 12/27/18 09:47 Total Protein 5.2 g/dL (6.3-8.2) L 12/24/18 15:15 Albumin 3.2 g/dL (3.9-5) L 12/24/18 15:15 Albumin/Globulin Ratio 1.6 % 12/24/18 15:15 Lipase 12 units/L (13-60) L 12/24/18 15:15 Nutrition/Malnutrition Assess - Dietary Evaluation Nutrition/Malnutrition Findings: Nutrition Notes Start: 12/25/18 15:17 Freq: Status: Active Protocol: Document 12/25/18 15:17 RM (Rec: 12/25/18 15:18 RM [id number]) Nutrition Notes Need for Assessment generated from: ring sorter Initial or Follow up Brief Note Subjective/Other Information Screened for skin risk. No fay score in record. No skin problems noted in record. Nutrition Intervention Revisit per MD consult or patient Sign Off request:
[2018-12-27] MEDS: XANAX PO PRN (22:01)
[2018-12-28] MEDS: DUONEB *Not for PRN Use IH SCH ×6 (00:23→21:29)
[2018-12-28] MEDS: CARAFATE PO SCH ×4 (00:33→19:03)
[2018-12-28] MEDS: SOLU-Medrol IV SCH ×4 (00:33→18:54)
[2018-12-28] MEDS: LASIX IV SCH ×2 (06:03→18:55)
[2018-12-28 07:22] LABS: Bilirubin,Urine NEG (Negative); Blood,Urine NEG (Negative); Color,Urine Yellow (Yellow); Protein,Urine <15 mg/dL mg/dL (Negative); Urobilinogen,Urine < 2.0 mg/dL (<2.0)
[2018-12-28] MEDS: HumaLOG SUB-Q SCH ×4 (07:45→21:53)
[2018-12-28] MEDS: PULMICORT IH SCH ×2 (08:02→21:27)
[2018-12-28] MEDS: BROVANA NEBU IH SCH ×2 (08:02→21:27)
[2018-12-28] MEDS ORDERED: [UNRECOGNIZED DRUG - OTHER] IH SCH (10:00)
--- NOTE | 2018-12-28 10:25 | Progress Note ---
Subjective Interval history: Patient was seen today for follow-up on multiple renal related issues Events of this hospitalization noted She seems to be breathing better Currently on scheduled Lasix Patient denies having any chest pain pressure or shortness of breath Vitals labs intake output medications were reviewed Social history: Reviewed Allergies: Reviewed Family history: Reviewed Physical examination HEENT: Oral mucosa moist no pallor or icterus Neck: Supple no JVD Chest: Bilateral distant breath sounds CVS: Regular rate and rhythm S1 and S2 heard Abdomen: Soft nontender no suprapubic masses no organomegaly appreciable Extremity: Dry skin less than 1+ peripheral edema Musculoskeletal: No joint effusion noted in knees and ankle Neurological: Alert awake Dermatology: No petechial rashes Psychiatry: No evidence of any agitation and aggression noted Assessment and plan Chronic kidney disease, patient has had evidence of volume overload current creatinine is around 2.6 potassium 4 Her baseline creatinine is around 2.5 Patient can be diuresed as long as her creatinine stays less than 2.8 Significant proteinuria and urinalysis Admitted with COPD flare with some evidence off volume overload Patient does have history of bladder cancer and is currently followed by urologist Hypertension stable at this time Morbid obesity, multiple health issues, overall renal prognosis is guarded to poor Overall her prognosis in general is poor as well Patient was adequately counseled and educated regarding multiple renal related issues Pertinent lab findings were discussed with patient, patient does exhibit good understanding of renal issues We'll continue to follow and make recommendation from renal standpoint Objective - Vital Signs Vital signs: Vital Signs - 12hr 12/27/18 12/28/18 12/28/18 23:14 00:23 00:32 Temperature 98.0 F Pulse Rate 101 H Pulse Rate [ 83 88 Anterior Bilateral Throughout] Pulse Rate [ Right Radial] Respiratory 20 Rate Respiratory 16 16 Rate [Anterior Bilateral Throughout] Blood Pressure 103/42 O2 Sat by Pulse 94 Oximetry 12/28/18 12/28/18 12/28/18 04:20 04:30 08:11 Temperature 98.0 F Pulse Rate 92 H 91 H Pulse Rate [ Anterior Bilateral Throughout] Pulse Rate [ 84 Right Radial] Respiratory 20 20 Rate Respiratory Rate [Anterior Bilateral Throughout] Blood Pressure 140/64 O2 Sat by Pulse 92 98 Oximetry 12/28/18 08:41 Temperature 98.4 F Pulse Rate 106 H Pulse Rate [ Anterior Bilateral Throughout] Pulse Rate [ Right Radial] Respiratory 24 Rate Respiratory Rate [Anterior Bilateral Throughout] Blood Pressure 125/49 O2 Sat by Pulse 93 Oximetry - Lab 12/24/18 14:54 12/27/18 09:47 Most recent lab results Calcium 8.8 mg/dL (8.4-10.2) 12/27/18 09:47 Medications & Allergies - Medications Allergies/Adverse Reactions: Allergies aspirin Allergy (Verified 09/17/17 17:58) Shortness of Breath , CHEST PAIN escitalopram [From Lexapro] Allergy (Verified 04/17/18 11:43) Shortness of Breath salmeterol xinafoate [From Serevent] Allergy (Verified 01/22/17 08:45) Shortness of Breath levofloxacin [From Levaquin] Adverse Reaction (Verified 09/13/16 16:22) Rash Sulfa (Sulfonamide Antibiotics) Adverse Reaction (Verified 10/31/17 11:19) contraindicated due to kidney function states her doctor told her to not take sulfa due to renal insufficiency tramadol Adverse Reaction (Verified 09/19/18 16:34) Nausea contrast dye Adverse Reaction (Uncoded 04/17/18 11:59) contraindicated due to renal insufficiency Home Medications: Home Medications Medication Instructions Recorded Confirmed Last Taken Type Sodium Bicarbonate 650 mg PO BID #60 tablet 10/29/18 12/24/18 Unknown Rx Verapamil ER [Calan SR] 180 mg PO DAILY #30 10/29/18 12/24/18 10/02/18 07:30 Rx predniSONE [Deltasone] 10 mg PO Q48H 30 Days tablet 10/29/18 12/24/18 Unknown Rx Theophylline Anhydrous ER [Theodur] 150 mg PO QPM 12/24/18 12/24/18 Unknown History Theophylline Anhydrous ER [Theodur] 300 mg PO QAM 12/24/18 12/24/18 Unknown History Beclomethasone Dipropionate [Qvar 2 inhalation IH BID 12/26/18 12/26/18 Unknown History Redihaler] Gabapentin [Neurontin] 100 mg PO TID 12/26/18 12/26/18 Unknown History Indacaterol Maleate [Arcapta 75 mcg IH DAILY 12/26/18 12/26/18 12/24/18 History Neohaler] Insulin NPH Hum/Reg Insulin Hm 100 unit SQ QAC 12/26/18 12/26/18 Unknown History [Novolin 70-30 100 Unit/ml Vial] Ipratropium [place] [Atrovent Hfa] 12.9 gm IH 4XD 12/26/18 12/26/18 12/24/18 History Ipratropium/Albuterol Sulfate 1 spray IH QID 12/26/18 12/26/18 Unknown History [Combivent Respimat] Linaclotide (Nf) [Linzess (Nf)] 290 mcg PO QDAY 12/26/18 12/26/18 Unknown History Ondansetron [Zofran TAB] 4 mg PO Q6HR 12/26/18 12/26/18 12/24/18 History Ranitidine HCl [Zantac 150 MG TAB] 150 mg PO BID 12/26/18 12/26/18 12/24/18 History Sucralfate [Carafate] 1 gm PO Q6HR 12/26/18 12/26/18 Unknown History Tiotropium [place] [Spiriva] 18 mcg IH 4XD 12/26/18 12/26/18 12/24/18 History Active Medications: Generic Name Dose Route Start Last Admin Trade Name Freq PRN Reason Stop Dose Admin Acetaminophen 650 mg 12/25/18 00:48 12/25/18 22:14 Tylenol PO 650 mg Q4H PRN Administration Pain MILD(1-3)/Fever >100.5/[place] Al Hydrox/Mg Hydrox/Simethicone 30 ml 12/25/18 13:14 12/27/18 09:57 Alum-Mag Hydrox-Simeth [id number]/5ml PO 30 ml DAILY PRN Administration Indigestion Albuterol 2.5 mg 12/26/18 21:47 Proventil IH Q4HRT PRN Shortness Of Breath Albuterol/Ipratropium 1 ampul 12/27/18 12:00 12/28/18 08:02 Duoneb *Not For Prn Use* IH 1 ampul Q4HRT KELLY Administration Alprazolam 0.25 mg 12/26/18 18:46 12/27/18 22:01 Xanax PO 0.25 mg Q8H PRN Administration Anxiety Arformoterol Tartrate 15 mcg 12/26/18 20:00 12/28/18 08:02 Brovana Nebu IH 15 mcg Q12HRT [facility]LLY Administration Bisacodyl 10 mg 12/26/18 13:50 Dulcolax PO QDAY PRN Constipation Budesonide 0.5 mg 12/26/18 20:00 12/28/18 08:02 Pulmicort IH 0.5 mg Q12HRT [facility] Administration Enoxaparin Sodium 30 mg 12/25/18 10:00 12/27/18 10:14 Lovenox SUB-Q 30 mg QDAY [facility] Administration Furosemide 40 mg 12/27/18 06:00 12/28/18 06:03 Lasix IV 40 mg 0600,1800 KELLY Administration Gabapentin 200 mg 12/26/18 22:00 12/27/18 21:49 Neurontin PO 200 mg BID KELLY Administration Guaifenesin 600 mg 12/26/18 22:00 12/27/18 21:49 Mucinex Er PO 600 mg BID [facility] Administration Azithromycin 500 mg/ Sodium 250 mls @ 250 mls/hr 12/27/18 10:00 12/27/18 10:12 Chloride IV 250 mls/hr Q24HR [facility] Administration Insulin Human Isoph/Insulin Regular 10 unit 12/27/18 08:00 12/27/18 17:50 Humulin 70/30 SUB-Q 10 unit BIDDIAB [facility] Administration Insulin Human Lispro 0 unit 12/26/18 16:30 12/27/18 22:06 Humalog SUB-Q 3 unit ACHS KELLY Administration Protocol Magnesium Hydroxide 30 ml 12/26/18 13:51 12/27/18 10:14 Milk Of Magnesia PO 30 ml QDAY PRN Administration costipation Methylprednisolone Sodium Succinate 60 mg 12/25/18 06:00 12/28/18 06:03 Solu-Medrol IV 60 mg Q6HR KELLY Administration Miscellaneous Medication 75 mcg 12/28/18 10:00 Indacaterol Maleate [Arcapta Neohaler] IH DAILY [facility] Morphine Sulfate 2 mg 12/26/18 17:12 Morphine IV Q6H PRN Pain, Moderate (4-6) Ondansetron HCl 4 mg 12/25/18 00:48 12/26/18 21:08 Zofran IV 4 mg Q8H PRN Administration Nausea And Vomiting Oxycodone/Acetaminophen 1 tab 12/26/18 18:26 12/27/18 17:47 Percocet 5/325 PO 1 tab Q6H PRN Administration Pain, Moderate (4-6) Pantoprazole Sodium 40 mg 12/27/18 10:00 12/27/18 10:14 Protonix PO 40 mg QDAY KELLY Administration Sodium Bicarbonate 650 mg 12/25/18 22:00 12/27/18 21:49 Sodium Bicarbonate PO 650 mg BID KELLY Administration Sodium Chloride 10 ml 12/24/18 20:37 12/28/18 06:06 Sodium Chloride Flush Syringe 10 Ml IV 10 ml PRN PRN Administration LINE FLUSH Sodium Chloride 10 ml 12/25/18 10:00 12/27/18 21:50 Sodium Chloride Flush Syringe 10 Ml IV 10 ml BID KE[facility] Administration Sucralfate 1 gm 12/28/18 00:00 12/28/18 06:03 Carafate PO 1 gm Q6HR KE[facility] Administration Theophylline 150 mg 12/25/18 18:00 12/27/18 17:47 Theodur PO 150 mg QPM KELLY Administration Theophylline 300 mg 12/26/18 10:00 12/27/18 10:14 Theodur PO 300 mg QAM KELLY Administration Tiotropium [place] 1 puff 12/27/18 09:00 12/27/18 10:00 Spiriva IH Not Given Q24HRT KELLY Verapamil HCl 180 mg 12/26/18 10:00 12/27/18 10:13 Calan Sr PO 180 mg DAILY KE[facility] Administration
[2018-12-28] MEDS: LOVENOX SUB-Q SCH (10:54)
[2018-12-28] MEDS: CALAN SR PO SCH (10:55)
[2018-12-28] MEDS: MUCINEX ER PO SCH ×2 (10:55→21:52)
[2018-12-28] MEDS: THEODUR PO SCH ×2 (10:55→18:59)
[2018-12-28] MEDS: PROTONIX PO SCH (10:56)
[2018-12-28] MEDS: SODIUM CHLORIDE FLUSH SYRINGE 10 ML IV SCH ×2 (10:59→21:54)
[2018-12-28] MEDS: SPIRIVA IH SCH (11:18)
[2018-12-28 11:36] LABS: Calcium 8.7 mg/dL (8.4-10.2)
--- NOTE | 2018-12-28 11:45 | Progress Note ---
Assessment and Plan - Patient Problems (1) Acute kidney injury superimposed on chronic kidney disease Current Visit: Yes Status: Acute (2) Acute on chronic respiratory failure with hypoxemia Current Visit: Yes Status: Acute (3) CHF (congestive heart failure) Current Visit: Yes Status: Acute (4) Volume overload Current Visit: Yes Status: Acute (5) COPD (chronic obstructive pulmonary disease) Current Visit: Yes Status: Chronic (6) Morbid obesity Current Visit: No Status: Acute Subjective Interval history: feels better Objective Vital Signs - 12hr 12/28/18 12/28/18 12/28/18 00:23 00:32 04:20 Temperature 98.0 F Pulse Rate 92 H Pulse Rate [ 83 88 Anterior Bilateral Throughout] Pulse Rate [ Right Radial] Respiratory 20 Rate Respiratory 16 16 Rate [Anterior Bilateral Throughout] Blood Pressure 140/64 O2 Sat by Pulse 92 Oximetry 12/28/18 12/28/18 12/28/18 04:30 08:02 08:11 Temperature Pulse Rate 91 H Pulse Rate [ 77 Anterior Bilateral Throughout] Pulse Rate [ 84 Right Radial] Respiratory 20 Rate Respiratory 18 Rate [Anterior Bilateral Throughout] Blood Pressure O2 Sat by Pulse 95 98 Oximetry 12/28/18 12/28/18 08:12 08:41 Temperature 98.4 F Pulse Rate 106 H Pulse Rate [ 100 H Anterior Bilateral Throughout] Pulse Rate [ Right Radial] Respiratory 24 Rate Respiratory 18 Rate [Anterior Bilateral Throughout] Blood Pressure 125/49 O2 Sat by Pulse 93 Oximetry Constitutional: other (general morbidly obese female in mild distress) Eyes: non-icteric ENT: oropharynx moist Neck: supple, no JVD (but large neck) Ascultation: Bilateral: diminished breath sounds, wheezes Cardiovascular: regular rate and rhythm Gastrointestinal: normoactive bowel sounds, non-distended, other (Limited exam due to morbid obesity) Integumentary: normal Extremities: no cyanosis, other (mild pretibial edema) Neurologic: normal mental status, non-focal exam, CN II-XII normal Psychiatric: anxious CBC and BMP: 12/24/18 14:54 12/28/18 10:56 Abnormal lab findings: Abnormal Labs 12/24/18 12/24/18 12/24/18 14:54 14:54 15:15 Lymph % (Auto) 4.6 L Lymph # 0.4 L Seg Neutrophils % 87.2 H Seg Neutrophils # 8.5 H Sodium Chloride BUN 23 H Creatinine 2.3 H Glucose 125 H POC Glucose NT-Pro-B Natriuret Pep 1627 H Total Protein 5.2 L Albumin 3.2 L Lipase 12 L 12/25/18 12/25/18 12/25/18 05:45 17:23 20:59 Lymph % (Auto) Lymph # Seg Neutrophils % Seg Neutrophils # Sodium Chloride BUN 26 H Creatinine 2.6 H Glucose 108 H POC Glucose 155 H 209 H NT-Pro-B Natriuret Pep Total Protein Albumin Lipase 12/26/18 12/26/18 12/26/18 08:43 11:11 16:41 Lymph % (Auto) Lymph # Seg Neutrophils % Seg Neutrophils # Sodium Chloride BUN Creatinine Glucose POC Glucose 187 H 204 H 198 H NT-Pro-B Natriuret Pep Total Protein Albumin Lipase 12/26/18 12/27/18 12/27/18 20:52 09:29 09:47 Lymph % (Auto) Lymph # Seg Neutrophils % Seg Neutrophils # Sodium 136 L Chloride 90.2 L BUN 34 H Creatinine 2.6 H Glucose 303 H POC Glucose 198 H 266 H NT-Pro-B Natriuret Pep 2536 H Total Protein Albumin Lipase 12/27/18 12/27/18 12/28/18 16:55 21:54 07:30 Lymph % (Auto) Lymph # Seg Neutrophils % Seg Neutrophils # Sodium Chloride BUN Creatinine Glucose POC Glucose 242 H 234 H 233 H NT-Pro-B Natriuret Pep Total Protein Albumin Lipase 12/28/18 10:56 Lymph % (Auto) Lymph # Seg Neutrophils % Seg Neutrophils # Sodium 133 L Chloride 88.9 L BUN 45 H Creatinine 2.8 H Glucose 426 H POC Glucose NT-Pro-B Natriuret Pep Total Protein Albumin Lipase
--- NOTE | 2018-12-28 11:51 | Progress Note ---
Assessment and Plan Assessment and plan: --Acute on chronic hypoxic respiratory failure; Secondary to COPD exacerbation, home oxygen dependent Continue about treatmen --Acute exacerbation of COPD; Oxygen titrate to O2 sats more than 90%, nebulizers and IV steroids IV antibiotic inhalation steroids supportive care --Chronic kidney disease; closely monitor renal function Avoid nephrotoxins, nephrology evaluation if needed --Morbid obesity; BMI 50.8, advised weight reduction and medically stable --Congestive heart failure --Type 2 diabetes mellitus; moderate control Accu-Chek sliding scale coverage and ADA diet and long-acting insulin --Possible obstructive sleep apnea; CPAP BiPAP at night --Gastroesophageal reflux disease; Protonix -- DVT prophylaxis Lovenox Physical therapy occupational therapy Closely monitor the patient and adjust management as needed History Interval history: Patient seen and examined medical records reviewed Patient feels better no new complaints Mild shortness of breath Vital signs noted Alert awake oriented 3 Not in acute distress Hospitalist Physical - Constitutional Vitals: Temp Pulse Resp BP Pulse Ox 98.4 F 106 H 24 125/49 93 12/28/18 08:41 12/28/18 08:41 12/28/18 08:41 12/28/18 08:41 12/28/18 08:41 General appearance: Present: no acute distress, well-nourished, obese (morbidly obese) - EENT Eyes: Present: PERRL, EOM intact - Neck Neck: Present: supple, normal ROM - Respiratory Respiratory effort: normal, labored Respiratory: bilateral: diminished, rhonchi, negative: rales, wheezing - Cardiovascular Rhythm: regular Heart Sounds: Present: S1 & S2 - Extremities Extremities: no ischemia, No edema - Abdominal General gastrointestinal: soft, non-tender, non-distended, normal bowel sounds - Integumentary Integumentary: Present: clear, warm - Psychiatric Psychiatric: appropriate mood/affect, cooperative - Neurologic Neurologic: CNII-XII intact, moves all extremities Results - Labs CBC & Chem 7: 12/24/18 14:54 12/28/18 10:56 Labs: Laboratory Last Values WBC 9.7 K/mm3 (4.5-11.0) 12/24/18 14:54 RBC 4.41 M/mm3 (3.65-5.03) 12/24/18 14:54 Hgb 12.1 gm/dl (10.1-14.3) 12/24/18 14:54 Hct 37.6 % (30.3-42.9) 12/24/18 14:54 MCV 85 fl (79-97) 12/24/18 14:54 MCH 28 pg (28-32) 12/24/18 14:54 MCHC 32 % (30-34) 12/24/18 14:54 RDW 14.3 % (13.2-15.2) 12/24/18 14:54 Plt Count 288 K/mm3 (140-440) 12/24/18 14:54 Lymph % (Auto) 4.6 % (13.4-35.0) L 12/24/18 14:54 [place] % (Auto) 6.1 % (0.0-7.3) 12/24/18 14:54 Eos % (Auto) 1.5 % (0.0-4.3) 12/24/18 14:54 Baso % (Auto) 0.6 % (0.0-1.8) 12/24/18 14:54 Lymph # 0.4 K/mm3 (1.2-5.4) L 12/24/18 14:54 [place] # 0.6 K/mm3 (0.0-0.8) 12/24/18 14:54 Eos # 0.1 K/mm3 (0.0-0.4) 12/24/18 14:54 Baso # 0.1 K/mm3 (0.0-0.1) 12/24/18 14:54 Seg Neutrophils % 87.2 % (40.0-70.0) H 12/24/18 14:54 Seg Neutrophils # 8.5 K/mm3 (1.8-7.7) H 12/24/18 14:54 Sodium 133 mmol/L (137-145) L 12/28/18 10:56 Potassium 4.4 mmol/L (3.6-5.0) 12/28/18 10:56 Chloride 88.9 mmol/L (98-107) L 12/28/18 10:56 Carbon Dioxide 27 mmol/L (22-30) 12/28/18 10:56 Anion Gap 22 mmol/L 12/28/18 10:56 BUN 45 mg/dL (7-17) H 12/28/18 10:56 Creatinine 2.8 mg/dL (0.7-1.2) H 12/28/18 10:56 Estimated GFR 16 ml/min 12/28/18 10:56 BUN/Creatinine Ratio 16 % 12/28/18 10:56 Glucose 426 mg/dL (65-100) H 12/28/18 10:56 POC Glucose 233 (70-105) H 12/28/18 07:30 Calcium 8.7 mg/dL (8.4-10.2) 12/28/18 10:56 Total Bilirubin 0.50 mg/dL (0.1-1.2) 12/24/18 15:15 Direct Bilirubin < 0.2 mg/dL (0-0.2) 12/24/18 15:15 Indirect Bilirubin 0.3 mg/dL 12/24/18 15:15 AST 11 units/L (5-40) 12/24/18 15:15 ALT 8 units/L (7-56) 12/24/18 15:15 Alkaline Phosphatase 87 units/L (35-129) 12/24/18 15:15 NT-Pro-B Natriuret Pep 2536 pg/mL (0-900) H 12/27/18 09:47 Total Protein 5.2 g/dL (6.3-8.2) L 12/24/18 15:15 Albumin 3.2 g/dL (3.9-5) L 12/24/18 15:15 Albumin/Globulin Ratio 1.6 % 12/24/18 15:15 Lipase 12 units/L (13-60) L 12/24/18 15:15 Urine Color Yellow (Yellow) 12/28/18 06:51 Urine Turbidity Clear (Clear) 12/28/18 06:51 Urine pH 5.0 (5.0-7.0) 12/28/18 06:51 Ur Specific [place] 1.011 (1.003-1.030) 12/28/18 06:51 Urine Protein <15 mg/dl mg/dL (Negative) 12/28/18 06:51 Urine Glucose (UA) Neg mg/dL (Negative) 12/28/18 06:51 Urine Ketones Neg mg/dL (Negative) 12/28/18 06:51 Urine Blood Neg (Negative) 12/28/18 06:51 Urine Nitrite Neg (Negative) 12/28/18 06:51 Urine Bilirubin Neg (Negative) 12/28/18 06:51 Urine Urobilinogen < 2.0 mg/dL (<2.0) 12/28/18 06:51 Ur Leukocyte Esterase Neg (Negative) 12/28/18 06:51 Urine WBC (Auto) 1.0 /HPF (0.0-6.0) 12/28/18 06:51 Urine RBC (Auto) 1.0 /HPF (0.0-6.0) 12/28/18 06:51 U Epithel Cells (Auto) < 1.0 /HPF (0-13.0) 12/28/18 06:51 Nutrition/Malnutrition Assess - Dietary Evaluation Nutrition/Malnutrition Findings: Nutrition Notes Start: 12/25/18 15:17 Freq: Status: Active Protocol: Document 12/25/18 15:17 RM (Rec: 12/25/18 15:18 RM [id number]) Nutrition Notes 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 No fay score in record. No skin problems noted in record. Nutrition Intervention Revisit per MD consult or patient Sign Off request:
[2018-12-28] MEDS: NEURONTIN PO SCH ×2 (13:00→21:52)
[2018-12-28] MEDS: SODIUM BICARBONATE PO SCH ×2 (13:01→21:51)
[2018-12-28] MEDS: ZITHROMAX 500 MG in NACL 0.9% 250ML 250 ML IV SCH (15:40)
[2018-12-28] MEDS: DULCOLAX PO PRN (21:52)
[2018-12-28] MEDS: XANAX PO PRN (21:58)
[2018-12-29] MEDS: SOLU-Medrol IV SCH ×4 (00:59→17:38)
[2018-12-29] MEDS: CARAFATE PO SCH ×4 (00:59→17:38)
[2018-12-29] MEDS: DUONEB *Not for PRN Use IH SCH ×6 (03:18→19:57)
[2018-12-29] MEDS: LASIX IV SCH (06:00)
[2018-12-29] MEDS: BROVANA NEBU IH SCH ×2 (08:18→19:57)
[2018-12-29] MEDS: PULMICORT IH SCH ×2 (08:18→19:57)
[2018-12-29] MEDS: HumaLOG SUB-Q SCH ×4 (09:17→23:01)
[2018-12-29] MEDS: SODIUM BICARBONATE PO SCH ×2 (09:26→22:48)
[2018-12-29] MEDS: PROTONIX PO SCH (09:26)
[2018-12-29] MEDS: NEURONTIN PO SCH ×2 (09:26→22:48)
[2018-12-29] MEDS: MUCINEX ER PO SCH ×2 (09:27→22:48)
[2018-12-29] MEDS: CALAN SR PO SCH (09:27)
[2018-12-29] MEDS: LOVENOX SUB-Q SCH (09:29)
[2018-12-29] MEDS: SODIUM CHLORIDE FLUSH SYRINGE 10 ML IV SCH ×2 (09:29→22:48)
[2018-12-29] MEDS: THEODUR PO SCH ×2 (09:30→18:18)
[2018-12-29] MEDS: MILK OF MAGNESIA PO PRN (09:38)
[2018-12-29] MEDS: ZITHROMAX 500 MG in NACL 0.9% 250ML 250 ML IV SCH (09:46)
--- NOTE | 2018-12-29 09:53 | Progress Note ---
Subjective Interval history: Patient was seen today for follow-up on multiple renal related issues Patient denies having any chest pain pressure or shortness of breath Vitals labs intake output medications were reviewed Social history: Reviewed Allergies: Reviewed Family history: Reviewed Physical examination HEENT: Oral mucosa moist no pallor or icterus Neck: Supple no JVD Chest: Bilateral distant breath sounds CVS: Regular rate and rhythm S1 and S2 heard Abdomen: Soft nontender no suprapubic masses no organomegaly appreciable Extremity: Dry skin less than 1+ peripheral edema Musculoskeletal: No joint effusion noted in knees and ankle Neurological: Alert awake Dermatology: No petechial rashes Psychiatry: No evidence of any agitation and aggression noted Assessment and plan Chronic kidney disease, patient has had evidence of volume overload current creatinine is around 2.6 potassium 4 Chronic kidney disease, patient's current creatinine is around 2.8 she does not have any significant peripheral edema at this time diuretic should be withheld given that her sodium has been dropping from 142-133 patient clinically feels better Hypertension: Stable, avoid any form of MELODY inhibitor or angiotensin receptor lisy Follow-up on daily labs for now Morbid obesity, multiple health issues, overall renal prognosis is guarded to po or Overall her prognosis in general is poor as well Patient was adequately counseled and educated regarding multiple renal related issues Pertinent lab findings were discussed with patient, patient does exhibit good understanding of renal issues We'll continue to follow and make recommendation from renal standpoint Objective - Vital Signs Vital signs: Vital Signs - 12hr 12/28/18 12/28/18 12/28/18 21:30 21:45 23:21 Temperature 97.5 F L Pulse Rate 93 H Pulse Rate [ 91 H Anterior Bilateral Throughout] Respiratory 18 Rate Respiratory 19 Rate [Anterior Bilateral Throughout] Blood Pressure 107/47 O2 Sat by Pulse 95 93 Oximetry 12/29/18 12/29/18 12/29/18 03:43 04:45 08:25 Temperature 97.5 F L 97.9 F Pulse Rate 90 91 H 99 H Pulse Rate [ Anterior Bilateral Throughout] Respiratory 18 20 Rate Respiratory Rate [Anterior Bilateral Throughout] Blood Pressure 111/53 140/67 O2 Sat by Pulse 94 94 Oximetry 12/29/18 09:27 Temperature Pulse Rate 91 H Pulse Rate [ Anterior Bilateral Throughout] Respiratory Rate Respiratory Rate [Anterior Bilateral Throughout] Blood Pressure 140/67 O2 Sat by Pulse Oximetry - Lab 12/24/18 14:54 12/28/18 10:56 Most recent lab results Calcium 8.7 mg/dL (8.4-10.2) 12/28/18 10:56 Medications & Allergies - Medications Allergies/Adverse Reactions: Allergies aspirin Allergy (Verified 09/17/17 17:58) Shortness of Breath , CHEST PAIN escitalopram [From Lexapro] Allergy (Verified 04/17/18 11:43) Shortness of Breath salmeterol xinafoate [From Serevent] Allergy (Verified 01/22/17 08:45) Shortness of Breath levofloxacin [From Levaquin] Adverse Reaction (Verified 09/13/16 16:22) Rash Sulfa (Sulfonamide Antibiotics) Adverse Reaction (Verified 10/31/17 11:19) contraindicated due to kidney function states her doctor told her to not take sulfa due to renal insufficiency tramadol Adverse Reaction (Verified 09/19/18 16:34) Nausea contrast dye Adverse Reaction (Uncoded 04/17/18 11:59) contraindicated due to renal insufficiency Home Medications: Home Medications Medication Instructions Recorded Confirmed Last Taken Type Sodium Bicarbonate 650 mg PO BID #60 tablet 10/29/18 12/24/18 Unknown Rx Verapamil ER [Calan SR] 180 mg PO DAILY #30 10/29/18 12/24/18 10/02/18 07:30 Rx predniSONE [Deltasone] 10 mg PO Q48H 30 Days tablet 10/29/18 12/24/18 Unknown Rx Theophylline Anhydrous ER [Theodur] 150 mg PO QPM 12/24/18 12/24/18 Unknown History Theophylline Anhydrous ER [Theodur] 300 mg PO QAM 12/24/18 12/24/18 Unknown History Beclomethasone Dipropionate [Qvar 2 inhalation IH BID 12/26/18 12/26/18 Unknown History Redihaler] Gabapentin [Neurontin] 100 mg PO TID 12/26/18 12/26/18 Unknown History Indacaterol Maleate [Arcapta 75 mcg IH DAILY 12/26/18 12/26/18 12/24/18 History Neohaler] Insulin NPH Hum/Reg Insulin Hm 100 unit SQ QAC 12/26/18 12/26/18 Unknown History [Novolin 70-30 100 Unit/ml Vial] Ipratropium Friendship [Atrovent Hfa] 12.9 gm IH 4XD 12/26/18 12/26/18 12/24/18 History Ipratropium/Albuterol Sulfate 1 spray IH QID 12/26/18 12/26/18 Unknown History [Combivent Respimat] Linaclotide (Nf) [Linzess (Nf)] 290 mcg PO QDAY 12/26/18 12/26/18 Unknown History Ondansetron [Zofran TAB] 4 mg PO Q6HR 12/26/18 12/26/18 12/24/18 History Ranitidine HCl [Zantac 150 MG TAB] 150 mg PO BID 12/26/18 12/26/18 12/24/18 History Sucralfate [Carafate] 1 gm PO Q6HR 12/26/18 12/26/18 Unknown History Tiotropium [place] [Spiriva] 18 mcg IH 4XD 12/26/18 12/26/18 12/24/18 History Active Medications: Generic Name Dose Route Start Last Admin Trade Name Freq PRN Reason Stop Dose Admin Acetaminophen 650 mg 12/25/18 00:48 12/25/18 22:14 Tylenol PO 650 mg Q4H PRN Administration Pain MILD(1-3)/Fever >100.5/[place] Al Hydrox/Mg Hydrox/Simethicone 30 ml 12/25/18 13:14 12/27/18 09:57 Alum-Mag Hydrox-Simeth 512-089-31rw/5ml PO 30 ml DAILY PRN Administration Indigestion Albuterol 2.5 mg 12/26/18 21:47 Proventil IH Q4HRT PRN Shortness Of Breath Albuterol/Ipratropium 1 ampul 12/27/18 12:00 12/29/18 08:18 Duoneb *Not For Prn Use* IH 1 ampul Q4HRT KELLY Administration Alprazolam 0.25 mg 12/26/18 18:46 12/28/18 21:58 Xanax PO 0.25 mg Q8H PRN Administration Anxiety Arformoterol Tartrate 15 mcg 12/26/18 20:00 12/29/18 08:18 Brovana Nebu IH 15 mcg Q12HRT KELLY Administration Bisacodyl 10 mg 12/26/18 13:50 12/28/18 21:52 Dulcolax PO 10 mg QDAY PRN Administration Constipation Budesonide 0.5 mg 12/26/18 20:00 12/29/18 08:18 Pulmicort IH 0.5 mg Q12HRT KELLY Administration Enoxaparin Sodium 30 mg 12/25/18 10:00 12/29/18 09:29 Lovenox SUB-Q 30 mg QDAY KELLY Administration Furosemide 40 mg 12/27/18 06:00 12/29/18 06:00 Lasix IV 40 mg 0600,1800 KELLY Administration Gabapentin 200 mg 12/26/18 22:00 12/29/18 09:26 Neurontin PO 200 mg BID KELLY Administration Guaifenesin 600 mg 12/26/18 22:00 12/29/18 09:27 Mucinex Er PO 600 mg BID KELLY Administration Azithromycin 500 mg/ Sodium 250 mls @ 250 mls/hr 12/27/18 10:00 12/29/18 09:46 Chloride IV 250 mls/hr Q24HR KELLY Administration Insulin Human Isoph/Insulin Regular 10 unit 12/27/18 08:00 12/29/18 09:17 Humulin 70/30 SUB-Q 10 unit BIDDIAB KELLY Administration Insulin Human Lispro 0 unit 12/26/18 16:30 12/29/18 09:17 Humalog SUB-Q 4 unit ACHS [facility] Administration Protocol Magnesium Hydroxide 30 ml 12/26/18 13:51 12/29/18 09:38 Milk Of Magnesia PO 30 ml QDAY PRN Administration costipation Methylprednisolone Sodium Succinate 60 mg 12/25/18 06:00 12/29/18 05:59 Solu-Medrol IV 60 mg Q6HR KELLY Administration Miscellaneous Medication 75 mcg 12/28/18 10:00 Indacaterol Maleate [Arcapta Neohaler] IH DAILY [facility] Morphine Sulfate 2 mg 12/26/18 17:12 Morphine IV Q6H PRN Pain, Moderate (4-6) Ondansetron HCl 4 mg 12/25/18 00:48 12/26/18 21:08 Zofran IV 4 mg Q8H PRN Administration Nausea And Vomiting Oxycodone/Acetaminophen 1 tab 12/26/18 18:26 12/27/18 17:47 Percocet 5/325 PO 1 tab Q6H PRN Administration Pain, Moderate (4-6) Pantoprazole Sodium 40 mg 12/27/18 10:00 12/29/18 09:26 Protonix PO 40 mg QDAY KELLY Administration Sodium Bicarbonate 650 mg 12/25/18 22:00 12/29/18 09:26 Sodium Bicarbonate PO 650 mg BID KELLY Administration Sodium Chloride 10 ml 12/24/18 20:37 12/28/18 06:06 Sodium Chloride Flush Syringe 10 Ml IV 10 ml PRN PRN Administration LINE FLUSH Sodium Chloride 10 ml 12/25/18 10:00 12/29/18 09:29 Sodium Chloride Flush Syringe 10 Ml IV 10 ml BID KELLY Administration Sucralfate 1 gm 12/28/18 00:00 12/29/18 05:59 Carafate PO 1 gm Q6HR KELLY Administration Theophylline 150 mg 12/25/18 18:00 12/28/18 18:59 Theodur PO 150 mg QPM KELLY Administration Theophylline 300 mg 12/26/18 10:00 12/29/18 09:30 Theodur PO 300 mg QAM KELLY Administration Tiotropium [place] 1 puff 12/27/18 09:00 12/28/18 11:18 Spiriva IH Not Given Q24HRT [facility] Verapamil HCl 180 mg 12/26/18 10:00 12/29/18 09:27 Calan Sr PO 180 mg DAILY KELLY Administration
--- NOTE | 2018-12-29 10:56 | Progress Note ---
Assessment and Plan - Patient Problems (1) Acute kidney injury superimposed on chronic kidney disease Current Visit: Yes Status: Acute (2) Acute on chronic respiratory failure with hypoxemia Current Visit: Yes Status: Acute (3) CHF (congestive heart failure) Current Visit: Yes Status: Acute (4) Volume overload Current Visit: Yes Status: Acute (5) COPD (chronic obstructive pulmonary disease) Current Visit: Yes Status: Chronic (6) Morbid obesity Current Visit: No Status: Acute Subjective Interval history: no new complaints. feels bettr c/o dry mouth Objective Vital Signs - 12hr 12/28/18 12/29/18 12/29/18 23:21 03:43 04:45 Temperature 97.5 F L 97.5 F L Pulse Rate 93 H 90 91 H Respiratory 18 18 Rate Blood Pressure 107/47 111/53 O2 Sat by Pulse 93 94 Oximetry 12/29/18 12/29/18 08:25 09:27 Temperature 97.9 F Pulse Rate 99 H 91 H Respiratory 20 Rate Blood Pressure 140/67 140/67 O2 Sat by Pulse 94 Oximetry Constitutional: other (general morbidly obese female in mild distress) Eyes: non-icteric ENT: oropharynx moist Neck: supple, no JVD (but large neck) Ascultation: Bilateral: clear, diminished breath sounds Cardiovascular: regular rate and rhythm Gastrointestinal: normoactive bowel sounds, non-distended, other (Limited exam due to morbid obesity) Integumentary: normal Extremities: no cyanosis, other (mild pretibial edema) Neurologic: normal mental status, non-focal exam, CN II-XII normal Psychiatric: anxious CBC and BMP: 12/24/18 14:54 12/28/18 10:56 Abnormal lab findings: Abnormal Labs 12/24/18 12/24/18 12/24/18 14:54 14:54 15:15 Lymph % (Auto) 4.6 L Lymph # 0.4 L Seg Neutrophils % 87.2 H Seg Neutrophils # 8.5 H Sodium Chloride BUN 23 H Creatinine 2.3 H Glucose 125 H POC Glucose NT-Pro-B Natriuret Pep 1627 H Total Protein 5.2 L Albumin 3.2 L Lipase 12 L 12/25/18 12/25/18 12/25/18 05:45 17:23 20:59 Lymph % (Auto) Lymph # Seg Neutrophils % Seg Neutrophils # Sodium Chloride BUN 26 H Creatinine 2.6 H Glucose 108 H POC Glucose 155 H 209 H NT-Pro-B Natriuret Pep Total Protein Albumin Lipase 12/26/18 12/26/18 12/26/18 08:43 11:11 16:41 Lymph % (Auto) Lymph # Seg Neutrophils % Seg Neutrophils # Sodium Chloride BUN Creatinine Glucose POC Glucose 187 H 204 H 198 H NT-Pro-B Natriuret Pep Total Protein Albumin Lipase 12/26/18 12/27/18 12/27/18 20:52 09:29 09:47 Lymph % (Auto) Lymph # Seg Neutrophils % Seg Neutrophils # Sodium 136 L Chloride 90.2 L BUN 34 H Creatinine 2.6 H Glucose 303 H POC Glucose 198 H 266 H NT-Pro-B Natriuret Pep 2536 H Total Protein Albumin Lipase 12/27/18 12/27/18 12/28/18 16:55 21:54 07:30 Lymph % (Auto) Lymph # Seg Neutrophils % Seg Neutrophils # Sodium Chloride BUN Creatinine Glucose POC Glucose 242 H 234 H 233 H NT-Pro-B Natriuret Pep Total Protein Albumin Lipase 12/28/18 12/28/18 12/28/18 10:56 12:29 17:11 Lymph % (Auto) Lymph # Seg Neutrophils % Seg Neutrophils # Sodium 133 L Chloride 88.9 L BUN 45 H Creatinine 2.8 H Glucose 426 H POC Glucose 331 H 299 H NT-Pro-B Natriuret Pep Total Protein Albumin Lipase 12/28/18 12/29/18 21:41 07:28 Lymph % (Auto) Lymph # Seg Neutrophils % Seg Neutrophils # Sodium Chloride BUN Creatinine Glucose POC Glucose 359 H 275 H NT-Pro-B Natriuret Pep Total Protein Albumin Lipase
[2018-12-29] MEDS: SPIRIVA IH SCH (11:08)
--- NOTE | 2018-12-29 18:32 | Progress Note ---
Assessment and Plan Assessment and plan: --Acute exacerbation of COPD; Oxygen titrate to O2 sats more than 90%, nebulizers and IV steroids IV antibiotic inhalation steroids supportive care --Acute on chronic hypoxic respiratory failure; Secondary to COPD exacerbation, home oxygen dependent Continue about treatmen --Chronic kidney disease; closely monitor renal function Avoid nephrotoxins, nephrology evaluation if needed --Morbid obesity; BMI 50.8, advised weight reduction and medically stable --Congestive heart failure --Type 2 diabetes mellitus; moderate control Accu-Chek sliding scale coverage and ADA diet and long-acting insulin --Possible obstructive sleep apnea; CPAP BiPAP at night --Gastroesophageal reflux disease; Protonix -- DVT prophylaxis Lovenox Physical therapy occupational therapy Closely monitor the patient and adjust management as needed History Interval history: Patient seen and examined medical records reviewed No events reported by the nursing staff Patient feels slightly better Alert awake oriented 3 vital signs reviewed Denies chest pain shortness of breath significantly improved Hospitalist Physical - Constitutional Vitals: Temp Pulse Resp BP Pulse Ox 97.8 F 95 H 20 125/49 94 12/29/18 16:56 12/29/18 17:08 12/29/18 17:08 12/29/18 16:56 12/29/18 16:56 General appearance: Present: no acute distress, well-nourished, obese (morbidly obese) - EENT Eyes: Present: PERRL, EOM intact - Neck Neck: Present: supple, normal ROM - Respiratory Respiratory effort: normal Respiratory: bilateral: diminished, wheezing, negative: rales, rhonchi - Cardiovascular Rhythm: regular Heart Sounds: Present: S1 & S2 - Extremities Extremities: no ischemia, No edema - Abdominal General gastrointestinal: soft, non-tender, non-distended, normal bowel sounds - Integumentary Integumentary: Present: clear, warm - Psychiatric Psychiatric: appropriate mood/affect, cooperative - Neurologic Neurologic: CNII-XII intact, moves all extremities Results - Labs CBC & Chem 7: 12/24/18 14:54 12/28/18 10:56 Labs: Laboratory Last Values WBC 9.7 K/mm3 (4.5-11.0) 12/24/18 14:54 RBC 4.41 M/mm3 (3.65-5.03) 12/24/18 14:54 Hgb 12.1 gm/dl (10.1-14.3) 12/24/18 14:54 Hct 37.6 % (30.3-42.9) 12/24/18 14:54 MCV 85 fl (79-97) 12/24/18 14:54 MCH 28 pg (28-32) 12/24/18 14:54 MCHC 32 % (30-34) 12/24/18 14:54 RDW 14.3 % (13.2-15.2) 12/24/18 14:54 Plt Count 288 K/mm3 (140-440) 12/24/18 14:54 Lymph % (Auto) 4.6 % (13.4-35.0) L 12/24/18 14:54 [place] % (Auto) 6.1 % (0.0-7.3) 12/24/18 14:54 Eos % (Auto) 1.5 % (0.0-4.3) 12/24/18 14:54 Baso % (Auto) 0.6 % (0.0-1.8) 12/24/18 14:54 Lymph # 0.4 K/mm3 (1.2-5.4) L 12/24/18 14:54 [place] # 0.6 K/mm3 (0.0-0.8) 12/24/18 14:54 Eos # 0.1 K/mm3 (0.0-0.4) 12/24/18 14:54 Baso # 0.1 K/mm3 (0.0-0.1) 12/24/18 14:54 Seg Neutrophils % 87.2 % (40.0-70.0) H 12/24/18 14:54 Seg Neutrophils # 8.5 K/mm3 (1.8-7.7) H 12/24/18 14:54 Sodium 133 mmol/L (137-145) L 12/28/18 10:56 Potassium 4.4 mmol/L (3.6-5.0) 12/28/18 10:56 Chloride 88.9 mmol/L (98-107) L 12/28/18 10:56 Carbon Dioxide 27 mmol/L (22-30) 12/28/18 10:56 Anion Gap 22 mmol/L 12/28/18 10:56 BUN 45 mg/dL (7-17) H 12/28/18 10:56 Creatinine 2.8 mg/dL (0.7-1.2) H 12/28/18 10:56 Estimated GFR 16 ml/min 12/28/18 10:56 BUN/Creatinine Ratio 16 % 12/28/18 10:56 Glucose 426 mg/dL (65-100) H 12/28/18 10:56 POC Glucose 203 (70-105) H 12/29/18 17:02 Calcium 8.7 mg/dL (8.4-10.2) 12/28/18 10:56 Total Bilirubin 0.50 mg/dL (0.1-1.2) 12/24/18 15:15 Direct Bilirubin < 0.2 mg/dL (0-0.2) 12/24/18 15:15 Indirect Bilirubin 0.3 mg/dL 12/24/18 15:15 AST 11 units/L (5-40) 12/24/18 15:15 ALT 8 units/L (7-56) 12/24/18 15:15 Alkaline Phosphatase 87 units/L (35-129) 12/24/18 15:15 NT-Pro-B Natriuret Pep 2536 pg/mL (0-900) H 12/27/18 09:47 Total Protein 5.2 g/dL (6.3-8.2) L 12/24/18 15:15 Albumin 3.2 g/dL (3.9-5) L 12/24/18 15:15 Albumin/Globulin Ratio 1.6 % 12/24/18 15:15 Lipase 12 units/L (13-60) L 12/24/18 15:15 Urine Color Yellow (Yellow) 12/28/18 06:51 Urine Turbidity Clear (Clear) 12/28/18 06:51 Urine pH 5.0 (5.0-7.0) 12/28/18 06:51 Ur Specific [place] 1.011 (1.003-1.030) 12/28/18 06:51 Urine Protein <15 mg/dl mg/dL (Negative) 12/28/18 06:51 Urine Glucose (UA) Neg mg/dL (Negative) 12/28/18 06:51 Urine Ketones Neg mg/dL (Negative) 12/28/18 06:51 Urine Blood Neg (Negative) 12/28/18 06:51 Urine Nitrite Neg (Negative) 12/28/18 06:51 Urine Bilirubin Neg (Negative) 12/28/18 06:51 Urine Urobilinogen < 2.0 mg/dL (<2.0) 12/28/18 06:51 Ur Leukocyte Esterase Neg (Negative) 12/28/18 06:51 Urine WBC (Auto) 1.0 /HPF (0.0-6.0) 12/28/18 06:51 Urine RBC (Auto) 1.0 /HPF (0.0-6.0) 12/28/18 06:51 U Epithel Cells (Auto) < 1.0 /HPF (0-13.0) 12/28/18 06:51 Nutrition/Malnutrition Assess - Dietary Evaluation Nutrition/Malnutrition Findings: Nutrition Notes Start: 12/25/18 15:17 Freq: Status: Active Protocol: Document 12/25/18 15:17 RM (Rec: 12/25/18 15:18 RM [id number]) Nutrition Notes Need for 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 No fay score in record. No skin problems noted in record. Nutrition Intervention Revisit per MD consult or patient Sign Off request:
[2018-12-29] MEDS: XANAX PO PRN (22:48)
[2018-12-30] MEDS: CARAFATE PO SCH ×6 (00:32→23:06)
[2018-12-30] MEDS: SOLU-Medrol IV SCH ×5 (00:32→23:06)
[2018-12-30 06:01] LABS: Hematocrit 36.4 % (30.3-42.9); Hemoglobin 11.7 gm/dl (10.1-14.3); Mean Corpuscular HGB Conc 32 % (30-34); Mean Corpuscular Volume 84 fl (79-97); Platelet Count 340 K/mm3 (140-440); Red Blood Count 4.36 M/mm3 (3.65-5.03); Red Cell Distribution Width 14.1 % (13.2-15.2)
[2018-12-30 06:24] LABS: Calcium 8.5 mg/dL (8.4-10.2)
[2018-12-30] MEDS: PERCOCET 5/325 PO PRN (06:28)
[2018-12-30] MEDS: DULCOLAX PO PRN (06:30)
[2018-12-30] MEDS ORDERED: DUONEB *Not for PRN Use IH SCH (08:00)
[2018-12-30] MEDS: PULMICORT IH SCH ×2 (08:16→20:02)
[2018-12-30] MEDS: BROVANA NEBU IH SCH ×2 (08:16→20:02)
[2018-12-30] MEDS: HumaLOG SUB-Q SCH ×4 (08:49→22:46)
[2018-12-30] MEDS: LOVENOX SUB-Q SCH (09:19)
[2018-12-30] MEDS: NEURONTIN PO SCH ×2 (09:20→22:41)
[2018-12-30] MEDS: MUCINEX ER PO SCH ×2 (09:20→22:41)
[2018-12-30] MEDS: PROTONIX PO SCH (09:20)
[2018-12-30] MEDS: SODIUM BICARBONATE PO SCH (09:20)
[2018-12-30] MEDS: SODIUM CHLORIDE FLUSH SYRINGE 10 ML IV SCH ×2 (09:21→22:42)
[2018-12-30] MEDS: ZITHROMAX 500 MG in NACL 0.9% 250ML 250 ML IV SCH (09:21)
--- NOTE | 2018-12-30 09:35 | Progress Note ---
Assessment and Plan COPD with exacerbation, still wheezing Mild CHF exacerbation. See x-rays.improved.On diuretics,high BUN/creat Mild confusional state . Resolved, most likely due to respiratory distress History of morbid obesity Hypertension SAKSHI. On home CPAP/BPAP CKD Recommendations CHF TX per IMS/Cards Will add chest PT DuoNeb to QID schedule ( on TID) Monitor renal function status, output Continue steroids Monitor blood sugar Oxygen support via nasal cannula or mask to maintain oximetry over 92% OOB as tolerated IS is been donees DVT prophylaxis Discussed with patient in detail. All questions answered. Subjective Date of service: 12/30/18 Principal diagnosis: CHF,COPD exacerbation,severe morbid obesity,SAKSHI Interval history: c/o difficult expectoration.Some wheezing. Mild improvement overall in SOB Objective Vital Signs - 12hr 12/29/18 12/29/18 12/29/18 22:00 23:30 23:35 Temperature Pulse Rate 99 H Respiratory Rate Blood Pressure O2 Sat by Pulse 96 96 Oximetry 12/30/18 12/30/18 12/30/18 00:08 03:40 04:37 Temperature 98.2 F 97.8 F Pulse Rate 103 H 100 H 98 H Respiratory 20 20 Rate Blood Pressure 128/73 O2 Sat by Pulse 93 93 Oximetry 12/30/18 08:46 Temperature 97.6 F Pulse Rate 98 H Respiratory 20 Rate Blood Pressure 123/60 O2 Sat by Pulse 91 Oximetry Constitutional: no acute distress, other (severe morbidly obese ) Eyes: non-icteric ENT: oropharynx moist Neck: supple, no JVD (but large neck) Ascultation: Bilateral: clear, diminished breath sounds, wheezes Cardiovascular: regular rate and rhythm Gastrointestinal: normoactive bowel sounds, non-distended, other (Limited exam due to morbid obesity) Integumentary: normal Extremities: no cyanosis, other (mild pretibial edema) Neurologic: normal mental status, non-focal exam, CN II-XII normal Psychiatric: anxious CBC and BMP: 12/30/18 05:38 12/30/18 05:38 Abnormal lab findings: Abnormal Labs 12/24/18 12/24/18 12/24/18 14:54 14:54 15:15 WBC MCH Lymph % (Auto) 4.6 L Lymph # 0.4 L Seg Neutrophils % 87.2 H Seg Neutrophils # 8.5 H Sodium Chloride Carbon Dioxide BUN 23 H Creatinine 2.3 H Glucose 125 H POC Glucose Magnesium NT-Pro-B Natriuret Pep 1627 H Total Protein 5.2 L Albumin 3.2 L Lipase 12 L 12/25/18 12/25/18 12/25/18 05:45 17:23 20:59 WBC MCH Lymph % (Auto) Lymph # Seg Neutrophils % Seg Neutrophils # Sodium Chloride Carbon Dioxide BUN 26 H Creatinine 2.6 H Glucose 108 H POC Glucose 155 H 209 H Magnesium NT-Pro-B Natriuret Pep Total Protein Albumin Lipase 12/26/18 12/26/18 12/26/18 08:43 11:11 16:41 WBC MCH Lymph % (Auto) Lymph # Seg Neutrophils % Seg Neutrophils # Sodium Chloride Carbon Dioxide BUN Creatinine Glucose POC Glucose 187 H 204 H 198 H Magnesium NT-Pro-B Natriuret Pep Total Protein Albumin Lipase 12/26/18 12/27/18 12/27/18 20:52 09:29 09:47 WBC MCH Lymph % (Auto) Lymph # Seg Neutrophils % Seg Neutrophils # Sodium 136 L Chloride 90.2 L Carbon Dioxide BUN 34 H Creatinine 2.6 H Glucose 303 H POC Glucose 198 H 266 H Magnesium NT-Pro-B Natriuret Pep 2536 H Total Protein Albumin Lipase 12/27/18 12/27/18 12/28/18 16:55 21:54 07:30 WBC MCH Lymph % (Auto) Lymph # Seg Neutrophils % Seg Neutrophils # Sodium Chloride Carbon Dioxide BUN Creatinine Glucose POC Glucose 242 H 234 H 233 H Magnesium NT-Pro-B Natriuret Pep Total Protein Albumin Lipase 12/28/18 12/28/18 12/28/18 10:56 12:29 17:11 WBC MCH Lymph % (Auto) Lymph # Seg Neutrophils % Seg Neutrophils # Sodium 133 L Chloride 88.9 L Carbon Dioxide BUN 45 H Creatinine 2.8 H Glucose 426 H POC Glucose 331 H 299 H Magnesium NT-Pro-B Natriuret Pep Total Protein Albumin Lipase 12/28/18 12/29/18 12/29/18 21:41 07:28 13:18 WBC MCH Lymph % (Auto) Lymph # Seg Neutrophils % Seg Neutrophils # Sodium Chloride Carbon Dioxide BUN Creatinine Glucose POC Glucose 359 H 275 H 247 H Magnesium NT-Pro-B Natriuret Pep Total Protein Albumin Lipase 12/29/18 12/30/18 12/30/18 17:02 05:38 05:38 WBC 16.7 H MCH 27 L Lymph % (Auto) Lymph # Seg Neutrophils % Seg Neutrophils # Sodium 136 L Chloride 89.8 L Carbon Dioxide 31 H BUN 64 H Creatinine 2.9 H Glucose 287 H POC Glucose 203 H Magnesium 2.50 H NT-Pro-B Natriuret Pep Total Protein Albumin Lipase
[2018-12-30 10:09] LABS: Band Neutrophils # (Manual) 0.2 K/mm3; Basophils % (Manual) 0 % (0.0-1.8); Eosinophils % (Manual) 0 % (0.0-4.3); Giant Platelets Rare; Platelet Estimate Consistent w Auto; RBC Morphology Normal; Total Cells Counted 100
--- NOTE | 2018-12-30 10:13 | Progress Note ---
Subjective Principal diagnosis: CHF,COPD exacerbation,severe morbid obesity,SAKSHI Interval history: Patient was seen today for follow-up on multiple renal related issues She is feeling better, does complain of some dryness in her mouth Patient denies having any chest pain pressure or shortness of breath Vitals labs intake output medications were reviewed Social history: Reviewed Allergies: Reviewed Family history: Reviewed Physical examination HEENT: Oral mucosa moist no pallor or icterus Neck: Supple no JVD Chest: Bilateral distant breath sounds CVS: Regular rate and rhythm S1 and S2 heard Abdomen: Soft nontender no suprapubic masses no organomegaly appreciable Extremity: Dry skin less than 1+ peripheral edema Musculoskeletal: No joint effusion noted in knees and ankle Neurological: Alert awake Dermatology: No petechial rashes Psychiatry: No evidence of any agitation and aggression noted Assessment and plan Chronic kidney disease patient's baseline creatinine is around 2.5 current creatinine is 2.9 Lasix has been withheld Patient was also poorly compliant with her sodium and fluid intake resulting in fluid retention volume overload Renal prognosis is very guarded and she is aware of that Mild contraction alkalosis to monitor and follow There is no need for IV hydration at this time monitor renal function tomorrow Overall she is doing better from renal standpoint Renal function is stable tomorrow she can be discharged to follow-up in the office next week We'll continue to follow and make recommendation from renal standpoint Objective - Vital Signs Vital signs: Vital Signs - 12hr 12/29/18 12/29/18 12/30/18 23:30 23:35 00:08 Temperature 98.2 F Pulse Rate 103 H Respiratory 20 Rate Blood Pressure O2 Sat by Pulse 96 96 93 Oximetry 12/30/18 12/30/18 12/30/18 03:40 04:37 08:46 Temperature 97.8 F 97.6 F Pulse Rate 100 H 98 H 98 H Respiratory 20 20 Rate Blood Pressure 128/73 123/60 O2 Sat by Pulse 93 91 Oximetry - Lab 12/30/18 05:38 12/30/18 05:38 Most recent lab results Calcium 8.5 mg/dL (8.4-10.2) 12/30/18 05:38 Magnesium 2.50 mg/dL (1.7-2.3) H 12/30/18 05:38 Medications & Allergies - Medications Allergies/Adverse Reactions: Allergies aspirin Allergy (Verified 09/17/17 17:58) Shortness of Breath , CHEST PAIN escitalopram [From Lexapro] Allergy (Verified 04/17/18 11:43) Shortness of Breath salmeterol xinafoate [From Serevent] Allergy (Verified 01/22/17 08:45) Shortness of Breath levofloxacin [From Levaquin] Adverse Reaction (Verified 09/13/16 16:22) Rash Sulfa (Sulfonamide Antibiotics) Adverse Reaction (Verified 10/31/17 11:19) contraindicated due to kidney function states her doctor told her to not take sulfa due to renal insufficiency tramadol Adverse Reaction (Verified 09/19/18 16:34) Nausea contrast dye Adverse Reaction (Uncoded 04/17/18 11:59) contraindicated due to renal insufficiency Home Medications: Home Medications Medication Instructions Recorded Confirmed Last Taken Type Sodium Bicarbonate 650 mg PO BID #60 tablet 10/29/18 12/24/18 Unknown Rx Verapamil ER [Calan SR] 180 mg PO DAILY #30 10/29/18 12/24/18 10/02/18 07:30 Rx predniSONE [Deltasone] 10 mg PO Q48H 30 Days tablet 10/29/18 12/24/18 Unknown Rx Theophylline Anhydrous ER [Theodur] 150 mg PO QPM 12/24/18 12/24/18 Unknown History Theophylline Anhydrous ER [Theodur] 300 mg PO QAM 12/24/18 12/24/18 Unknown History Beclomethasone Dipropionate [Qvar 2 inhalation IH BID 12/26/18 12/26/18 Unknown History Redihaler] Gabapentin [Neurontin] 100 mg PO TID 12/26/18 12/26/18 Unknown History Indacaterol Maleate [Arcapta 75 mcg IH DAILY 12/26/18 12/26/18 12/24/18 History Neohaler] Insulin NPH Hum/Reg Insulin Hm 100 unit SQ QAC 12/26/18 12/26/18 Unknown History [Novolin 70-30 100 Unit/ml Vial] Ipratropium [place] [Atrovent Hfa] 12.9 gm IH 4XD 12/26/18 12/26/18 12/24/18 History Ipratropium/Albuterol Sulfate 1 spray IH QID 12/26/18 12/26/18 Unknown History [Combivent Respimat] Linaclotide (Nf) [Linzess (Nf)] 290 mcg PO QDAY 12/26/18 12/26/18 Unknown History Ondansetron [Zofran TAB] 4 mg PO Q6HR 12/26/18 12/26/18 12/24/18 History Ranitidine HCl [Zantac 150 MG TAB] 150 mg PO BID 12/26/18 12/26/18 12/24/18 History Sucralfate [Carafate] 1 gm PO Q6HR 12/26/18 12/26/18 Unknown History Tiotropium [place] [Spiriva] 18 mcg IH 4XD 12/26/18 12/26/18 12/24/18 History Active Medications: Generic Name Dose Route Start Last Admin Trade Name Freq PRN Reason Stop Dose Admin Acetaminophen 650 mg 12/25/18 00:48 12/25/18 22:14 Tylenol PO 650 mg Q4H PRN Administration Pain MILD(1-3)/Fever >100.5/[place] Al Hydrox/Mg Hydrox/Simethicone 30 ml 12/25/18 13:14 12/27/18 09:57 Alum-Mag Hydrox-Simeth 097-342-71xn/5ml PO 30 ml DAILY PRN Administration Indigestion Albuterol 2.5 mg 12/26/18 21:47 Proventil IH Q4HRT PRN Shortness Of Breath Albuterol/Ipratropium 1 ampul 12/30/18 14:00 Duoneb *Not For Prn Use* IH Q6HRT KELLY Alprazolam 0.25 mg 12/26/18 18:46 12/29/18 22:48 Xanax PO 0.25 mg Q8H PRN Administration Anxiety Arformoterol Tartrate 15 mcg 12/26/18 20:00 12/30/18 08:16 Brovana Nebu IH 15 mcg Q12HRT KELLY Administration Bisacodyl 10 mg 12/26/18 13:50 12/30/18 06:30 Dulcolax PO 10 mg QDAY PRN Administration Constipation Budesonide 0.5 mg 12/26/18 20:00 12/30/18 08:16 Pulmicort IH 0.5 mg Q12HRT KELLY Administration Enoxaparin Sodium 30 mg 12/25/18 10:00 12/30/18 09:19 Lovenox SUB-Q 30 mg QDAY KELLY Administration Gabapentin 200 mg 12/26/18 22:00 12/30/18 09:20 Neurontin PO 200 mg BID KELLY Administration Guaifenesin 600 mg 12/26/18 22:00 12/30/18 09:20 Mucinex Er PO 600 mg BID EKLLY Administration Azithromycin 500 mg/ Sodium 250 mls @ 250 mls/hr 12/27/18 10:00 12/30/18 09:21 Chloride IV 250 mls/hr Q24HR KELLY Administration Insulin Human Isoph/Insulin Regular 10 unit 12/27/18 08:00 12/30/18 08:50 Humulin 70/30 SUB-Q 10 unit BIDDIAB KELLY Administration Insulin Human Lispro 0 unit 12/26/18 16:30 12/30/18 08:49 Humalog SUB-Q 4 unit ACHS KELLY Administration Protocol Magnesium Hydroxide 30 ml 12/26/18 13:51 12/29/18 09:38 Milk Of Magnesia PO 30 ml QDAY PRN Administration costipation Methylprednisolone Sodium Succinate 60 mg 12/25/18 06:00 12/30/18 06:04 Solu-Medrol IV 60 mg Q6HR KELLY Administration Miscellaneous Medication 75 mcg 12/28/18 10:00 Indacaterol Maleate [Arcapta Neohaler] IH DAILY [facility] Morphine Sulfate 2 mg 12/26/18 17:12 Morphine IV Q6H PRN Pain, Moderate (4-6) Ondansetron HCl 4 mg 12/25/18 00:48 12/26/18 21:08 Zofran IV 4 mg Q8H PRN Administration Nausea And Vomiting Oxycodone/Acetaminophen 1 tab 12/26/18 18:26 12/30/18 06:28 Percocet 5/325 PO 1 tab Q6H PRN Administration Pain, Moderate (4-6) Pantoprazole Sodium 40 mg 12/27/18 10:00 12/30/18 09:20 Protonix PO 40 mg QDAY KELLY Administration Sodium Bicarbonate 650 mg 12/25/18 22:00 12/30/18 09:20 Sodium Bicarbonate PO 650 mg BID KELLY Administration Sodium Chloride 10 ml 12/24/18 20:37 12/28/18 06:06 Sodium Chloride Flush Syringe 10 Ml IV 10 ml PRN PRN Administration LINE FLUSH Sodium Chloride 10 ml 12/25/18 10:00 12/30/18 09:21 Sodium Chloride Flush Syringe 10 Ml IV 10 ml BID KELLY Administration Sucralfate 1 gm 12/28/18 00:00 12/30/18 06:05 Carafate PO 1 gm Q6HR KELLY Administration Theophylline 150 mg 12/25/18 18:00 12/29/18 18:18 Theodur PO 150 mg QPM KELLY Administration Theophylline 300 mg 12/26/18 10:00 12/29/18 09:30 Theodur PO 300 mg QAM KELLY Administration Tiotropium [place] 1 puff 12/27/18 09:00 12/29/18 11:08 Spiriva IH Not Given Q24HRT KELLY Verapamil HCl 180 mg 12/26/18 10:00 12/29/18 09:27 Calan Sr PO 180 mg DAILY KELLY Administration
[2018-12-30] MEDS: SPIRIVA IH SCH (11:15)
[2018-12-30] MEDS: CALAN SR PO SCH (12:09)
[2018-12-30] MEDS: THEODUR PO SCH ×2 (12:10→17:17)
[2018-12-30] MEDS: DUONEB *Not for PRN Use IH SCH ×2 (14:21→20:02)
[2018-12-30] MEDS: MORPHINE IV PRN (15:28)
[2018-12-30] MEDS: XANAX PO PRN ×2 (15:29→22:41)
--- NOTE | 2018-12-30 20:36 | Progress Note ---
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 was admitted through emergency room with worsening shortness of breath noted to be in acute on chronic respiratory failure requiring BiPAP, Patient is evaluated by pulmonary critical, nephrology for chronic kidney disease --Acute on chronic hypoxic respiratory failure; Secondary to COPD exacerbation, home oxygen dependent Continue nebulizers IV steroids and IV antibiotics inhalation steroids Pulmonary following --Acute exacerbation of COPD; Oxygen titrate to O2 sats more than 90%, nebulizers and IV steroids IV antibiotic inhalation steroids supportive care --Chronic kidney disease; closely monitor renal function Avoid nephrotoxins, nephrology following --Morbid obesity; BMI 50.8, advised weight reduction when medically stable --Type 2 diabetes mellitus; moderate control Accu-Chek sliding scale coverage and ADA diet and long-acting insulin --Possible obstructive sleep apnea; CPAP BiPAP at night --Gastroesophageal reflux disease; Protonix -- DVT prophylaxis Lovenox --Full code Physical therapy occupational therapy Closely monitor the patient and adjust management as needed Disposition; out of bed to chair, PT OT Possible discharge in 1-2 days if stable with home health History Interval history: Patient seen and examined medical records reviewed patient feels slightly better, mild shortness of breath Denies chest pain Alert awake oriented 3 Vital signs noted Hospitalist Physical - Constitutional Vitals: Temp Pulse Resp BP Pulse Ox 98.0 F 91 H 16 141/44 93 12/30/18 18:11 12/30/18 20:18 12/30/18 20:18 12/30/18 18:11 12/30/18 20:04 General appearance: Present: no acute distress, well-nourished, obese (morbidly obese) - EENT Eyes: Present: PERRL, EOM intact - Neck Neck: Present: supple, normal ROM - Respiratory Respiratory effort: normal Respiratory: bilateral: diminished, rhonchi, negative: rales, wheezing - Cardiovascular Rhythm: regular Heart Sounds: Present: S1 & S2 - Extremities Extremities: no ischemia Extremity abnormal: edema - Abdominal General gastrointestinal: soft, non-tender, non-distended, normal bowel sounds - Integumentary Integumentary: Present: clear, warm - Psychiatric Psychiatric: appropriate mood/affect, cooperative - Neurologic Neurologic: moves all extremities Results - Labs CBC & Chem 7: 12/30/18 05:38 12/30/18 05:38 Labs: Laboratory Last Values WBC 16.7 K/mm3 (4.5-11.0) H 12/30/18 05:38 RBC 4.36 M/mm3 (3.65-5.03) 12/30/18 05:38 Hgb 11.7 gm/dl (10.1-14.3) 12/30/18 05:38 Hct 36.4 % (30.3-42.9) 12/30/18 05:38 MCV 84 fl (79-97) 12/30/18 05:38 MCH 27 pg (28-32) L 12/30/18 05:38 MCHC 32 % (30-34) 12/30/18 05:38 RDW 14.1 % (13.2-15.2) 12/30/18 05:38 Plt Count 340 K/mm3 (140-440) 12/30/18 05:38 Lymph % (Auto) 4.6 % (13.4-35.0) L 12/24/18 14:54 [place] % (Auto) 6.1 % (0.0-7.3) 12/24/18 14:54 Eos % (Auto) 1.5 % (0.0-4.3) 12/24/18 14:54 Baso % (Auto) 0.6 % (0.0-1.8) 12/24/18 14:54 Lymph # 0.4 K/mm3 (1.2-5.4) L 12/24/18 14:54 [place] # 0.6 K/mm3 (0.0-0.8) 12/24/18 14:54 Eos # 0.1 K/mm3 (0.0-0.4) 12/24/18 14:54 Baso # 0.1 K/mm3 (0.0-0.1) 12/24/18 14:54 Add Manual Diff Complete 12/30/18 05:38 Total Counted 100 12/30/18 05:38 Seg Neutrophils % Deputy Program Manager 12/30/18 05:38 Seg Neuts % (Manual) 94.0 % (40.0-70.0) H 12/30/18 05:38 Band Neutrophils % 1.0 % 12/30/18 05:38 Lymphocytes % (Manual) 3.0 % (13.4-35.0) L 12/30/18 05:38 Reactive Lymphs % (Man) 0 % 12/30/18 05:38 Monocytes % (Manual) 1.0 % (0.0-7.3) 12/30/18 05:38 Eosinophils % (Manual) 0 % (0.0-4.3) 12/30/18 05:38 Basophils % (Manual) 0 % (0.0-1.8) 12/30/18 05:38 Metamyelocytes % 1.0 % 12/30/18 05:38 Myelocytes % 0 % 12/30/18 05:38 Promyelocytes % 0 % 12/30/18 05:38 Blast Cells % 0 % 12/30/18 05:38 Nucleated RBC % Not Reportable 12/30/18 05:38 Seg Neutrophils # 8.5 K/mm3 (1.8-7.7) H 12/24/18 14:54 Seg Neutrophils # Man 15.7 K/mm3 (1.8-7.7) H 12/30/18 05:38 Band Neutrophils # 0.2 K/mm3 12/30/18 05:38 Lymphocytes # (Manual) 0.5 K/mm3 (1.2-5.4) L 12/30/18 05:38 Abs React Lymphs (Man) 0.0 K/mm3 12/30/18 05:38 Monocytes # (Manual) 0.2 K/mm3 (0.0-0.8) 12/30/18 05:38 Eosinophils # (Manual) 0.0 K/mm3 (0.0-0.4) 12/30/18 05:38 Basophils # (Manual) 0.0 K/mm3 (0.0-0.1) 12/30/18 05:38 Metamyelocytes # 0.2 K/mm3 12/30/18 05:38 Myelocytes # 0.0 K/mm3 12/30/18 05:38 Promyelocytes # 0.0 K/mm3 12/30/18 05:38 Blast Cells # 0.0 K/mm3 12/30/18 05:38 WBC Morphology Not Reportable 12/30/18 05:38 Hypersegmented Neuts Not Reportable 12/30/18 05:38 Hyposegmented Neuts Not Reportable 12/30/18 05:38 Hypogranular Neuts Not Reportable 12/30/18 05:38 Smudge Cells Not Reportable 12/30/18 05:38 Toxic Granulation Not Reportable 12/30/18 05:38 Toxic Vacuolation Not Reportable 12/30/18 05:38 Dohle Bodies Not Reportable 12/30/18 05:38 Pelger-Huet Anomaly Not Reportable 12/30/18 05:38 Aaron Rods Not Reportable 12/30/18 05:38 Platelet Estimate Consistent w auto 12/30/18 05:38 Clumped Platelets Not Reportable 12/30/18 05:38 Plt Clumps, EDTA Not Reportable 12/30/18 05:38 Large Platelets Not Reportable 12/30/18 05:38 Giant Platelets Rare 12/30/18 05:38 Platelet Satelliting Not Reportable 12/30/18 05:38 Plt Morphology Comment Not Reportable 12/30/18 05:38 RBC Morphology Normal 12/30/18 05:38 Dimorphic RBCs Not Reportable 12/30/18 05:38 Polychromasia Not Reportable 12/30/18 05:38 Hypochromasia Not Reportable 12/30/18 05:38 Poikilocytosis Not Reportable 12/30/18 05:38 Anisocytosis Not Reportable 12/30/18 05:38 Microcytosis Not Reportable 12/30/18 05:38 Macrocytosis Not Reportable 12/30/18 05:38 Spherocytes Not Reportable 12/30/18 05:38 Pappenheimer Bodies Not Reportable 12/30/18 05:38 Sickle Cells Not Reportable 12/30/18 05:38 Target Cells Not Reportable 12/30/18 05:38 Tear Drop Cells Not Reportable 12/30/18 05:38 Ovalocytes Not Reportable 12/30/18 05:38 Helmet Cells Not Reportable 12/30/18 05:38 Sol-Jewell Bodies Not Reportable 12/30/18 05:38 [place] Rings Not Reportable 12/30/18 05:38 [place] Cells Not Reportable 12/30/18 05:38 Bite Cells Not Reportable 12/30/18 05:38 Crenated Cell Not Reportable 12/30/18 05:38 Elliptocytes Not Reportable 12/30/18 05:38 Acanthocytes (Spur) Not Reportable 12/30/18 05:38 Rouleaux Not Reportable 12/30/18 05:38 Hemoglobin C Crystals Not Reportable 12/30/18 05:38 Schistocytes Not Reportable 12/30/18 05:38 Malaria parasites Not Reportable 12/30/18 05:38 Osvaldo Bodies Not Reportable 12/30/18 05:38 Hem Pathologist Commnt No 12/30/18 05:38 Sodium 136 mmol/L (137-145) L 12/30/18 05:38 Potassium 4.3 mmol/L (3.6-5.0) 12/30/18 05:38 Chloride 89.8 mmol/L (98-107) L 12/30/18 05:38 Carbon Dioxide 31 mmol/L (22-30) H 12/30/18 05:38 Anion Gap 20 mmol/L 12/30/18 05:38 BUN 64 mg/dL (7-17) H 12/30/18 05:38 Creatinine 2.9 mg/dL (0.7-1.2) H 12/30/18 05:38 Estimated GFR 16 ml/min 12/30/18 05:38 BUN/Creatinine Ratio 22 % 12/30/18 05:38 Glucose 287 mg/dL (65-100) H 12/30/18 05:38 POC Glucose 203 (70-105) H 12/29/18 17:02 Calcium 8.5 mg/dL (8.4-10.2) 12/30/18 05:38 Magnesium 2.50 mg/dL (1.7-2.3) H 12/30/18 05:38 Total Bilirubin 0.50 mg/dL (0.1-1.2) 12/24/18 15:15 Direct Bilirubin < 0.2 mg/dL (0-0.2) 12/24/18 15:15 Indirect Bilirubin 0.3 mg/dL 12/24/18 15:15 AST 11 units/L (5-40) 12/24/18 15:15 ALT 8 units/L (7-56) 12/24/18 15:15 Alkaline Phosphatase 87 units/L (35-129) 12/24/18 15:15 NT-Pro-B Natriuret Pep 2536 pg/mL (0-900) H 12/27/18 09:47 Total Protein 5.2 g/dL (6.3-8.2) L 12/24/18 15:15 Albumin 3.2 g/dL (3.9-5) L 12/24/18 15:15 Albumin/Globulin Ratio 1.6 % 12/24/18 15:15 Lipase 12 units/L (13-60) L 12/24/18 15:15 Urine Color Yellow (Yellow) 12/28/18 06:51 Urine Turbidity Clear (Clear) 12/28/18 06:51 Urine pH 5.0 (5.0-7.0) 12/28/18 06:51 Ur Specific [place] 1.011 (1.003-1.030) 12/28/18 06:51 Urine Protein <15 mg/dl mg/dL (Negative) 12/28/18 06:51 Urine Glucose (UA) Neg mg/dL (Negative) 12/28/18 06:51 Urine Ketones Neg mg/dL (Negative) 12/28/18 06:51 Urine Blood Neg (Negative) 12/28/18 06:51 Urine Nitrite Neg (Negative) 12/28/18 06:51 Urine Bilirubin Neg (Negative) 12/28/18 06:51 Urine Urobilinogen < 2.0 mg/dL (<2.0) 12/28/18 06:51 Ur Leukocyte Esterase Neg (Negative) 12/28/18 06:51 Urine WBC (Auto) 1.0 /HPF (0.0-6.0) 12/28/18 06:51 Urine RBC (Auto) 1.0 /HPF (0.0-6.0) 12/28/18 06:51 U Epithel Cells (Auto) < 1.0 /HPF (0-13.0) 12/28/18 06:51 Theophylline 13.8 ug/mL (10.0-20.0) 12/30/18 10:13 Nutrition/Malnutrition Assess - Dietary Evaluation Nutrition/Malnutrition Findings: Nutrition Notes Start: 12/25/18 15:17 Freq: Status: Active Protocol: Document 12/25/18 15:17 RM (Rec: 12/25/18 15:18 RM [id number]) Nutrition Notes Need for Assessment generated from: blueprint duplicator Initial or Follow up Brief Note Subjective/Other Information Screened for skin risk. No fay score in record. No skin problems noted in record. Nutrition Intervention Revisit per MD consult or patient Sign Off request:
[2018-12-31] MEDS: DUONEB *Not for PRN Use IH SCH ×4 (01:18→22:53)
[2018-12-31] MEDS: SOLU-Medrol IV SCH ×3 (05:32→17:36)
[2018-12-31] MEDS: CARAFATE PO SCH ×3 (05:32→17:35)
[2018-12-31] MEDS: PERCOCET 5/325 PO PRN ×2 (05:40→12:00)
[2018-12-31] MEDS: MILK OF MAGNESIA PO PRN (06:07)
[2018-12-31 07:27] LABS: Calcium 8.4 mg/dL (8.4-10.2)
[2018-12-31] MEDS: HumaLOG SUB-Q SCH ×4 (08:35→21:33)
[2018-12-31 08:59] LABS: Hematocrit 35.8 % (30.3-42.9); Hemoglobin 11.5 gm/dl (10.1-14.3); Mean Corpuscular HGB Conc 32 % (30-34); Mean Corpuscular Volume 82 fl (79-97); Platelet Count 365 K/mm3 (140-440); Red Blood Count 4.35 M/mm3 (3.65-5.03)
[2018-12-31] MEDS: PULMICORT IH SCH ×2 (09:26→22:53)
[2018-12-31] MEDS: BROVANA NEBU IH SCH ×2 (09:26→22:53)
[2018-12-31] MEDS: SPIRIVA IH SCH (09:34)
[2018-12-31 09:45] LABS: Basophils % (Manual) 0 % (0.0-1.8); Eosinophils % (Manual) 0 % (0.0-4.3); Platelet Estimate Consistent w Auto; RBC Morphology Normal; Total Cells Counted 100
--- NOTE | 2018-12-31 09:54 | Progress Note ---
Subjective Principal diagnosis: CHF,COPD exacerbation,severe morbid obesity,SAKSHI Interval history: Patient was seen today for follow-up on multiple renal related issues She is feeling better, does complain of some dryness in her mouth patient admits to being noncompliant with fluid and s Patient denies having any chest pain pressure or shortness of breath Vitals labs intake output medications were reviewed Social history: Reviewed Allergies: Reviewed Family history: Reviewed Physical examination HEENT: Oral mucosa moist no pallor or icterus Neck: Supple no JVD Chest: Bilateral distant breath sounds CVS: Regular rate and rhythm S1 and S2 heard Abdomen: Soft nontender no suprapubic masses no organomegaly appreciable Extremity: Dry skin less than 1+ peripheral edema Musculoskeletal: No joint effusion noted in knees and ankle Neurological: Alert awake Dermatology: No petechial rashes Psychiatry: No evidence of any agitation and aggression noted Assessment and plan chronic kidney disease, patient was prerenal mostly from diuretic renal function has come back to her baseline Chronic kidney disease patient's baseline creatinine is around 2.5 current creatinine is 2.9 Lasix has been withheld Patient was also poorly compliant with her sodium and fluid intake resulting in fluid retention volume overload Renal prognosis is very guarded and she is aware of that Mild contraction alkalosis to monitor and follow There is no need for IV hydration at this time monitor renal function tomorrow Overall she is doing better from renal standpoint Renal function is stable tomorrow she can be discharged to follow-up in the office next week We'll continue to follow and make recommendation from renal standpoint Objective - Vital Signs Vital signs: Vital Signs - 12hr 12/30/18 12/31/18 12/31/18 22:00 00:02 01:18 Temperature 98.3 F Pulse Rate 91 H Pulse Rate [ 93 H Anterior Bilateral Throughout] Respiratory 22 20 Rate Respiratory 17 Rate [Anterior Bilateral Throughout] Respiratory 22 Rate [Lower limbs] Blood Pressure 139/61 O2 Sat by Pulse 96 91 Oximetry 12/31/18 12/31/18 12/31/18 01:28 03:05 05:40 Temperature 98.7 F Pulse Rate 96 H Pulse Rate [ 97 H Anterior Bilateral Throughout] Respiratory 18 20 Rate Respiratory 16 Rate [Anterior Bilateral Throughout] Respiratory Rate [Lower limbs] Blood Pressure 127/47 O2 Sat by Pulse 93 Oximetry 12/31/18 12/31/18 12/31/18 06:40 07:54 08:00 Temperature 97.5 F L Pulse Rate 94 H Pulse Rate [ 101 H Anterior Bilateral Throughout] Respiratory 20 18 Rate Respiratory 19 Rate [Anterior Bilateral Throughout] Respiratory Rate [Lower limbs] Blood Pressure 136/57 O2 Sat by Pulse 91 Oximetry 12/31/18 12/31/18 09:33 09:42 Temperature Pulse Rate Pulse Rate [ 100 H Anterior Bilateral Throughout] Respiratory Rate Respiratory 19 Rate [Anterior Bilateral Throughout] Respiratory Rate [Lower limbs] Blood Pressure O2 Sat by Pulse 96 Oximetry - Lab 12/31/18 06:15 12/31/18 06:15 Most recent lab results Calcium 8.4 mg/dL (8.4-10.2) 12/31/18 06:15 Phosphorus 3.80 mg/dL (2.5-4.5) 12/31/18 06:15 Magnesium 2.50 mg/dL (1.7-2.3) H 12/31/18 06:15 Medications & Allergies - Medications Allergies/Adverse Reactions: Allergies aspirin Allergy (Verified 09/17/17 17:58) Shortness of Breath , CHEST PAIN escitalopram [From Lexapro] Allergy (Verified 04/17/18 11:43) Shortness of Breath salmeterol xinafoate [From Serevent] Allergy (Verified 01/22/17 08:45) Shortness of Breath levofloxacin [From Levaquin] Adverse Reaction (Verified 09/13/16 16:22) Rash Sulfa (Sulfonamide Antibiotics) Adverse Reaction (Verified 10/31/17 11:19) contraindicated due to kidney function states her doctor told her to not take sulfa due to renal insufficiency tramadol Adverse Reaction (Verified 09/19/18 16:34) Nausea contrast dye Adverse Reaction (Uncoded 04/17/18 11:59) contraindicated due to renal insufficiency Home Medications: Home Medications Medication Instructions Recorded Confirmed Last Taken Type Sodium Bicarbonate 650 mg PO BID #60 tablet 10/29/18 12/24/18 Unknown Rx Verapamil ER [Calan SR] 180 mg PO DAILY #30 10/29/18 12/24/18 10/02/18 07:30 Rx predniSONE [Deltasone] 10 mg PO Q48H 30 Days tablet 10/29/18 12/24/18 Unknown Rx Theophylline Anhydrous ER [Theodur] 150 mg PO QPM 12/24/18 12/24/18 Unknown History Theophylline Anhydrous ER [Theodur] 300 mg PO QAM 12/24/18 12/24/18 Unknown History Beclomethasone Dipropionate [Qvar 2 inhalation IH BID 12/26/18 12/26/18 Unknown History Redihaler] Gabapentin [Neurontin] 100 mg PO TID 12/26/18 12/26/18 Unknown History Indacaterol Maleate [Arcapta 75 mcg IH DAILY 12/26/18 12/26/18 12/24/18 History Neohaler] Insulin NPH Hum/Reg Insulin Hm 100 unit SQ QAC 12/26/18 12/26/18 Unknown History [Novolin 70-30 100 Unit/ml Vial] Ipratropium Bunker [Atrovent Hfa] 12.9 gm IH 4XD 12/26/18 12/26/18 12/24/18 History Ipratropium/Albuterol Sulfate 1 spray IH QID 12/26/18 12/26/18 Unknown History [Combivent Respimat] Linaclotide (Nf) [Linzess (Nf)] 290 mcg PO QDAY 12/26/18 12/26/18 Unknown History Ondansetron [Zofran TAB] 4 mg PO Q6HR 12/26/18 12/26/18 12/24/18 History Ranitidine HCl [Zantac 150 MG TAB] 150 mg PO BID 12/26/18 12/26/18 12/24/18 History Sucralfate [Carafate] 1 gm PO Q6HR 12/26/18 12/26/18 Unknown History Tiotropium [place] [Spiriva] 18 mcg IH 4XD 12/26/18 12/26/18 12/24/18 History Active Medications: Generic Name Dose Route Start Last Admin Trade Name Freq PRN Reason Stop Dose Admin Acetaminophen 650 mg 12/25/18 00:48 12/25/18 22:14 Tylenol PO 650 mg Q4H PRN Administration Pain MILD(1-3)/Fever >100.5/[place] Al Hydrox/Mg Hydrox/Simethicone 30 ml 12/25/18 13:14 12/27/18 09:57 Alum-Mag Hydrox-Simeth 151-146-16ir/5ml PO 30 ml DAILY PRN Administration Indigestion Albuterol 2.5 mg 12/26/18 21:47 Proventil IH Q4HRT PRN Shortness Of Breath Albuterol/Ipratropium 1 ampul 12/30/18 14:00 12/31/18 09:27 Duoneb *Not For Prn Use* IH Not Given Q6HRT KELLY Alprazolam 0.25 mg 12/26/18 18:46 12/30/18 22:41 Xanax PO 0.25 mg Q8H PRN Administration Anxiety Arformoterol Tartrate 15 mcg 12/26/18 20:00 12/31/18 09:26 Brovana Nebu IH 15 mcg Q12HRT KELLY Administration Bisacodyl 10 mg 12/26/18 13:50 12/30/18 06:30 Dulcolax PO 10 mg QDAY PRN Administration Constipation Budesonide 0.5 mg 12/26/18 20:00 12/31/18 09:26 Pulmicort IH 0.5 mg Q12HRT KELLY Administration Enoxaparin Sodium 30 mg 12/25/18 10:00 12/30/18 09:19 Lovenox SUB-Q 30 mg QDAY KELLY Administration Gabapentin 200 mg 12/26/18 22:00 12/30/18 22:41 Neurontin PO 200 mg BID KELLY Administration Guaifenesin 600 mg 12/26/18 22:00 12/30/18 22:41 Mucinex Er PO 600 mg BID KELLY Administration Azithromycin 500 mg/ Sodium 250 mls @ 250 mls/hr 12/27/18 10:00 12/30/18 09:21 Chloride IV 250 mls/hr Q24HR KELLY Administration Insulin Human Isoph/Insulin Regular 10 unit 12/27/18 08:00 12/30/18 17:19 Humulin 70/30 SUB-Q 10 unit BIDDIAB KELLY Administration Insulin Human Lispro 0 unit 12/26/18 16:30 12/31/18 08:35 Humalog SUB-Q 6 unit ACHS KELLY Administration Protocol Magnesium Hydroxide 30 ml 12/26/18 13:51 12/31/18 06:07 Milk Of Magnesia PO 30 ml QDAY PRN Administration costipation Methylprednisolone Sodium Succinate 60 mg 12/25/18 06:00 12/31/18 05:32 Solu-Medrol IV 60 mg Q6HR KELLY Administration Miscellaneous Medication 75 mcg 12/28/18 10:00 Indacaterol Maleate [Arcapta Neohaler] IH DAILY KELLY Morphine Sulfate 2 mg 12/26/18 17:12 12/30/18 15:28 Morphine IV 2 mg Q6H PRN Administration Pain, Moderate (4-6) Ondansetron HCl 4 mg 12/25/18 00:48 12/26/18 21:08 Zofran IV 4 mg Q8H PRN Administration Nausea And Vomiting Oxycodone/Acetaminophen 1 tab 12/26/18 18:26 12/31/18 05:40 Percocet 5/325 PO 1 tab Q6H PRN Administration Pain, Moderate (4-6) Pantoprazole Sodium 40 mg 12/27/18 10:00 12/30/18 09:20 Protonix PO 40 mg QDAY KELLY Administration Sodium Bicarbonate 650 mg 12/31/18 10:00 Sodium Bicarbonate PO DAILY KELLY Sodium Chloride 10 ml 12/24/18 20:37 12/28/18 06:06 Sodium Chloride Flush Syringe 10 Ml IV 10 ml PRN PRN Administration LINE FLUSH Sodium Chloride 10 ml 12/25/18 10:00 12/30/18 22:42 Sodium Chloride Flush Syringe 10 Ml IV 10 ml BID KELLY Administration Sucralfate 1 gm 12/28/18 00:00 12/31/18 05:32 Carafate PO 1 gm Q6HR KELLY Administration Theophylline 150 mg 12/25/18 18:00 12/30/18 17:17 Theodur PO 150 mg QPM KELLY Administration Theophylline 300 mg 12/26/18 10:00 12/30/18 12:10 Theodur PO 300 mg QAM KELLY Administration Tiotropium [place] 1 puff 12/27/18 09:00 12/31/18 09:34 Spiriva IH Not Given Q24HRT KELLY Verapamil HCl 180 mg 12/26/18 10:00 12/30/18 12:09 Calan Sr PO 180 mg DAILY KELLY Administration
[2018-12-31] MEDS: SODIUM BICARBONATE PO SCH (09:59)
[2018-12-31] MEDS: NEURONTIN PO SCH ×2 (09:59→21:34)
[2018-12-31] MEDS: MUCINEX ER PO SCH ×2 (09:59→21:34)
[2018-12-31] MEDS: PROTONIX PO SCH (09:59)
[2018-12-31] MEDS: LOVENOX SUB-Q SCH (10:00)
[2018-12-31] MEDS: CALAN SR PO SCH (10:00)
[2018-12-31] MEDS: SODIUM CHLORIDE FLUSH SYRINGE 10 ML IV SCH ×2 (10:01→21:35)
[2018-12-31] MEDS: THEODUR PO SCH ×2 (10:01→17:36)
[2018-12-31] MEDS: DULCOLAX PO PRN (10:09)
[2018-12-31] MEDS: ZITHROMAX 500 MG in NACL 0.9% 250ML 250 ML IV SCH (11:10)
[2018-12-31] MEDS: ALUM-MAG HYDROX-SIMETH 200-200-20MG/5ML PO PRN (12:00)
--- NOTE | 2018-12-31 12:47 | Progress Note ---
Assessment and Plan 78 y/o obese female with COPD, SAKSHI admitted with dyspnea and COPD exacerbation, likely secondary to noncompliance 1. Wean steroids 2. Stop abx therapy after 5 days 3 . Pt/O 4. Discharge planning. Unfortunately, Mrs. Zazueta will never tell you she is feeling well and once she has completed adequate therapy, will need to be discharged. Hopeful in the next 24-48 hours. Subjective Date of service: 12/31/18 Principal diagnosis: CHF,COPD exacerbation,severe morbid obesity,SAKSHI Interval history: Patient with multiple complaints. States that she does not feel as well as she did yesterday. Stable. Currently on MT Objective Vital Signs - 12hr 12/31/18 12/31/18 12/31/18 01:18 01:28 03:05 Temperature 98.7 F Pulse Rate 96 H Pulse Rate [ 93 H 97 H Anterior Bilateral Throughout] Respiratory 18 Rate Respiratory 17 16 Rate [Anterior Bilateral Throughout] Blood Pressure 127/47 O2 Sat by Pulse 93 Oximetry 12/31/18 12/31/18 12/31/18 05:40 06:40 07:54 Temperature 97.5 F L Pulse Rate 94 H Pulse Rate [ Anterior Bilateral Throughout] Respiratory 20 20 18 Rate Respiratory Rate [Anterior Bilateral Throughout] Blood Pressure 136/57 O2 Sat by Pulse 91 Oximetry 12/31/18 12/31/18 12/31/18 08:00 09:33 09:42 Temperature Pulse Rate Pulse Rate [ 101 H 100 H Anterior Bilateral Throughout] Respiratory Rate Respiratory 19 19 Rate [Anterior Bilateral Throughout] Blood Pressure O2 Sat by Pulse 96 Oximetry 12/31/18 12/31/18 10:00 12:08 Temperature 98.7 F Pulse Rate 89 Pulse Rate [ Anterior Bilateral Throughout] Respiratory 18 Rate Respiratory Rate [Anterior Bilateral Throughout] Blood Pressure 116/44 O2 Sat by Pulse 91 94 Oximetry Constitutional: no acute distress, other (severe morbidly obese ) Eyes: non-icteric ENT: oropharynx moist Neck: supple, no JVD (but large neck) Ascultation: Bilateral: clear, diminished breath sounds, wheezes, rhonchi Cardiovascular: regular rate and rhythm Gastrointestinal: normoactive bowel sounds, non-distended, other (Limited exam due to morbid obesity) Integumentary: normal Extremities: no cyanosis, other (mild pretibial edema) Neurologic: normal mental status, non-focal exam, CN II-XII normal Psychiatric: anxious CBC and BMP: 12/31/18 06:15 12/31/18 06:15 Abnormal lab findings: Abnormal Labs 12/24/18 12/24/18 12/24/18 14:54 14:54 15:15 WBC MCH Lymph % (Auto) 4.6 L Lymph # 0.4 L Seg Neutrophils % 87.2 H Seg Neuts % (Manual) Lymphocytes % (Manual) Seg Neutrophils # 8.5 H Seg Neutrophils # Man Lymphocytes # (Manual) Sodium Chloride Carbon Dioxide BUN 23 H Creatinine 2.3 H Glucose 125 H POC Glucose Magnesium NT-Pro-B Natriuret Pep 1627 H Total Protein 5.2 L Albumin 3.2 L Lipase 12 L 12/25/18 12/25/18 12/25/18 05:45 17:23 20:59 WBC MCH Lymph % (Auto) Lymph # Seg Neutrophils % Seg Neuts % (Manual) Lymphocytes % (Manual) Seg Neutrophils # Seg Neutrophils # Man Lymphocytes # (Manual) Sodium Chloride Carbon Dioxide BUN 26 H Creatinine 2.6 H Glucose 108 H POC Glucose 155 H 209 H Magnesium NT-Pro-B Natriuret Pep Total Protein Albumin Lipase 12/26/18 12/26/18 12/26/18 08:43 11:11 16:41 WBC MCH Lymph % (Auto) Lymph # Seg Neutrophils % Seg Neuts % (Manual) Lymphocytes % (Manual) Seg Neutrophils # Seg Neutrophils # Man Lymphocytes # (Manual) Sodium Chloride Carbon Dioxide BUN Creatinine Glucose POC Glucose 187 H 204 H 198 H Magnesium NT-Pro-B Natriuret Pep Total Protein Albumin Lipase 12/26/18 12/27/18 12/27/18 20:52 09:29 09:47 WBC MCH Lymph % (Auto) Lymph # Seg Neutrophils % Seg Neuts % (Manual) Lymphocytes % (Manual) Seg Neutrophils # Seg Neutrophils # Man Lymphocytes # (Manual) Sodium 136 L Chloride 90.2 L Carbon Dioxide BUN 34 H Creatinine 2.6 H Glucose 303 H POC Glucose 198 H 266 H Magnesium NT-Pro-B Natriuret Pep 2536 H Total Protein Albumin Lipase 12/27/18 12/27/18 12/28/18 16:55 21:54 07:30 WBC MCH Lymph % (Auto) Lymph # Seg Neutrophils % Seg Neuts % (Manual) Lymphocytes % (Manual) Seg Neutrophils # Seg Neutrophils # Man Lymphocytes # (Manual) Sodium Chloride Carbon Dioxide BUN Creatinine Glucose POC Glucose 242 H 234 H 233 H Magnesium NT-Pro-B Natriuret Pep Total Protein Albumin Lipase 12/28/18 12/28/18 12/28/18 10:56 12:29 17:11 WBC MCH Lymph % (Auto) Lymph # Seg Neutrophils % Seg Neuts % (Manual) Lymphocytes % (Manual) Seg Neutrophils # Seg Neutrophils # Man Lymphocytes # (Manual) Sodium 133 L Chloride 88.9 L Carbon Dioxide BUN 45 H Creatinine 2.8 H Glucose 426 H POC Glucose 331 H 299 H Magnesium NT-Pro-B Natriuret Pep Total Protein Albumin Lipase 12/28/18 12/29/18 12/29/18 21:41 07:28 13:18 WBC MCH Lymph % (Auto) Lymph # Seg Neutrophils % Seg Neuts % (Manual) Lymphocytes % (Manual) Seg Neutrophils # Seg Neutrophils # Man Lymphocytes # (Manual) Sodium Chloride Carbon Dioxide BUN Creatinine Glucose POC Glucose 359 H 275 H 247 H Magnesium NT-Pro-B Natriuret Pep Total Protein Albumin Lipase 12/29/18 12/30/18 12/30/18 17:02 05:38 05:38 WBC 16.7 H MCH 27 L Lymph % (Auto) Lymph # Seg Neutrophils % Seg Neuts % (Manual) 94.0 H Lymphocytes % (Manual) 3.0 L Seg Neutrophils # Seg Neutrophils # Man 15.7 H Lymphocytes # (Manual) 0.5 L Sodium 136 L Chloride 89.8 L Carbon Dioxide 31 H BUN 64 H Creatinine 2.9 H Glucose 287 H POC Glucose 203 H Magnesium 2.50 H NT-Pro-B Natriuret Pep Total Protein Albumin Lipase 12/31/18 12/31/18 06:15 06:15 WBC 16.3 H MCH 26 L Lymph % (Auto) Lymph # Seg Neutrophils % Seg Neuts % (Manual) 98.0 H Lymphocytes % (Manual) 1.0 L Seg Neutrophils # Seg Neutrophils # Man 16.0 H Lymphocytes # (Manual) 0.2 L Sodium 135 L Chloride 92.8 L Carbon Dioxide BUN 69 H Creatinine 2.5 H Glucose 340 H POC Glucose Magnesium 2.50 H NT-Pro-B Natriuret Pep Total Protein Albumin Lipase
--- NOTE | 2018-12-31 14:28 | Progress Note ---
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 was admitted through emergency room with worsening shortness of breath noted to be in acute on chronic respiratory failure requiring BiPAP, Patient is evaluated by pulmonary critical, nephrology for chronic kidney disease --Acute on chronic hypoxic respiratory failure; Secondary to COPD exacerbation, home oxygen dependent Continue nebulizers IV steroids and IV antibiotics inhalation steroids Pulmonary following --Acute exacerbation of COPD; Oxygen titrate to O2 sats more than 90%, nebulizers and IV steroids IV antibiotic inhalation steroids supportive care --Chronic kidney disease; closely monitor renal function Avoid nephrotoxins, nephrology following --Morbid obesity; BMI 50.8, advised weight reduction when medically stable --Type 2 diabetes mellitus; moderate control Accu-Chek sliding scale coverage and ADA diet and long-acting insulin --Possible obstructive sleep apnea; CPAP BiPAP at night --Gastroesophageal reflux disease; Protonix -- DVT prophylaxis Lovenox --Full code Physical therapy/ occupational therapy Closely monitor the patient and adjust management as needed Disposition; out of bed to chair, PT OT Possible discharge in 1-2 days if stable with home health CXR revealed pulm congestion. Will repeat. History Interval history: Feels better Hospitalist Physical - Physical exam Narrative exam: GEN: Not in acute distress, lying in bed HEENT: Normocephalic, atraumatic, Neck: supple, No JVD Lungs: Decreased breath sounds, bilateral rhonchi, no crackles, no wheeze Abd:soft, non tender, non distended, normal bowel sounds Ext: Edema, no clubbing, no cyanosis Neuro:Awake,alert,oriented X 3, no focal signs Psych: normal mood - Constitutional Vitals: Temp Pulse Resp BP Pulse Ox 98.7 F 83 18 116/44 94 12/31/18 12:08 12/31/18 13:53 12/31/18 13:53 12/31/18 12:08 12/31/18 12:08 General appearance: Present: no acute distress, well-nourished, obese (morbidly obese) Results - Labs CBC & Chem 7: 01/01/19 06:15 01/01/19 06:15 Labs: Laboratory Last Values WBC 16.3 K/mm3 (4.5-11.0) H 12/31/18 06:15 RBC 4.35 M/mm3 (3.65-5.03) 12/31/18 06:15 Hgb 11.5 gm/dl (10.1-14.3) 12/31/18 06:15 Hct 35.8 % (30.3-42.9) 12/31/18 06:15 MCV 82 fl (79-97) 12/31/18 06:15 MCH 26 pg (28-32) L 12/31/18 06:15 MCHC 32 % (30-34) 12/31/18 06:15 RDW 14.0 % (13.2-15.2) 12/31/18 06:15 Plt Count 365 K/mm3 (140-440) 12/31/18 06:15 Lymph % (Auto) 4.6 % (13.4-35.0) L 12/24/18 14:54 [place] % (Auto) 6.1 % (0.0-7.3) 12/24/18 14:54 Eos % (Auto) 1.5 % (0.0-4.3) 12/24/18 14:54 Baso % (Auto) 0.6 % (0.0-1.8) 12/24/18 14:54 Lymph # 0.4 K/mm3 (1.2-5.4) L 12/24/18 14:54 [place] # 0.6 K/mm3 (0.0-0.8) 12/24/18 14:54 Eos # 0.1 K/mm3 (0.0-0.4) 12/24/18 14:54 Baso # 0.1 K/mm3 (0.0-0.1) 12/24/18 14:54 Add Manual Diff Complete 12/31/18 06:15 Total Counted 100 12/31/18 06:15 Seg Neutrophils % Field Application Engineer 12/31/18 06:15 Seg Neuts % (Manual) 98.0 % (40.0-70.0) H 12/31/18 06:15 Band Neutrophils % 0 % 12/31/18 06:15 Lymphocytes % (Manual) 1.0 % (13.4-35.0) L 12/31/18 06:15 Reactive Lymphs % (Man) 0 % 12/31/18 06:15 Monocytes % (Manual) 1.0 % (0.0-7.3) 12/31/18 06:15 Eosinophils % (Manual) 0 % (0.0-4.3) 12/31/18 06:15 Basophils % (Manual) 0 % (0.0-1.8) 12/31/18 06:15 Metamyelocytes % 0 % 12/31/18 06:15 Myelocytes % 0 % 12/31/18 06:15 Promyelocytes % 0 % 12/31/18 06:15 Blast Cells % 0 % 12/31/18 06:15 Nucleated RBC % Not Reportable 12/31/18 06:15 Seg Neutrophils # 8.5 K/mm3 (1.8-7.7) H 12/24/18 14:54 Seg Neutrophils # Man 16.0 K/mm3 (1.8-7.7) H 12/31/18 06:15 Band Neutrophils # 0.0 K/mm3 12/31/18 06:15 Lymphocytes # (Manual) 0.2 K/mm3 (1.2-5.4) L 12/31/18 06:15 Abs React Lymphs (Man) 0.0 K/mm3 12/31/18 06:15 Monocytes # (Manual) 0.2 K/mm3 (0.0-0.8) 12/31/18 06:15 Eosinophils # (Manual) 0.0 K/mm3 (0.0-0.4) 12/31/18 06:15 Basophils # (Manual) 0.0 K/mm3 (0.0-0.1) 12/31/18 06:15 Metamyelocytes # 0.0 K/mm3 12/31/18 06:15 Myelocytes # 0.0 K/mm3 12/31/18 06:15 Promyelocytes # 0.0 K/mm3 12/31/18 06:15 Blast Cells # 0.0 K/mm3 12/31/18 06:15 WBC Morphology Not Reportable 12/31/18 06:15 Hypersegmented Neuts Not Reportable 12/31/18 06:15 Hyposegmented Neuts Not Reportable 12/31/18 06:15 Hypogranular Neuts Not Reportable 12/31/18 06:15 Smudge Cells Not Reportable 12/31/18 06:15 Toxic Granulation Not Reportable 12/31/18 06:15 Toxic Vacuolation Not Reportable 12/31/18 06:15 Dohle Bodies Not Reportable 12/31/18 06:15 Pelger-Huet Anomaly Not Reportable 12/31/18 06:15 Aaron Rods Not Reportable 12/31/18 06:15 Platelet Estimate Consistent w auto 12/31/18 06:15 Clumped Platelets Not Reportable 12/31/18 06:15 Plt Clumps, EDTA Not Reportable 12/31/18 06:15 Large Platelets Not Reportable 12/31/18 06:15 Giant Platelets Not Reportable 12/31/18 06:15 Platelet Satelliting Not Reportable 12/31/18 06:15 Plt Morphology Comment Not Reportable 12/31/18 06:15 RBC Morphology Normal 12/31/18 06:15 Dimorphic RBCs Not Reportable 12/31/18 06:15 Polychromasia Not Reportable 12/31/18 06:15 Hypochromasia Not Reportable 12/31/18 06:15 Poikilocytosis Not Reportable 12/31/18 06:15 Anisocytosis Not Reportable 12/31/18 06:15 Microcytosis Not Reportable 12/31/18 06:15 Macrocytosis Not Reportable 12/31/18 06:15 Spherocytes Not Reportable 12/31/18 06:15 Pappenheimer Bodies Not Reportable 12/31/18 06:15 Sickle Cells Not Reportable 12/31/18 06:15 Target Cells Not Reportable 12/31/18 06:15 Tear Drop Cells Not Reportable 12/31/18 06:15 Ovalocytes Not Reportable 12/31/18 06:15 Helmet Cells Not Reportable 12/31/18 06:15 Sol-[place] Bodies Not Reportable 12/31/18 06:15 [place] Rings Not Reportable 12/31/18 06:15 Vikash Cells Not Reportable 12/31/18 06:15 Bite Cells Not Reportable 12/31/18 06:15 Crenated Cell Not Reportable 12/31/18 06:15 Elliptocytes Not Reportable 12/31/18 06:15 Acanthocytes (Spur) Not Reportable 12/31/18 06:15 Rouleaux Not Reportable 12/31/18 06:15 Hemoglobin C Crystals Not Reportable 12/31/18 06:15 Schistocytes Not Reportable 12/31/18 06:15 Malaria parasites Not Reportable 12/31/18 06:15 Osvaldo Bodies Not Reportable 12/31/18 06:15 Hem Pathologist Commnt No 12/31/18 06:15 Sodium 135 mmol/L (137-145) L 12/31/18 06:15 Potassium 4.1 mmol/L (3.6-5.0) 12/31/18 06:15 Chloride 92.8 mmol/L (98-107) L 12/31/18 06:15 Carbon Dioxide 30 mmol/L (22-30) 12/31/18 06:15 Anion Gap 16 mmol/L 12/31/18 06:15 BUN 69 mg/dL (7-17) H 12/31/18 06:15 Creatinine 2.5 mg/dL (0.7-1.2) H 12/31/18 06:15 Estimated GFR 19 ml/min 12/31/18 06:15 BUN/Creatinine Ratio 28 % 12/31/18 06:15 Glucose 340 mg/dL (65-100) H 12/31/18 06:15 POC Glucose 203 (70-105) H 12/29/18 17:02 Calcium 8.4 mg/dL (8.4-10.2) 12/31/18 06:15 Phosphorus 3.80 mg/dL (2.5-4.5) 12/31/18 06:15 Magnesium 2.50 mg/dL (1.7-2.3) H 12/31/18 06:15 Total Bilirubin 0.50 mg/dL (0.1-1.2) 12/24/18 15:15 Direct Bilirubin < 0.2 mg/dL (0-0.2) 12/24/18 15:15 Indirect Bilirubin 0.3 mg/dL 12/24/18 15:15 AST 11 units/L (5-40) 12/24/18 15:15 ALT 8 units/L (7-56) 12/24/18 15:15 Alkaline Phosphatase 87 units/L (35-129) 12/24/18 15:15 NT-Pro-B Natriuret Pep 2536 pg/mL (0-900) H 12/27/18 09:47 Total Protein 5.2 g/dL (6.3-8.2) L 12/24/18 15:15 Albumin 3.2 g/dL (3.9-5) L 12/24/18 15:15 Albumin/Globulin Ratio 1.6 % 12/24/18 15:15 Lipase 12 units/L (13-60) L 12/24/18 15:15 Urine Color Yellow (Yellow) 12/28/18 06:51 Urine Turbidity Clear (Clear) 12/28/18 06:51 Urine pH 5.0 (5.0-7.0) 12/28/18 06:51 Ur Specific [place] 1.011 (1.003-1.030) 12/28/18 06:51 Urine Protein <15 mg/dl mg/dL (Negative) 12/28/18 06:51 Urine Glucose (UA) Neg mg/dL (Negative) 12/28/18 06:51 Urine Ketones Neg mg/dL (Negative) 12/28/18 06:51 Urine Blood Neg (Negative) 12/28/18 06:51 Urine Nitrite Neg (Negative) 12/28/18 06:51 Urine Bilirubin Neg (Negative) 12/28/18 06:51 Urine Urobilinogen < 2.0 mg/dL (<2.0) 12/28/18 06:51 Ur Leukocyte Esterase Neg (Negative) 12/28/18 06:51 Urine WBC (Auto) 1.0 /HPF (0.0-6.0) 12/28/18 06:51 Urine RBC (Auto) 1.0 /HPF (0.0-6.0) 12/28/18 06:51 U Epithel Cells (Auto) < 1.0 /HPF (0-13.0) 12/28/18 06:51 Theophylline 13.8 ug/mL (10.0-20.0) 12/30/18 10:13 Nutrition/Malnutrition Assess - Dietary Evaluation Nutrition/Malnutrition Findings: Nutrition Notes Start: 12/25/18 15:17 Freq: Status: Active Protocol: Document 12/31/18 13:58 RM (Rec: 12/31/18 14:01 [email or web address]) Nutrition Notes Need for Assessment generated from: MD Order,Education Initial or Follow up Brief Note Current Diagnosis CKD(stage I-IV),COPD,Diabetes, Hypertension,Heart Failure Other Pertinent Diagnosis GERD, Hx hyperthyroidism Subjective/Other Information Consulted for DM diet education. Education was started but stopped residential d/t pt being in pain. Nutrition Intervention Follow-Up By: 01/01/19 Additional Comments Follow for completion of DM diet education
[2018-12-31] MEDS: ZOFRAN IV PRN (19:58)
[2018-12-31] MEDS: XANAX PO PRN (21:43)
[2019-01-01] MEDS: SOLU-Medrol IV SCH ×5 (00:19→23:18)
[2019-01-01] MEDS: CARAFATE PO SCH ×5 (00:20→23:04)
[2019-01-01] MEDS: DUONEB *Not for PRN Use IH SCH ×4 (02:08→22:28)
[2019-01-01 06:55] LABS: Hematocrit 35.5 % (30.3-42.9); Hemoglobin 11.6 gm/dl (10.1-14.3); Mean Corpuscular HGB Conc 33 % (30-34); Mean Corpuscular Volume 83 fl (79-97); Platelet Count 402 K/mm3 (140-440); Red Blood Count 4.29 M/mm3 (3.65-5.03)
[2019-01-01 08:05] LABS: Calcium 8.7 mg/dL (8.4-10.2)
--- NOTE | 2019-01-01 09:02 | Progress Note ---
Subjective Principal diagnosis: CHF,COPD exacerbation,severe morbid obesity,SAKSHI Interval history: Patient was seen today for follow-up on multiple renal related issues She is feeling better, does complain of some dryness in her mouth Patient denies having any chest pain pressure or shortness of breath Vitals labs intake output medications were reviewed Social history: Reviewed Allergies: Reviewed Family history: Reviewed Physical examination HEENT: Oral mucosa moist no pallor or icterus Neck: Supple no JVD Chest: Bilateral distant breath sounds CVS: Regular rate and rhythm S1 and S2 heard Abdomen: Soft nontender no suprapubic masses no organomegaly appreciable Extremity: Dry skin less than 1+ peripheral edema Musculoskeletal: No joint effusion noted in knees and ankle Neurological: Alert awake Dermatology: No petechial rashes Psychiatry: No evidence of any agitation and aggression noted Assessment and plan Chronic kidney disease patient's baseline creatinine is around 2.5 Current creatinine 2.3, restart Lasix orally 40 mg once a day Patient was also poorly compliant with her sodium and fluid intake resulting in fluid retention volume overload Renal prognosis is very guarded and she is aware of that Mild contraction alkalosis to monitor and follow There is no need for IV hydration at this time monitor renal function tomorrow Overall she is doing better from renal standpoint Renal function is stable tomorrow she can be discharged to follow-up in the office next week We'll continue to follow and make recommendation from renal standpoint Objective - Vital Signs Vital signs: Vital Signs - 12hr 12/31/18 12/31/18 12/31/18 21:32 22:53 22:55 Temperature 98.2 F Pulse Rate 93 H Pulse Rate [ 87 Anterior Bilateral] Respiratory 20 Rate Respiratory 18 Rate [Anterior Bilateral] Blood Pressure 129/61 Blood Pressure [Left] O2 Sat by Pulse 94 95 Oximetry 12/31/18 01/01/19 01/01/19 23:03 02:01 02:04 Temperature 97.6 F Pulse Rate 91 H 92 H Pulse Rate [ 89 Anterior Bilateral] Respiratory Rate Respiratory 18 Rate [Anterior Bilateral] Blood Pressure Blood Pressure 133/65 [Left] O2 Sat by Pulse 93 Oximetry 01/01/19 07:32 Temperature 98.0 F Pulse Rate 84 Pulse Rate [ Anterior Bilateral] Respiratory 22 Rate Respiratory Rate [Anterior Bilateral] Blood Pressure 141/67 Blood Pressure [Left] O2 Sat by Pulse 97 Oximetry - Lab 01/01/19 06:15 01/01/19 06:15 Most recent lab results Calcium 8.7 mg/dL (8.4-10.2) 01/01/19 06:15 Phosphorus 3.80 mg/dL (2.5-4.5) 12/31/18 06:15 Magnesium 2.50 mg/dL (1.7-2.3) H 12/31/18 06:15 Medications & Allergies - Medications Allergies/Adverse Reactions: Allergies aspirin Allergy (Verified 09/17/17 17:58) Shortness of Breath , CHEST PAIN escitalopram [From Lexapro] Allergy (Verified 04/17/18 11:43) Shortness of Breath salmeterol xinafoate [From Serevent] Allergy (Verified 01/22/17 08:45) Shortness of Breath levofloxacin [From Levaquin] Adverse Reaction (Verified 09/13/16 16:22) Rash Sulfa (Sulfonamide Antibiotics) Adverse Reaction (Verified 10/31/17 11:19) contraindicated due to kidney function states her doctor told her to not take sulfa due to renal insufficiency tramadol Adverse Reaction (Verified 09/19/18 16:34) Nausea contrast dye Adverse Reaction (Uncoded 04/17/18 11:59) contraindicated due to renal insufficiency Home Medications: Home Medications Medication Instructions Recorded Confirmed Last Taken Type Sodium Bicarbonate 650 mg PO BID #60 tablet 10/29/18 12/24/18 Unknown Rx Verapamil ER [Calan SR] 180 mg PO DAILY #30 10/29/18 12/24/18 10/02/18 07:30 Rx predniSONE [Deltasone] 10 mg PO Q48H 30 Days tablet 10/29/18 12/24/18 Unknown Rx Theophylline Anhydrous ER [Theodur] 150 mg PO QPM 12/24/18 12/24/18 Unknown History Theophylline Anhydrous ER [Theodur] 300 mg PO QAM 12/24/18 12/24/18 Unknown History Beclomethasone Dipropionate [Qvar 2 inhalation IH BID 12/26/18 12/26/18 Unknown History Redihaler] Gabapentin [Neurontin] 100 mg PO TID 12/26/18 12/26/18 Unknown History Indacaterol Maleate [Arcapta 75 mcg IH DAILY 12/26/18 12/26/18 12/24/18 History Neohaler] Insulin NPH Hum/Reg Insulin Hm 100 unit SQ QAC 12/26/18 12/26/18 Unknown History [Novolin 70-30 100 Unit/ml Vial] Ipratropium Pickerel [Atrovent Hfa] 12.9 gm IH 4XD 12/26/18 12/26/18 12/24/18 History Ipratropium/Albuterol Sulfate 1 spray IH QID 12/26/18 12/26/18 Unknown History [Combivent Respimat] Linaclotide (Nf) [Linzess (Nf)] 290 mcg PO QDAY 12/26/18 12/26/18 Unknown History Ondansetron [Zofran TAB] 4 mg PO Q6HR 12/26/18 12/26/18 12/24/18 History Ranitidine HCl [Zantac 150 MG TAB] 150 mg PO BID 12/26/18 12/26/18 12/24/18 History Sucralfate [Carafate] 1 gm PO Q6HR 12/26/18 12/26/18 Unknown History Tiotropium Pickerel [Spiriva] 18 mcg IH 4XD 12/26/18 12/26/18 12/24/18 History Active Medications: Generic Name Dose Route Start Last Admin Trade Name Freq PRN Reason Stop Dose Admin Acetaminophen 650 mg 12/25/18 00:48 12/25/18 22:14 Tylenol PO 650 mg Q4H PRN Administration Pain MILD(1-3)/Fever >100.5/[place] Al Hydrox/Mg Hydrox/Simethicone 30 ml 12/25/18 13:14 12/31/18 12:00 Alum-Mag Hydrox-Simeth 885-269-44fx/5ml PO 30 ml DAILY PRN Administration Indigestion Albuterol 2.5 mg 12/26/18 21:47 Proventil IH Q4HRT PRN Shortness Of Breath Albuterol/Ipratropium 1 ampul 12/30/18 14:00 01/01/19 02:08 Duoneb *Not For Prn Use* IH Not Given Q6HRT KELLY Alprazolam 0.25 mg 12/26/18 18:46 12/31/18 21:43 Xanax PO 0.25 mg Q8H PRN Administration Anxiety Arformoterol Tartrate 15 mcg 12/26/18 20:00 12/31/18 22:53 Brovana Nebu IH 15 mcg Q12HRT KELLY Administration Bisacodyl 10 mg 12/26/18 13:50 12/31/18 10:09 Dulcolax PO 10 mg QDAY PRN Administration Constipation Budesonide 0.5 mg 12/26/18 20:00 12/31/18 22:53 Pulmicort IH 0.5 mg Q12HRT KELLY Administration Enoxaparin Sodium 30 mg 12/25/18 10:00 12/31/18 10:00 Lovenox SUB-Q 30 mg QDAY KELLY Administration Furosemide 40 mg 01/01/19 10:00 Lasix PO QDAY KELLY Gabapentin 200 mg 12/26/18 22:00 12/31/18 21:34 Neurontin PO 200 mg BID KELLY Administration Guaifenesin 600 mg 12/26/18 22:00 12/31/18 21:34 Mucinex Er PO 600 mg BID KELLY Administration Azithromycin 500 mg/ Sodium 250 mls @ 250 mls/hr 12/27/18 10:00 12/31/18 11:10 Chloride IV 250 mls/hr Q24HR KELLY Administration Insulin Human Isoph/Insulin Regular 10 unit 12/27/18 08:00 12/31/18 17:34 Humulin 70/30 SUB-Q 10 unit BIDDIAB KELLY Administration Insulin Human Lispro 0 unit 12/26/18 16:30 12/31/18 21:33 Humalog SUB-Q 6 unit ACHS KELLY Administration Protocol Magnesium Hydroxide 30 ml 12/26/18 13:51 12/31/18 06:07 Milk Of Magnesia PO 30 ml QDAY PRN Administration costipation Methylprednisolone Sodium Succinate 60 mg 12/25/18 06:00 01/01/19 05:49 Solu-Medrol IV 60 mg Q6HR KELLY Administration Miscellaneous Medication 75 mcg 12/28/18 10:00 Indacaterol Maleate [Arcapta Neohaler] IH DAILY [facility] Morphine Sulfate 2 mg 12/26/18 17:12 12/30/18 15:28 Morphine IV 2 mg Q6H PRN Administration Pain, Moderate (4-6) Ondansetron HCl 4 mg 12/25/18 00:48 12/31/18 19:58 Zofran IV 4 mg Q8H PRN Administration Nausea And Vomiting Oxycodone/Acetaminophen 1 tab 03/07/19 18:26 12/31/18 12:00 Percocet 5/325 PO 1 tab Q6H PRN Administration Pain, Moderate (4-6) Pantoprazole Sodium 40 mg 12/27/18 10:00 12/31/18 09:59 Protonix PO 40 mg QDAY KELLY Administration Sodium Bicarbonate 650 mg 12/31/18 10:00 12/31/18 09:59 Sodium Bicarbonate PO 650 mg DAILY KELLY Administration Sodium Chloride 10 ml 12/24/18 20:37 12/28/18 06:06 Sodium Chloride Flush Syringe 10 Ml IV 10 ml PRN PRN Administration LINE FLUSH Sodium Chloride 10 ml 12/25/18 10:00 12/31/18 21:35 Sodium Chloride Flush Syringe 10 Ml IV 10 ml BID KELLY Administration Sucralfate 1 gm 12/28/18 00:00 01/01/19 05:49 Carafate PO 1 gm Q6HR KELLY Administration Theophylline 150 mg 12/25/18 18:00 12/31/18 17:36 Theodur PO 150 mg QPM KELLY Administration Theophylline 300 mg 12/26/18 10:00 12/31/18 10:01 Theodur PO 300 mg QAM KELLY Administration Tiotropium Pickerel 1 puff 12/27/18 09:00 12/31/18 09:34 Spiriva IH Not Given Q24HRT KELLY Verapamil HCl 180 mg 12/26/18 10:00 12/31/18 10:00 Calan Sr PO 180 mg DAILY KELLY Administration
[2019-01-01] MEDS: PULMICORT IH SCH ×2 (09:29→22:28)
[2019-01-01] MEDS: BROVANA NEBU IH SCH ×2 (09:30→22:28)
[2019-01-01] MEDS: SPIRIVA IH SCH (09:31)
[2019-01-01] MEDS: ZITHROMAX 500 MG in NACL 0.9% 250ML 250 ML IV SCH (10:37)
--- NOTE | 2019-01-01 11:17 | Progress Note ---
Assessment and Plan 78 y/o obese female with COPD, SAKSHI admitted with dyspnea and COPD exacerbation, likely secondary to noncompliance 1. Wean steroids 2. Stop abx therapy after 5 days 3 . Pt/O 4. Discharge planning. Unfortunately, Mrs. Zazueta will never tell you she is feeling well and once she has completed adequate therapy, will need to be discharged. Hopeful in the next 24-48 hours. Per renal they are ok with discharge today once they have reviewed the labs. If discharged to today, please send out on Prednisone 60 daily for 4 days, 40 daily for 4 days, 20 daily for 4 days, then 10 daily for 4 days then stop. No abx need at discharge. Resume home COPD regimen and encouraged compliance with SAKSHI therapy. Subjective Date of service: 01/01/19 Principal diagnosis: CHF,COPD exacerbation,severe morbid obesity,SAKSHI Interval history: Unable to find the "new" diagnosis patient states that she was told that she during this admit. Reviewed renal note and Cr is actually improved today but BUN is higher. Lasix was given and does not appear to have been on hold. Objective Vital Signs - 12hr 01/01/19 01/01/19 01/01/19 02:01 02:04 07:32 Temperature 97.6 F 98.0 F Pulse Rate 91 H 92 H 84 Respiratory 22 Rate Blood Pressure 141/67 Blood Pressure 133/65 [Left] O2 Sat by Pulse 93 97 Oximetry Constitutional: no acute distress, other (severe morbidly obese ) Eyes: non-icteric ENT: oropharynx moist Neck: supple, no JVD (but large neck) Ascultation: Bilateral: clear, diminished breath sounds, wheezes, rhonchi Cardiovascular: regular rate and rhythm Gastrointestinal: normoactive bowel sounds, non-distended, other (Limited exam due to morbid obesity) Integumentary: normal Extremities: no cyanosis, other (mild pretibial edema) Neurologic: normal mental status, non-focal exam, CN II-XII normal Psychiatric: anxious CBC and BMP: 01/01/19 06:15 01/01/19 06:15 Abnormal lab findings: Abnormal Labs 12/24/18 12/24/18 12/24/18 14:54 14:54 15:15 WBC MCH Lymph % (Auto) 4.6 L Lymph # 0.4 L Seg Neutrophils % 87.2 H Seg Neuts % (Manual) Lymphocytes % (Manual) Seg Neutrophils # 8.5 H Seg Neutrophils # Man Lymphocytes # (Manual) Sodium Chloride Carbon Dioxide BUN 23 H Creatinine 2.3 H Glucose 125 H POC Glucose Magnesium NT-Pro-B Natriuret Pep 1627 H Total Protein 5.2 L Albumin 3.2 L Lipase 12 L 12/25/18 12/25/18 12/25/18 05:45 17:23 20:59 WBC MCH Lymph % (Auto) Lymph # Seg Neutrophils % Seg Neuts % (Manual) Lymphocytes % (Manual) Seg Neutrophils # Seg Neutrophils # Man Lymphocytes # (Manual) Sodium Chloride Carbon Dioxide BUN 26 H Creatinine 2.6 H Glucose 108 H POC Glucose 155 H 209 H Magnesium NT-Pro-B Natriuret Pep Total Protein Albumin Lipase 12/26/18 12/26/18 12/26/18 08:43 11:11 16:41 WBC MCH Lymph % (Auto) Lymph # Seg Neutrophils % Seg Neuts % (Manual) Lymphocytes % (Manual) Seg Neutrophils # Seg Neutrophils # Man Lymphocytes # (Manual) Sodium Chloride Carbon Dioxide BUN Creatinine Glucose POC Glucose 187 H 204 H 198 H Magnesium NT-Pro-B Natriuret Pep Total Protein Albumin Lipase 12/26/18 12/27/18 12/27/18 20:52 09:29 09:47 WBC MCH Lymph % (Auto) Lymph # Seg Neutrophils % Seg Neuts % (Manual) Lymphocytes % (Manual) Seg Neutrophils # Seg Neutrophils # Man Lymphocytes # (Manual) Sodium 136 L Chloride 90.2 L Carbon Dioxide BUN 34 H Creatinine 2.6 H Glucose 303 H POC Glucose 198 H 266 H Magnesium NT-Pro-B Natriuret Pep 2536 H Total Protein Albumin Lipase 12/27/18 12/27/18 12/28/18 16:55 21:54 07:30 WBC MCH Lymph % (Auto) Lymph # Seg Neutrophils % Seg Neuts % (Manual) Lymphocytes % (Manual) Seg Neutrophils # Seg Neutrophils # Man Lymphocytes # (Manual) Sodium Chloride Carbon Dioxide BUN Creatinine Glucose POC Glucose 242 H 234 H 233 H Magnesium NT-Pro-B Natriuret Pep Total Protein Albumin Lipase 12/28/18 12/28/18 12/28/18 10:56 12:29 17:11 WBC MCH Lymph % (Auto) Lymph # Seg Neutrophils % Seg Neuts % (Manual) Lymphocytes % (Manual) Seg Neutrophils # Seg Neutrophils # Man Lymphocytes # (Manual) Sodium 133 L Chloride 88.9 L Carbon Dioxide BUN 45 H Creatinine 2.8 H Glucose 426 H POC Glucose 331 H 299 H Magnesium NT-Pro-B Natriuret Pep Total Protein Albumin Lipase 12/28/18 12/29/18 12/29/18 21:41 07:28 13:18 WBC MCH Lymph % (Auto) Lymph # Seg Neutrophils % Seg Neuts % (Manual) Lymphocytes % (Manual) Seg Neutrophils # Seg Neutrophils # Man Lymphocytes # (Manual) Sodium Chloride Carbon Dioxide BUN Creatinine Glucose POC Glucose 359 H 275 H 247 H Magnesium NT-Pro-B Natriuret Pep Total Protein Albumin Lipase 12/29/18 12/30/18 12/30/18 17:02 05:38 05:38 WBC 16.7 H MCH 27 L Lymph % (Auto) Lymph # Seg Neutrophils % Seg Neuts % (Manual) 94.0 H Lymphocytes % (Manual) 3.0 L Seg Neutrophils # Seg Neutrophils # Man 15.7 H Lymphocytes # (Manual) 0.5 L Sodium 136 L Chloride 89.8 L Carbon Dioxide 31 H BUN 64 H Creatinine 2.9 H Glucose 287 H POC Glucose 203 H Magnesium 2.50 H NT-Pro-B Natriuret Pep Total Protein Albumin Lipase 12/31/18 12/31/18 01/01/19 06:15 06:15 06:15 WBC 16.3 H 19.0 H MCH 26 L 27 L Lymph % (Auto) Lymph # Seg Neutrophils % Seg Neuts % (Manual) 98.0 H Lymphocytes % (Manual) 1.0 L Seg Neutrophils # Seg Neutrophils # Man 16.0 H Lymphocytes # (Manual) 0.2 L Sodium 135 L Chloride 92.8 L Carbon Dioxide BUN 69 H Creatinine 2.5 H Glucose 340 H POC Glucose Magnesium 2.50 H NT-Pro-B Natriuret Pep Total Protein Albumin Lipase 01/01/19 06:15 WBC MCH Lymph % (Auto) Lymph # Seg Neutrophils % Seg Neuts % (Manual) Lymphocytes % (Manual) Seg Neutrophils # Seg Neutrophils # Man Lymphocytes # (Manual) Sodium Chloride 93.2 L Carbon Dioxide 31 H BUN 73 H Creatinine 2.3 H Glucose 281 H POC Glucose Magnesium NT-Pro-B Natriuret Pep Total Protein Albumin Lipase
[2019-01-01] MEDS: THEODUR PO SCH ×2 (11:21→18:20)
[2019-01-01] MEDS: SODIUM CHLORIDE FLUSH SYRINGE 10 ML IV SCH ×2 (11:38→22:59)
[2019-01-01] MEDS: LOVENOX SUB-Q SCH (11:39)
[2019-01-01] MEDS: NEURONTIN PO SCH ×2 (11:40→22:58)
[2019-01-01] MEDS: MUCINEX ER PO SCH ×2 (11:40→22:58)
[2019-01-01] MEDS: PROTONIX PO SCH (11:40)
[2019-01-01] MEDS: SODIUM BICARBONATE PO SCH (11:40)
[2019-01-01] MEDS: LASIX PO SCH (12:13)
[2019-01-01] MEDS: PERCOCET 5/325 PO PRN ×2 (12:13→18:33)
--- NOTE | 2019-01-01 13:28 | Consultation ---
History of Present Illness Consult date: 01/01/19 Requesting physician: DARWIN JONES Consult reason: shortness of breath History of present illness: The pt is an 78 YO female with a past medical history of COPD, chronic respiratory failure requiring home O2, HTN, DM, morbid obesity, SAKSHI, CKD. She presented with c/o respiratory distress. Pt is a rather poor historian. She states that she does not recall the events leading up to her hospitalization, but that her caregiver noted pt to have altered mental status and called EMS and pt was found to be hypoxic. She has subsequently been diagnosed with acute on chronic respiratory failure and COPD exacerbation likely secondary to noncompliance per pulmonary. She states that she has been hospitalized multiple times over the past several months for pneumonia and respiratory failure and has not felt "well" since September. Pt noted to have elevated pro-BNP and persistent SOB and thus cardiology has been consulted to evaluate for possible HF. Echo done 05/2018 reviewed - EF 50-55%, mild LVH, mild MR, mild TR, trivial pericardial effusion. Lexiscan MPI stress test done 08/2016 was negative. Past History Past Medical History: diabetes, hyperthyroidism, hypertension, renal failure Past Surgical History: No surgical history Social history: no significant social history Family history: no significant family history Medications and Allergies Allergies Allergy/AdvReac Type Severity Reaction Status Date / Time aspirin Allergy Shortness Verified 09/17/17 17:58 of Breath , CHEST PAIN escitalopram [From Lexapro] Allergy Shortness Verified 04/17/18 11:43 of Breath salmeterol xinafoate Allergy Shortness Verified 01/22/17 08:45 [From Serevent] of Breath levofloxacin [From Levaquin] AdvReac Rash Verified 09/13/16 16:22 Sulfa (Sulfonamide AdvReac contraindicated Verified 10/31/17 11:19 Antibiotics) due to kidney function tramadol AdvReac Nausea Verified 09/19/18 16:34 contrast dye AdvReac contraindicated Uncoded 04/17/18 11:59 due to renal insufficiency Home Medications Medication Instructions Recorded Confirmed Last Taken Type Sodium Bicarbonate 650 mg PO BID #60 tablet 10/29/18 12/24/18 Unknown Rx Verapamil ER [Calan SR] 180 mg PO DAILY #30 10/29/18 12/24/18 10/02/18 07:30 Rx predniSONE [Deltasone] 10 mg PO Q48H 30 Days tablet 10/29/18 12/24/18 Unknown Rx Theophylline Anhydrous ER [Theodur] 150 mg PO QPM 12/24/18 12/24/18 Unknown History Theophylline Anhydrous ER [Theodur] 300 mg PO QAM 12/24/18 12/24/18 Unknown History Beclomethasone Dipropionate [Qvar 2 inhalation IH BID 12/26/18 12/26/18 Unknown History Redihaler] Gabapentin [Neurontin] 100 mg PO TID 12/26/18 12/26/18 Unknown History Indacaterol Maleate [Arcapta 75 mcg IH DAILY 12/26/18 12/26/18 12/24/18 History Neohaler] Insulin NPH Hum/Reg Insulin Hm 100 unit SQ QAC 12/26/18 12/26/18 Unknown History [Novolin 70-30 100 Unit/ml Vial] Ipratropium Leckrone [Atrovent Hfa] 12.9 gm IH 4XD 12/26/18 12/26/18 12/24/18 Hi story Ipratropium/Albuterol Sulfate 1 spray IH QID 12/26/18 12/26/18 Unknown History [Combivent Respimat] Linaclotide (Nf) [Linzess (Nf)] 290 mcg PO QDAY 12/26/18 12/26/18 Unknown History Ondansetron [Zofran TAB] 4 mg PO Q6HR 12/26/18 12/26/18 12/24/18 History Ranitidine HCl [Zantac 150 MG TAB] 150 mg PO BID 12/26/18 12/26/18 12/24/18 History Sucralfate [Carafate] 1 gm PO Q6HR 12/26/18 12/26/18 Unknown History Tiotropium Leckrone [Spiriva] 18 mcg IH 4XD 12/26/18 12/26/18 12/24/18 History Active Meds: Active Medications Acetaminophen (Tylenol) 650 mg PO Q4H PRN PRN Reason: Pain MILD(1-3)/Fever >100.5/[place] Last Admin: 12/25/18 22:14 Dose: 650 mg Documented by: Al Hydrox/Mg Hydrox/Simethicone (Alum-Mag Hydrox-Simeth [id number]/5ml) 30 ml PO DAILY PRN PRN Reason: Indigestion Last Admin: 12/31/18 12:00 Dose: 30 ml Documented by: Albuterol (Proventil) 2.5 mg IH Q4HRT PRN PRN Reason: Shortness Of Breath Albuterol/Ipratropium (Duoneb *Not For Prn Use*) 1 ampul IH Q6HRT [facility] Last Admin: 01/01/19 09:30 Dose: 1 ampul Documented by: Alprazolam (Xanax) 0.25 mg PO Q8H PRN PRN Reason: Anxiety Last Admin: 12/31/18 21:43 Dose: 0.25 mg Documented by: Arformoterol Tartrate (Brovana Nebu) 15 mcg IH Q12HRT [facility] Last Admin: 01/01/19 09:30 Dose: 15 mcg Documented by: Bisacodyl (Dulcolax) 10 mg PO QDAY PRN PRN Reason: Constipation Last Admin: 12/31/18 10:09 Dose: 10 mg Documented by: Budesonide (Pulmicort) 0.5 mg IH Q12HRT [facility] Last Admin: 01/01/19 09:29 Dose: 0.5 mg Documented by: Enoxaparin Sodium (Lovenox) 30 mg SUB-Q QDAY [facility] Last Admin: 01/01/19 11:39 Dose: 30 mg Documented by: Furosemide (Lasix) 40 mg PO DAILY@0600 [facility] Last Admin: 01/01/19 12:13 Dose: 40 mg Documented by: Gabapentin (Neurontin) 200 mg PO BID [facility] Last Admin: 01/01/19 11:40 Dose: 200 mg Documented by: Guaifenesin (Mucinex Er) 600 mg PO BID [facility] Last Admin: 01/01/19 11:40 Dose: 600 mg Documented by: Azithromycin 500 mg/ Sodium (Chloride) 250 mls @ 250 mls/hr IV Q24HR [facility] Last Admin: 12/31/18 11:10 Dose: 250 mls/hr Documented by: Insulin Human Isoph/Insulin Regular (Humulin 70/30) 10 unit SUB-Q BIDDIAB [facility] Last Admin: 12/31/18 17:34 Dose: 10 unit Documented by: Insulin Human Lispro (Humalog) 0 unit SUB-Q [facility]; Protocol Last Admin: 12/31/18 21:33 Dose: 6 unit Documented by: Magnesium Hydroxide (Milk Of Magnesia) 30 ml PO QDAY PRN PRN Reason: costipation Last Admin: 12/31/18 06:07 Dose: 30 ml Documented by: Methylprednisolone Sodium Succinate (Solu-Medrol) 60 mg IV Q6HR [facility] Last Admin: 01/01/19 11:42 Dose: 60 mg Documented by: Miscellaneous Medication (Indacaterol Maleate [Arcapta Neohaler]) 75 mcg IH DAILY [facility] Morphine Sulfate (Morphine) 2 mg IV Q6H PRN PRN Reason: Pain, Moderate (4-6) Last Admin: 12/30/18 15:28 Dose: 2 mg Documented by: Ondansetron HCl (Zofran) 4 mg IV Q8H PRN PRN Reason: Nausea And Vomiting Last Admin: 12/31/18 19:58 Dose: 4 mg Documented by: Oxycodone/Acetaminophen (Percocet 5/325) 1 tab PO Q6H PRN PRN Reason: Pain, Moderate (4-6) Last Admin: 01/01/19 12:13 Dose: 1 tab Documented by: Pantoprazole Sodium (Protonix) 40 mg PO QDAY [facility] Last Admin: 01/01/19 11:40 Dose: 40 mg Documented by: Sodium Chloride (Sodium Chloride Flush Syringe 10 Ml) 10 ml IV PRN PRN PRN Reason: LINE FLUSH Last Admin: 12/28/18 06:06 Dose: 10 ml Documented by: Sodium Chloride (Sodium Chloride Flush Syringe 10 Ml) 10 ml IV BID [facility] Last Admin: 01/01/19 11:38 Dose: 10 ml Documented by: Sucralfate (Carafate) 1 gm PO Q6HR [facility] Last Admin: 01/01/19 11:39 Dose: 1 gm Documented by: Theophylline (Theodur) 150 mg PO QPM [facility] Last Admin: 12/31/18 17:36 Dose: 150 mg Documented by: Theophylline (Theodur) 300 mg PO QAM [facility] Last Admin: 12/31/18 10:01 Dose: 300 mg Documented by: Tiotropium Leckrone (Spiriva) 1 puff IH Q24HRT [facility] Last Admin: 01/01/19 09:31 Dose: Not Given Documented by: Verapamil HCl (Calan Sr) 180 mg PO DAILY [facility] Last Admin: 12/31/18 10:00 Dose: 180 mg Documented by: Review of Systems Constitutional: no fever, no chills, no sweats Ears, nose, mouth and throat: no ear pain, no nose pain, no sinus pressure, no sinus pain Cardiovascular: edema, shortness of breath, dyspnea on exertion, no chest pain, no orthopnea, no palpitations, no rapid/irregular heart beat, no syncope, no lightheadedness Respiratory: shortness of breath, dyspnea on exertion Gastrointestinal: no abdominal pain, no nausea, no vomiting, no diarrhea, no constipation, no change in bowel habits Genitourinary Female: no pelvic pain, no flank pain, no dysuria, no urinary frequency, no urgency Musculoskeletal: no neck stiffness, no neck pain, no shooting arm pain, no arm numbness/tingling, no low back pain, no shooting leg pain Integumentary: no rash, no pruritis, no redness, no sores, no wounds Neurological: no head injury, no paralysis, no weakness, no parathesias, no numbness, no tingling, no seizures, no syncope Psychiatric: no anxiety Endocrine: no cold intolerance, no heat intolerance Hematologic/Lymphatic: no easy bruising, no easy bleeding Allergic/Immunologic: no urticaria Physical Examination Vital Signs Temp Pulse Resp BP Pulse Ox 99.8 F H 103 H 22 147/63 97 12/24/18 14:09 12/24/18 14:09 12/24/18 14:09 12/24/18 14:09 12/24/18 14:09 General appearance: no acute distress HEENT: Positive: PERRL, Normocephaly, Mucus Membranes Moist Neck: Positive: neck supple, trachea midline Cardiac: Positive: Reg Rate and Rhythm, S1/S2 Lungs: Positive: Decreased Breath Sounds Neuro: Positive: Grossly Intact Abdomen: Positive: Soft. Negative: Tender Skin: Negative: Rash, Wound Musculoskeletal: No Pain Results 01/01/19 06:15 01/01/19 06:15 CBC 01/01/19 Range/Units 06:15 WBC 19.0 H (4.5-11.0) K/mm3 RBC 4.29 (3.65-5.03) M/mm3 Hgb 11.6 (10.1-14.3) gm/dl Hct 35.5 (30.3-42.9) % Plt Count 402 (140-440) K/mm3 Comprehensive Metabolic Panel 01/01/19 Range/Units 06:15 Sodium 137 (137-145) mmol/L Potassium 4.3 (3.6-5.0) mmol/L Chloride 93.2 L (98-107) mmol/L Carbon Dioxide 31 H (22-30) mmol/L BUN 73 H (7-17) mg/dL Creatinine 2.3 H (0.7-1.2) mg/dL Glucose 281 H (65-100) mg/dL Calcium 8.7 (8.4-10.2) mg/dL - Imaging and Cardiology Echo: report reviewed (05/2018 reviewed - EF 50-55%, mild LVH, mild MR, mild TR, trivial pericardial effusion. ) EKG: report reviewed, image reviewed EKG interpretations - Telemetry EKG Rhythm: Sinus Rhythm - EKG Sinus rhythms and dysrhythmias: sinus rhythm Assessment and Plan Do not suspect heart failure at this time. Pt's persistent SOB appears to be pulmonary in origin. F/u CXR. Pending CXR unremarkable, pt may discharge home from cardiology standpoint. The patient has been seen in conjunction with Dr. Sellers who agrees with the assessment and plan of care. - Patient Problems (1) Acute on chronic respiratory failure with hypoxemia Current Visit: Yes Status: Acute (2) COPD exacerbation Current Visit: No Status: Acute (3) Chronic kidney disease Current Visit: Yes Status: Chronic (4) Diabetes Current Visit: Yes Status: Chronic (5) HTN (hypertension) Current Visit: Yes Status: Chronic Qualifiers: Hypertension type: essential hypertension Qualified Code(s): I10 - E ssential (primary) hypertension (6) Morbid obesity Current Visit: Yes Status: Chronic (7) Obstructive sleep apnea Current Visit: Yes Status: Chronic
--- NOTE | 2019-01-01 14:43 | XRay Report ---
AP CHEST: HISTORY: Shortness of breath Compared to 12/27/18. Heart size is borderline to mildly increased. Pulmonary venous congestion has resolved. Minor atelectatic changes are noted in the lower lung zones. No obvious pleural effusion, infiltrate or pneumothorax. Improvement in mild CHF is demonstrated since 12/27/18. IMPRESSION: Borderline to mild cardiomegaly. Bibasilar atelectatic changes.
--- NOTE | 2019-01-01 15:01 | Progress Note ---
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 was admitted through emergency room with worsening shortness of breath noted to be in acute on chronic respiratory failure requiring BiPAP, Patient is evaluated by pulmonary critical, nephrology for chronic kidney disease --Acute on chronic hypoxic respiratory failure; Secondary to COPD exacerbation, home oxygen dependent Continue nebulizers IV steroids and IV antibiotics inhalation steroids Pulmonary following --Acute exacerbation of COPD; Oxygen titrate to O2 sats more than 90%, nebulizers and IV steroids IV antibiotic inhalation steroids supportive care --Chronic kidney disease; closely monitor renal function Avoid nephrotoxins, nephrology following --Morbid obesity; BMI 50.8, advised weight reduction when medically stable --Type 2 diabetes mellitus; moderate control Accu-Chek sliding scale coverage and ADA diet and long-acting insulin --Possible obstructive sleep apnea; CPAP BiPAP at night --Gastroesophageal reflux disease; Protonix -- DVT prophylaxis Lovenox --Full code Physical therapy/ occupational therapy Closely monitor the patient and adjust management as needed Disposition; out of bed to chair, PT OT Possible discharge in 1-2 days if stable with home health CXR on 12/24 and 12/27 revealed pulm congestion. CXR today atelectasis Consulted cardiology to evaluate for posws CHF Echo ordered. History Interval history: Feels better Less shortness of breath no chest pain Hospitalist Physical - Physical exam Narrative exam: GEN: Not in acute distress, lying in bed,morbidly obese HEENT: Normocephalic, atraumatic, Neck: supple, No JVD Lungs: Decreased breath sounds, bilateral rhonchi, no crackles, no wheeze Abd:soft, non tender, non distended, normal bowel sounds Ext: Edema, no clubbing, no cyanosis Neuro:Awake,alert,oriented X 3, no focal signs Psych: normal mood - Constitutional Vitals: Temp Pulse Resp BP Pulse Ox 98.8 F 104 H 20 145/55 92 01/01/19 13:45 01/01/19 13:45 01/01/19 13:45 01/01/19 13:45 01/01/19 13:45 General appearance: Present: no acute distress Results - Labs CBC & Chem 7: 01/01/19 06:15 01/01/19 06:15 Labs: Laboratory Last Values WBC 19.0 K/mm3 (4.5-11.0) H 01/01/19 06:15 RBC 4.29 M/mm3 (3.65-5.03) 01/01/19 06:15 Hgb 11.6 gm/dl (10.1-14.3) 01/01/19 06:15 Hct 35.5 % (30.3-42.9) 01/01/19 06:15 MCV 83 fl (79-97) 01/01/19 06:15 MCH 27 pg (28-32) L 01/01/19 06:15 MCHC 33 % (30-34) 01/01/19 06:15 RDW 14.0 % (13.2-15.2) 01/01/19 06:15 Plt Count 402 K/mm3 (140-440) 01/01/19 06:15 Lymph % (Auto) 4.6 % (13.4-35.0) L 12/24/18 14:54 [place] % (Auto) 6.1 % (0.0-7.3) 12/24/18 14:54 Eos % (Auto) 1.5 % (0.0-4.3) 12/24/18 14:54 Baso % (Auto) 0.6 % (0.0-1.8) 12/24/18 14:54 Lymph # 0.4 K/mm3 (1.2-5.4) L 12/24/18 14:54 [place] # 0.6 K/mm3 (0.0-0.8) 12/24/18 14:54 Eos # 0.1 K/mm3 (0.0-0.4) 12/24/18 14:54 Baso # 0.1 K/mm3 (0.0-0.1) 12/24/18 14:54 Add Manual Diff Complete 12/31/18 06:15 Total Counted 100 12/31/18 06:15 Seg Neutrophils % Relief Worker 12/31/18 06:15 Seg Neuts % (Manual) 98.0 % (40.0-70.0) H 12/31/18 06:15 Band Neutrophils % 0 % 12/31/18 06:15 Lymphocytes % (Manual) 1.0 % (13.4-35.0) L 12/31/18 06:15 Reactive Lymphs % (Man) 0 % 12/31/18 06:15 Monocytes % (Manual) 1.0 % (0.0-7.3) 12/31/18 06:15 Eosinophils % (Manual) 0 % (0.0-4.3) 12/31/18 06:15 Basophils % (Manual) 0 % (0.0-1.8) 12/31/18 06:15 Metamyelocytes % 0 % 12/31/18 06:15 Myelocytes % 0 % 12/31/18 06:15 Promyelocytes % 0 % 12/31/18 06:15 Blast Cells % 0 % 12/31/18 06:15 Nucleated RBC % Not Reportable 12/31/18 06:15 Seg Neutrophils # 8.5 K/mm3 (1.8-7.7) H 12/24/18 14:54 Seg Neutrophils # Man 16.0 K/mm3 (1.8-7.7) H 12/31/18 06:15 Band Neutrophils # 0.0 K/mm3 12/31/18 06:15 Lymphocytes # (Manual) 0.2 K/mm3 (1.2-5.4) L 12/31/18 06:15 Abs React Lymphs (Man) 0.0 K/mm3 12/31/18 06:15 Monocytes # (Manual) 0.2 K/mm3 (0.0-0.8) 12/31/18 06:15 Eosinophils # (Manual) 0.0 K/mm3 (0.0-0.4) 12/31/18 06:15 Basophils # (Manual) 0.0 K/mm3 (0.0-0.1) 12/31/18 06:15 Metamyelocytes # 0.0 K/mm3 12/31/18 06:15 Myelocytes # 0.0 K/mm3 12/31/18 06:15 Promyelocytes # 0.0 K/mm3 12/31/18 06:15 Blast Cells # 0.0 K/mm3 12/31/18 06:15 WBC Morphology Not Reportable 12/31/18 06:15 Hypersegmented Neuts Not Reportable 12/31/18 06:15 Hyposegmented Neuts Not Reportable 12/31/18 06:15 Hypogranular Neuts Not Reportable 12/31/18 06:15 Smudge Cells Not Reportable 12/31/18 06:15 Toxic Granulation Not Reportable 12/31/18 06:15 Toxic Vacuolation Not Reportable 12/31/18 06:15 Dohle Bodies Not Reportable 12/31/18 06:15 Pelger-Huet Anomaly Not Reportable 12/31/18 06:15 Aaron Rods Not Reportable 12/31/18 06:15 Platelet Estimate Consistent w auto 12/31/18 06:15 Clumped Platelets Not Reportable 12/31/18 06:15 Plt Clumps, EDTA Not Reportable 12/31/18 06:15 Large Platelets Not Reportable 12/31/18 06:15 Giant Platelets Not Reportable 12/31/18 06:15 Platelet Satelliting Not Reportable 12/31/18 06:15 Plt Morphology Comment Not Reportable 12/31/18 06:15 RBC Morphology Normal 12/31/18 06:15 Dimorphic RBCs Not Reportable 12/31/18 06:15 Polychromasia Not Reportable 12/31/18 06:15 Hypochromasia Not Reportable 12/31/18 06:15 Poikilocytosis Not Reportable 12/31/18 06:15 Anisocytosis Not Reportable 12/31/18 06:15 Microcytosis Not Reportable 12/31/18 06:15 Macrocytosis Not Reportable 12/31/18 06:15 Spherocytes Not Reportable 12/31/18 06:15 Pappenheimer Bodies Not Reportable 12/31/18 06:15 Sickle Cells Not Reportable 12/31/18 06:15 Target Cells Not Reportable 12/31/18 06:15 Tear Drop Cells Not Reportable 12/31/18 06:15 Ovalocytes Not Reportable 12/31/18 06:15 Helmet Cells Not Reportable 12/31/18 06:15 Sol-Brook Bodies Not Reportable 12/31/18 06:15 Mobile Rings Not Reportable 12/31/18 06:15 [place] Cells Not Reportable 12/31/18 06:15 Bite Cells Not Reportable 12/31/18 06:15 Crenated Cell Not Reportable 12/31/18 06:15 Elliptocytes Not Reportable 12/31/18 06:15 Acanthocytes (Spur) Not Reportable 12/31/18 06:15 Rouleaux Not Reportable 12/31/18 06:15 Hemoglobin C Crystals Not Reportable 12/31/18 06:15 Schistocytes Not Reportable 12/31/18 06:15 Malaria parasites Not Reportable 12/31/18 06:15 Osvaldo Bodies Not Reportable 12/31/18 06:15 Hem Pathologist Commnt No 12/31/18 06:15 Sodium 137 mmol/L (137-145) 01/01/19 06:15 Potassium 4.3 mmol/L (3.6-5.0) 01/01/19 06:15 Chloride 93.2 mmol/L (98-107) L 01/01/19 06:15 Carbon Dioxide 31 mmol/L (22-30) H 01/01/19 06:15 Anion Gap 17 mmol/L 01/01/19 06:15 BUN 73 mg/dL (7-17) H 01/01/19 06:15 Creatinine 2.3 mg/dL (0.7-1.2) H 01/01/19 06:15 Estimated GFR 20 ml/min 01/01/19 06:15 BUN/Creatinine Ratio 32 % 01/01/19 06:15 Glucose 281 mg/dL (65-100) H 01/01/19 06:15 POC Glucose 203 (70-105) H 12/29/18 17:02 Calcium 8.7 mg/dL (8.4-10.2) 01/01/19 06:15 Phosphorus 3.80 mg/dL (2.5-4.5) 12/31/18 06:15 Magnesium 2.50 mg/dL (1.7-2.3) H 12/31/18 06:15 Total Bilirubin 0.50 mg/dL (0.1-1.2) 12/24/18 15:15 Direct Bilirubin < 0.2 mg/dL (0-0.2) 12/24/18 15:15 Indirect Bilirubin 0.3 mg/dL 12/24/18 15:15 AST 11 units/L (5-40) 12/24/18 15:15 ALT 8 units/L (7-56) 12/24/18 15:15 Alkaline Phosphatase 87 units/L (35-129) 12/24/18 15:15 NT-Pro-B Natriuret Pep 2536 pg/mL (0-900) H 12/27/18 09:47 Total Protein 5.2 g/dL (6.3-8.2) L 12/24/18 15:15 Albumin 3.2 g/dL (3.9-5) L 12/24/18 15:15 Albumin/Globulin Ratio 1.6 % 12/24/18 15:15 Lipase 12 units/L (13-60) L 12/24/18 15:15 Urine Color Yellow (Yellow) 12/28/18 06:51 Urine Turbidity Clear (Clear) 12/28/18 06:51 Urine pH 5.0 (5.0-7.0) 12/28/18 06:51 Ur Specific [place] 1.011 (1.003-1.030) 12/28/18 06:51 Urine Protein <15 mg/dl mg/dL (Negative) 12/28/18 06:51 Urine Glucose (UA) Neg mg/dL (Negative) 12/28/18 06:51 Urine Ketones Neg mg/dL (Negative) 12/28/18 06:51 Urine Blood Neg (Negative) 12/28/18 06:51 Urine Nitrite Neg (Negative) 12/28/18 06:51 Urine Bilirubin Neg (Negative) 12/28/18 06:51 Urine Urobilinogen < 2.0 mg/dL (<2.0) 12/28/18 06:51 Ur Leukocyte Esterase Neg (Negative) 12/28/18 06:51 Urine WBC (Auto) 1.0 /HPF (0.0-6.0) 12/28/18 06:51 Urine RBC (Auto) 1.0 /HPF (0.0-6.0) 12/28/18 06:51 U Epithel Cells (Auto) < 1.0 /HPF (0-13.0) 12/28/18 06:51 Theophylline 13.8 ug/mL (10.0-20.0) 12/30/18 10:13 Nutrition/Malnutrition Assess - Dietary Evaluation Nutrition/Malnutrition Findings: Nutrition Notes Start: 12/25/18 15:17 Freq: Status: Active Protocol: Document 01/01/19 13:49 OL (Rec: 01/01/19 14:01 OL [id number]) Nutrition Notes Initial or Follow up Brief Note Current Diagnosis CKD(stage I-IV),COPD,Diabetes, Hypertension,Heart Failure Other Pertinent Diagnosis GERD, Hx hyperthyroidism Current Diet cardiac/consistent CHO Subjective/Other Information Pt. known to RD through previous admissions. Pt. has received consistent CHO education before. Pt. also with questions concerning renal restrictions. Reinforced education and provided pt. with handout. #1 Nutrition Diagnosis Limited adherence to nutrition -related recommendations Etiology knowledge deficit As Evidenced by Signs and Symptoms pt. unsure of CHO food sources , requesting more education Nutrition Intervention Teaching Recipient Patient Learning Readiness Good Teaching Methods Discussion,Handout Education Handouts Provided CHO counting Goal #1 Diet adherence Revisit per MD consult or patient Sign Off request:
[2019-01-01] MEDS: CALAN SR PO SCH (18:21)
[2019-01-01] MEDS: ALUM-MAG HYDROX-SIMETH 200-200-20MG/5ML PO PRN (18:33)
[2019-01-01] MEDS: XANAX PO PRN (22:59)
[2019-01-01] MEDS: HumaLOG SUB-Q SCH ×2 (23:23→23:25)
[2019-01-02] MEDS: MORPHINE IV PRN (01:42)
[2019-01-02] MEDS: DUONEB *Not for PRN Use IH SCH ×4 (02:57→21:10)
[2019-01-02 05:37] LABS: Hemoglobin 11.5 gm/dl (10.1-14.3); Mean Corpuscular HGB Conc 33 % (30-34); Mean Corpuscular Volume 83 fl (79-97); Platelet Count 428 K/mm3 (140-440); Red Blood Count 4.23 M/mm3 (3.65-5.03); Red Cell Distribution Width 14.1 % (13.2-15.2)
[2019-01-02] MEDS: CARAFATE PO SCH ×3 (05:40→22:19)
[2019-01-02] MEDS: LASIX PO SCH (05:40)
[2019-01-02] MEDS: SOLU-Medrol IV SCH ×3 (05:40→22:20)
[2019-01-02 06:04] LABS: Calcium 8.4 mg/dL (8.4-10.2)
[2019-01-02] MEDS: BROVANA NEBU IH SCH ×2 (07:59→19:11)
[2019-01-02] MEDS: PULMICORT IH SCH ×2 (08:00→19:11)
[2019-01-02] MEDS: SPIRIVA IH SCH (08:05)
--- NOTE | 2019-01-02 08:45 | Progress Note ---
Subjective Principal diagnosis: CHF,COPD exacerbation,severe morbid obesity,SAKSHI Interval history: Patient was seen today for follow-up on multiple renal related issues Started on Lasix orally Creatinine remains stable Patient denies having any chest pain pressure or shortness of breath Vitals labs intake output medications were reviewed Social history: Reviewed Allergies: Reviewed Family history: Reviewed Physical examination HEENT: Oral mucosa moist no pallor or icterus Neck: Supple no JVD Chest: Bilateral distant breath sounds CVS: Regular rate and rhythm S1 and S2 heard Abdomen: Soft nontender no suprapubic masses no organomegaly appreciable Extremity: Dry skin much better peripheral edema Musculoskeletal: No joint effusion noted in knees and ankle Neurological: Alert awake Dermatology: No petechial rashes Psychiatry: No evidence of any agitation and aggression noted Assessment and plan Chronic kidney disease patient's baseline creatinine is around 2.5 Continue with current diuretic's renal function stable Noncompliant patient: Counseled and educated to comply with fluid and sodium restriction She is currently being followed in our clinic Patient will make an appointment upon discharge History of bladder cancer currently followed by [facility] Severe COPD, CHF, overall stable from renal standpoint Renal function is stable tomorrow she can be discharged to follow-up in the office next week We'll continue to follow and make recommendation from renal standpoint Objective - Vital Signs Vital signs: Vital Signs - 12hr 01/01/19 01/01/19 01/01/19 22:00 22:28 22:33 Pulse Rate [ 104 H Anterior Bilateral] Respiratory 18 Rate [Anterior Bilateral] O2 Sat by Pulse 98 95 Oximetry 01/02/19 01/02/19 01/02/19 08:00 08:01 08:08 Pulse Rate [ 80 78 Anterior Bilateral] Respiratory 18 18 Rate [Anterior Bilateral] O2 Sat by Pulse 94 Oximetry - Lab 01/02/19 04:36 01/02/19 04:36 Most recent lab results Calcium 8.4 mg/dL (8.4-10.2) 01/02/19 04:36 Phosphorus 3.80 mg/dL (2.5-4.5) 12/31/18 06:15 Magnesium 2.50 mg/dL (1.7-2.3) H 12/31/18 06:15 Medications & Allergies - Medications Allergies/Adverse Reactions: Allergies aspirin Allergy (Verified 09/17/17 17:58) Shortness of Breath , CHEST PAIN escitalopram [From Lexapro] Allergy (Verified 04/17/18 11:43) Shortness of Breath salmeterol xinafoate [From Serevent] Allergy (Verified 01/22/17 08:45) Shortness of Breath levofloxacin [From Levaquin] Adverse Reaction (Verified 09/13/16 16:22) Rash Sulfa (Sulfonamide Antibiotics) Adverse Reaction (Verified 10/31/17 11:19) contraindicated due to kidney function states her doctor told her to not take sulfa due to renal insufficiency tramadol Adverse Reaction (Verified 09/19/18 16:34) Nausea contrast dye Adverse Reaction (Uncoded 04/17/18 11:59) contraindicated due to renal insufficiency Home Medications: Home Medications Medication Instructions Recorded Confirmed Last Taken Type Sodium Bicarbonate 650 mg PO BID #60 tablet 10/29/18 12/24/18 Unknown Rx Verapamil ER [Calan SR] 180 mg PO DAILY #30 10/29/18 12/24/18 10/02/18 07:30 Rx predniSONE [Deltasone] 10 mg PO Q48H 30 Days tablet 10/29/18 12/24/18 Unknown Rx Theophylline Anhydrous ER [Theodur] 150 mg PO QPM 12/24/18 12/24/18 Unknown History Theophylline Anhydrous ER [Theodur] 300 mg PO QAM 12/24/18 12/24/18 Unknown History Beclomethasone Dipropionate [Qvar 2 inhalation IH BID 12/26/18 12/26/18 Unknown History Redihaler] Gabapentin [Neurontin] 100 mg PO TID 12/26/18 12/26/18 Unknown History Indacaterol Maleate [Arcapta 75 mcg IH DAILY 12/26/18 12/26/18 12/24/18 History Neohaler] Insulin NPH Hum/Reg Insulin Hm 100 unit SQ QAC 12/26/18 12/26/18 Unknown History [Novolin 70-30 100 Unit/ml Vial] Ipratropium [place] [Atrovent Hfa] 12.9 gm IH 4XD 12/26/18 12/26/18 12/24/18 History Ipratropium/Albuterol Sulfate 1 spray IH QID 12/26/18 12/26/18 Unknown History [Combivent Respimat] Linaclotide (Nf) [Linzess (Nf)] 290 mcg PO QDAY 12/26/18 12/26/18 Unknown History Ondansetron [Zofran TAB] 4 mg PO Q6HR 12/26/18 12/26/18 12/24/18 History Ranitidine HCl [Zantac 150 MG TAB] 150 mg PO BID 12/26/18 12/26/18 12/24/18 History Sucralfate [Carafate] 1 gm PO Q6HR 12/26/18 12/26/18 Unknown History Tiotropium [place] [Spiriva] 18 mcg IH 4XD 12/26/18 12/26/18 12/24/18 History Active Medications: Generic Name Dose Route Start Last Admin Trade Name Freq PRN Reason Stop Dose Admin Acetaminophen 650 mg 12/25/18 00:48 12/25/18 22:14 Tylenol PO 650 mg Q4H PRN Administration Pain MILD(1-3)/Fever >100.5/[place] Al Hydrox/Mg Hydrox/Simethicone 30 ml 12/25/18 13:14 01/01/19 18:33 Alum-Mag Hydrox-Simeth [id number]/5ml PO 30 ml DAILY PRN Administration Indigestion Albuterol 2.5 mg 12/26/18 21:47 Proventil IH Q4HRT PRN Shortness Of Breath Albuterol/Ipratropium 1 ampul 12/30/18 14:00 01/02/19 08:00 Duoneb *Not For Prn Use* IH 1 ampul Q6HRT KELLY Administration Alprazolam 0.25 mg 12/26/18 18:46 01/01/19 22:59 Xanax PO 0.25 mg Q8H PRN Administration Anxiety Arformoterol Tartrate 15 mcg 12/26/18 20:00 01/02/19 07:59 Brovana Nebu IH 15 mcg Q12HRT KELLY Administration Azithromycin 500 mg 01/02/19 10:00 Zithromax PO QDAY KELLY Bisacodyl 10 mg 12/26/18 13:50 12/31/18 10:09 Dulcolax PO 10 mg QDAY PRN Administration Constipation Budesonide 0.5 mg 12/26/18 20:00 01/02/19 08:00 Pulmicort IH 0.5 mg Q12HRT KELLY Administration Enoxaparin Sodium 30 mg 12/25/18 10:00 01/01/19 11:39 Lovenox SUB-Q 30 mg QDAY KELLY Administration Furosemide 40 mg 01/01/19 11:00 01/02/19 05:40 Lasix PO 40 mg DAILY@0600 KELLY Administration Gabapentin 200 mg 12/26/18 22:00 01/01/19 22:58 Neurontin PO 200 mg BID KELLY Administration Guaifenesin 600 mg 12/26/18 22:00 01/01/19 22:58 Mucinex Er PO 600 mg BID KELLY Administration Insulin Human Isoph/Insulin Regular 10 unit 12/27/18 08:00 01/01/19 18:42 Humulin 70/30 SUB-Q Not Given BIDDIAB [facility] Insulin Human Lispro 0 unit 12/26/18 16:30 01/01/19 23:25 Humalog SUB-Q 3 unit ACHS [facility] Administration Protocol Magnesium Hydroxide 30 ml 12/26/18 13:51 12/31/18 06:07 Milk Of Magnesia PO 30 ml QDAY PRN Administration costipation Methylprednisolone Sodium Succinate 60 mg 12/25/18 06:00 01/02/19 05:40 Solu-Medrol IV 60 mg Q6HR KELLY Administration Miscellaneous Medication 75 mcg 12/28/18 10:00 Indacaterol Maleate [Arcapta Neohaler] IH DAILY [facility] Morphine Sulfate 2 mg 12/26/18 17:12 01/02/19 01:42 Morphine IV 2 mg Q6H PRN Administration Pain, Moderate (4-6) Ondansetron HCl 4 mg 12/25/18 00:48 12/31/18 19:58 Zofran IV 4 mg Q8H PRN Administration Nausea And Vomiting Oxycodone/Acetaminophen 1 tab 12/26/18 18:26 01/01/19 18:33 Percocet 5/325 PO 1 tab Q6H PRN Administration Pain, Moderate (4-6) Pantoprazole Sodium 40 mg 12/27/18 10:00 01/01/19 11:40 Protonix PO 40 mg QDAY KELLY Administration Sodium Chloride 10 ml 12/24/18 20:37 12/28/18 06:06 Sodium Chloride Flush Syringe 10 Ml IV 10 ml PRN PRN Administration LINE FLUSH Sodium Chloride 10 ml 12/25/18 10:00 01/01/19 22:59 Sodium Chloride Flush Syringe 10 Ml IV 10 ml BID KELLY Administration Sucralfate 1 gm 12/28/18 00:00 01/02/19 05:40 Carafate PO 1 gm Q6HR KELLY Administration Theophylline 150 mg 12/25/18 18:00 01/01/19 18:20 Theodur PO 150 mg QPM KELLY Administration Theophylline 300 mg 12/26/18 10:00 01/01/19 11:21 Theodur PO 300 mg QAM KELLY Administration Tiotropium [place] 1 puff 12/27/18 09:00 01/02/19 08:05 Spiriva IH Not Given Q24HRT KELLY Verapamil HCl 180 mg 12/26/18 10:00 01/01/19 18:21 Calan Sr PO 180 mg DAILY KELLY Administration
--- NOTE | 2019-01-02 09:58 | Progress Note ---
Assessment and Plan Do not suspect heart failure at this time. Pt's persistent SOB appears to be pulmonary in origin. F/u CXR shows improvement. Currently stable cardiac status. Pt may discharge from cardiology standpoint. Recommend follow up in our office with Dr. Sellers within 1-2 weeks of hospital discharge ([phone]). The patient has been seen in conjunction with Dr. Sellers who agrees with the assessment and plan of care. - Patient Problems (1) Acute on chronic respiratory failure with hypoxemia Current Visit: Yes Status: Acute (2) COPD exacerbation Current Visit: No Status: Acute (3) Chronic kidney disease Current Visit: Yes Status: Chronic (4) Diabetes Current Visit: Yes Status: Chronic (5) HTN (hypertension) Current Visit: Yes Status: Chronic Qualifiers: Hypertension type: essential hypertension Qualified Code(s): I10 - Essential (primary) hypertension (6) Morbid obesity Current Visit: Yes Status: Chronic (7) Obstructive sleep apnea Current Visit: Yes Status: Chronic Subjective Date of service: 01/02/19 Principal diagnosis: CHF,COPD exacerbation,severe morbid obesity,SAKSHI Interval history: pt resting in bed, states she is feeling better. Objective Last Vital Signs Temp 97.3 F L 01/02/19 08:35 Pulse 87 01/02/19 08:35 Resp 20 01/02/19 08:35 BP 148/50 01/02/19 08:35 Pulse Ox 95 01/02/19 08:46 - Physical Examination General: No Apparent Distress HEENT: Positive: PERRL, Normocephaly, Mucus Membranes Moist Neck: Positive: neck supple, trachea midline Cardiac: Positive: Reg Rate and Rhythm, S1/S2 Lungs: Positive: Decreased Breath Sounds Neuro: Positive: Grossly Intact Abdomen: Positive: Soft. Negative: Tender Skin: Negative: Rash, Wound Musculoskeletal: No Pain - Labs and Meds CBC 01/02/19 Range/Units 04:36 WBC 17.3 H (4.5-11.0) K/mm3 RBC 4.23 (3.65-5.03) M/mm3 Hgb 11.5 (10.1-14.3) gm/dl Hct 35.0 (30.3-42.9) % Plt Count 428 (140-440) K/mm3 Comprehensive Metabolic Panel 01/02/19 Range/Units 04:36 Sodium 136 L (137-145) mmol/L Potassium 4.6 (3.6-5.0) mmol/L Chloride 90.1 L (98-107) mmol/L Carbon Dioxide 29 (22-30) mmol/L BUN 82 H (7-17) mg/dL Creatinine 2.5 H (0.7-1.2) mg/dL Glucose 279 H (65-100) mg/dL Calcium 8.4 (8.4-10.2) mg/dL - Imaging and Cardiology EKG: report reviewed, image reviewed Echo: report reviewed (05/2018 reviewed - EF 50-55%, mild LVH, mild MR, mild TR, trivial pericardial effusion. ) - EKG Sinus rhythms and dysrhythmias: sinus rhythm
[2019-01-02] MEDS: HumaLOG SUB-Q SCH ×4 (10:16→22:40)
[2019-01-02] MEDS: ZITHROMAX PO SCH (10:21)
[2019-01-02] MEDS: PROTONIX PO SCH (10:22)
[2019-01-02] MEDS: NEURONTIN PO SCH ×2 (10:22→22:20)
[2019-01-02] MEDS: MUCINEX ER PO SCH ×2 (10:22→22:19)
[2019-01-02] MEDS: LOVENOX SUB-Q SCH (10:23)
[2019-01-02] MEDS: SODIUM CHLORIDE FLUSH SYRINGE 10 ML IV SCH ×2 (10:25→22:09)
--- NOTE | 2019-01-02 12:04 | Progress Note ---
Assessment and Plan 78 y/o obese female with COPD, SAKSHI admitted with dyspnea and COPD exacerbation, likely secondary to noncompliance 1. Keep steroids at current dosing until time for discharge. 2. Abx therapy is complete 3 . Pt/O 4. Same discharge suggestions as stated on yesterday. From a pulmonary standpoint, feel stable for discharge. Discharge planning. Unfortunately, Mrs. Zazueta will never tell you she is feeling well and once she has completed adequate therapy, will need to be discharged. Hopeful in the next 24-48 hours. Per renal they are ok with discharge today once they have reviewed the labs. If discharged to today, please send out on Prednisone 60 daily for 4 days, 40 daily for 4 days, 20 daily for 4 days, then 10 daily for 4 days then stop. No abx need at discharge. Resume home COPD regimen and encouraged compliance with SAKSHI therapy. Subjective Date of service: 01/02/19 Principal diagnosis: CHF,COPD exacerbation,severe morbid obesity,SAKSHI Interval history: No acute events. Pulm status appears stable. On 3 liters NC and satting in the mid 90's Objective Vital Signs - 12hr 01/02/19 01/02/19 01/02/19 08:00 08:01 08:08 Temperature Pulse Rate Pulse Rate [ 80 78 Anterior Bilateral] Respiratory Rate Respiratory 18 18 Rate [Anterior Bilateral] Blood Pressure O2 Sat by Pulse 94 Oximetry 01/02/19 01/02/19 08:35 08:46 Temperature 97.3 F L Pulse Rate 87 Pulse Rate [ Anterior Bilateral] Respiratory 20 Rate Respiratory Rate [Anterior Bilateral] Blood Pressure 148/50 O2 Sat by Pulse 95 95 Oximetry Constitutional: no acute distress, other (severe morbidly obese ) Eyes: non-icteric ENT: oropharynx moist Neck: supple, no JVD (but large neck) Ascultation: Bilateral: clear, diminished breath sounds, wheezes, rhonchi Cardiovascular: regular rate and rhythm Gastrointestinal: normoactive bowel sounds, non-distended, other (Limited exam due to morbid obesity) Integumentary: normal Extremities: no cyanosis, other (mild pretibial edema) Neurologic: normal mental status, non-focal exam, CN II-XII normal Psychiatric: anxious CBC and BMP: 01/02/19 04:36 01/02/19 04:36 Abnormal lab findings: Abnormal Labs 12/24/18 12/24/1812/24/19 14:54 14:54 15:15 WBC MCH Lymph % (Auto) 4.6 L Lymph # 0.4 L Seg Neutrophils % 87.2 H Seg Neuts % (Manual) Lymphocytes % (Manual) Seg Neutrophils # 8.5 H Seg Neutrophils # Man Lymphocytes # (Manual) Sodium Chloride Carbon Dioxide BUN 23 H Creatinine 2.3 H Glucose 125 H POC Glucose Magnesium NT-Pro-B Natriuret Pep 1627 H Total Protein 5.2 L Albumin 3.2 L Lipase 12 L 12/25/18 12/25/18 12/25/18 05:45 17:23 20:59 WBC MCH Lymph % (Auto) Lymph # Seg Neutrophils % Seg Neuts % (Manual) Lymphocytes % (Manual) Seg Neutrophils # Seg Neutrophils # Man Lymphocytes # (Manual) Sodium Chloride Carbon Dioxide BUN 26 H Creatinine 2.6 H Glucose 108 H POC Glucose 155 H 209 H Magnesium NT-Pro-B Natriuret Pep Total Protein Albumin Lipase 12/26/18 12/26/18 12/26/18 08:43 11:11 16:41 WBC MCH Lymph % (Auto) Lymph # Seg Neutrophils % Seg Neuts % (Manual) Lymphocytes % (Manual) Seg Neutrophils # Seg Neutrophils # Man Lymphocytes # (Manual) Sodium Chloride Carbon Dioxide BUN Creatinine Glucose POC Glucose 187 H 204 H 198 H Magnesium NT-Pro-B Natriuret Pep Total Protein Albumin Lipase 12/26/18 12/27/18 12/27/18 20:52 09:29 09:47 WBC MCH Lymph % (Auto) Lymph # Seg Neutrophils % Seg Neuts % (Manual) Lymphocytes % (Manual) Seg Neutrophils # Seg Neutrophils # Man Lymphocytes # (Manual) Sodium 136 L Chloride 90.2 L Carbon Dioxide BUN 34 H Creatinine 2.6 H Glucose 303 H POC Glucose 198 H 266 H Magnesium NT-Pro-B Natriuret Pep 2536 H Total Protein Albumin Lipase 12/27/18 12/27/18 12/28/18 16:55 21:54 07:30 WBC MCH Lymph % (Auto) Lymph # Seg Neutrophils % Seg Neuts % (Manual) Lymphocytes % (Manual) Seg Neutrophils # Seg Neutrophils # Man Lymphocytes # (Manual) Sodium Chloride Carbon Dioxide BUN Creatinine Glucose POC Glucose 242 H 234 H 233 H Magnesium NT-Pro-B Natriuret Pep Total Protein Albumin Lipase 12/28/18 12/28/18 12/28/18 10:56 12:29 17:11 WBC MCH Lymph % (Auto) Lymph # Seg Neutrophils % Seg Neuts % (Manual) Lymphocytes % (Manual) Seg Neutrophils # Seg Neutrophils # Man Lymphocytes # (Manual) Sodium 133 L Chloride 88.9 L Carbon Dioxide BUN 45 H Creatinine 2.8 H Glucose 426 H POC Glucose 331 H 299 H Magnesium NT-Pro-B Natriuret Pep Total Protein Albumin Lipase 12/28/18 12/29/18 12/29/18 21:41 07:28 13:18 WBC MCH Lymph % (Auto) Lymph # Seg Neutrophils % Seg Neuts % (Manual) Lymphocytes % (Manual) Seg Neutrophils # Seg Neutrophils # Man Lymphocytes # (Manual) Sodium Chloride Carbon Dioxide BUN Creatinine Glucose POC Glucose 359 H 275 H 247 H Magnesium NT-Pro-B Natriuret Pep Total Protein Albumin Lipase 12/29/18 12/29/18 12/30/18 17:02 21:47 05:38 WBC 16.7 H MCH 27 L Lymph % (Auto) Lymph # Seg Neutrophils % Seg Neuts % (Manual) 94.0 H Lymphocytes % (Manual) 3.0 L Seg Neutrophils # Seg Neutrophils # Man 15.7 H Lymphocytes # (Manual) 0.5 L Sodium Chloride Carbon Dioxide BUN Creatinine Glucose POC Glucose 203 H 341 H Magnesium NT-Pro-B Natriuret Pep Total Protein Albumin Lipase 12/30/18 12/30/18 12/30/18 05:38 08:51 13:11 WBC MCH Lymph % (Auto) Lymph # Seg Neutrophils % Seg Neuts % (Manual) Lymphocytes % (Manual) Seg Neutrophils # Seg Neutrophils # Man Lymphocytes # (Manual) Sodium 136 L Chloride 89.8 L Carbon Dioxide 31 H BUN 64 H Creatinine 2.9 H Glucose 287 H POC Glucose 265 H 235 H Magnesium 2.50 H NT-Pro-B Natriuret Pep Total Protein Albumin Lipase 12/30/18 12/30/18 12/30/18 16:22 21:31 22:50 WBC MCH Lymph % (Auto) Lymph # Seg Neutrophils % Seg Neuts % (Manual) Lymphocytes % (Manual) Seg Neutrophils # Seg Neutrophils # Man Lymphocytes # (Manual) Sodium Chloride Carbon Dioxide BUN Creatinine Glucose POC Glucose 241 H 289 H 336 H Magnesium NT-Pro-B Natriuret Pep Total Protein Albumin Lipase 12/31/18 12/31/18 12/31/18 05:49 06:15 06:15 WBC 16.3 H MCH 26 L Lymph % (Auto) Lymph # Seg Neutrophils % Seg Neuts % (Manual) 98.0 H Lymphocytes % (Manual) 1.0 L Seg Neutrophils # Seg Neutrophils # Man 16.0 H Lymphocytes # (Manual) 0.2 L Sodium 135 L Chloride 92.8 L Carbon Dioxide BUN 69 H Creatinine 2.5 H Glucose 340 H POC Glucose 335 H Magnesium 2.50 H NT-Pro-B Natriuret Pep Total Protein Albumin Lipase 12/31/18 12/31/18 12/31/18 08:19 12:11 16:29 WBC MCH Lymph % (Auto) Lymph # Seg Neutrophils % Seg Neuts % (Manual) Lymphocytes % (Manual) Seg Neutrophils # Seg Neutrophils # Man Lymphocytes # (Manual) Sodium Chloride Carbon Dioxide BUN Creatinine Glucose POC Glucose 324 H 300 H 261 H Magnesium NT-Pro-B Natriuret Pep Total Protein Albumin Lipase 12/31/18 01/01/19 01/01/19 21:12 06:15 06:15 WBC 19.0 H MCH 27 L Lymph % (Auto) Lymph # Seg Neutrophils % Seg Neuts % (Manual) Lymphocytes % (Manual) Seg Neutrophils # Seg Neutrophils # Man Lymphocytes # (Manual) Sodium Chloride 93.2 L Carbon Dioxide 31 H BUN 73 H Creatinine 2.3 H Glucose 281 H POC Glucose 309 H Magnesium NT-Pro-B Natriuret Pep Total Protein Albumin Lipase 01/01/19 01/01/19 01/01/19 07:38 11:31 16:50 WBC MCH Lymph % (Auto) Lymph # Seg Neutrophils % Seg Neuts % (Manual) Lymphocytes % (Manual) Seg Neutrophils # Seg Neutrophils # Man Lymphocytes # (Manual) Sodium Chloride Carbon Dioxide BUN Creatinine Glucose POC Glucose 259 H 320 H 280 H Magnesium NT-Pro-B Natriuret Pep Total Protein Albumin Lipase 01/01/19 01/02/19 01/02/19 23:19 04:36 04:36 WBC 17.3 H MCH 27 L Lymph % (Auto) Lymph # Seg Neutrophils % Seg Neuts % (Manual) Lymphocytes % (Manual) Seg Neutrophils # Seg Neutrophils # Man Lymphocytes # (Manual) Sodium 136 L Chloride 90.1 L Carbon Dioxide BUN 82 H Creatinine 2.5 H Glucose 279 H POC Glucose 243 H Magnesium NT-Pro-B Natriuret Pep Total Protein Albumin Lipase 01/02/19 08:03 WBC MCH Lymph % (Auto) Lymph # Seg Neutrophils % Seg Neuts % (Manual) Lymphocytes % (Manual) Seg Neutrophils # Seg Neutrophils # Man Lymphocytes # (Manual) Sodium Chloride Carbon Dioxide BUN Creatinine Glucose POC Glucose 279 H Magnesium NT-Pro-B Natriuret Pep Total Protein Albumin Lipase
[2019-01-02] MEDS: CALAN SR PO SCH (12:56)
[2019-01-02] MEDS: THEODUR PO SCH ×2 (13:19→14:00)
--- NOTE | 2019-01-02 13:22 | Discharge Summary ---
Providers - Providers Date of Admission: 12/25/18 03:17 Date of discharge: 02/03/19 Attending physician: DARWIN JONES 12/27/18 08:00 Consult to Physician [CONS] Routine Comment: Consulting Provider: VICTORIA PURVIS Physician Instructions: Reason For Exam: chronic kidney failure Consult to Physician [CONS] Routine Comment: Consulting Provider: DANISHA JENKINS Physician Instructions: Reason For Exam: acute on chronic resp failure /COPD exacerbation 12/30/18 12:17 Consult to Dietitian/Nutrition [CONS] Routine Physician Instructions: Reason For Exam: Reason for Consult: Diet education 12/31/18 10:17 Physical Therapy Evaluation and Treat [CONS] Routine Comment: Reason For Exam: weakness 01/01/19 09:59 Consult to Physician [CONS] Routine Comment: Consulting Provider: SATISH CAST Physician Instructions: Reason For Exam: shortness of breath,pulm congestion,poss CHF [facility] Condition: [facility] Hospital course: Patient is 78 yo morbidly obese female patient with significant history of COPD, diabetes, GERD, obstructive sleep apnea, home oxygen dependent,follows with knot cutter . She presented to ED with worsening shortness of breath. patient was diagnosed with acute on chronic respiratory failure due to COPD exacerbation, sleep apnea. She was placed on BiPAP, admitted. She was evaluated by knot cutter, nephrology. She was put on solu-medrol, Duoneb. she improved, was transferred to MELODY unit from Telemetry. She continued to improve and was initially discharged home on 01/02/19, however she felt weak unable to climb truck of friend so returned to room. patient requested SNF, this was arranged by [facility] and she was discharged to SNF on 01/03/19. Total time spent on discharge, 32 mins Disposition: [id number]/[id number] SNF W [facility] CERT - Discharge Diagnoses (1) PUMA (acute kidney injury) Status: Acute (2) Acute and chronic respiratory failure Status: Acute Qualifiers: Respiratory failure complication: hypoxia and hypercapnia Qualified Code(s): J96.21 - Acute and chronic respiratory failure with hypoxia; J96.22 - Acute and chronic respiratory failure with hypercapnia (3) Acute kidney injury superimposed on chronic kidney disease Status: Acute (4) COPD exacerbation Status: Acute (5) Chest pain Status: Acute Qualifiers: Chest pain type: unspecified Qualified Code(s): R07.9 - Chest pain, unspecified (6) Diabetes mellitus type 2 in obese Status: Acute (7) Sleep apnea in adult Status: Acute (8) Sleep apnea Status: Acute (9) Morbid obesity Status: Acute Core Measure Documentation - Palliative Care Palliative Care/ Comfort Measures: Not Applicable - Core Measures Any of the following diagnoses?: none Exam - Constitutional Vitals: Temp Pulse Resp BP Pulse Ox 97.3 F L 87 20 148/50 95 01/02/19 08:35 01/02/19 08:35 01/02/19 08:35 01/02/19 08:35 01/02/19 08:46 Plan Activity: advance as tolerated Diet: low fat, low cholesterol, low salt, diabetic Special Instructions: home oxygen via Additional Instructions: 1.Follow up with PCP in 1 week. 2.Follow up with Pulmonology, Dr. Silva in 1 week. 3.Follow up with Cardiology, Dr. Cast in 1 week. 4.Follow up with Nephrology, Dr. Bueno in 1 week. 4.Continue Home Oxygen at 3l/min NC, 24 hrs daily Follow up with: DRE NICOLE MD [Primary Care Provider] - 7 Days Prescriptions: predniSONE [Deltasone] 60 mg PO QDAY 4 Days tab predniSONE [Deltasone] 40 mg PO DAILY 4 Days tablet predniSONE [Deltasone] 20 mg PO QDAY 4 Days tab predniSONE [Deltasone] 10 mg PO DAILY 4 Days tablet Furosemide [Lasix TAB] 40 mg PO QDAY #30 tablet Furosemide [Lasix TAB] 40 mg PO QDAY #30 tablet Insulin NPH/Regular [NovoLIN 70/30] 12 unit SUB-Q BIDDIAB #1 vial Pantoprazole [Protonix TAB] 40 mg PO QDAY #30 tablet
[2019-01-02] MEDS: XANAX PO PRN ×2 (14:04→22:20)
--- NOTE | 2019-01-02 18:26 | Event Note ---
Date: 01/02/19 Called by Nurse that patient came back, unable to get into Truck of boyfriend because of generalized weakness. I recommend to put patient back to bed.
--- NOTE | 2019-01-02 18:26 | Progress Note ---
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 was admitted through emergency room with worsening shortness of breath noted to be in acute on chronic respiratory failure requiring BiPAP, Patient is evaluated by pulmonary critical, nephrology for chronic kidney disease --Acute on chronic hypoxic respiratory failure; Secondary to COPD exacerbation, home oxygen dependent Continue nebulizers IV steroids and IV antibiotics inhalation steroids Pulmonary following --Acute exacerbation of COPD; Oxygen titrate to O2 sats more than 90%, nebulizers and IV steroids IV antibiotic inhalation steroids supportive care --Chronic kidney disease; closely monitor renal function Avoid nephrotoxins, nephrology following --Morbid obesity; BMI 50.8, advised weight reduction when medically stable --Type 2 diabetes mellitus; moderate control Accu-Chek sliding scale coverage and ADA diet and long-acting insulin --Possible obstructive sleep apnea; CPAP BiPAP at night --Gastroesophageal reflux disease; Protonix -- DVT prophylaxis Lovenox --Full code Physical therapy/ occupational therapy Closely monitor the patient and adjust management as needed Disposition; out of bed to chair, PT OT Possible discharge in 1-2 days if stable with home health CXR on 12/24 and 12/27 revealed pulm congestion. CXR today atelectasis Consulted cardiology to evaluate for poss CHF Echo ordered. No evidence of CHF as per cardiology Patient was discharged home today but felt weak, unable to climb into Truck, so brought back. History Interval history: Patient was discharged taken down in wheelchair but stated she was too week to get into Truck so brought back Hospitalist Physical - Physical exam Narrative exam: GEN: Not in acute distress, lying in bed,morbidly obese HEENT: Normocephalic, atraumatic, Neck: supple, No JVD Lungs: Decreased breath sounds, bilateral rhonchi, no crackles, no wheeze Abd:soft, non tender, non distended, normal bowel sounds Ext: Edema, no clubbing, no cyanosis Neuro:Awake,alert,oriented X 3, no focal signs Psych: normal mood - Constitutional Vitals: Temp Pulse Resp BP Pulse Ox 97.3 F L 82 16 148/50 98 01/02/19 08:35 01/02/19 15:04 01/02/19 15:04 01/02/19 12:56 01/02/19 10:00 General appearance: Present: no acute distress Results - Labs CBC & Chem 7: 01/02/19 04:36 01/02/19 04:36 Labs: Laboratory Last Values WBC 17.3 K/mm3 (4.5-11.0) H 01/02/19 04:36 RBC 4.23 M/mm3 (3.65-5.03) 01/02/19 04:36 Hgb 11.5 gm/dl (10.1-14.3) 01/02/19 04:36 Hct 35.0 % (30.3-42.9) 01/02/19 04:36 MCV 83 fl (79-97) 01/02/19 04:36 MCH 27 pg (28-32) L 01/02/19 04:36 MCHC 33 % (30-34) 01/02/19 04:36 RDW 14.1 % (13.2-15.2) 01/02/19 04:36 Plt Count 428 K/mm3 (140-440) 01/02/19 04:36 Lymph % (Auto) 4.6 % (13.4-35.0) L 12/24/18 14:54 Dale % (Auto) 6.1 % (0.0-7.3) 12/24/18 14:54 Eos % (Auto) 1.5 % (0.0-4.3) 12/24/18 14:54 Baso % (Auto) 0.6 % (0.0-1.8) 12/24/18 14:54 Lymph # 0.4 K/mm3 (1.2-5.4) L 12/24/18 14:54 Dale # 0.6 K/mm3 (0.0-0.8) 12/24/18 14:54 Eos # 0.1 K/mm3 (0.0-0.4) 12/24/18 14:54 Baso # 0.1 K/mm3 (0.0-0.1) 12/24/18 14:54 Add Manual Diff Complete 12/31/18 06:15 Total Counted 100 12/31/18 06:15 Seg Neutrophils % Solar Technician 12/31/18 06:15 Seg Neuts % (Manual) 98.0 % (40.0-70.0) H 12/31/18 06:15 Band Neutrophils % 0 % 12/31/18 06:15 Lymphocytes % (Manual) 1.0 % (13.4-35.0) L 12/31/18 06:15 Reactive Lymphs % (Man) 0 % 12/31/18 06:15 Monocytes % (Manual) 1.0 % (0.0-7.3) 12/31/18 06:15 Eosinophils % (Manual) 0 % (0.0-4.3) 12/31/18 06:15 Basophils % (Manual) 0 % (0.0-1.8) 12/31/18 06:15 Metamyelocytes % 0 % 12/31/18 06:15 Myelocytes % 0 % 12/31/18 06:15 Promyelocytes % 0 % 12/31/18 06:15 Blast Cells % 0 % 12/31/18 06:15 Nucleated RBC % Not Reportable 12/31/18 06:15 Seg Neutrophils # 8.5 K/mm3 (1.8-7.7) H 12/24/18 14:54 Seg Neutrophils # Man 16.0 K/mm3 (1.8-7.7) H 12/31/18 06:15 Band Neutrophils # 0.0 K/mm3 12/31/18 06:15 Lymphocytes # (Manual) 0.2 K/mm3 (1.2-5.4) L 12/31/18 06:15 Abs React Lymphs (Man) 0.0 K/mm3 12/31/18 06:15 Monocytes # (Manual) 0.2 K/mm3 (0.0-0.8) 12/31/18 06:15 Eosinophils # (Manual) 0.0 K/mm3 (0.0-0.4) 12/31/18 06:15 Basophils # (Manual) 0.0 K/mm3 (0.0-0.1) 12/31/18 06:15 Metamyelocytes # 0.0 K/mm3 12/31/18 06:15 Myelocytes # 0.0 K/mm3 12/31/18 06:15 Promyelocytes # 0.0 K/mm3 12/31/18 06:15 Blast Cells # 0.0 K/mm3 12/31/18 06:15 WBC Morphology Not Reportable 12/31/18 06:15 Hypersegmented Neuts Not Reportable 12/31/18 06:15 Hyposegmented Neuts Not Reportable 12/31/18 06:15 Hypogranular Neuts Not Reportable 12/31/18 06:15 Smudge Cells Not Reportable 12/31/18 06:15 Toxic Granulation Not Reportable 12/31/18 06:15 Toxic Vacuolation Not Reportable 12/31/18 06:15 Dohle Bodies Not Reportable 12/31/18 06:15 Pelger-Huet Anomaly Not Reportable 12/31/18 06:15 Aaron Rods Not Reportable 12/31/18 06:15 Platelet Estimate Consistent w auto 12/31/18 06:15 Clumped Platelets Not Reportable 12/31/18 06:15 Plt Clumps, EDTA Not Reportable 12/31/18 06:15 Large Platelets Not Reportable 12/31/18 06:15 Giant Platelets Not Reportable 12/31/18 06:15 Platelet Satelliting Not Reportable 12/31/18 06:15 Plt Morphology Comment Not Reportable 12/31/18 06:15 RBC Morphology Normal 12/31/18 06:15 Dimorphic RBCs Not Reportable 12/31/18 06:15 Polychromasia Not Reportable 12/31/18 06:15 Hypochromasia Not Reportable 12/31/18 06:15 Poikilocytosis Not Reportable 12/31/18 06:15 Anisocytosis Not Reportable 12/31/18 06:15 Microcytosis Not Reportable 12/31/18 06:15 Macrocytosis Not Reportable 12/31/18 06:15 Spherocytes Not Reportable 12/31/18 06:15 Pappenheimer Bodies Not Reportable 12/31/18 06:15 Sickle Cells Not Reportable 12/31/18 06:15 Target Cells Not Reportable 12/31/18 06:15 Tear Drop Cells Not Reportable 12/31/18 06:15 Ovalocytes Not Reportable 12/31/18 06:15 Helmet Cells Not Reportable 12/31/18 06:15 Sol-Mayflower Bodies Not Reportable 12/31/18 06:15 [place] Rings Not Reportable 12/31/18 06:15 [place] Cells Not Reportable 12/31/18 06:15 Bite Cells Not Reportable 12/31/18 06:15 Crenated Cell Not Reportable 12/31/18 06:15 Elliptocytes Not Reportable 12/31/18 06:15 Acanthocytes (Spur) Not Reportable 12/31/18 06:15 Rouleaux Not Reportable 12/31/18 06:15 Hemoglobin C Crystals Not Reportable 12/31/18 06:15 Schistocytes Not Reportable 12/31/18 06:15 Malaria parasites Not Reportable 12/31/18 06:15 Osvaldo Bodies Not Reportable 12/31/18 06:15 Hem Pathologist Commnt No 12/31/18 06:15 Sodium 136 mmol/L (137-145) L 01/02/19 04:36 Potassium 4.6 mmol/L (3.6-5.0) 01/02/19 04:36 Chloride 90.1 mmol/L (98-107) L 01/02/19 04:36 Carbon Dioxide 29 mmol/L (22-30) 01/02/19 04:36 Anion Gap 22 mmol/L 01/02/19 04:36 BUN 82 mg/dL (7-17) H 01/02/19 04:36 Creatinine 2.5 mg/dL (0.7-1.2) H 01/02/19 04:36 Estimated GFR 19 ml/min 01/02/19 04:36 BUN/Creatinine Ratio 33 % 01/02/19 04:36 Glucose 279 mg/dL (65-100) H 01/02/19 04:36 POC Glucose 226 (70-105) H 01/02/19 16:40 Calcium 8.4 mg/dL (8.4-10.2) 01/02/19 04:36 Phosphorus 3.80 mg/dL (2.5-4.5) 12/31/18 06:15 Magnesium 2.50 mg/dL (1.7-2.3) H 12/31/18 06:15 Total Bilirubin 0.50 mg/dL (0.1-1.2) 12/24/18 15:15 Direct Bilirubin < 0.2 mg/dL (0-0.2) 12/24/18 15:15 Indirect Bilirubin 0.3 mg/dL 12/24/18 15:15 AST 11 units/L (5-40) 12/24/18 15:15 ALT 8 units/L (7-56) 12/24/18 15:15 Alkaline Phosphatase 87 units/L (35-129) 12/24/18 15:15 NT-Pro-B Natriuret Pep 2536 pg/mL (0-900) H 12/27/18 09:47 Total Protein 5.2 g/dL (6.3-8.2) L 12/24/18 15:15 Albumin 3.2 g/dL (3.9-5) L 12/24/18 15:15 Albumin/Globulin Ratio 1.6 % 12/24/18 15:15 Lipase 12 units/L (13-60) L 12/24/18 15:15 Urine Color Yellow (Yellow) 12/28/18 06:51 Urine Turbidity Clear (Clear) 12/28/18 06:51 Urine pH 5.0 (5.0-7.0) 12/28/18 06:51 Ur Specific [place] 1.011 (1.003-1.030) 12/28/18 06:51 Urine Protein <15 mg/dl mg/dL (Negative) 12/28/18 06:51 Urine Glucose (UA) Neg mg/dL (Negative) 12/28/18 06:51 Urine Ketones Neg mg/dL (Negative) 12/28/18 06:51 Urine Blood Neg (Negative) 12/28/18 06:51 Urine Nitrite Neg (Negative) 12/28/18 06:51 Urine Bilirubin Neg (Negative) 12/28/18 06:51 Urine Urobilinogen < 2.0 mg/dL (<2.0) 12/28/18 06:51 Ur Leukocyte Esterase Neg (Negative) 12/28/18 06:51 Urine WBC (Auto) 1.0 /HPF (0.0-6.0) 12/28/18 06:51 Urine RBC (Auto) 1.0 /HPF (0.0-6.0) 12/28/18 06:51 U Epithel Cells (Auto) < 1.0 /HPF (0-13.0) 12/28/18 06:51 Theophylline 13.8 ug/mL (10.0-20.0) 12/30/18 10:13 Nutrition/Malnutrition Assess - Dietary Evaluation Nutrition/Malnutrition Findings: Nutrition Notes Start: 12/25/18 15:17 Freq: Status: Active Protocol: Document 01/01/19 13:49 OL (Rec: 01/01/19 14:01 OL [id number]) Nutrition Notes Initial or Follow up Brief Note Current Diagnosis CKD(stage I-IV),COPD,Diabetes, Hypertension,Heart Failure Other Pertinent Diagnosis GERD, Hx hyperthyroidism Current Diet cardiac/consistent CHO Subjective/Other Information Pt. known to RD through previous admissions. Pt. has received consistent CHO education before. Pt. also with questions concerning renal restrictions. Reinforced education and provided pt. with handout. #1 Nutrition Diagnosis Limited adherence to nutrition -related recommendations Etiology knowledge deficit As Evidenced by Signs and Symptoms pt. unsure of CHO food sources , requesting more education Nutrition Intervention Teaching Recipient Patient Learning Readiness Good Teaching Methods Discussion,Handout Education Handouts Provided CHO counting Goal #1 Diet adherence Revisit per MD consult or patient Sign Off request:
[2019-01-02] MEDS: PERCOCET 5/325 PO PRN (19:28)
[2019-01-03] MEDS: CARAFATE PO SCH ×4 (00:05→17:02)
[2019-01-03] MEDS: SOLU-Medrol IV SCH ×4 (00:06→18:16)
[2019-01-03] MEDS: DUONEB *Not for PRN Use IH SCH ×3 (03:57→14:15)
[2019-01-03] MEDS: LASIX PO SCH (05:33)
[2019-01-03] MEDS: PERCOCET 5/325 PO PRN ×2 (05:34→13:24)
[2019-01-03] MEDS: NEURONTIN PO SCH (09:03)
[2019-01-03] MEDS: PROTONIX PO SCH (09:03)
[2019-01-03] MEDS: XANAX PO PRN (09:03)
[2019-01-03] MEDS: MUCINEX ER PO SCH (09:03)
[2019-01-03] MEDS: TYLENOL PO PRN (09:04)
[2019-01-03] MEDS: CALAN SR PO SCH (09:04)
[2019-01-03] MEDS: ZITHROMAX PO SCH (09:04)
[2019-01-03] MEDS: HumaLOG SUB-Q SCH ×3 (09:09→17:07)
[2019-01-03] MEDS: BROVANA NEBU IH SCH (09:22)
[2019-01-03] MEDS: PULMICORT IH SCH (09:22)
[2019-01-03] MEDS: SPIRIVA IH SCH (09:25)
--- NOTE | 2019-01-03 09:29 | XRay Report ---
RIGHT KNEE RADIOGRAPHS INDICATION: Trauma to right knee, pain. COMPARISON: None similar. FINDINGS: AP and crosstable lateral right knee radiographs demonstrate intact overall articulation. No suprapatellar effusion. Patellofemoral degenerative narrowing and mild spurring may be noted. Inferior patellar enthesophytes. Osteopenia. CONCLUSION: No acute right knee radiographic abnormality with predominantly patellofemoral degenerative changes noted, as described. Thank you for the opportunity to participate in this patient's care.
[2019-01-03] MEDS: LOVENOX SUB-Q SCH (10:35)
[2019-01-03] MEDS: ZOFRAN IV PRN (13:25)
[2019-01-03] MEDS: THEODUR PO SCH ×2 (13:36→17:03)
[2019-01-03] MEDS: SODIUM CHLORIDE FLUSH SYRINGE 10 ML IV SCH (14:27)
[2019-01-03 14:54] VITALS: BP 145/51
--- NOTE | 2019-01-03 16:25 | Event Note ---
Date: 01/03/19 Patient stable for dc today. I have seen and examined her today.
--- NOTE | 2019-01-03 17:48 | XRay Report ---
PROCEDURE: XR HIP 2-3V RT TECHNIQUE: Frontal and frog lateral views right hip HISTORY: Hip pain COMPARISONS: None FINDINGS: Visualization of detail is significantly limited by artifact created by large body habitus. There is no definite evidence of fracture and no evidence of subluxation. IMPRESSION: 1. Study degraded by artifact created by large body habitus. 2. No definite evidence of fracture and no evidence of subluxation. If further imaging is required, CT may be helpful. This document is electronically signed by Anabel Lundberg MD., January 03 2019 05:45:40 PM ET
== END 2019-01-03 18:53 | DRG 189 ==
LOC: ED 13:50 → 4A 12-25 03:17 → 2B-ACE 12-31 17:19
PROVIDERS: ADMIT Internal Medicine; ATTEND Internal Medicine
DX: J96.21 Acute and chronic respiratory failure with hypoxia (principal); J44.1 Chronic obstructive pulmonary disease with (acute) exacerbation; N18.4 Chronic kidney disease, stage 4 (severe); Z68.43 Body mass index [BMI] 50.0-59.9, adult; I13.0 Hypertensive heart and chronic kidney disease with heart failure and stage 1 through stage 4 chronic kidney disease, or unspecified chronic kidney disease; N17.9 Acute kidney failure, unspecified; E87.1 Hypo-osmolality and hyponatremia; E11.22 Type 2 diabetes mellitus with diabetic chronic kidney disease; F41.9 Anxiety disorder, unspecified; G47.33 Obstructive sleep apnea (adult) (pediatric); M19.90 Unspecified osteoarthritis, unspecified site; I50.9 Heart failure, unspecified; E66.01 Morbid (severe) obesity due to excess calories; E87.70 Fluid overload, unspecified; E05.90 Thyrotoxicosis, unspecified without thyrotoxic crisis or storm; K21.9 Gastro-esophageal reflux disease without esophagitis; Z99.81 Dependence on supplemental oxygen; Z88.6 Allergy status to analgesic agent; Z88.1 Allergy status to other antibiotic agents; Z88.2 Allergy status to sulfonamides; Z91.041 Radiographic dye allergy status; Z79.899 Other long term (current) drug therapy; Z85.51 Personal history of malignant neoplasm of bladder; Z90.49 Acquired absence of other specified parts of digestive tract; Z90.710 Acquired absence of both cervix and uterus
CPT/HCPCS: 36415; 71045; 74176; 80048; 80076; 80198; 81001; 82962; 83690; 83735; 83880; 84100; 85007; 85025; 85027; 87116; 93005; 93010; 93306; 94640; 94760; G0378; J0456; J1650; J1815; J1940; J2270; J2405; J2920; J7050

== ENCOUNTER 2019-02-27 13:23 | Inpatient (IN) | payer MEDICARE, OTHER ==
[2019-02-27] MEDS ORDERED: NACL 0.9% 500 ML 500 ML IV ONE (14:36)
[2019-02-27] MEDS ORDERED: VANCOMYCIN PHARMACY TO DOSE IV SCH (15:00)
[2019-02-27 15:25] LABS: Hematocrit 37.4 % (30.3-42.9); Hemoglobin 12.3 gm/dl (10.1-14.3); Mean Corpuscular HGB Conc 33 % (30-34); Mean Corpuscular Volume 86 fl (79-97); Platelet Count 341 K/mm3 (140-440); Red Blood Count 4.37 M/mm3 (3.65-5.03); Red Cell Distribution Width 15.8 % (13.2-15.2)
[2019-02-27 15:37] LABS: INR 0.93 (0.87-1.13)
[2019-02-27 15:38] LABS: Partial Thromboplastin Time 36.8 Sec. (24.2-36.6)
[2019-02-27 15:40] LABS: BUN/Creatinine Ratio 8; Blood Urea Nitrogen 23 mg/dL (7-17); Calcium 9.5 mg/dL (8.4-10.2); Hemolysis Index 6
[2019-02-27 15:41] LABS: Alanine Aminotransferase < 5 units/L (7-56); Bilirubin,Direct < 0.2 mg/dL (0-0.2)
[2019-02-27] MEDS ORDERED: MERREM 1,000 MG in NACL 0.9% 100 ML IV ONE (16:00)
[2019-02-27] MEDS ORDERED: VANCOMYCIN 2,000 MG in NACL 0.9% 500 ML 500 ML IV ONE (16:00)
[2019-02-27 16:06] LABS: Bilirubin,Urine NEG (Negative); Blood,Urine NEG (Negative); Color,Urine Yellow (Yellow); Protein,Urine <15 mg/dL mg/dL (Negative); Urobilinogen,Urine < 2.0 mg/dL (<2.0)
--- NOTE | 2019-02-27 16:44 | XRay Report ---
PROCEDURE: XR CHEST 1V AP TECHNIQUE: Single frontal view of the chest HISTORY: KEVIN COMPARISONS: Chest radiograph performed on 12/27/2018 FINDINGS: Stable borderline cardiomegaly. Mild elevation of the right hemidiaphragm. The lungs are clear without focal consolidation. No pleura l effusion or pneumothorax. No acute bony or soft tissue abnormality. IMPRESSION: No acute cardiopulmonary disease. This document is electronically signed by Rocio Chavarria MD., Feb 27 2019 04:42:36 PM ET
[2019-02-27 17:07] LABS: Basophils % (Manual) 0 % (0.0-1.8); Myelocytes # (Manual) 0.2 K/mm3; Total Cells Counted 100
[2019-02-27 17:26] LABS: Large Platelets 1+; Platelet Estimate Consistent w Auto; RBC Morphology Normal
--- NOTE | 2019-02-27 17:27 | Emergency Department Report ---
ED General Adult HPI - General Chief complaint: Dyspnea/Respdistress Stated complaint: LUNG PAIN Time Seen by Provider: 02/27/19 14:22 Source: EMS Mode of arrival: Ambulatory Limitations: Physical Limitation - History of Present Illness Initial comments: This is an 79 year old female who is status post a 3 day hospitalization at [facility] for cellulitis and likely other medical conditions. She was transferred to alf yesterday. She was observed to be somewhat delirious per her son. She was transported to this facility for further ev aluation. I spoke to the son briefly by telephone. He states that the patient has not been acting right. He also states he doesn't know if this is a psychological or medical condition. This is a patient with multiple medical comorbidities to include insulin- dependent diabetes, COPD with previous intubations, stage IV bladder cancer, chronic kidney disease stage IV, etc. She is morbidly obese. The patient states that she does have chronic difficulty breathing. She appears to be talking to herself on my initial encounter. She is coherent and appropriately responsive to questioning. She does not complain of any specific pain although she does state that she "hurts all over". Review of the patient's last discharge summary and December 2018 reveals the following information: Hospitalization Condition: Fair Hospital course: Patient is 78 yo morbidly obese female patient with significant history of COPD, diabetes, GERD, obstructive sleep apnea, home oxygen dependent,follows with wedding planner . She presented to ED with worsening shortness of breath. patient was diagnosed with acute on chronic respiratory failure due to COPD exacerbation, sleep apnea. She was placed on BiPAP, admitted. She was evaluated by wedding planner, nephrology. She was put on solu-medrol, Duoneb. she improved, was transferred to MELODY unit from Telemetry. She continued to improve and was initially discharged home on 01/02/19, however she felt weak unable to climb truck of friend so returned to room. patient requested SNF, this was arranged by Transfer Car Operator and she was discharged to SNF on 01/03/19. Total time spent on discharge, 32 mins Disposition: [id number]/[id number] SNF W [facility] CERT - Discharge Diagnoses (1) PUMA (acute kidney injury) Status: Acute (2) Acute and chronic respiratory failure Status: Acute Qualifiers: Respiratory failure complication: hypoxia and hypercapnia Qualified Code(s): J96.21 - Acute and chronic respiratory failure with hypoxia; J96.22 - Acute and chronic respiratory failure with hypercapnia (3) Acute kidney injury superimposed on chronic kidney disease Status: Acute (4) COPD exacerbation Status: Acute (5) Chest pain Status: Acute Qualifiers: Chest pain type: unspecified Qualified Code(s): R07.9 - Chest pain, unspecified (6) Diabetes mellitus type 2 in obese Status: Acute (7) Sleep apnea in adult Status: Acute (8) Sleep apnea Status: Acute (9) Morbid obesity Status: Acute -: Gradual Severity scale (0 -10): 1 - Related Data Home Medications Medication Instructions Recorded Confirmed Last Taken Theophylline Anhydrous ER [Theodur] 150 mg PO QPM 12/24/18 12/24/18 Unknown Theophylline Anhydrous ER [Theodur] 300 mg PO QAM 12/24/18 12/24/18 Unknown Beclomethasone Dipropionate [Qvar 2 inhalation IH BID 12/26/18 12/26/18 Unknown Redihaler] Gabapentin [Neurontin] 100 mg PO TID 12/26/18 12/26/18 Unknown Indacaterol Maleate [Arcapta 75 mcg IH DAILY 12/26/18 12/26/18 12/24/18 Neohaler] Ipratropium [place] [Atrovent Hfa] 12.9 gm IH 4XD 12/26/18 12/26/18 12/24/18 Ipratropium/Albuterol Sulfate 1 spray IH QID 12/26/18 12/26/18 Unknown [Combivent Respimat] Linaclotide (Nf) [Linzess (Nf)] 290 mcg PO QDAY 12/26/18 12/26/18 Unknown Ondansetron [Zofran TAB] 4 mg PO Q6HR 12/26/18 12/26/18 12/24/18 Ranitidine HCl [Zantac] 150 mg PO BID 12/26/18 12/26/18 12/24/18 Sucralfate [Carafate] 1 gm PO Q6HR 12/26/18 12/26/18 Unknown Tiotropium [place] [Spiriva] 18 mcg IH 4XD 12/26/18 12/26/18 12/24/18 Previous Rx's Medication Instructions Recorded Last Taken Type Sodium Bicarbonate 650 mg PO BID #60 tablet 10/29/18 Unknown Rx Verapamil ER [Calan SR] 180 mg PO DAILY #30 10/29/18 10/02/18 07:30 Rx Furosemide [Lasix TAB] 40 mg PO QDAY #30 tablet 01/02/19 Unknown Rx Furosemide [Lasix TAB] 40 mg PO QDAY #30 tablet 01/02/19 Unknown Rx Insulin NPH/Regular [NovoLIN 70/30] 12 unit SUB-Q BIDDIAB #1 vial 01/02/19 Unknown Rx Pantoprazole [Protonix TAB] 40 mg PO QDAY #30 tablet 01/02/19 Unknown Rx predniSONE [Deltasone] 10 mg PO DAILY 4 Days tablet 01/02/19 Unknown Rx predniSONE [Deltasone] 20 mg PO QDAY 4 Days tab 01/02/19 Unknown Rx predniSONE [Deltasone] 40 mg PO DAILY 4 Days tablet 01/02/19 Unknown Rx predniSONE [Deltasone] 60 mg PO QDAY 4 Days tab 01/02/19 Unknown Rx Allergies Allergy/AdvReac Type Severity Reaction Status Date / Time aspirin Allergy Shortness Verified 09/17/17 17:58 of Breath , CHEST PAIN escitalopram [From Lexapro] Allergy Shortness Verified 04/17/18 11:43 of Breath levofloxacin [From Levaquin] Allergy Rash Verified 02/27/19 15:45 salmeterol xinafoate Allergy Shortness Verified 01/22/17 08:45 [From Serevent] of Breath Sulfa (Sulfonamide AdvReac contraindicated Verified 10/31/17 11:19 Antibiotics) due to kidney function tramadol AdvReac Nausea Verified 09/19/18 16:34 contrast dye AdvReac contraindicated Uncoded 04/17/18 11:59 due to renal insufficiency ED Review of Systems ROS: Stated complaint: LUNG PAIN Other details as noted in HPI Comment: Unobtainable due to pts medical conditions (very limited secondary to altered mental status) ED Past Medical Hx - Past Medical History Previous Medical History?: Yes Hx Hypertension: Yes Hx CVA: No Hx Heart Attack/AMI: No Hx Congestive Heart Failure: Yes Hx Diabetes: Yes (RECENTLY STARTED ON INSULIN) Hx Deep Vein Thrombosis: No Hx Pulmonary Embolism: No Hx GERD: Yes Hx Liver Disease: No Hx Renal Disease: Yes (CKD 4, 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 Stage IV bladder cancer sleep apnea - Surgical History Past Surgical History?: Yes Hx Open Heart Surgery: No Hx Internal Defibrillator: No Hx Cholecystectomy: Yes Hx Appendectomy: Yes Hx Breast Surgery: Yes (LEFT BREAST MASS REMOVED) Additional Surgical History: left foot, hysterectomy, right breast, left shoulder, right eye - cataract, left eye - macula, bladder tumor removal 09/2018. - Social History Smoking Status: Never Smoker Substance Use Type: None - Medications Home Medications: Home Medications Medication Instructions Recorded Confirmed Last Taken Type Sodium Bicarbonate 650 mg PO BID #60 tablet 10/29/18 12/24/18 Unknown Rx Verapamil ER [Calan SR] 180 mg PO DAILY #30 10/29/18 12/24/18 10/02/18 07:30 Rx Theophylline Anhydrous ER [Theodur] 150 mg PO QPM 12/24/18 12/24/18 Unknown History Theophylline Anhydrous ER [Theodur] 300 mg PO QAM 12/24/18 12/24/18 Unknown History Beclomethasone Dipropionate [Qvar 2 inhalation IH BID 12/26/18 12/26/18 Unknown History Redihaler] Gabapentin [Neurontin] 100 mg PO TID 12/26/18 12/26/18 Unknown History Indacaterol Maleate [Arcapta 75 mcg IH DAILY 12/26/18 12/26/18 12/24/18 History Neohaler] Ipratropium [place] [Atrovent Hfa] 12.9 gm IH 4XD 12/26/18 12/26/18 12/24/18 History Ipratropium/Albuterol Sulfate 1 spray IH QID 12/26/18 12/26/18 Unknown History [Combivent Respimat] Linaclotide (Nf) [Linzess (Nf)] 290 mcg PO QDAY 12/26/18 12/26/18 Unknown History Ondansetron [Zofran TAB] 4 mg PO Q6HR 12/26/18 12/26/18 12/24/18 History Ranitidine HCl [Zantac] 150 mg PO BID 12/26/18 12/26/18 12/24/18 History Sucralfate [Carafate] 1 gm PO Q6HR 12/26/18 12/26/18 Unknown History Tiotropium [place] [Spiriva] 18 mcg IH 4XD 12/26/18 12/26/18 12/24/18 History Furosemide [Lasix TAB] 40 mg PO QDAY #30 tablet 01/02/19 Unknown Rx Furosemide [Lasix TAB] 40 mg PO QDAY #30 tablet 01/02/19 Unknown Rx Insulin NPH/Regular [NovoLIN 70/30] 12 unit SUB-Q BIDDIAB #1 vial 01/02/19 Unknown Rx Pantoprazole [Protonix TAB] 40 mg PO QDAY #30 tablet 01/02/19 Unknown Rx predniSONE [Deltasone] 10 mg PO DAILY 4 Days tablet 01/02/19 Unknown Rx predniSONE [Deltasone] 20 mg PO QDAY 4 Days tab 01/02/19 Unknown Rx predniSONE [Deltasone] 40 mg PO DAILY 4 Days tablet 01/02/19 Unknown Rx predniSONE [Deltasone] 60 mg PO QDAY 4 Days tab 01/02/19 Unknown Rx ED Physical Exam - General Limitations: Physical Limitation General appearance: obese (morbid obesity laying in the right lateral decubitus position, limited mobility limited exam) - Head Head exam: Present: atraumatic - Eye Eye exam: Present: scleral icterus - ENT ENT exam: Present: mucous membranes moist - Neck Neck exam: Absent: tenderness, meningismus - Respiratory Respiratory exam: Present: decreased breath sounds (distant breath sounds no obvious wheezing, rales or rhonchi) - Cardiovascular Cardiovascular Exam: Present: regular rate, normal rhythm. Absent: systolic murmur, diastolic murmur, rubs, gallop - GI/Abdominal GI/Abdominal exam: Present: soft, hernia (ventral). Absent: distended, tenderness, guarding, rebound, rigid - Extremities Exam Extremities exam: Present: pedal edema, other (bilateral forearm erythema. There is a dressing under which there is purulence on the right. I don't see any pierre abscess.) - Neurological Exam Neurological exam: Present: CN II-XII intact (as testable). Absent: motor sensory deficit (no deficit on limited exam) - Psychiatric Psychiatric exam: Present: flat affect, other (talking to herself) - Skin Skin exam: Present: erythema (erythematous patches of both forearms) ED Course Vital Signs 02/27/19 02/27/19 02/27/19 13:36 13:42 13:45 Temperature 98.1 F Pulse Rate 100 H 98 H Respiratory 13 12 Rate Blood Pressure 155/68 155/65 Blood Pressure 155/68 [Right] O2 Sat by Pulse 93 98 91 Oximetry 02/27/19 02/27/19 02/27/19 14:00 14:15 14:31 Temperature Pulse Rate 97 H 95 H 94 H Respiratory 13 10 L 12 Rate Blood Pressure 135/68 135/68 135/68 Blood Pressure [Right] O2 Sat by Pulse 86 92 98 Oximetry 02/27/19 02/27/19 02/27/19 14:45 15:01 15:15 Temperature Pulse Rate 94 H 95 H 93 H Respiratory 8 L 12 10 L Rate Blood Pressure 135/68 135/68 135/68 Blood Pressure [Right] O2 Sat by Pulse 96 98 99 Oximetry 02/27/19 15:31 Temperature Pulse Rate 90 Respiratory 10 L Rate Blood Pressure 135/68 Blood Pressure [Right] O2 Sat by Pulse 98 Oximetry - Reevaluation(s) Reevaluation #1: IV fluids and empiric antibiotics for begun. Patient will be admitted to the hospitalist service for further care and evaluation by Dr. José. 02/27/19 17:31 02/27/19 17:32 ED Medical Decision Making - Lab Data Result diagrams: 02/27/19 15:10 02/27/19 15:10 Laboratory Results - last 24 hr 02/27/19 02/27/19 02/27/19 14:54 15:10 15:10 WBC 7.4 RBC 4.37 Hgb 12.3 Hct 37.4 MCV 86 MCH 28 MCHC 33 RDW 15.8 H Plt Count 341 Add Manual Diff Complete Total Counted 100 Seg Neuts % (Manual) 76.0 H Band Neutrophils % 0 Lymphocytes % (Manual) 13.0 L Reactive Lymphs % (Man) 0 Monocytes % (Manual) 3.0 Eosinophils % (Manual) 4.0 Basophils % (Manual) 0 Metamyelocytes % 1.0 Myelocytes % 3.0 Promyelocytes % 0 Blast Cells % 0 Nucleated RBC % Not Reportable Seg Neutrophils # Man 5.6 Band Neutrophils # 0.0 Lymphocytes # (Manual) 1.0 L Abs React Lymphs (Man) 0.0 Monocytes # (Manual) 0.2 Eosinophils # (Manual) 0.3 Basophils # (Manual) 0.0 Metamyelocytes # 0.1 Myelocytes # 0.2 Promyelocytes # 0.0 Blast Cells # 0.0 WBC Morphology Not Reportable Hypersegmented Neuts Not Reportable Hyposegmented Neuts Not Reportable Hypogranular Neuts Not Reportable Smudge Cells Not Reportable Toxic Granulation Not Reportable Toxic Vacuolation Not Reportable Dohle Bodies Not Reportable Pelger-Huet Anomaly Not Reportable Aaron Rods Not Reportable Platelet Estimate Consistent w auto Clumped Platelets Not Reportable Plt Clumps, EDTA Not Reportable Large Platelets 1+ Giant Platelets Not Reportable Platelet Satelliting Not Reportable Plt Morphology Comment Not Reportable RBC Morphology Normal Dimorphic RBCs Not Reportable Polychromasia Not Reportable Hypochromasia Not Reportable Poikilocytosis Not Reportable Anisocytosis Not Reportable Microcytosis Not Reportable Macrocytosis Not Reportable Spherocytes Not Reportable Pappenheimer Bodies Not Reportable Sickle Cells Not Reportable Target Cells Not Reportable Tear Drop Cells Not Reportable Ovalocytes Not Reportable Helmet Cells Not Reportable Sol-Lockland Bodies Not Reportable [place] Rings Not Reportable Whitmer Cells Not Reportable Bite Cells Not Reportable Crenated Cell Not Reportable Elliptocytes Not Reportable Acanthocytes (Spur) Not Reportable Rouleaux Not Reportable Hemoglobin C Crystals Not Reportable Schistocytes Not Reportable Malaria parasites Not Reportable Osvaldo Bodies Not Reportable Hem Pathologist Commnt No PT 13.0 INR 0.93 APTT 36.8 H POC ABG pH 7.417 POC ABG pCO2 51.7 H POC ABG pO2 74 L POC ABG HCO3 33.3 POC ABG Total CO2 35 POC ABG O2 Sat 95 POC ABG Base Excess 9 VBG pH FiO2 36 Sodium Potassium Chloride Carbon Dioxide Anion Gap BUN Creatinine Estimated GFR BUN/Creatinine Ratio Glucose Lactic Acid Calcium Magnesium Total Bilirubin Direct Bilirubin Indirect Bilirubin AST ALT Alkaline Phosphatase Ammonia NT-Pro-B Natriuret Pep Total Protein Albumin Albumin/Globulin Ratio Urine Color Urine Turbidity Urine pH Ur Specific [place] Urine Protein Urine Glucose (UA) Urine Ketones Urine Blood Urine Nitrite Urine Bilirubin Urine Urobilinogen Ur Leukocyte Esterase Urine WBC (Auto) Urine RBC (Auto) U Epithel Cells (Auto) 05/09/19 05/09/19 05/09/19 15:10 15:10 15:10 WBC RBC Hgb Hct MCV MCH MCHC RDW Plt Count Add Manual Diff Total Counted Seg Neuts % (Manual) Band Neutrophils % Lymphocytes % (Manual) Reactive Lymphs % (Man) Monocytes % (Manual) Eosinophils % (Manual) Basophils % (Manual) Metamyelocytes % Myelocytes % Promyelocytes % Blast Cells % Nucleated RBC % Seg Neutrophils # Man Band Neutrophils # Lymphocytes # (Manual) Abs React Lymphs (Man) Monocytes # (Manual) Eosinophils # (Manual) Basophils # (Manual) Metamyelocytes # Myelocytes # Promyelocytes # Blast Cells # WBC Morphology Hypersegmented Neuts Hyposegmented Neuts Hypogranular Neuts Smudge Cells Toxic Granulation Toxic Vacuolation Dohle Bodies Pelger-Huet Anomaly Aaron Rods Platelet Estimate Clumped Platelets Plt Clumps, EDTA Large Platelets Giant Platelets Platelet Satelliting Plt Morphology Comment RBC Morphology Dimorphic RBCs Polychromasia Hypochromasia Poikilocytosis Anisocytosis Microcytosis Macrocytosis Spherocytes Pappenheimer Bodies Sickle Cells Target Cells Tear Drop Cells Ovalocytes Helmet Cells Sol-Lockland Bodies [place] Rings Vikash Cells Bite Cells Crenated Cell Elliptocytes Acanthocytes (Spur) Rouleaux Hemoglobin C Crystals Schistocytes Malaria parasites Osvaldo Bodies Hem Pathologist Commnt PT INR APTT POC ABG pH POC ABG pCO2 POC ABG pO2 POC ABG HCO3 POC ABG Total CO2 POC ABG O2 Sat POC ABG Base Excess VBG pH 7.381 FiO2 Sodium 141 Potassium 3.6 Chloride 96.7 L Carbon Dioxide 32 H Anion Gap 16 BUN 23 H Creatinine 2.8 H Estimated GFR 16 BUN/Creatinine Ratio 8 Glucose 105 H Lactic Acid 1.70 Calcium 9.5 Magnesium 1.70 Total Bilirubin 0.30 Direct Bilirubin < 0.2 Indirect Bilirubin 0.1 AST 9 ALT < 5 L Alkaline Phosphatase 101 Ammonia NT-Pro-B Natriuret Pep 1875 H Total Protein 5.7 L Albumin 3.0 L Albumin/Globulin Ratio 1.1 Urine Color Urine Turbidity Urine pH Ur Specific [place] Urine Protein Urine Glucose (UA) Urine Ketones Urine Blood Urine Nitrite Urine Bilirubin Urine Urobilinogen Ur Leukocyte Esterase Urine WBC (Auto) Urine RBC (Auto) U Epithel Cells (Auto) 02/27/19 02/27/19 02/27/19 15:10 15:10 15:35 WBC RBC Hgb Hct MCV MCH MCHC RDW Plt Count Add Manual Diff Total Counted Seg Neuts % (Manual) Band Neutrophils % Lymphocytes % (Manual) Reactive Lymphs % (Man) Monocytes % (Manual) Eosinophils % (Manual) Basophils % (Manual) Metamyelocytes % Myelocytes % Promyelocytes % Blast Cells % Nucleated RBC % Seg Neutrophils # Man Band Neutrophils # Lymphocytes # (Manual) Abs React Lymphs (Man) Monocytes # (Manual) Eosinophils # (Manual) Basophils # (Manual) Metamyelocytes # Myelocytes # Promyelocytes # Blast Cells # WBC Morphology TNR Hypersegmented Neuts Hyposegmented Neuts Hypogranular Neuts Smudge Cells Toxic Granulation Toxic Vacuolation Dohle Bodies Pelger-Huet Anomaly Aaron Rods Platelet Estimate Clumped Platelets Plt Clumps, EDTA Large Platelets Giant Platelets Platelet Satelliting Plt Morphology Comment RBC Morphology Dimorphic RBCs Polychromasia Hypochromasia Poikilocytosis Anisocytosis Microcytosis Macrocytosis Spherocytes Pappenheimer Bodies Sickle Cells Target Cells Tear Drop Cells Ovalocytes Helmet Cells Sol-Lockland Bodies [place] Rings Vikash Cells Bite Cells Crenated Cell Elliptocytes Acanthocytes (Spur) Rouleaux Hemoglobin C Crystals Schistocytes Malaria parasites Osvaldo Bodies Hem Pathologist Commnt PT INR APTT POC ABG pH POC ABG pCO2 POC ABG pO2 POC ABG HCO3 POC ABG Total CO2 POC ABG O2 Sat POC ABG Base Excess VBG pH FiO2 Sodium Potassium Chloride Carbon Dioxide Anion Gap BUN Creatinine Estimated GFR BUN/Creatinine Ratio Glucose Lactic Acid Calcium Magnesium Total Bilirubin Direct Bilirubin Indirect Bilirubin AST ALT Alkaline Phosphatase Ammonia 33.0 NT-Pro-B Natriuret Pep Total Protein Albumin Albumin/Globulin Ratio Urine Color Yellow Urine Turbidity Clear Urine pH 6.0 Ur Specific [place] 1.011 Urine Protein <15 mg/dl Urine Glucose (UA) Neg Urine Ketones Neg Urine Blood Neg Urine Nitrite Neg Urine Bilirubin Neg Urine Urobilinogen < 2.0 Ur Leukocyte Esterase Tr Urine WBC (Auto) 7.0 H Urine RBC (Auto) 4.0 U Epithel Cells (Auto) < 1.0 - EKG Data -: EKG Interpreted by Nc EKG shows normal: sinus rhythm, axis, intervals, QRS complexes, ST-T waves Rate: normal - EKG Data Interpretation: other (anterior Q waves consistent with old zone. Every's in standard lead 3 consider old inferior and sound. Nonspecific ST-T wave changes. No evidence for acute ischemia. Poor R-wave progression.) - Radiology Data Chest x-ray is rotated shows no acute process. Critical care attestation.: If time is entered above; I have spent that time in minutes in the direct care of this critically ill patient, excluding procedure time. ED Disposition Clinical Impression: Cellulitis of forearm, COPD with hypoxia Hypercapnic respiratory failure Qualifiers: Chronicity: chronic Qualified Code(s): J96.12 - Chronic respiratory failure with hypercapnia Chronic kidney disease Qualifiers: Chronic kidney disease stage: stage 3 (moderate) Qualified Code(s): N18.3 - Chronic kidney disease, stage 3 (moderate) Cardiomyopathy Qualifiers: Cardiomyopathy type: unspecified Qualified Code(s): I42.9 - Cardiomyopathy, unspecified Dyspnea Qualifiers: Dyspnea type: unspecified Qualified Code(s): R06.00 - Dyspnea, unspecified Altered mental status Qualifiers: Altered mental status type: delirium Qualified Code(s): R41.0 - Disorientation, unspecified Disposition: [id number] OP ADMIT IP TO THIS HOSP Is pt being admited?: Yes Does the pt Need Aspirin: Yes Condition: Stable Instructions: Chronic Obstructive Pulmonary Disease (ED) Referrals: PRIMARY CAREMD [Primary Care Provider] - 3-5 Days Time of Disposition: 17:34
--- NOTE | 2019-02-27 18:25 | Cat Scan Report ---
PROCEDURE: CT HEAD/BRAIN WO CON TECHNIQUE: Axial helical imaging from the skull base to the vertex. HISTORY: altered mental status COMPARISONS: None FINDINGS: There is no evidence of an acute intracranial process, intracranial hemorrhage or mass effect. The ventricles are normal size. The visualized portions of the orbits, paranasal and mastoid sinuses are notable for partial opacific ation of the left mastoid sinus. The bony structures are unremarkable. IMPRESSION: 1. No evidence of an acute intracranial process, intracranial hemorrhage or mass effect. If there is a clinical suspicion of an acute intracranial process, MRI brain may be helpful for furth er evaluation. This document is electronically signed by Anabel Lundberg MD., Feb 27 2019 06:23:51 PM ET
[2019-02-27] MEDS ORDERED: XYLOCAINE 1% 20 mL ONE (19:08)
[2019-02-27] MEDS ORDERED: ZOFRAN IV ONE (19:17)
[2019-02-27] MEDS ORDERED: MORPHINE IV ONE (19:17)
[2019-02-27] MEDS ORDERED: MORPHINE ONE (19:22)
[2019-02-27] MEDS ORDERED: ZOFRAN ONE (19:23)
[2019-02-27] MEDS ORDERED: SODIUM CHLORIDE FLUSH SYRINGE 10 ML IV PRN (21:02)
[2019-02-27] MEDS ORDERED: TYLENOL PO PRN (21:02)
[2019-02-27] MEDS ORDERED: LEVAQUIN 750MG/150ML 750 MG/150 ML BAG IV SCH (22:00)
[2019-02-27] MEDS ORDERED: PEPCID PO SCH (22:00)
[2019-02-27] MEDS: SOLU-Medrol IV SCH (22:21)
[2019-02-27] MEDS: PEPCID PO SCH (22:21)
[2019-02-27] MEDS: ROCEPHIN/NS 2 GM/100 ML 2 GM/100 ML BAG IV SCH (22:21)
[2019-02-27] MEDS: SODIUM CHLORIDE FLUSH SYRINGE 10 ML IV SCH (22:22)
[2019-02-27] MEDS: IBUPROFEN PO PRN (22:49)
[2019-02-28 05:06] LABS: Hematocrit 37.4 % (30.3-42.9); Mean Corpuscular HGB Conc 32 % (30-34); Mean Corpuscular Volume 86 fl (79-97); Platelet Count 308 K/mm3 (140-440); Red Blood Count 4.36 M/mm3 (3.65-5.03); Red Cell Distribution Width 15.7 % (13.2-15.2)
[2019-02-28] MEDS: SOLU-Medrol IV SCH (05:09)
[2019-02-28 05:29] LABS: Albumin 3.1 g/dL (3.9-5); BUN/Creatinine Ratio 8; Blood Urea Nitrogen 23 mg/dL (7-17); Calcium 9.2 mg/dL (8.4-10.2); Hemolysis Index 5
[2019-02-28 05:31] LABS: Alanine Aminotransferase < 5 units/L (7-56)
--- NOTE | 2019-02-28 07:06 | History and Physical Report ---
History of Present Illness Date of examination: 02/27/19 Date of admission: 02/27/19 17:42 Chief complaint: Increasing SOB for 2 days History of present illness: 79 year old female who is status post a 3 day hospitalization at [facility] for cellulitis was transferred to assisted yesterday. She was observed to be somewhat delirious per her son. She was transported to this facility for further evaluation. This is a patient with multiple medical comorb idities to include insulin-dependent diabetes, COPD with previous intubations, stage IV bladder cancer, chronic kidney disease stage IV, etc. She is morbidly obese. The patient states that she does have chronic difficulty breathing and more SOB today.Poor historian.No fever or chills. Review of the patient's last discharge summary and December 2018 reveals the following information: Hospitalization from December 2018 Condition: Fair Hospital course: Patient is 78 yo morbidly obese female patient with significant history of COPD, diabetes, GERD, obstructive sleep apnea, home oxygen dependent,follows with photographic process screen maker . She presented to ED with worsening shortness of breath. patient was diagnosed with acute on chronic respiratory failure due to COPD exacerbation, sleep apnea. She was placed on BiPAP, admitted. She was evaluated by photographic process screen maker, nephrology. She was put on solu-medrol, Duoneb. she improved, was transferred to MELODY unit from Telemetry. She continued to improve and was initially discharged home on 01/02/19, however she felt weak unable to climb truck of friend so returned to room. patient requested SNF, this was arranged by Database Software Technician and she was discharged to SNF on 01/03/19. Total time spent on discharge, 32 mins Disposition: DC/TX-03 SNF W [facility] CERT - Discharge Diagnoses (1) PUMA (acute kidney injury) Status: Acute (2) Acute and chronic respiratory failure Status: Acute Qualifiers: Respiratory failure complication: hypoxia and hypercapnia Qualified Code(s): J96.21 - Acute and chronic respiratory failure with hypoxia; J96.22 - Acute and chronic respiratory failure with hypercapnia (3) Acute kidney injury superimposed on chronic kidney disease Status: Acute (4) COPD exacerbation Status: Acute (5) Chest pain Status: Acute Qualifiers: Chest pain type: unspecified Qualified Code(s): R07.9 - Chest pain, unspecified (6) Diabetes mellitus type 2 in obese Status: Acute (7) Sleep apnea in adult Status: Acute (8) Sleep apnea Status: Acute (9) Morbid obesity Status: Acute -: Gradual Severity scale (0 -10): 1 - Past Medical History Previous Medical History?: Yes Hypertension: Yes Congestive Heart Failure: Yes Diabetes: Yes (RECENTLY STARTED ON INSULIN) GERD: Yes 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 Stage IV bladder cancer sleep apnea -Surgical History Past Surgical History?: Yes Cholecystectomy: Yes Appendectomy: Yes Breast Surgery: Yes (LEFT BREAST MASS REMOVED) Additional Surgical History: left foot, hysterectomy, right breast, left shoulder, right eye - cataract, left eye - macula, bladder tumor removal 09/2018. Social History Smoking Status: Never Smoker Substance Use Type: None Review of Systems ROS: Stated complaint: LUNG PAIN Other details as noted in HPI Comment: Unobtainable due to pts medical conditions (very limited secondary to altered mental status) Medications and Allergies Allergies Allergy/AdvReac Type Severity Reaction Status Date / Time aspirin Allergy Shortness Verified 09/17/17 17:58 of Breath , CHEST PAIN escitalopram [From Lexapro] Allergy Shortness Verified 04/17/18 11:43 of Breath levofloxacin [From Levaquin] Allergy Rash Verified 02/27/19 15:45 salmeterol xinafoate Allergy Shortness Verified 01/22/17 08:45 [From Serevent] of Breath Sulfa (Sulfonamide AdvReac contraindicated Verified 10/31/17 11:19 Antibiotics) due to kidney function tramadol AdvReac Nausea Verified 09/19/18 16:34 contrast dye AdvReac contraindicated Uncoded 04/17/18 11:59 due to renal insufficiency Home Medications Medication Instructions Recorded Confirmed Last Taken Type Sodium Bicarbonate 650 mg PO BID #60 tablet 10/29/18 12/24/18 Unknown Rx Verapamil ER [Calan SR] 180 mg PO DAILY #30 10/29/18 12/24/18 10/02/18 07:30 Rx Theophylline Anhydrous ER [Theodur] 150 mg PO QPM 12/24/18 12/24/18 Unknown History Theophylline Anhydrous ER [Theodur] 300 mg PO QAM 12/24/18 12/24/18 Unknown History Beclomethasone Dipropionate [Qvar 2 inhalation IH BID 12/26/18 12/26/18 Unknown History Redihaler] Gabapentin [Neurontin] 100 mg PO TID 12/26/18 12/26/18 Unknown History Indacaterol Maleate [Arcapta 75 mcg IH DAILY 12/26/18 12/26/18 12/24/18 History Neohaler] Ipratropium [place] [Atrovent Hfa] 12.9 gm IH 4XD 12/26/18 12/26/18 12/24/18 History Ipratropium/Albuterol Sulfate 1 spray IH QID 12/26/18 12/26/18 Unknown History [Combivent Respimat] Linaclotide (Nf) [Linzess (Nf)] 290 mcg PO QDAY 12/26/18 12/26/18 Unknown History Ondansetron [Zofran TAB] 4 mg PO Q6HR 12/26/18 12/26/18 12/24/18 History Ranitidine HCl [Zantac] 150 mg PO BID 12/26/18 12/26/18 12/24/18 History Sucralfate [Carafate] 1 gm PO Q6HR 12/26/18 12/26/18 Unknown History Tiotropium [place] [Spiriva] 18 mcg IH 4XD 12/26/18 12/26/18 12/24/18 History Furosemide [Lasix TAB] 40 mg PO QDAY #30 tablet 01/02/19 Unknown Rx Furosemide [Lasix TAB] 40 mg PO QDAY #30 tablet 01/02/19 Unknown Rx Insulin NPH/Regular [NovoLIN 70/30] 12 unit SUB-Q BIDDIAB #1 vial 01/02/19 Unknown Rx Pantoprazole [Protonix TAB] 40 mg PO QDAY #30 tablet 01/02/19 Unknown Rx predniSONE [Deltasone] 10 mg PO DAILY 4 Days tablet 01/02/19 Unknown Rx predniSONE [Deltasone] 20 mg PO QDAY 4 Days tab 01/02/19 Unknown Rx predniSONE [Deltasone] 40 mg PO DAILY 4 Days tablet 01/02/19 Unknown Rx predniSONE [Deltasone] 60 mg PO QDAY 4 Days tab 01/02/19 Unknown Rx Active Meds: Active Medications Acetaminophen (Tylenol) 650 mg PO Q4H PRN PRN Reason: Pain MILD(1-3)/Fever >100.5/[place] Albuterol/Ipratropium (Duoneb *Not For Prn Use*) 1 ampul IH QIDRT [facility] Famotidine (Pepcid) 10 mg PO BID [facility] Last Admin: 02/27/19 22:21 Dose: 10 mg Documented by: Vancomycin HCl 1,500 mg/ (Sodium Chloride) 530 mls @ 265 mls/hr IV Q24H [facility] Ceftriaxone Sodium (Rocephin/Ns 2 Gm/100 Ml) 2 gm in 100 mls @ 200 mls/hr IV Q24HR@2200 [facility] Last Admin: 02/27/19 22:21 Dose: 200 mls/hr Documented by: Ibuprofen (Motrin) 600 mg PO Q6H PRN PRN Reason: Pain, Mild (1-3) Last Admin: 02/27/19 22:49 Dose: 600 mg Documented by: Methylprednisolone Sodium Succinate (Solu-Medrol) 80 mg IV Q8HR [facility] Last Admin: 02/28/19 05:09 Dose: 80 mg Documented by: Ondansetron HCl (Zofran) 4 mg IV Q8H PRN PRN Reason: Nausea And Vomiting Sodium Chloride (Sodium Chloride Flush Syringe 10 Ml) 10 ml IV BID [facility] Last Admin: 02/27/19 22:22 Dose: 10 ml Documented by: Sodium Chloride (Sodium Chloride Flush Syringe 10 Ml) 10 ml IV PRN PRN PRN Reason: LINE FLUSH Exam - Constitutional Vitals: Temp Pulse Resp BP Pulse Ox 97.3 F L 78 18 144/76 96 02/28/19 02:48 02/28/19 02:48 02/28/19 06:25 02/28/19 02:48 02/28/19 06:25 General appearance: Present: mild distress, well-nourished - EENT Eyes: Present: PERRL ENT: hearing intact, clear oral mucosa - Neck Neck: Present: supple, normal ROM - Respiratory Respiratory effort: normal Respiratory: bilateral: diminished, rhonchi, wheezing - Cardiovascular Heart rate: 78 Rhythm: regular Heart Sounds: Present: S1 & S2. Absent: rub, click - Extremities Extremities: no ischemia, pulses intact, pulses symmetrical, No edema Peripheral Pulses: within normal limits - Abdominal General gastrointestinal: Present: soft, non-tender, non-distended, normal bowel sounds Female genitourinary: Present: normal - Integumentary Integumentary: Present: clear, warm, dry - Musculoskeletal Musculoskeletal: strength equal bilaterally, generalized weakness - Psychiatric Psychiatric: appropriate mood/affect, intact judgment & insight - Neurologic Neurologic: CNII-XII intact, moves all extremities - Allied Health Allied health notes reviewed: nursing, case management Results - Labs CBC & Chem 7: 02/28/19 04:38 02/28/19 04:38 Labs: Laboratory Last Values WBC 8.1 K/mm3 (4.5-11.0) 02/28/19 04:38 RBC 4.36 M/mm3 (3.65-5.03) 02/28/19 04:38 Hgb 12.0 gm/dl (10.1-14.3) 02/28/19 04:38 Hct 37.4 % (30.3-42.9) 02/28/19 04:38 MCV 86 fl (79-97) 02/28/19 04:38 MCH 28 pg (28-32) 02/28/19 04:38 MCHC 32 % (30-34) 02/28/19 04:38 RDW 15.7 % (13.2-15.2) H 02/28/19 04:38 Plt Count 308 K/mm3 (140-440) 02/28/19 04:38 Add Manual Diff Complete 02/27/19 15:10 Total Counted 100 02/27/19 15:10 Seg Neuts % (Manual) 76.0 % (40.0-70.0) H 02/27/19 15:10 0 % 02/27/19 15:10 13.0 % (13.4-35.0) L 02/27/19 15:10 Reactive Lymphs % (Man) 0 % 02/27/19 15:10 3.0 % (0.0-7.3) 02/27/19 15:10 4.0 % (0.0-4.3) 02/27/19 15:10 0 % (0.0-1.8) 02/27/19 15:10 1.0 % 02/27/19 15:10 3.0 % 02/27/19 15:10 0 % 02/27/19 15:10 0 % 02/27/19 15:10 Nucleated RBC % Not Reportable 02/27/19 15:10 Seg Neutrophils # Man 5.6 K/mm3 (1.8-7.7) 02/27/19 15:10 Band Neutrophils # 0.0 K/mm3 02/27/19 15:10 1.0 K/mm3 (1.2-5.4) L 02/27/19 15:10 Abs React Lymphs (Man) 0.0 K/mm3 02/27/19 15:10 0.2 K/mm3 (0.0-0.8) 02/27/19 15:10 0.3 K/mm3 (0.0-0.4) 02/27/19 15:10 0.0 K/mm3 (0.0-0.1) 02/27/19 15:10 0.1 K/mm3 02/27/19 15:10 0.2 K/mm3 02/27/19 15:10 0.0 K/mm3 02/27/19 15:10 Blast Cells # 0.0 K/mm3 02/27/19 15:10 WBC Morphology Not Reportable 02/27/19 15:10 WBC Morphology TNR 02/27/19 15:10 Hypersegmented Neuts Not Reportable 02/27/19 15:10 Hyposegmented Neuts Not Reportable 02/27/19 15:10 Hypogranular Neuts Not Reportable 02/27/19 15:10 Not Reportable 02/27/19 15:10 Not Reportable 02/27/19 15:10 Not Reportable 02/27/19 15:10 Not Reportable 02/27/19 15:10 Not Reportable 02/27/19 15:10 Not Reportable 02/27/19 15:10 Consistent w auto 02/27/19 15:10 Not Reportable 02/27/19 15:10 Plt Clumps, EDTA Not Reportable 02/27/19 15:10 1+ 02/27/19 15:10 Not Reportable 02/27/19 15:10 Not Reportable 02/27/19 15:10 Plt Morphology Comment Not Reportable 02/27/19 15:10 RBC Morphology Normal 02/27/19 15:10 Dimorphic RBCs Not Reportable 02/27/19 15:10 Not Reportable 02/27/19 15:10 Not Reportable 02/27/19 15:10 Not Reportable 02/27/19 15:10 Not Reportable 02/27/19 15:10 Not Reportable 02/27/19 15:10 Not Reportable 02/27/19 15:10 Not Reportable 02/27/19 15:10 Not Reportable 02/27/19 15:10 Not Reportable 02/27/19 15:10 Not Reportable 02/27/19 15:10 Not Reportable 02/27/19 15:10 Not Reportable 02/27/19 15:10 Not Reportable 02/27/19 15:10 Not Reportable 02/27/19 15:10 Not Reportable 02/27/19 15:10 Not Reportable 02/27/19 15:10 Not Reportable 02/27/19 15:10 Not Reportable 02/27/19 15:10 Not Reportable 02/27/19 15:10 Acanthocytes (Spur) Not Reportable 02/27/19 15:10 Rouleaux Not Reportable 02/27/19 15:10 Not Reportable 02/27/19 15:10 Not Reportable 02/27/19 15:10 Not Reportable 02/27/19 15:10 Not Reportable 02/27/19 15:10 Hem Pathologist Commnt No 02/27/19 15:10 PT 13.0 Sec. (12.2-14.9) 02/27/19 15:10 INR 0.93 (0.87-1.13) 02/27/19 15:10 APTT 36.8 Sec. (24.2-36.6) H 02/27/19 15:10 POC ABG pH 7.417 (7.35-7.45) 02/27/19 14:54 POC ABG pCO2 51.7 (35-45) H 02/27/19 14:54 POC ABG pO2 74 (80-105) L 02/27/19 14:54 POC ABG HCO3 33.3 (22-26 mml/L) 02/27/19 14:54 POC ABG Total CO2 35 (23-27mmol/L) 02/27/19 14:54 POC ABG O2 Sat 95 02/27/19 14:54 POC ABG Base Excess 9 ((-2) - (+3)mmol/L) 02/27/19 14:54 VBG pH 7.381 (7.320-7.420) 02/27/19 15:10 36 % 02/27/19 14:54 Sodium 140 mmol/L (137-145) 02/28/19 04:38 Potassium 4.2 mmol/L (3.6-5.0) 02/28/19 04:38 Chloride 98.4 mmol/L (98-107) 02/28/19 04:38 Carbon Dioxide 28 mmol/L (22-30) 02/28/19 04:38 18 mmol/L 02/28/19 04:38 BUN 23 mg/dL (7-17) H 02/28/19 04:38 2.8 mg/dL (0.7-1.2) H 02/28/19 04:38 Estimated GFR 16 ml/min 02/28/19 04:38 8 % 02/28/19 04:38 Glucose 147 mg/dL (65-100) H 02/28/19 04:38 POC Glucose 87 (70-105) 02/27/19 22:07 5.7 % (4-6) 02/27/19 15:38 Lactic Acid 1.40 mmol/L (0.7-2.0) 02/27/19 18:06 Calcium 9.2 mg/dL (8.4-10.2) 02/28/19 04:38 Magnesium 1.70 mg/dL (1.7-2.3) 02/27/19 15:10 0.20 mg/dL (0.1-1.2) 02/28/19 04:38 < 0.2 mg/dL (0-0.2) 02/27/19 15:10 0.1 mg/dL 02/27/19 15:10 AST 9 units/L (5-40) 02/28/19 04:38 ALT < 5 units/L (7-56) L 02/28/19 04:38 104 units/L (35-129) 02/28/19 04:38 33.0 umol/L (25-60) 02/27/19 15:10 NT-Pro-B Natriuret Pep 1875 pg/mL (0-900) H 02/27/19 15:10 5.8 g/dL (6.3-8.2) L 02/28/19 04:38 3.1 g/dL (3.9-5) L 02/28/19 04:38 1.1 % 02/28/19 04:38 Yellow (Yellow) 02/27/19 15:35 Clear (Clear) 02/27/19 15:35 6.0 (5.0-7.0) 02/27/19 15:35 Ur Specific [place] 1.011 (1.003-1.030) 02/27/19 15:35 <15 mg/dl mg/dL (Negative) 02/27/19 15:35 Neg mg/dL (Negative) 02/27/19 15:35 Neg mg/dL (Negative) 02/27/19 15:35 Neg (Negative) 02/27/19 15:35 Neg (Negative) 02/27/19 15:35 Neg (Negative) 02/27/19 15:35 < 2.0 mg/dL (<2.0) 02/27/19 15:35 Ur Leukocyte Esterase Tr (Negative) 02/27/19 15:35 7.0 /HPF (0.0-6.0) H 02/27/19 15:35 4.0 /HPF (0.0-6.0) 02/27/19 15:35 U Epithel Cells (Auto) < 1.0 /HPF (0-13.0) 02/27/19 15:35 Short CBC 02/27/19 02/28/19 Range/Units 15:10 04:38 WBC 7.4 8.1 (4.5-11.0) K/mm3 Hgb 12.3 12.0 (10.1-14.3) gm/dl Hct 37.4 37.4 (30.3-42.9) % Plt Count 341 308 (140-440) K/mm3 BMP 02/27/19 02/28/19 15:10 04:38 Sodium 141 140 Potassium 3.6 4.2 Chloride 96.7 L 98.4 Carbon Dioxide 32 H 28 BUN 23 H 23 H Creatinine 2.8 H 2.8 H Glucose 105 H 147 H Calcium 9.5 9.2 Liver Function 02/27/19 02/28/19 Range/Units 15:10 04:38 Total Bilirubin 0.30 0.20 (0.1-1.2) mg/dL Direct Bilirubin < 0.2 (0-0.2) mg/dL AST 9 9 (5-40) units/L ALT < 5 L < 5 L (7-56) units/L Alkaline Phosphatase 101 104 (35-129) units/L Albumin 3.0 L 3.1 L (3.9-5) g/dL Urine 02/27/19 Range/Units 15:35 Urine Color Yellow (Yellow) Urine pH 6.0 (5.0-7.0) Ur Specific [place] 1.011 (1.003-1.030) Urine Protein <15 mg/dl (Negative) mg/dL Urine Glucose (UA) Neg (Negative) mg/dL - Imaging and Cardiology EKG: report reviewed Chest x-ray: report reviewed (NAF) Assessment and Plan Advance Directives: Yes (Full code) VTE prophylaxis?: Chemical Plan of care discussed with patient/family: Yes - Patient Problems (1) Hypercapnic respiratory failure Current Visit: Yes Status: Acute Qualifiers: Chronicity: acute Plan to address problem: Cont Duonebs IV SOlumedrol and IV Abx in the form of Ceftriaxone (2) COPD exacerbation Current Visit: No Status: Acute Plan to address problem: Patient initiated on Duonebs IV abx and IV solumedrol (3) IDDM (insulin dependent diabetes mellitus) Current Visit: Yes Status: Acute Plan to address problem: COnt Home Insulin and coverage (4) HTN (hypertension) Current Visit: No Status: Chronic Qualifiers: Hypertension type: essential hypertension Qualified Code(s): I10 - Essential (primary) hypertension Plan to address problem: COnt antihypertensives (5) Morbid obesity Current Visit: No Status: Chronic (6) CKD (chronic kidney disease) Current Visit: Yes Status: Chronic Qualifiers: Chronic kidney disease stage: stage 3 (moderate) Qualified Code(s): N18.3 - Chronic kidney disease, stage 3 (moderate) Plan to address problem: Nephrology consult requested (7) DVT prophylaxis Current Visit: No Status: Acute Plan to address problem: On Heparin and GI prophylaxis
[2019-02-28] MEDS ORDERED: DUONEB *Not for PRN Use IH SCH (08:00)
--- NOTE | 2019-02-28 08:52 | Consultation ---
History of Present Illness - Reason for Consult Consult date: 02/28/19 chronic renal failure Requesting physician: CELI ZAMORA - History of Present Illness 79 year old female who is status post a 3 day hospitalization at [facility] for cellulitis was transferred to shelter day before yesterday. She was observed to be somewhat delirious per her son. She was transported to this facility for further evaluation. This is a patient with multiple medical comorbidities to include insulin-dependent diabetes, COPD with previous intubations, stage IV bladder cancer, chronic kidney disease stage IV, etc. She is morbidly obese. The patient states that she does have chronic difficulty breathing and more SOB today.Poor historian.No fever or chills. Past History Past Medical History: cancer (stage IV bladder cancer), COPD, diabetes, hypertension, renal failure Social history: no significant social history Family history: no significant family history Medications and Allergies Allergies Allergy/AdvReac Type Severity Reaction Status Date / Time aspirin Allergy Shortness Verified 09/17/17 17:58 of Breath , CHEST PAIN escitalopram [From Lexapro] Allergy Shortness Verified 04/17/18 11:43 of Breath levofloxacin [From Levaquin] Allergy Rash Verified 02/27/19 15:45 salmeterol xinafoate Allergy Shortness Verified 01/22/17 08:45 [From Serevent] of Breath Sulfa (Sulfonamide AdvReac contraindicated Verified 10/31/17 11:19 Antibiotics) due to kidney function tramadol AdvReac Nausea Verified 09/19/18 16:34 contrast dye AdvReac contraindicated Uncoded 04/17/18 11:59 due to renal insufficiency Home Medications Medication Instructions Recorded Confirmed Last Taken Type Sodium Bicarbonate 650 mg PO BID #60 tablet 10/29/18 12/24/18 Unknown Rx Verapamil ER [Calan SR] 180 mg PO DAILY #30 10/29/18 12/24/18 10/02/18 07:30 Rx Theophylline Anhydrous ER [Theodur] 150 mg PO QPM 12/24/18 12/24/18 Unknown History Theophylline Anhydrous ER [Theodur] 300 mg PO QAM 12/24/18 12/24/18 Unknown History Beclomethasone Dipropionate [Qvar 2 inhalation IH BID 12/26/18 12/26/18 Unknown History Redihaler] Gabapentin [Neurontin] 100 mg PO TID 12/26/18 12/26/18 Unknown History Indacaterol Maleate [Arcapta 75 mcg IH DAILY 12/26/18 12/26/18 12/24/18 History Neohaler] Ipratropium [place] [Atrovent Hfa] 12.9 gm IH 4XD 12/26/18 12/26/18 12/24/18 History Ipratropium/Albuterol Sulfate 1 spray IH QID 12/26/18 12/26/18 Unknown History [Combivent Respimat] Linaclotide (Nf) [Linzess (Nf)] 290 mcg PO QDAY 12/26/18 12/26/18 Unknown History Ondansetron [Zofran TAB] 4 mg PO Q6HR 12/26/18 12/26/18 12/24/18 History Ranitidine HCl [Zantac] 150 mg PO BID 12/26/18 12/26/18 12/24/18 History Sucralfate [Carafate] 1 gm PO Q6HR 12/26/18 12/26/18 Unknown History Tiotropium [place] [Spiriva] 18 mcg IH 4XD 12/26/18 12/26/18 12/24/18 History Furosemide [Lasix TAB] 40 mg PO QDAY #30 tablet 01/02/19 Unknown Rx Furosemide [Lasix TAB] 40 mg PO QDAY #30 tablet 01/02/19 Unknown Rx Insulin NPH/Regular [NovoLIN 70/30] 12 unit SUB-Q BIDDIAB #1 vial 01/02/19 Unknown Rx Pantoprazole [Protonix TAB] 40 mg PO QDAY #30 tablet 01/02/19 Unknown Rx predniSONE [Deltasone] 10 mg PO DAILY 4 Days tablet 01/02/19 Unknown Rx predniSONE [Deltasone] 20 mg PO QDAY 4 Days tab 01/02/19 Unknown Rx predniSONE [Deltasone] 40 mg PO DAILY 4 Days tablet 01/02/19 Unknown Rx predniSONE [Deltasone] 60 mg PO QDAY 4 Days tab 01/02/19 Unknown Rx Active Meds: Active Medications Acetaminophen (Tylenol) 650 mg PO Q4H PRN PRN Reason: Pain MILD(1-3)/Fever >100.5/[place] Albuterol/Ipratropium (Duoneb *Not For Prn Use*) 1 ampul IH QIDRT [facility] [place] Last Admin: 02/28/19 08:30 Dose: 1 ampul Documented by: Famotidine (Pepcid) 10 mg PO BID [facility] [place] Last Admin: 02/27/19 22:21 Dose: 10 mg Documented by: Furosemide (Lasix) 40 mg PO QDAY [facility] [place] Gabapentin (Neurontin) 100 mg PO TID [facility] [place] Heparin Sodium (Porcine) (Heparin) 5,000 unit SUB-Q Q12HR [facility] [place] Vancomycin HCl 1,500 mg/ (Sodium Chloride) 530 mls @ 265 mls/hr IV Q24H [facility] [place] Ceftriaxone Sodium (Rocephin/Ns 2 Gm/100 Ml) 2 gm in 100 mls @ 200 mls/hr IV Q24HR@2200 [facility] [place] Last Admin: 02/27/19 22:21 Dose: 200 mls/hr Documented by: Azithromycin 500 mg/ Sodium (Chloride) 250 mls @ 250 mls/hr IV Q24HR [facility] [place] Ibuprofen (Motrin) 600 mg PO Q6H PRN PRN Reason: Pain, Mild (1-3) Last Admin: 02/27/19 22:49 Dose: 600 mg Documented by: Insulin Human Isoph/Insulin Regular (Humulin 70/30) 12 unit SUB-Q BIDDIAB [facility] Insulin Human Lispro (Humalog) 0 unit SUB-Q ACHS [facility]; Protocol Methylprednisolone Sodium Succinate (Solu-Medrol) 80 mg IV Q8HR [facility] [place] Last Admin: 02/28/19 05:09 Dose: 80 mg Documented by: Miscellaneous Medication (Beclomethasone Dipropionate [Qvar Redihaler]) 2 inhalation IH BID [facility] [place] Miscellaneous Medication (Indacaterol Maleate [Arcapta Neohaler]) 75 mcg IH DAILY [facility] [place] Miscellaneous Medication (Ipratropium [place] [Atrovent Hfa]) 12.9 gm IH 4XD [facility] [place] Miscellaneous Medication (Linaclotide (Nf)) 290 mcg PO QDAY [facility] [place] Miscellaneous Medication (Ranitidine Hcl [Zantac]) 150 mg PO BID [facility] [place] Ondansetron HCl (Zofran) 4 mg IV Q8H PRN PRN Reason: Nausea And Vomiting Pantoprazole Sodium (Protonix) 40 mg PO QDAY [facility] [place] Sodium Bicarbonate (Sodium Bicarbonate) 650 mg PO BID [facility] [place] Sodium Chloride (Sodium Chloride Flush Syringe 10 Ml) 10 ml IV BID [facility] [place] Last Admin: 02/27/19 22:22 Dose: 10 ml Documented by: Sodium Chloride (Sodium Chloride Flush Syringe 10 Ml) 10 ml IV PRN PRN PRN Reason: LINE FLUSH Sucralfate (Carafate) 1 gm PO Q6HR [facility] Theophylline (Theodur) 150 mg PO QPM [facility] Theophylline (Theodur) 300 mg PO QAM [facility] Tiotropium [place] (Spiriva) puff IH 4XD [facility] Verapamil HCl (Calan Sr) 180 mg PO DAILY [facility] Review of Systems All systems: negative (negative except as noted above) Exam - Vital Signs Vital signs: Vital Signs Pulse Ox 93 02/27/19 13:36 - General Appearance General appearance: well-developed, well-nourished, appears stated age, obese, other (pleasant female) EENT: PERRL, mucous membranes moist Neck: Present: neck supple, trachea midline. Absent: JVD/HJR, Masses Respiratory: Wheezes (bilateral wheezing) Heart: regular, normal heart rate, S1S2, no murmurs Gastrointestinal: Present: normal, normoactive bowel sounds Integumentary: no rash, other (no edema) Results - Lab Results 02/28/19 04:38 02/28/19 04:38 Most recent lab results Calcium 9.2 mg/dL (8.4-10.2) 02/28/19 04:38 Magnesium 1.70 mg/dL (1.7-2.3) 02/27/19 15:10 Assessment and Plan Impression * Shortness of breath. Most likely secondary to COPD exacerbation * Stage IV chronic kidney disease. Baseline creatinine in the mid 2s * Stage IV bladder cancer * Diabetes * Hypertension * Morbid obesity Recommendation * Continue treatment for COPD * Check a UA as well as a fractional excretion of sodium * Check urine for use and he feels * Check office records regarding prior renal status and workup * Avoid nephrotoxins * Monitor fluid status and electrolytes closely * Agree with possible hospice care * Thank you very much for the consultation. Shall follow along with you
--- NOTE | 2019-02-28 08:52 | Consultation ---
History of Present Illness Consult date: 02/28/19 Requesting physician: CELI ZAMORA Reason for consult: COPD, hypoxemia History of present illness: 79 year old female who is status post a 3 day hospitalization at [facility] for cellulitis was transferred to [facility] yesterday. She was observed to be somewhat delirious per her son. She was transported to this facility for further evaluation. This is a patient with multiple medical comorbidities to include insulin-dependent diabetes, COPD with previous intubations, stage IV bladder cancer, chronic kidney disease stage IV, etc. She is morbidly obese. The patient states that she does have chronic difficulty breathing and more SOB today.Poor historian.No fever or chills. 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 Stage IV bladder cancer sleep apnea - Surgical History Past Surgical History?: Yes Hx Open Heart Surgery: No Hx Internal Defibrillator: No Hx Cholecystectomy: Yes Hx Appendectomy: Yes Hx Breast Surgery: Yes (LEFT BREAST MASS REMOVED) Additional Surgical History: left foot, hysterectomy, right breast, left shoulder, right eye - cataract, left eye - macula, bladder tumor removal 09/2018. - Social History Smoking Status: Never Smoker Substance Use Type: None Medications and Allergies Allergies Allergy/AdvReac Type Severity Reaction Status Date / Time aspirin Allergy Shortness Verified 09/17/17 17:58 of Breath , CHEST PAIN escitalopram [From Lexapro] Allergy Shortness Verified 04/17/18 11:43 of Breath levofloxacin [From Levaquin] Allergy Rash Verified 02/27/19 15:45 salmeterol xinafoate Allergy Shortness Verified 01/22/17 08:45 [From Serevent] of Breath Sulfa (Sulfonamide AdvReac contraindicated Verified 10/31/17 11:19 Antibiotics) due to kidney function tramadol AdvReac Nausea Verified 09/19/18 16:34 contrast dye AdvReac contraindicated Uncoded 04/17/18 11:59 due to renal insufficiency Home Medications Medication Instructions Recorded Confirmed Last Taken Type Sodium Bicarbonate 650 mg PO BID #60 tablet 10/29/18 03/03/19 Unknown Rx Verapamil ER [Calan SR] 180 mg PO DAILY #30 10/29/18 03/03/19 10/02/18 07:30 Rx Theophylline Anhydrous ER [Theodur] 150 mg PO QPM 12/24/18 03/03/19 Unknown History Theophylline Anhydrous ER [Theodur] 300 mg PO QAM 12/24/18 03/03/19 Unknown History Beclomethasone Dipropionate [Qvar 2 inhalation IH BID 12/26/18 12/26/18 Unknown History Redihaler] Gabapentin [Neurontin] 100 mg PO TID 12/26/18 12/26/18 Unknown History Indacaterol Maleate [Arcapta 75 mcg IH DAILY 12/26/18 12/26/18 12/24/18 History Neohaler] Ipratropium [place] [Atrovent Hfa] 12.9 gm IH 4XD 12/26/18 12/26/18 12/24/18 History Ipratropium/Albuterol Sulfate 1 spray IH QID 12/26/18 12/26/18 Unknown History [Combivent Respimat] Linaclotide (Nf) [Linzess (Nf)] 290 mcg PO QDAY 12/26/18 12/26/18 Unknown History Ondansetron [Zofran TAB] 4 mg PO Q6HR 12/26/18 12/26/18 12/24/18 History Sucralfate [Carafate] 1 gm PO Q6HR 12/26/18 03/03/19 Unknown History Tiotropium [place] [Spiriva] 18 mcg IH 4XD 12/26/18 03/03/19 12/24/18 History Furosemide [Lasix TAB] 40 mg PO QDAY #30 tablet 01/02/19 Unknown Rx Insulin NPH/Regular [NovoLIN 70/30] 12 unit SUB-Q BIDDIAB #1 vial 01/02/19 Unknown Rx Pantoprazole [Protonix TAB] 40 mg PO QDAY #30 tablet 01/02/19 Unknown Rx ALBUTEROL NEB's [Proventil 0.083% 2.5 mg IH Q3HRT PRN nebu 03/03/19 Unknown Rx NEBS] Arformoterol Nebu [Brovana Nebu] 15 mcg IH Q12HRT ml 03/03/19 Unknown Rx Budesonide [Pulmicort Respules] 0.5 mg IH Q12HRT nebu 03/03/19 Unknown Rx Ipratropium/Albuterol Sulfate 1 ampul IH TIDRT ampul.neb 03/03/19 Unknown Rx [DUONEB *Not for PRN Use*] Lispro Insulin [HumaLOG] 0 unit SUB-Q ACHS units 03/03/19 Unknown Rx oxyCODONE /ACETAMINOPHEN [Percocet 2 tab PO Q6H PRN #10 tablet 03/03/19 Unknown Rx 5/325 mg] predniSONE [Deltasone] 20 mg PO QDAY 6 Days tablet 03/03/19 Unknown Rx Active Meds: Active Medications Acetaminophen (Tylenol) 650 mg PO Q4H PRN PRN Reason: Pain MILD(1-3)/Fever >100.5/[place] Albuterol/Ipratropium (Duoneb *Not For Prn Use*) 1 ampul IH QIDRT [facility] Last Admin: 02/28/19 08:30 Dose: 1 ampul Documented by: Famotidine (Pepcid) 10 mg PO BID [facility] Last Admin: 02/27/19 22:21 Dose: 10 mg Documented by: Furosemide (Lasix) 40 mg PO QDAY [facility] Gabapentin (Neurontin) 100 mg PO TID [facility] Heparin Sodium (Porcine) (Heparin) 5,000 unit SUB-Q Q12HR [facility] Vancomycin HCl 1,500 mg/ (Sodium Chloride) 530 mls @ 265 mls/hr IV Q24H [facility] Ceftriaxone Sodium (Rocephin/Ns 2 Gm/100 Ml) 2 gm in 100 mls @ 200 mls/hr IV Q24HR@2200 [facility] Last Admin: 02/27/19 22:21 Dose: 200 mls/hr Documented by: Azithromycin 500 mg/ Sodium (Chloride) 250 mls @ 250 mls/hr IV Q24HR [facility] Ibuprofen (Motrin) 600 mg PO Q6H PRN PRN Reason: Pain, Mild (1-3) Last Admin: 02/27/19 22:49 Dose: 600 mg Documented by: Insulin Human Isoph/Insulin Regular (Humulin 70/30) 12 unit SUB-Q BIDDIAB [facility] Insulin Human Lispro (Humalog) 0 unit SUB-Q ACHS [facility]; Protocol Methylprednisolone Sodium Succinate (Solu-Medrol) 80 mg IV Q8HR [facility] Last Admin: 02/28/19 05:09 Dose: 80 mg Documented by: Miscellaneous Medication (Beclomethasone Dipropionate [Qvar Redihaler]) 2 inhalation IH BID KELLY Miscellaneous Medication (Indacaterol Maleate [Arcapta Neohaler]) 75 mcg IH DAILY [facility] Miscellaneous Medication (Ipratropium [place] [Atrovent Hfa]) 12.9 gm IH 4XD KELLY Miscellaneous Medication (Linaclotide (Nf)) 290 mcg PO QDAY [facility] Miscellaneous Medication (Ranitidine Hcl [Zantac]) 150 mg PO BID [facility] Ondansetron HCl (Zofran) 4 mg IV Q8H PRN PRN Reason: Nausea And Vomiting Pantoprazole Sodium (Protonix) 40 mg PO QDAY [facility] Sodium Bicarbonate (Sodium Bicarbonate) 650 mg PO BID [facility] Sodium Chloride (Sodium Chloride Flush Syringe 10 Ml) 10 ml IV BID [facility] Last Admin: 02/27/19 22:22 Dose: 10 ml Documented by: Sodium Chloride (Sodium Chloride Flush Syringe 10 Ml) 10 ml IV PRN PRN PRN Reason: LINE FLUSH Sucralfate (Carafate) 1 gm PO Q6HR [facility] Theophylline (Theodur) 150 mg PO QPM KELLY Theophylline (Theodur) 300 mg PO QAM [facility] Tiotropium [place] (Spiriva) puff IH 4XD [facility] Verapamil HCl (Calan Sr) 180 mg PO DAILY [facility] Physical Examination Vital signs: Vital Signs Pulse Ox 93 02/27/19 13:36 General appearance: Present: mild distress, well-nourished - EENT Eyes: Present: PERRL ENT: hearing intact, clear oral mucosa - Neck Neck: Present: supple, normal ROM - Respiratory Respiratory effort: normal Respiratory: bilateral: diminished, rhonchi, wheezing - Cardiovascular Heart rate: 78 Rhythm: regular Heart Sounds: Present: S1 & S2. Absent: rub, click - Extremities Extremities: no ischemia, pulses intact, pulses symmetrical, No edema Peripheral Pulses: within normal limits - Abdominal General gastrointestinal: Present: soft, non-tender, non-distended, normal bowel sounds Female genitourinary: Present: normal - Integumentary Integumentary: Present: clear, warm, dry - Musculoskeletal Musculoskeletal: strength equal bilaterally, generalized weakness - Psychiatric Psychiatric: appropriate mood/affect, intact judgment & insight - Neurologic Neurologic: CNII-XII intact, moves all extremities - Allied Health Allied health notes reviewed: nursing, case management Results - Laboratory Findings CBC and BMP: 03/03/19 05:26 03/03/19 05:26 ABG POC ABG pH 7.417 (7.35-7.45) 02/27/19 14:54 POC ABG pCO2 51.7 (35-45) H 02/27/19 14:54 POC ABG pO2 74 (80-105) L 02/27/19 14:54 POC ABG HCO3 33.3 (22-26 mml/L) 02/27/19 14:54 POC ABG Total CO2 35 (23-27mmol/L) 02/27/19 14:54 POC ABG O2 Sat 95 02/27/19 14:54 PT/INR, D-dimer PT 13.0 Sec. (12.2-14.9) 02/27/19 15:10 INR 0.93 (0.87-1.13) 02/27/19 15:10 Abnormal lab findings: Abnormal Labs 02/27/19 02/27/19 02/27/19 14:54 15:10 15:10 RDW 15.8 H Seg Neuts % (Manual) 76.0 H Lymphocytes % (Manual) 13.0 L Lymphocytes # (Manual) 1.0 L APTT 36.8 H POC ABG pCO2 51.7 H POC ABG pO2 74 L Chloride Carbon Dioxide BUN Creatinine Glucose POC Glucose ALT NT-Pro-B Natriuret Pep Total Protein Albumin Urine WBC (Auto) 02/27/19 02/27/19 02/28/19 15:10 15:35 04:38 RDW 15.7 H Seg Neuts % (Manual) Lymphocytes % (Manual) Lymphocytes # (Manual) APTT POC ABG pCO2 POC ABG pO2 Chloride 96.7 L Carbon Dioxide 32 H BUN 23 H Creatinine 2.8 H Glucose 105 H POC Glucose ALT < 5 L NT-Pro-B Natriuret Pep 1875 H Total Protein 5.7 L Albumin 3.0 L Urine WBC (Auto) 7.0 H 02/28/19 02/28/19 04:38 07:24 RDW Seg Neuts % (Manual) Lymphocytes % (Manual) Lymphocytes # (Manual) APTT POC ABG pCO2 POC ABG pO2 Chloride Carbon Dioxide BUN 23 H Creatinine 2.8 H Glucose 147 H POC Glucose 149 H ALT < 5 L NT-Pro-B Natriuret Pep Total Protein 5.8 L Albumin 3.1 L Urine WBC (Auto) Assessment and Plan Acute on Chronic Hypercapnic and Hypoxemic respiratory failure Acute COPD exacerbation IDDM (insulin dependent diabetes mellitus) HTN (hypertension) Morbid obesity CKD (chronic kidney disease) - continue restrictive oxygen therapy acutely targeting O2 sat's 88-90 % - continue bronchodilators with pulmonary hygiene per RT (add LABA) - add inhaled and continue systemic steroids with systemic steroid taper - agree with empiric AB therapy to cover CAP - BIPAP qhs with prn daytime use for ventilatory support - GI & VTE prophylaxis - Flu & pneumovax per protocol - will transfer care to Dr. Silva's group
[2019-02-28] MEDS: THEODUR PO SCH ×2 (09:32→17:46)
[2019-02-28] MEDS: CALAN SR PO SCH (09:32)
[2019-02-28] MEDS: PEPCID PO SCH (09:33)
[2019-02-28] MEDS: SODIUM BICARBONATE PO SCH ×2 (09:34→22:11)
[2019-02-28] MEDS: PROTONIX PO SCH (09:34)
[2019-02-28] MEDS: ZITHROMAX 500 MG in NACL 0.9% 250ML 250 ML IV SCH (09:34)
[2019-02-28] MEDS: SODIUM CHLORIDE FLUSH SYRINGE 10 ML IV SCH ×2 (09:34→22:12)
[2019-02-28] MEDS: LASIX PO SCH (09:34)
[2019-02-28] MEDS: HEPARIN SUB-Q SCH ×2 (09:39→22:12)
[2019-02-28] MEDS: NEURONTIN PO SCH ×3 (09:43→21:45)
[2019-02-28] MEDS: HumaLOG SUB-Q SCH ×3 (09:56→17:17)
[2019-02-28] MEDS ORDERED: NON-FORMULARY (Ipratropium Bromide [Atrovent Hfa] 12.9 GM) IH SCH (10:00)
[2019-02-28] MEDS ORDERED: NON-FORMULARY (Linaclotide (Nf) 290 MCG) PO SCH (10:00)
[2019-02-28] MEDS ORDERED: SPIRIVA IH SCH (10:00)
[2019-02-28] MEDS ORDERED: NON-FORMULARY (Ranitidine Hcl [Zantac] 150 MG) PO SCH (10:00)
[2019-02-28] MEDS: IBUPROFEN PO PRN (10:21)
[2019-02-28 11:42] LABS: Basophils % (Manual) 0 % (0.0-1.8); Total Cells Counted 100
[2019-02-28 11:43] LABS: Anisocytosis Few; Band Neutrophils # (Manual) 0.3 K/mm3; Eosinophils % (Manual) 0 % (0.0-4.3); Large Platelets Rare; Platelet Estimate Consistent w Auto
[2019-02-28] MEDS: CARAFATE PO SCH ×2 (12:30→17:46)
--- NOTE | 2019-02-28 14:09 | Progress Note ---
Assessment and Plan Assessment and plan: 1) Hypercapnic respiratory failure Cont Duonebs IV SOlumedrol and IV Abx in the form of Ceftriaxone (2) COPD exacerbation Patient initiated on Duonebs IV abx and IV solumedrol (3) IDDM (insulin dependent diabetes mellitus) COnt Home Insulin and coverage (4) HTN (hypertension) COnt antihypertensives (5) Morbid obesity Current Visit: No Status: Chronic (6) CKD (chronic kidney disease) Nephrology consult appreciated (7) DVT prophylaxis On Heparin and GI prophylaxis Patient has stage IV bladder cancer and recurrent admission. Patient came from SNF and possible transfer back there tomorrow. patient may need hospice care. patient discharged from [place] 3 days ago and spend 2 days in the SNF and presented here. History Interval history: Patient was seen and evaluated this morning, patient is complaining pain in the left lower rib area. Hospitalist Physical - Physical exam Narrative exam: Not in cardiopulmonary distress. The patient is morbidly obese. Vital signs as documented. Head exam is unremarkable. No scleral icterus . Neck is without jugular venous distension, thyromegaly, or carotid bruits. Lungs are clear to auscultation. Cardiac exam reveals regular rate and Rhythm. Abdominal exam reveals normal bowel sounds. Extremities are nonedematous and both femoral and pedal pulses are normal. 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 No focal weakness. - Constitutional Vitals: Temp Pulse Resp BP Pulse Ox 99.0 F 91 H 20 151/77 95 02/28/19 07:19 02/28/19 09:32 02/28/19 11:21 02/28/19 09:32 02/28/19 08:43 General appearance: Present: mild distress, well-nourished Results - Labs CBC & Chem 7: 02/28/19 04:38 02/28/19 04:38 Labs: Laboratory Last Values WBC 8.1 K/mm3 (4.5-11.0) 02/28/19 04:38 RBC 4.36 M/mm3 (3.65-5.03) 02/28/19 04:38 Hgb 12.0 gm/dl (10.1-14.3) 02/28/19 04:38 Hct 37.4 % (30.3-42.9) 02/28/19 04:38 MCV 86 fl (79-97) 02/28/19 04:38 MCH 28 pg (28-32) 02/28/19 04:38 MCHC 32 % (30-34) 02/28/19 04:38 RDW 15.7 % (13.2-15.2) H 02/28/19 04:38 Plt Count 308 K/mm3 (140-440) 02/28/19 04:38 Add Manual Diff Complete 02/28/19 04:38 Total Counted 100 02/28/19 04:38 Seg Neuts % (Manual) 85.0 % (40.0-70.0) H 02/28/19 04:38 4.0 % 02/28/19 04:38 7.0 % (13.4-35.0) L 02/28/19 04:38 Reactive Lymphs % (Man) 0 % 02/28/19 04:38 1.0 % (0.0-7.3) 02/28/19 04:38 0 % (0.0-4.3) 02/28/19 04:38 0 % (0.0-1.8) 02/28/19 04:38 3.0 % 02/28/19 04:38 0 % 02/28/19 04:38 0 % 02/28/19 04:38 0 % 02/28/19 04:38 Nucleated RBC % Not Reportable 02/28/19 04:38 Seg Neutrophils # Man 6.9 K/mm3 (1.8-7.7) 02/28/19 04:38 Band Neutrophils # 0.3 K/mm3 02/28/19 04:38 0.6 K/mm3 (1.2-5.4) L 02/28/19 04:38 Abs React Lymphs (Man) 0.0 K/mm3 02/28/19 04:38 0.1 K/mm3 (0.0-0.8) 02/28/19 04:38 0.0 K/mm3 (0.0-0.4) 02/28/19 04:38 0.0 K/mm3 (0.0-0.1) 02/28/19 04:38 0.2 K/mm3 02/28/19 04:38 0.0 K/mm3 02/28/19 04:38 0.0 K/mm3 02/28/19 04:38 Blast Cells # 0.0 K/mm3 02/28/19 04:38 WBC Morphology Not Reportable 02/28/19 04:38 Hypersegmented Neuts Not Reportable 02/28/19 04:38 Hyposegmented Neuts Not Reportable 02/28/19 04:38 Hypogranular Neuts Not Reportable 02/28/19 04:38 Not Reportable 02/28/19 04:38 Not Reportable 02/28/19 04:38 Not Reportable 02/28/19 04:38 Not Reportable 02/28/19 04:38 Not Reportable 02/28/19 04:38 Not Reportable 02/28/19 04:38 Consistent w auto 02/28/19 04:38 Not Reportable 02/28/19 04:38 Plt Clumps, EDTA Not Reportable 02/28/19 04:38 Rare 02/28/19 04:38 Not Reportable 02/28/19 04:38 Not Reportable 02/28/19 04:38 Plt Morphology Comment Not Reportable 02/28/19 04:38 RBC Morphology Not Reportable 02/28/19 04:38 Dimorphic RBCs Not Reportable 02/28/19 04:38 Not Reportable 02/28/19 04:38 Not Reportable 02/28/19 04:38 Not Reportable 02/28/19 04:38 Few 02/28/19 04:38 Few 02/28/19 04:38 Not Reportable 02/28/19 04:38 Not Reportable 02/28/19 04:38 Not Reportable 02/28/19 04:38 Not Reportable 02/28/19 04:38 Not Reportable 02/28/19 04:38 Not Reportable 02/28/19 04:38 Not Reportable 02/28/19 04:38 Not Reportable 02/28/19 04:38 Not Reportable 02/28/19 04:38 Not Reportable 02/28/19 04:38 Not Reportable 02/28/19 04:38 Not Reportable 02/28/19 04:38 Not Reportable 02/28/19 04:38 Not Reportable 02/28/19 04:38 Acanthocytes (Spur) Not Reportable 02/28/19 04:38 Rouleaux Not Reportable 02/28/19 04:38 Not Reportable 02/28/19 04:38 Not Reportable 02/28/19 04:38 Not Reportable 02/28/19 04:38 Not Reportable 02/28/19 04:38 Hem Pathologist Commnt No 02/28/19 04:38 PT 13.0 Sec. (12.2-14.9) 02/27/19 15:10 INR 0.93 (0.87-1.13) 02/27/19 15:10 APTT 36.8 Sec. (24.2-36.6) H 02/27/19 15:10 POC ABG pH 7.417 (7.35-7.45) 02/27/19 14:54 POC ABG pCO2 51.7 (35-45) H 02/27/19 14:54 POC ABG pO2 74 (80-105) L 02/27/19 14:54 POC ABG HCO3 33.3 (22-26 mml/L) 02/27/19 14:54 POC ABG Total CO2 35 (23-27mmol/L) 02/27/19 14:54 POC ABG O2 Sat 95 02/27/19 14:54 POC ABG Base Excess 9 ((-2) - (+3)mmol/L) 02/27/19 14:54 VBG pH 7.381 (7.320-7.420) 02/27/19 15:10 36 % 02/27/19 14:54 Sodium 140 mmol/L (137-145) 02/28/19 04:38 Potassium 4.2 mmol/L (3.6-5.0) 02/28/19 04:38 Chloride 98.4 mmol/L (98-107) 02/28/19 04:38 Carbon Dioxide 28 mmol/L (22-30) 02/28/19 04:38 18 mmol/L 02/28/19 04:38 BUN 23 mg/dL (7-17) H 02/28/19 04:38 2.8 mg/dL (0.7-1.2) H 02/28/19 04:38 Estimated GFR 16 ml/min 02/28/19 04:38 8 % 02/28/19 04:38 Glucose 147 mg/dL (65-100) H 02/28/19 04:38 POC Glucose 153 (70-105) H 02/28/19 12:20 5.7 % (4-6) 02/27/19 15:38 Lactic Acid 1.40 mmol/L (0.7-2.0) 02/27/19 18:06 Calcium 9.2 mg/dL (8.4-10.2) 02/28/19 04:38 Magnesium 1.70 mg/dL (1.7-2.3) 02/27/19 15:10 0.20 mg/dL (0.1-1.2) 02/28/19 04:38 < 0.2 mg/dL (0-0.2) 02/27/19 15:10 0.1 mg/dL 02/27/19 15:10 AST 9 units/L (5-40) 02/28/19 04:38 ALT < 5 units/L (7-56) L 02/28/19 04:38 104 units/L (35-129) 02/28/19 04:38 33.0 umol/L (25-60) 02/27/19 15:10 NT-Pro-B Natriuret Pep 1875 pg/mL (0-900) H 02/27/19 15:10 5.8 g/dL (6.3-8.2) L 02/28/19 04:38 3.1 g/dL (3.9-5) L 02/28/19 04:38 1.1 % 02/28/19 04:38 Yellow (Yellow) 02/27/19 15:35 Clear (Clear) 02/27/19 15:35 6.0 (5.0-7.0) 02/27/19 15:35 Ur Specific [place] 1.011 (1.003-1.030) 02/27/19 15:35 <15 mg/dl mg/dL (Negative) 02/27/19 15:35 Neg mg/dL (Negative) 02/27/19 15:35 Neg mg/dL (Negative) 02/27/19 15:35 Neg (Negative) 02/27/19 15:35 Neg (Negative) 02/27/19 15:35 Neg (Negative) 02/27/19 15:35 < 2.0 mg/dL (<2.0) 02/27/19 15:35 Ur Leukocyte Esterase Tr (Negative) 02/27/19 15:35 7.0 /HPF (0.0-6.0) H 02/27/19 15:35 4.0 /HPF (0.0-6.0) 02/27/19 15:35 U Epithel Cells (Auto) < 1.0 /HPF (0-13.0) 02/27/19 15:35 Active Medications - Current Medications Current Medications: Generic Name Dose Route Start Last Admin Trade Name Freq PRN Reason Stop Dose Admin Acetaminophen 650 mg 02/27/19 21:02 Tylenol PO Q4H PRN Pain MILD(1-3)/Fever >100.5/[place] Albuterol 2.5 mg 02/28/19 09:33 Proventil IH Q3HRT PRN Shortness Of Breath Albuterol/Ipratropium 1 ampul 02/28/19 14:00 Duoneb *Not For Prn Use* IH Q6HRT KELLY Furosemide 40 mg 02/28/19 10:00 02/28/19 09:34 Lasix PO 40 mg QDAY KELLY Administration Gabapentin 100 mg 02/28/19 09:00 02/28/19 13:21 Neurontin PO 100 mg TID KELLY Administration Heparin Sodium (Porcine) 5,000 unit 02/28/19 10:00 02/28/19 09:39 Heparin SUB-Q 5,000 unit Q12HR KELLY Administration Ceftriaxone Sodium 2 gm in 100 mls @ 200 mls/hr 02/27/19 22:00 02/27/19 22:21 Rocephin/Ns 2 Gm/100 Ml IV 200 mls/hr Q24HR@2200 KELLY Administration Azithromycin 500 mg/ Sodium 250 mls @ 250 mls/hr 02/28/19 10:00 02/28/19 09:34 Chloride IV 250 mls/hr Q24HR KELLY Administration Ibuprofen 600 mg 02/27/19 21:02 02/28/19 10:21 Motrin PO 600 mg Q6H PRN Administration Pain, Mild (1-3) Insulin Human Isoph/Insulin Regular 12 unit 02/28/19 09:00 02/28/19 09:37 Humulin 70/30 SUB-Q 12 unit BIDDIAB KELLY Administration Insulin Human Lispro 0 unit 02/28/19 09:00 02/28/19 12:31 Humalog SUB-Q 3 unit ACHS KELLY Administration Protocol Miscellaneous Medication 2 inhalation 02/28/19 10:00 Beclomethasone Dipropionate [Qvar Redihaler] IH BID KELLY Miscellaneous Medication 75 mcg 02/28/19 10:00 Indacaterol Maleate [Arcapta Neohaler] IH DAILY KELLY Miscellaneous Medication 290 mcg 02/28/19 10:00 Linaclotide (Nf) PO QDAY KELLY Ondansetron HCl 4 mg 02/27/19 21:02 Zofran IV Q8H PRN Nausea And Vomiting Oxycodone/Acetaminophen 2 tab 02/28/19 11:38 Percocet 5/325 PO Q6H PRN Pain, Moderate (4-6) Pantoprazole Sodium 40 mg 02/28/19 10:00 02/28/19 09:34 Protonix PO 40 mg QDAY KELLY Administration Prednisone 20 mg 03/01/19 10:00 Deltasone PO 03/05/19 11:00 QDAY KELLY Sodium Bicarbonate 650 mg 02/28/19 10:00 02/28/19 09:34 Sodium Bicarbonate PO 650 mg BID KELLY Administration Sodium Chloride 10 ml 02/27/19 22:00 02/28/19 09:34 Sodium Chloride Flush Syringe 10 Ml IV 10 ml BID KELLY Administration Sodium Chloride 10 ml 02/27/19 21:02 Sodium Chloride Flush Syringe 10 Ml IV PRN PRN LINE FLUSH Sucralfate 1 gm 02/28/19 12:00 02/28/19 12:30 Carafate PO 1 gm Q6HR KELLY Administration Theophylline 150 mg 02/28/19 18:00 Theodur PO QPM KELLY Theophylline 300 mg 02/28/19 10:00 02/28/19 09:32 Theodur PO 300 mg QAM KELLY Administration Verapamil HCl 180 mg 02/28/19 10:00 02/28/19 09:32 Calan Sr PO 180 mg DAILY KELLY Administration Nutrition/Malnutrition Assess - Dietary Evaluation Nutrition/Malnutrition Findings: Nutrition Notes Start: 02/28/19 11:27 Freq: Status: Active Protocol: Document 02/28/19 11:27 CP (Rec: 02/28/19 11:36 CP [id number]) Co-Sign 02/28/19 11:27 LP Nutrition Notes Need for Assessment generated from: MD Order,MST Initial or Follow up Assessment Current Diagnosis CKD(stage I-IV),Decubitus( Pressure Ulcer),Diabetes, Hypertension,Heart Failure Other Pertinent Diagnosis Stasis ulcer, obesity Current Diet Consistent Carbohydrate Labs/Tests BUN 23 Glu 147 Pro 5.8 Pertinent Medications Lasix Insulin Solu-medrol Height 5 ft 6 in Weight 158.757 kg Usual Body Weight 136 kg [place] Body Weight (kg) 59.09 BMI 56.5 Weight Status Morbidly Obese Subjective/Other Information Pt screened for malnutrition and skin risk. Pt has a fay score of 13. Pt was in extreme pain at time of visit and stated that her appetite was "not too well". She reported weakness overall and was unsure of any specific weight changes. Pt did not want an ONS. Noted no outstanding evidence for malnutrition during time of visit. Burn Absent Trauma Absent #1 Nutrition Diagnosis Inadequate oral intake Etiology RF, pain from pressure ulcer As Evidenced by Signs and Symptoms Lack of appetite Is patient on ventilator? No Is Patient Ambulatory and/or Out of Bed No REE-([place]-confined to bed) 2489.052 Kcal/Kg value to use for calculation 12 Approximate Energy Requirements Using 1905 kcal/Kg Additional Notes Pro: (0.8-1g/kg AdBW 109) 86- 159g/day Fluid: 1mL/kcal Nutrition Intervention Change Diet Order: Continue current or per MD request Goal #1 PO intake to meet at least 75% of energy and protein needs Anticipated Discharge Needs: Consistent carbohydrate Follow-Up By: 03/04/19 Additional Comments F/U: PO intake
[2019-02-28] MEDS: DUONEB *Not for PRN Use IH SCH ×2 (15:58→19:20)
[2019-02-28] MEDS ORDERED: VANCOMYCIN 1,500 MG in NACL 0.9% 500 ML 500 ML IV SCH (16:00)
[2019-02-28] MEDS: PERCOCET 5/325 PO PRN (20:18)
[2019-02-28] MEDS ORDERED: PEPCID PO SCH (22:00)
[2019-02-28] MEDS: ROCEPHIN/NS 2 GM/100 ML 2 GM/100 ML BAG IV SCH (22:11)
[2019-03-01] MEDS: HumaLOG SUB-Q SCH ×5 (00:42→22:23)
[2019-03-01] MEDS: CARAFATE PO SCH ×4 (00:47→18:34)
[2019-03-01 01:22] LABS: Creatinine,Urine 26.7 mg/dL (0.1-20.0); Fractional Sodium Excretion 4.1
[2019-03-01 02:07] LABS: Bacteria,Urine 1+ /HPF (Negative); Bilirubin,Urine NEG (Negative); Blood,Urine LG (Negative); Color,Urine Straw (Yellow); Protein,Urine <15 mg/dL mg/dL (Negative); Urobilinogen,Urine < 2.0 mg/dL (<2.0)
[2019-03-01] MEDS: PROVENTIL IH PRN (02:36)
[2019-03-01 06:17] LABS: Hematocrit 34.7 % (30.3-42.9); Hemoglobin 11.2 gm/dl (10.1-14.3); Mean Corpuscular HGB Conc 32 % (30-34); Mean Corpuscular Volume 87 fl (79-97); Red Blood Count 4.01 M/mm3 (3.65-5.03)
[2019-03-01 06:31] LABS: Calcium 9.2 mg/dL (8.4-10.2)
[2019-03-01 08:16] LABS: Anisocytosis Few; Band Neutrophils # (Manual) 0.7 K/mm3; Basophils % (Manual) 0 % (0.0-1.8); Eosinophils % (Manual) 0 % (0.0-4.3); Monocytes % (Manual) 0 % (0.0-7.3); Total Cells Counted 100
[2019-03-01 08:17] LABS: Platelet Count 211 K/mm3 (140-440); Platelet Estimate Consistent w Auto
[2019-03-01] MEDS: DUONEB *Not for PRN Use IH SCH ×3 (08:41→20:07)
--- NOTE | 2019-03-01 09:33 | Progress Note ---
Assessment and Plan Acute on Chronic Hypercapnic and Hypoxemic respiratory failure Acute COPD exacerbation IDDM (insulin dependent diabetes mellitus) HTN (hypertension) Morbid obesity CKD (chronic kidney disease) - discussed Psych evaluation with her attending after consoling her at bedside - continue restrictive oxygen therapy acutely targeting O2 sat's 88-90 % - continue bronchodilators with pulmonary hygiene per RT (add LABA) - add inhaled and continue systemic steroids with systemic steroid taper - agree with empiric AB therapy to cover CAP - deploy BIPAP qhs with prn daytime use for ventilatory support - GI & VTE prophylaxis - Flu & pneumovax per protocol - will transfer care to Dr. Silva's group Subjective Date of service: 03/01/19 Principal diagnosis: Ac on Ch Hypercapnic Hypoxemic Resp Failure; AE COPD; Morbid Obesity Interval history: Patient is seen today for: Acute on Chronic Hypercapnic and Hypoxemic respiratory failure; Acute COPD exacerbation; IDDM (insulin dependent diabetes mellitus); HTN (hypertension); Morbid obesity Seen and examined at bedside; 24hour events reviewed; nursing and respiratory care staff consulted; no adverse overnight events reported to me resting peacefully in bed; admits to some improvement in SOB; she denies acute chest pains or palpitations; she is emotionally labile, states she has a psych history, is having nightmares, people talking about her. 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 Objective Vital Signs - 12hr 02/28/19 03/01/19 03/01/19 22:00 02:15 02:36 Temperature 97.2 F L Pulse Rate 99 H Pulse Rate [ 95 H Anterior Bilateral Throughout] Respiratory 18 16 Rate Respiratory 18 Rate [Anterior Bilateral Throughout] Blood Pressure 155/74 O2 Sat by Pulse 96 95 Oximetry 03/01/19 03/01/19 03/01/19 02:43 08:04 08:41 Temperature 98.0 F Pulse Rate 112 H Pulse Rate [ 97 H 103 H Anterior Bilateral Throughout] Respiratory 20 Rate Respiratory 18 20 Rate [Anterior Bilateral Throughout] Blood Pressure 130/91 O2 Sat by Pulse 94 96 Oximetry 03/01/19 03/01/19 09:03 09:20 Temperature Pulse Rate Pulse Rate [ 105 H Anterior Bilateral Throughout] Respiratory 18 Rate Respiratory 20 Rate [Anterior Bilateral Throughout] Blood Pressure O2 Sat by Pulse 96 Oximetry Constitutional: alert, appears uncomfortable, other (elderly looking, morbidly obese CF, normocephalica nd atraumatic with mildly increased resp effort at rest) Eyes: non-icteric ENT: oropharynx moist, other (Mallampati 3-4) Neck: supple, no lymphadenopathy, no JVD, other (large neck circumference) Effort: mildly labored Ascultation: Bilateral: diminished breath sounds, wheezes (faint exp and upper zone predominant), rhonchi (scant) Percussion: Bilateral: not dull Cardiovascular: regular rate and rhythm Gastrointestinal: normoactive bowel sounds, soft, non-tender, non-distended Integumentary: normal Extremities: no cyanosis, no edema, pink and warm, pulses normal Neurologic: normal mental status, non-focal exam, pupils equal and round, CN II- XII normal Psychiatric: depressed (depressed affect), tearful (occasionally) CBC and BMP: 03/01/19 05:42 03/01/19 05:42 ABG, PT/INR, D-dimer: ABG POC ABG pH 7.417 (7.35-7.45) 02/27/19 14:54 POC ABG pCO2 51.7 (35-45) H 02/27/19 14:54 POC ABG pO2 74 (80-105) L 02/27/19 14:54 POC ABG HCO3 33.3 (22-26 mml/L) 02/27/19 14:54 POC ABG Total CO2 35 (23-27mmol/L) 02/27/19 14:54 POC ABG O2 Sat 95 02/27/19 14:54 PT/INR, D-dimer PT 13.0 Sec. (12.2-14.9) 02/27/19 15:10 INR 0.93 (0.87-1.13) 02/27/19 15:10 Abnormal lab findings: Abnormal Labs 02/27/19 02/27/19 02/27/19 14:54 15:10 15:10 WBC RDW 15.8 H Seg Neuts % (Manual) 76.0 H Lymphocytes % (Manual) 13.0 L Seg Neutrophils # Man Lymphocytes # (Manual) 1.0 L APTT 36.8 H POC ABG pCO2 51.7 H POC ABG pO2 74 L Chloride Carbon Dioxide BUN Creatinine Glucose POC Glucose ALT NT-Pro-B Natriuret Pep Total Protein Albumin Urine WBC (Auto) Urine Creatinine 02/27/19 02/27/19 02/28/19 15:10 15:35 04:38 WBC RDW 15.7 H Seg Neuts % (Manual) 85.0 H Lymphocytes % (Manual) 7.0 L Seg Neutrophils # Man Lymphocytes # (Manual) 0.6 L APTT POC ABG pCO2 POC ABG pO2 Chloride 96.7 L Carbon Dioxide 32 H BUN 23 H Creatinine 2.8 H Glucose 105 H POC Glucose ALT < 5 L NT-Pro-B Natriuret Pep 1875 H Total Protein 5.7 L Albumin 3.0 L Urine WBC (Auto) 7.0 H Urine Creatinine 02/28/19 02/28/19 02/28/19 04:38 07:24 09:42 WBC RDW Seg Neuts % (Manual) Lymphocytes % (Manual) Seg Neutrophils # Man Lymphocytes # (Manual) APTT POC ABG pCO2 POC ABG pO2 Chloride Carbon Dioxide BUN 23 H Creatinine 2.8 H Glucose 147 H POC Glucose 149 H 173 H ALT < 5 L NT-Pro-B Natriuret Pep Total Protein 5.8 L Albumin 3.1 L Urine WBC (Auto) Urine Creatinine 02/28/19 02/28/19 02/28/19 12:20 16:49 22:22 WBC RDW Seg Neuts % (Manual) Lymphocytes % (Manual) Seg Neutrophils # Man Lymphocytes # (Manual) APTT POC ABG pCO2 POC ABG pO2 Chloride Carbon Dioxide BUN Creatinine Glucose POC Glucose 153 H 132 H 150 H ALT NT-Pro-B Natriuret Pep Total Protein Albumin Urine WBC (Auto) Urine Creatinine 03/01/19 03/01/19 03/01/19 01:07 01:07 01:07 WBC RDW Seg Neuts % (Manual) Lymphocytes % (Manual) Seg Neutrophils # Man Lymphocytes # (Manual) APTT POC ABG pCO2 POC ABG pO2 Chloride Carbon Dioxide BUN Creatinine 3.0 H Glucose POC Glucose ALT NT-Pro-B Natriuret Pep Total Protein Albumin Urine WBC (Auto) 53.0 H Urine Creatinine 26.7 H 03/01/19 03/01/19 03/01/19 05:42 05:42 07:33 WBC 12.0 H RDW 16.0 H Seg Neuts % (Manual) 87.0 H Lymphocytes % (Manual) 5.0 L Seg Neutrophils # Man 10.4 H Lymphocytes # (Manual) 0.6 L APTT POC ABG pCO2 POC ABG pO2 Chloride 95.4 L Carbon Dioxide BUN 23 H Creatinine 3.1 H Glucose 163 H POC Glucose 126 H ALT NT-Pro-B Natriuret Pep Total Protein Albumin Urine WBC (Auto) Urine Creatinine Chest x-ray: image reviewed
[2019-03-01] MEDS: CALAN SR PO SCH (10:59)
[2019-03-01] MEDS: PROTONIX PO SCH (10:59)
[2019-03-01] MEDS: NEURONTIN PO SCH ×3 (10:59→21:24)
[2019-03-01] MEDS: DELTASONE PO SCH (10:59)
[2019-03-01] MEDS: SODIUM BICARBONATE PO SCH ×2 (10:59→21:23)
[2019-03-01] MEDS: LASIX PO SCH (10:59)
[2019-03-01] MEDS: HEPARIN SUB-Q SCH ×2 (11:00→21:23)
[2019-03-01] MEDS: SODIUM CHLORIDE FLUSH SYRINGE 10 ML IV SCH ×2 (11:01→21:23)
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
--- NOTE | 2019-03-01 11:57 | Progress Note ---
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; AE COPD; Morbid Obesity Interval history: Patient was seen today for follow-up of multiple renal related issues No complaints of any chest pain pressure or shortness of breath Interdisciplinary notes that also reviewed Events of 24 hours vitals labs intake output medications were reviewed Past medical history: Reviewed Family history: Reviewed Social history: Reviewed Allergies: Reviewed Physical examination: Vitals: Reviewed HEENT: No pallor or icterus oral mucosa moist Neck: Supple no JVD no thyromegaly Chest: Bilateral clear to auscultation anteriorly Heart: Regular rate and rhythm S1-S2 heard no S3-S4 Abdomen: Soft nontender no voluntary guarding rigidity rebound Extremity: Dry skin less than 1+ peripheral edema Psychiatric: No evidence of agitation and aggression noted Dermatology: No petechial rashes Labs and x-rays: Reviewed from today Assessment and plan Chronic kidney disease patient is high risk for progression some worsening of renal function noted Patient adequately counseled and educated She has multiple other comorbidities No evidence of anemia and chronic kidney disease last hemoglobin 11.2 History of bladder cancer patient is being followed by urology Urine culture blood culture negative for last 48 hours Continue the patient came monitor renal function Encouraged oral hydration history of congestive heart failure would be cautious Patient was adequately counseled and educated regarding all the renal related issues Laboratory studies, pertinent for discussed with patient All questions were answered and simple [place] We'll continue to follow and make recommendation for renal standpoint Objective - Vital Signs Vital signs: Vital Signs - 12hr 03/01/19 03/01/19 03/01/19 02:15 02:36 02:43 Temperature 97.2 F L Pulse Rate 99 H Pulse Rate [ 95 H 97 H Anterior Bilateral Throughout] Respiratory 16 Rate Respiratory 18 18 Rate [Anterior Bilateral Throughout] Blood Pressure 155/74 O2 Sat by Pulse 95 Oximetry 03/01/19 03/01/19 03/01/19 08:04 08:41 09:03 Temperature 98.0 F Pulse Rate 112 H Pulse Rate [ 103 H 105 H Anterior Bilateral Throughout] Respiratory 20 Rate Respiratory 20 20 Rate [Anterior Bilateral Throughout] Blood Pressure 130/91 O2 Sat by Pulse 94 96 Oximetry 03/01/19 03/01/19 09:20 10:59 Temperature Pulse Rate Pulse Rate [ Anterior Bilateral Throughout] Respiratory 18 Rate Respiratory Rate [Anterior Bilateral Throughout] Blood Pressure 130/91 O2 Sat by Pulse 96 Oximetry - Lab 03/01/19 05:42 03/01/19 05:42 Most recent lab results Calcium 9.2 mg/dL (8.4-10.2) 03/01/19 05:42 Magnesium 1.70 mg/dL (1.7-2.3) 02/27/19 15:10 26.7 mg/dL (0.1-20.0) H 03/01/19 01:07 57 mmol/L 03/01/19 01:07 Medications & Allergies - Medications Allergies/Adverse Reactions: Allergies aspirin Allergy (Verified 09/17/17 17:58) Shortness of Breath , CHEST PAIN escitalopram [From Lexapro] Allergy (Verified 04/17/18 11:43) Shortness of Breath levofloxacin [From Levaquin] Allergy (Verified 02/27/19 15:45) Rash salmeterol xinafoate [From Serevent] Allergy (Verified 01/22/17 08:45) Shortness of Breath Sulfa (Sulfonamide Antibiotics) Adverse Reaction (Verified 10/31/17 11:19) contraindicated due to kidney function states her doctor told her to not take sulfa due to renal insufficiency tramadol Adverse Reaction (Verified 09/19/18 16:34) Nausea contrast dye Adverse Reaction (Uncoded 04/17/18 11:59) contraindicated due to renal insufficiency Home Medications: Home Medications Medication Instructions Recorded Confirmed Last Taken Type Sodium Bicarbonate 650 mg PO BID #60 tablet 10/29/18 12/24/18 Unknown Rx Verapamil ER [Calan SR] 180 mg PO DAILY #30 10/29/18 12/24/18 10/02/18 07:30 Rx Theophylline Anhydrous ER [Theodur] 150 mg PO QPM 12/24/18 12/24/18 Unknown History Theophylline Anhydrous ER [Theodur] 300 mg PO QAM 12/24/18 12/24/18 Unknown History Beclomethasone Dipropionate [Qvar 2 inhalation IH BID 12/26/18 12/26/18 Unknown History Redihaler] Gabapentin [Neurontin] 100 mg PO TID 12/26/18 12/26/18 Unknown History Indacaterol Maleate [Arcapta 75 mcg IH DAILY 12/26/18 12/26/18 12/24/18 History Neohaler] Ipratropium Smock [Atrovent Hfa] 12.9 gm IH 4XD 12/26/18 12/26/18 12/24/18 History Ipratropium/Albuterol Sulfate 1 spray IH QID 12/26/18 12/26/18 Unknown History [Combivent Respimat] Linaclotide (Nf) [Linzess (Nf)] 290 mcg PO QDAY 12/26/18 12/26/18 Unknown History Ondansetron [Zofran TAB] 4 mg PO Q6HR 12/26/18 12/26/18 12/24/18 History Ranitidine HCl [Zantac] 150 mg PO BID 12/26/18 12/26/18 12/24/18 History Sucralfate [Carafate] 1 gm PO Q6HR 12/26/18 12/26/18 Unknown History Tiotropium Smock [Spiriva] 18 mcg IH 4XD 12/26/18 12/26/18 12/24/18 History Furosemide [Lasix TAB] 40 mg PO QDAY #30 tablet 01/02/19 Unknown Rx Furosemide [Lasix TAB] 40 mg PO QDAY #30 tablet 01/02/19 Unknown Rx Insulin NPH/Regular [NovoLIN 70/30] 12 unit SUB-Q BIDDIAB #1 vial 01/02/19 Unkn own Rx Pantoprazole [Protonix TAB] 40 mg PO QDAY #30 tablet 01/02/19 Unknown Rx predniSONE [Deltasone] 10 mg PO DAILY 4 Days tablet 01/02/19 Unknown Rx predniSONE [Deltasone] 20 mg PO QDAY 4 Days tab 01/02/19 Unknown Rx predniSONE [Deltasone] 40 mg PO DAILY 4 Days tablet 01/02/19 Unknown Rx predniSONE [Deltasone] 60 mg PO QDAY 4 Days tab 01/02/19 Unknown Rx Active Medications: Generic Name Dose Route Start Last Admin Trade Name Freq PRN Reason Stop Dose Admin Acetaminophen 650 mg 02/27/19 21:02 Tylenol PO Q4H PRN Pain MILD(1-3)/Fever >100.5/[place] Albuterol 2.5 mg 02/28/19 09:33 03/01/19 02:36 Proventil IH 2.5 mg Q3HRT PRN Administration Shortness Of Breath Albuterol/Ipratropium 1 ampul 03/01/19 08:00 03/01/19 08:41 Duoneb *Not For Prn Use* IH 1 ampul TIDRT KELLY Administration Azithromycin 500 mg 03/02/19 10:00 Zithromax PO 03/04/19 10:01 QDAY KELLY Furosemide 40 mg 02/28/19 10:00 03/01/19 10:59 Lasix PO 40 mg QDAY KELLY Administration Gabapentin 100 mg 02/28/19 09:00 03/01/19 10:59 Neurontin PO 100 mg TID KELLY Administration Heparin Sodium (Porcine) 5,000 unit 02/28/19 10:00 03/01/19 11:00 Heparin SUB-Q 5,000 unit Q12HR KELLY Administration Ceftriaxone Sodium 2 gm in 100 mls @ 200 mls/hr 02/27/19 22:00 03/01/19 00:42 Rocephin/Ns 2 Gm/100 Ml IV Infused Q24HR@2200 KELLY Infusion Azithromycin 500 mg/ Sodium 250 mls @ 250 mls/hr 02/28/19 10:00 02/28/19 09:34 Chloride IV 03/01/19 14:00 250 mls/hr Q24HR KELLY Administration Vancomycin HCl 2,000 mg/ 540 mls @ 250 mls/hr 03/01/19 14:00 Sodium Chloride IV 03/01/19 16:09 ONCE ONE Ibuprofen 600 mg 02/27/19 21:02 02/28/19 10:21 Motrin PO 600 mg Q6H PRN Administration Pain, Mild (1-3) Insulin Human Isoph/Insulin Regular 12 unit 02/28/19 09:00 03/01/19 11:00 Humulin 70/30 SUB-Q 12 unit BIDDIAB KELLY Administration Insulin Human Lispro 0 unit 02/28/19 09:00 03/01/19 11:00 Humalog SUB-Q Not Given ACHS [facility] Protocol Miscellaneous Medication 2 inhalation 02/28/19 10:00 Beclomethasone Dipropionate [Qvar Redihaler] IH BID [facility] Miscellaneous Medication 75 mcg 02/28/19 10:00 Indacaterol Maleate [Arcapta Neohaler] IH DAILY [facility] Miscellaneous Medication 290 mcg 02/28/19 10:00 Linaclotide (Nf) PO QDAY KELLY Ondansetron HCl 4 mg 02/27/19 21:02 Zofran IV Q8H PRN Nausea And Vomiting Oxycodone/Acetaminophen 2 tab 02/28/19 11:38 02/28/19 20:18 Percocet 5/325 PO 2 tab Q6H PRN Administration Pain, Moderate (4-6) Pantoprazole Sodium 40 mg 02/28/19 10:00 03/01/19 10:59 Protonix PO 40 mg QDAY KELLY Administration Prednisone 20 mg 03/01/19 10:00 03/01/19 10:59 Deltasone PO 03/05/19 11:00 20 mg QDAY KELLY Administration Sodium Bicarbonate 650 mg 02/28/19 10:00 03/01/19 10:59 Sodium Bicarbonate PO 650 mg BID KELLY Administration Sodium Chloride 10 ml 02/27/19 22:00 03/01/19 11:01 Sodium Chloride Flush Syringe 10 Ml IV 10 ml BID KELLY Administration Sodium Chloride 10 ml 02/27/19 21:02 Sodium Chloride Flush Syringe 10 Ml IV PRN PRN LINE FLUSH Sucralfate 1 gm 02/28/19 12:00 03/01/19 06:00 Carafate PO 1 gm Q6HR KELLY Administration Theophylline 150 mg 02/28/19 18:00 02/28/19 17:46 Theodur PO 150 mg QPM KELLY Administration Theophylline 300 mg 02/28/19 10:00 02/28/19 09:32 Theodur PO 300 mg QAM KELLY Administration Verapamil HCl 180 mg 02/28/19 10:00 03/01/19 10:59 Calan Sr PO 180 mg DAILY KELLY Administration
[2019-03-01] MEDS: ZITHROMAX 500 MG in NACL 0.9% 250ML 250 ML IV SCH (13:07)
[2019-03-01] MEDS: THEODUR PO SCH ×2 (13:09→18:34)
[2019-03-01] MEDS ORDERED: VANCOMYCIN 2,000 MG in NACL 0.9% 500 ML 500 ML IV ONE (14:00)
[2019-03-01] MEDS: ROCEPHIN/NS 2 GM/100 ML 2 GM/100 ML BAG IV SCH (21:24)
[2019-03-01] MEDS: BROVANA NEBU IH SCH (22:05)
[2019-03-01] MEDS: PULMICORT IH SCH (22:05)
[2019-03-02] MEDS: CARAFATE PO SCH ×4 (01:21→17:23)
--- NOTE | 2019-03-02 08:19 | Progress Note ---
Assessment and Plan Assessment and plan: 79 year old female who is status post a 3 day hospitalization at [facility] presumably for cellulitis was transferred to [facility] yesterday. She was observed to be somewhat delirious per her son. She was transported to this facility for further evaluation. This is a patient with multiple medical comor bidities to include insulin-dependent diabetes, COPD with previous intubations, stage IV bladder cancer, chronic kidney disease stage IV, etc. She is morbidly obese. The patient states that she does have chronic difficulty breathing and more SOB on the DOP.Poor historian.No fever or chills. 1) acute on chronic hypoxic and Hypercapnic respiratory failure - Cont Duonebs IV Solumedrol and IV Abx - Continue to use of oxygen, cpap and bipap orders per pulmonology (2) COPD exacerbation -steroids, nebs and abx (3) IDDM (insulin dependent diabetes mellitus) COnt Home Insulin and coverage (4) HTN (hypertension) COnt antihypertensives (5) Morbid obesity Current Visit: No Status: Chronic (6) CKD (chronic kidney disease) Nephrology consult appreciated, progression of CKD, cont judicious oral hydration given hx of CHF (7)Depression psych consult 8) UTI on rocephin, fup Ucx DVT prophylaxis On Heparin and GI prophylaxis Patient has stage IV bladder cancer and recurrent admission. patient may need hospice care. patient discharged from [facility] 3 days ago and spend 2 days in the SNF and presented here. History Interval history: Review of systems Constitutional: No fevers, no malaise, no joint pains CVS: No chest pain, no orthopnea, no dyspnea on exertion, no pedal edema GI: No abdominal pain, no diarrhea, no vomiting, no constipation Respiratory: Shortness of breath is improved, no wheezing or coughing Hospitalist Physical - Physical exam Narrative exam: General.: Appears well, no distress, nontoxic HEENT: Moist mucous membranes, extraocular muscles intact, no lymphadenopathy Neck: supple Cardiac: S1-S2 heard Lungs: Diminished air entry Abdomen: soft , nontender, nondistended, bowel sounds positive Extremities: no edema clubbing or cyanosis Skin: no rash or lesions Neurologic: no gross focal deficits Psych: calm, and cooperative - Constitutional Vitals: Temp Pulse Resp BP Pulse Ox 98.0 F 94 H 18 127/61 96 03/02/19 04:00 03/02/19 04:00 03/02/19 07:25 03/02/19 04:00 03/02/19 07:25 General appearance: Present: mild distress, well-nourished Results - Labs CBC & Chem 7: 03/03/19 05:26 03/03/19 05:26 Labs: Laboratory Last Values WBC 12.0 K/mm3 (4.5-11.0) H 03/01/19 05:42 RBC 4.01 M/mm3 (3.65-5.03) 03/01/19 05:42 Hgb 11.2 gm/dl (10.1-14.3) 03/01/19 05:42 Hct 34.7 % (30.3-42.9) 03/01/19 05:42 MCV 87 fl (79-97) 03/01/19 05:42 MCH 28 pg (28-32) 03/01/19 05:42 MCHC 32 % (30-34) 03/01/19 05:42 RDW 16.0 % (13.2-15.2) H 03/01/19 05:42 Plt Count 211 K/mm3 (140-440) 03/01/19 05:42 Lymph % (Auto) [place] 03/01/19 05:42 [place] % (Auto) [place] 03/01/19 05:42 Eos % (Auto) [place] 03/01/19 05:42 Baso % (Auto) [place] 03/01/19 05:42 Lymph # [place] 03/01/19 05:42 [place] # [place] 03/01/19 05:42 Eos # [place] 03/01/19 05:42 Baso # [place] 03/01/19 05:42 Add Manual Diff Complete 03/01/19 05:42 Total Counted 100 03/01/19 05:42 Seg Neutrophils % [place] 03/01/19 05:42 Seg Neuts % (Manual) 87.0 % (40.0-70.0) H 03/01/19 05:42 6.0 % 03/01/19 05:42 5.0 % (13.4-35.0) L 03/01/19 05:42 Reactive Lymphs % (Man) 0 % 03/01/19 05:42 0 % (0.0-7.3) 03/01/19 05:42 0 % (0.0-4.3) 05/11/19 05:42 0 % (0.0-1.8) 03/01/19 05:42 2.0 % 03/01/19 05:42 0 % 03/01/19 05:42 0 % 03/01/19 05:42 0 % 03/01/19 05:42 Nucleated RBC % Not Reportable 03/01/19 05:42 Seg Neutrophils # [place] 03/01/19 05:42 Seg Neutrophils # Man 10.4 K/mm3 (1.8-7.7) H 03/01/19 05:42 Band Neutrophils # 0.7 K/mm3 03/01/19 05:42 0.6 K/mm3 (1.2-5.4) L 03/01/19 05:42 Abs React Lymphs (Man) 0.0 K/mm3 03/01/19 05:42 0.0 K/mm3 (0.0-0.8) 03/01/19 05:42 0.0 K/mm3 (0.0-0.4) 03/01/19 05:42 0.0 K/mm3 (0.0-0.1) 03/01/19 05:42 0.2 K/mm3 03/01/19 05:42 0.0 K/mm3 03/01/19 05:42 0.0 K/mm3 03/01/19 05:42 Blast Cells # 0.0 K/mm3 03/01/19 05:42 WBC Morphology Not Reportable 03/01/19 05:42 Hypersegmented Neuts Not Reportable 03/01/19 05:42 Hyposegmented Neuts Not Reportable 03/01/19 05:42 Hypogranular Neuts Not Reportable 03/01/19 05:42 Not Reportable 03/01/19 05:42 Not Reportable 03/01/19 05:42 Not Reportable 03/01/19 05:42 Not Reportable 03/01/19 05:42 Not Reportable 03/01/19 05:42 Not Reportable 03/01/19 05:42 Consistent w auto 03/01/19 05:42 Not Reportable 03/01/19 05:42 Plt Clumps, EDTA Not Reportable 03/01/19 05:42 Not Reportable 03/01/19 05:42 Not Reportable 03/01/19 05:42 Not Reportable 03/01/19 05:42 Plt Morphology Comment Not Reportable 03/01/19 05:42 RBC Morphology Not Reportable 03/01/19 05:42 Dimorphic RBCs Not Reportable 03/01/19 05:42 Not Reportable 03/01/19 05:42 Not Reportable 03/01/19 05:42 Not Reportable 03/01/19 05:42 Few 03/01/19 05:42 Few 03/01/19 05:42 Not Reportable 03/01/19 05:42 Not Reportable 03/01/19 05:42 Not Reportable 03/01/19 05:42 Not Reportable 03/01/19 05:42 Not Reportable 03/01/19 05:42 Not Reportable 03/01/19 05:42 Not Reportable 03/01/19 05:42 Not Reportable 03/01/19 05:42 Not Reportable 03/01/19 05:42 Not Reportable 03/01/19 05:42 Not Reportable 03/01/19 05:42 Not Reportable 03/01/19 05:42 Not Reportable 03/01/19 05:42 Not Reportable 03/01/19 05:42 Acanthocytes (Spur) Not Reportable 03/01/19 05:42 Rouleaux Not Reportable 03/01/19 05:42 Not Reportable 03/01/19 05:42 Not Reportable 03/01/19 05:42 Not Reportable 03/01/19 05:42 Not Reportable 03/01/19 05:42 Hem Pathologist Commnt No 03/01/19 05:42 PT 13.0 Sec. (12.2-14.9) 02/27/19 15:10 INR 0.93 (0.87-1.13) 02/27/19 15:10 APTT 36.8 Sec. (24.2-36.6) H 02/27/19 15:10 POC ABG pH 7.417 (7.35-7.45) 02/27/19 14:54 POC ABG pCO2 51.7 (35-45) H 02/27/19 14:54 POC ABG pO2 74 (80-105) L 02/27/19 14:54 POC ABG HCO3 33.3 (22-26 mml/L) 02/27/19 14:54 POC ABG Total CO2 35 (23-27mmol/L) 02/27/19 14:54 POC ABG O2 Sat 95 02/27/19 14:54 POC ABG Base Excess 9 ((-2) - (+3)mmol/L) 02/27/19 14:54 VBG pH 7.381 (7.320-7.420) 02/27/19 15:10 36 % 02/27/19 14:54 Sodium 138 mmol/L (137-145) 03/01/19 05:42 Potassium 4.0 mmol/L (3.6-5.0) 03/01/19 05:42 Chloride 95.4 mmol/L (98-107) L 03/01/19 05:42 Carbon Dioxide 27 mmol/L (22-30) 03/01/19 05:42 20 mmol/L 03/01/19 05:42 BUN 23 mg/dL (7-17) H 03/01/19 05:42 3.1 mg/dL (0.7-1.2) H 03/01/19 05:42 Estimated GFR 14 ml/min 03/01/19 05:42 7 % 03/01/19 05:42 Glucose 163 mg/dL (65-100) H 03/01/19 05:42 POC Glucose 145 (70-105) H 03/01/19 22:02 5.7 % (4-6) 02/27/19 15:38 Lactic Acid 1.40 mmol/L (0.7-2.0) 02/27/19 18:06 Calcium 9.2 mg/dL (8.4-10.2) 03/01/19 05:42 Magnesium 1.70 mg/dL (1.7-2.3) 02/27/19 15:10 0.20 mg/dL (0.1-1.2) 02/28/19 04:38 < 0.2 mg/dL (0-0.2) 02/27/19 15:10 0.1 mg/dL 02/27/19 15:10 AST 9 units/L (5-40) 02/28/19 04:38 ALT < 5 units/L (7-56) L 02/28/19 04:38 104 units/L (35-129) 02/28/19 04:38 33.0 umol/L (25-60) 02/27/19 15:10 NT-Pro-B Natriuret Pep 1875 pg/mL (0-900) H 02/27/19 15:10 5.8 g/dL (6.3-8.2) L 02/28/19 04:38 3.1 g/dL (3.9-5) L 02/28/19 04:38 1.1 % 02/28/19 04:38 Straw (Yellow) 03/01/19 01:07 Cloudy (Clear) 03/01/19 01:07 5.0 (5.0-7.0) 03/01/19 01:07 Ur Specific [place] 1.005 (1.003-1.030) 03/01/19 01:07 <15 mg/dl mg/dL (Negative) 03/01/19 01:07 Neg mg/dL (Negative) 03/01/19 01:07 Neg mg/dL (Negative) 03/01/19 01:07 Lg (Negative) 03/01/19 01:07 Neg (Negative) 03/01/19 01:07 Neg (Negative) 03/01/19 01:07 < 2.0 mg/dL (<2.0) 03/01/19 01:07 Ur Leukocyte Esterase Lg (Negative) 03/01/19 01:07 53.0 /HPF (0.0-6.0) H 03/01/19 01:07 7.0 /HPF (0.0-6.0) 03/01/19 01:07 U Epithel Cells (Auto) 1.0 /HPF (0-13.0) 03/01/19 01:07 1+ /HPF (Negative) 03/01/19 01:07 None seen (None Seen) 02/28/19 01:07 26.7 mg/dL (0.1-20.0) H 03/01/19 01:07 57 mmol/L 03/01/19 01:07 Fraction Sodium Excret 4.1 03/01/19 01:07 Random Vancomycin 12 ug/mL (0-40.0) 03/01/19 05:42 Active Medications - Current Medications Current Medications: Generic Name Dose Route Start Last Admin Trade Name Freq PRN Reason Stop Dose Admin Acetaminophen 650 mg 02/27/19 21:02 Tylenol PO Q4H PRN Pain MILD(1-3)/Fever >100.5/[place] Albuterol 2.5 mg 02/28/19 09:33 03/01/19 02:36 Proventil IH 2.5 mg Q3HRT PRN Administration Shortness Of Breath Albuterol/Ipratropium 1 ampul 03/01/19 08:00 03/01/19 20:07 Duoneb *Not For Prn Use* IH 1 ampul TIDRT KELLY Administration Arformoterol Tartrate 15 mcg 03/01/19 20:00 03/01/19 22:05 Brovana Nebu IH Not Given Q12HRT KELLY Azithromycin 500 mg 03/02/19 10:00 Zithromax PO 03/04/19 10:01 QDAY KELLY Budesonide 0.5 mg 03/01/19 20:00 03/01/19 22:05 Pulmicort IH Not Given Q12HRT [facility] Furosemide 40 mg 02/28/19 10:00 03/01/19 10:59 Lasix PO 40 mg QDAY KELLY Administration Gabapentin 100 mg 02/28/19 09:00 03/01/19 21:24 Neurontin PO 100 mg TID KELLY Administration Heparin Sodium (Porcine) 5,000 unit 02/28/19 10:00 03/01/19 21:23 Heparin SUB-Q 5,000 unit Q12HR KELLY Administration Ceftriaxone Sodium 2 gm in 100 mls @ 200 mls/hr 02/27/19 22:00 03/02/19 01:21 Rocephin/Ns 2 Gm/100 Ml IV Infused Q24HR@2200 [facility] Infusion Ibuprofen 600 mg 02/27/19 21:02 02/28/19 10:21 Motrin PO 600 mg Q6H PRN Administration Pain, Mild (1-3) Insulin Human Isoph/Insulin Regular 12 unit 02/28/19 09:00 03/01/19 18:33 Humulin 70/30 SUB-Q 12 unit BIDDIAB KELLY Administration Insulin Human Lispro 0 unit 02/28/19 09:00 03/01/19 22:23 Humalog SUB-Q Not Given [facility] Protocol Miscellaneous Medication 290 mcg 02/28/19 10:00 Linaclotide (Nf) PO QDAY KELLY Ondansetron HCl 4 mg 02/27/19 21:02 Zofran IV Q8H PRN Nausea And Vomiting Oxycodone/Acetaminophen 2 tab 02/28/19 11:38 02/28/19 20:18 Percocet 5/325 PO 2 tab Q6H PRN Administration Pain, Moderate (4-6) Pantoprazole Sodium 40 mg 02/28/19 10:00 03/01/19 10:59 Protonix PO 40 mg QDAY KELLY Administration Prednisone 20 mg 03/01/19 10:00 03/01/19 10:59 Deltasone PO 03/05/19 11:00 20 mg QDAY KELLY Administration Sodium Bicarbonate 650 mg 02/28/19 10:00 03/01/19 21:23 Sodium Bicarbonate PO 650 mg BID KELLY Administration Sodium Chloride 10 ml 02/27/19 22:00 03/01/19 21:23 Sodium Chloride Flush Syringe 10 Ml IV 10 ml BID KELLY Administration Sodium Chloride 10 ml 02/27/19 21:02 Sodium Chloride Flush Syringe 10 Ml IV PRN PRN LINE FLUSH Sucralfate 1 gm 02/28/19 12:00 03/02/19 05:44 Carafate PO 1 gm Q6HR KELLY Administration Theophylline 150 mg 02/28/19 18:00 03/01/19 18:34 Theodur PO 150 mg QPM KELLY Administration Theophylline 300 mg 02/28/19 10:00 03/01/19 13:09 Theodur PO Not Given QAM KELLY Verapamil HCl 180 mg 02/28/19 10:00 03/01/19 10:59 Calan Sr PO 180 mg DAILY KELLY Administration Nutrition/Malnutrition Assess - Dietary Evaluation Nutrition/Malnutrition Findings: Nutrition Notes Start: 02/28/19 11:27 Freq: Status: Active Protocol: Document 02/28/19 11:27 CP (Rec: 02/28/19 11:36 CP [id number]) Co-Sign 02/28/19 11:27 LP Nutrition Notes Need for Assessment generated from: Order,MST Initial or Follow up Assessment Current Diagnosis CKD(stage I-IV),Decubitus( Pressure Ulcer),Diabetes, Hypertension,Heart Failure Other Pertinent Diagnosis Stasis ulcer, obesity Current Diet Consistent Carbohydrate Labs/Tests BUN 23 Glu 147 Pro 5.8 Pertinent Medications Lasix Insulin Solu-medrol Height 5 ft 6 in Weight 158.757 kg Usual Body Weight 136 kg [place] Body Weight (kg) 59.09 BMI 56.5 Weight Status Morbidly Obese Subjective/Other Information Pt screened for malnutrition and skin risk. Pt has a fay score of 13. Pt was in extreme pain at time of visit and stated that her appetite was "not too well". She reported weakness overall and was unsure of any specific weight changes. Pt did not want an ONS. Noted no outstanding evidence for malnutrition during time of visit. Burn Absent Trauma Absent #1 Nutrition Diagnosis Inadequate oral intake Etiology RF, pain from pressure ulcer As Evidenced by Signs and Symptoms Lack of appetite Is patient on ventilator? No Is Patient Ambulatory and/or Out of Bed No REE-([facility]-confined to bed) 2489.052 Kcal/Kg value to use for calculation 12 Approximate Energy Requirements Using 1905 kcal/Kg Additional Notes Pro: (0.8-1g/kg AdBW 109) 86- 159g/day Fluid: 1mL/kcal Nutrition Intervention Change Diet Order: Continue current or per MD request Goal #1 PO intake to meet at least 75% of energy and protein needs Anticipated Discharge Needs: Consistent carbohydrate Follow-Up By: 03/04/19 Additional Comments F/U: PO intake
[2019-03-02] MEDS ORDERED: BROVANA NEBU IH ONE (08:30)
[2019-03-02] MEDS: PULMICORT IH SCH ×2 (10:12→19:20)
[2019-03-02] MEDS: DUONEB *Not for PRN Use IH SCH ×3 (10:12→19:20)
[2019-03-02] MEDS: BROVANA NEBU IH SCH ×2 (10:15→19:20)
[2019-03-02] MEDS: DELTASONE PO SCH (10:45)
[2019-03-02] MEDS: SODIUM BICARBONATE PO SCH ×2 (10:45→21:40)
[2019-03-02] MEDS: NEURONTIN PO SCH ×3 (10:45→21:39)
[2019-03-02] MEDS: LASIX PO SCH (10:45)
[2019-03-02] MEDS: PROTONIX PO SCH (10:46)
[2019-03-02] MEDS: ZITHROMAX PO SCH (10:46)
[2019-03-02] MEDS: HEPARIN SUB-Q SCH ×2 (10:46→21:41)
[2019-03-02] MEDS: CALAN SR PO SCH (10:46)
[2019-03-02] MEDS: HumaLOG SUB-Q SCH ×4 (10:47→22:00)
[2019-03-02] MEDS: SODIUM CHLORIDE FLUSH SYRINGE 10 ML IV SCH ×2 (10:48→21:42)
[2019-03-02] MEDS: THEODUR PO SCH ×2 (11:04→17:24)
--- NOTE | 2019-03-02 11:47 | Progress Note ---
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; AE COPD; Morbid Obesity Interval history: Patient was seen today for follow-up of multiple renal related issues she has several complaints about the food, and her shelter Interdisciplinary notes that also reviewed Events of 24 hours vitals labs intake output medications were reviewed Past medical history: Reviewed Family history: Reviewed Social history: Reviewed Allergies: Reviewed Physical examination: Vitals: Reviewed HEENT: No pallor or icterus oral mucosa moist Neck: Supple no JVD no thyromegaly Chest: Bilateral clear to auscultation anteriorly Heart: Regular rate and rhythm S1-S2 heard no S3-S4 Abdomen: Soft nontender no voluntary guarding rigidity rebound Extremity: Dry skin less than 1+ peripheral edema Psychiatric: No evidence of agitation and aggression noted Dermatology: No petechial rashes Labs and x-rays: Reviewed from today Assessment and plan Chronic kidney disease patient is high risk for progression some worsening of renal function noted Patient will need to follow up on the creatinine level periodically, her creatinine does fluctuate some Overall she remains at high risk for progression, will benefit from dietitian evaluation She has multiple other comorbidities, she is well known to us from the clinic No evidence of anemia and chronic kidney disease last hemoglobin 11.2 History of bladder cancer patient is being followed by urology Urine culture blood culture negative for last 48 hours We'll continue to follow and make recommendation for renal standpoint Objective - Vital Signs Vital signs: Vital Signs - 12hr 03/02/19 03/02/19 03/02/19 04:00 07:25 10:17 Temperature 98.0 F Pulse Rate 94 H Pulse Rate [ 106 H Anterior Bilateral Throughout] Respiratory 17 18 Rate Respiratory 20 Rate [Anterior Bilateral Throughout] Blood Pressure Blood Pressure 127/61 [Left] O2 Sat by Pulse 96 96 95 Oximetry 03/02/19 10:46 Temperature Pulse Rate Pulse Rate [ Anterior Bilateral Throughout] Respiratory Rate Respiratory Rate [Anterior Bilateral Throughout] Blood Pressure 145/60 Blood Pressure [Left] O2 Sat by Pulse Oximetry - Lab 03/01/19 05:42 03/01/19 05:42 Most recent lab results Calcium 9.2 mg/dL (8.4-10.2) 03/01/19 05:42 Magnesium 1.70 mg/dL (1.7-2.3) 02/27/19 15:10 26.7 mg/dL (0.1-20.0) H 03/01/19 01:07 57 mmol/L 03/01/19 01:07 Medications & Allergies - Medications Allergies/Adverse Reactions: Allergies aspirin Allergy (Verified 09/17/17 17:58) Shortness of Breath , CHEST PAIN escitalopram [From Lexapro] Allergy (Verified 04/17/18 11:43) Shortness of Breath levofloxacin [From Levaquin] Allergy (Verified 02/27/19 15:45) Rash salmeterol xinafoate [From Serevent] Allergy (Verified 01/22/17 08:45) Shortness of Breath Sulfa (Sulfonamide Antibiotics) Adverse Reaction (Verified 10/31/17 11:19) contraindicated due to kidney function states her doctor told her to not take sulfa due to renal insufficiency tramadol Adverse Reaction (Verified 09/19/18 16:34) Nausea contrast dye Adverse Reaction (Uncoded 04/17/18 11:59) contraindicated due to renal insufficiency Home Medications: Home Medications Medication Instructions Recorded Confirmed Last Taken Type Sodium Bicarbonate 650 mg PO BID #60 tablet 10/29/18 12/24/18 Unknown Rx Verapamil ER [Calan SR] 180 mg PO DAILY #30 10/29/18 12/24/18 10/02/18 07:30 Rx Theophylline Anhydrous ER [Theodur] 150 mg PO QPM 12/24/18 12/24/18 Unknown History Theophylline Anhydrous ER [Theodur] 300 mg PO QAM 12/24/18 12/24/18 Unknown History Beclomethasone Dipropionate [Qvar 2 inhalation IH BID 12/26/18 12/26/18 Unknown History Redihaler] Gabapentin [Neurontin] 100 mg PO TID 12/26/18 12/26/18 Unknown History Indacaterol Maleate [Arcapta 75 mcg IH DAILY 12/26/18 12/26/18 12/24/18 History Neohaler] Ipratropium [place] [Atrovent Hfa] 12.9 gm IH 4XD 12/26/18 12/26/18 12/24/18 History Ipratropium/Albuterol Sulfate 1 spray IH QID 12/26/18 12/26/18 Unknown History [Combivent Respimat] Linaclotide (Nf) [Linzess (Nf)] 290 mcg PO QDAY 12/26/18 12/26/18 Unknown History Ondansetron [Zofran TAB] 4 mg PO Q6HR 12/26/18 12/26/18 12/24/18 History Ranitidine HCl [Zantac] 150 mg PO BID 12/26/18 12/26/18 12/24/18 History Sucralfate [Carafate] 1 gm PO Q6HR 12/26/18 12/26/18 Unknown History Tiotropium [place] [Spiriva] 18 mcg IH 4XD 12/26/18 12/26/18 12/24/18 History Furosemide [Lasix TAB] 40 mg PO QDAY #30 tablet 01/02/19 Unknown Rx Furosemide [Lasix TAB] 40 mg PO QDAY #30 tablet 01/02/19 Unknown Rx Insulin NPH/Regular [NovoLIN 70/30] 12 unit SUB-Q BIDDIAB #1 vial 01/02/19 Unknown Rx Pantoprazole [Protonix TAB] 40 mg PO QDAY #30 tablet 01/02/19 Unknown Rx predniSONE [Deltasone] 10 mg PO DAILY 4 Days tablet 01/02/19 Unknown Rx predniSONE [Deltasone] 20 mg PO QDAY 4 Days tab 01/02/19 Unknown Rx predniSONE [Deltasone] 40 mg PO DAILY 4 Days tablet 01/02/19 Unknown Rx predniSONE [Deltasone] 60 mg PO QDAY 4 Days tab 01/02/19 Unknown Rx Active Medications: Generic Name Dose Route Start Last Admin Trade Name Freq PRN Reason Stop Dose Admin Acetaminophen 650 mg 02/27/19 21:02 Tylenol PO Q4H PRN Pain MILD(1-3)/Fever >100.5/[place] Albuterol 2.5 mg 02/28/19 09:33 03/01/19 02:36 Proventil IH 2.5 mg Q3HRT PRN Administration Shortness Of Breath Albuterol/Ipratropium 1 ampul 03/01/19 08:00 03/02/19 10:12 Duoneb *Not For Prn Use* IH 1 ampul TIDRT [facility] Administration Arformoterol Tartrate 15 mcg 03/01/19 20:00 03/02/19 10:15 Brovana Nebu IH 15 mcg Q12HRT [facility] Administration Azithromycin 500 mg 03/02/19 10:00 03/02/19 10:46 Zithromax PO 03/04/19 10:01 500 mg QDAY [facility] Administration Budesonide 0.5 mg 03/01/19 20:00 03/02/19 10:12 Pulmicort IH 0.5 mg Q12HRT [facility] Administration Furosemide 40 mg 02/28/19 10:00 03/02/19 10:45 Lasix PO 40 mg QDAY [facility] Administration Gabapentin 100 mg 02/28/19 09:00 03/02/19 10:45 Neurontin PO 100 mg TID [facility] Administration Heparin Sodium (Porcine) 5,000 unit 02/28/19 10:00 03/02/19 10:46 Heparin SUB-Q 5,000 unit Q12HR [facility] Administration Ceftriaxone Sodium 2 gm in 100 mls @ 200 mls/hr 02/27/19 22:00 03/02/19 01:21 Rocephin/Ns 2 Gm/100 Ml IV Infused Q24HR@2200 [facility] Infusion Ibuprofen 600 mg 02/27/19 21:02 02/28/19 10:21 Motrin PO 600 mg Q6H PRN Administration Pain, Mild (1-3) Insulin Human Isoph/Insulin Regular 12 unit 02/28/19 09:00 03/02/19 10:47 Humulin 70/30 SUB-Q 12 unit BIDDIAB [facility] Administration Insulin Human Lispro 0 unit 02/28/19 09:00 03/02/19 11:47 Humalog SUB-Q Not Given [facility] Protocol Miscellaneous Medication 290 mcg 02/28/19 10:00 Linaclotide (Nf) PO QDAY [facility] Ondansetron HCl 4 mg 02/27/19 21:02 Zofran IV Q8H PRN Nausea And Vomiting Oxycodone/Acetaminophen 2 tab 02/28/19 11:38 02/28/19 20:18 Percocet 5/325 PO 2 tab Q6H PRN Administration Pain, Moderate (4-6) Pantoprazole Sodium 40 mg 02/28/19 10:00 03/02/19 10:46 Protonix PO 40 mg QDAY [facility] Administration Prednisone 20 mg 03/01/19 10:00 03/02/19 10:45 Deltasone PO 03/05/19 11:00 20 mg QDAY [facility] Administration Sodium Bicarbonate 650 mg 02/28/19 10:00 03/02/19 10:45 Sodium Bicarbonate PO 650 mg BID [facility] Administration Sodium Chloride 10 ml 02/27/19 22:00 03/02/19 10:48 Sodium Chloride Flush Syringe 10 Ml IV 10 ml BID [facility] Administration Sodium Chloride 10 ml 02/27/19 21:02 Sodium Chloride Flush Syringe 10 Ml IV PRN PRN LINE FLUSH Sucralfate 1 gm 02/28/19 12:00 03/02/19 11:37 Carafate PO 1 gm Q6HR [facility] Administration Theophylline 150 mg 02/28/19 18:00 03/01/19 18:34 Theodur PO 150 mg QPM [facility] Administration Theophylline 300 mg 02/28/19 10:00 03/02/19 11:04 Theodur PO Not Given [facility]AM [facility] Verapamil HCl 180 mg 02/28/19 10:00 03/02/19 10:46 Calan Sr PO 180 mg DAILY [facility] Administration
--- NOTE | 2019-03-02 13:24 | Consultation ---
History of Present Illness Consult date: 03/02/19 Requesting physician: LAURIE DAMON Reason for consult: dyspnea, COPD History of present illness: 79 y/o morbidly obese female, well known to our group as we last saw her here in December. Long history of noncompliance with outpatient follow up and outpatient therapy who is admitted for worsening shortness of breath. Apparently patient had been admitted to [place] for several days prior to this admission here. Brought her while transitioning to a nursing facility as son thought her mental status was different. ABG on admission was stable showing chronic hypercapnea with compensated pH. Past History Past Medical History: cancer (stage IV bladder cancer), COPD, diabetes, hypertension, renal failure Social history: no significant social history Family history: no significant family history Medications and Allergies Allergies Allergy/AdvReac Type Severity Reaction Status Date / Time aspirin Allergy Shortness Verified 09/17/17 17:58 of Breath , CHEST PAIN escitalopram [From Lexapro] Allergy Shortness Verified 04/17/18 11:43 of Breath levofloxacin [From Levaquin] Allergy Rash Verified 02/27/19 15:45 salmeterol xinafoate Allergy Shortness Verified 01/22/17 08:45 [From Serevent] of Breath Sulfa (Sulfonamide AdvReac contraindicated Verified 10/31/17 11:19 Antibiotics) due to kidney function tramadol AdvReac Nausea Verified 09/19/18 16:34 contrast dye AdvReac contraindicated Uncoded 04/17/18 11:59 due to renal insufficiency Home Medications Medication Instructions Recorded Confirmed Last Taken Type Sodium Bicarbonate 650 mg PO BID #60 tablet 10/29/18 12/24/18 Unknown Rx Verapamil ER [Calan SR] 180 mg PO DAILY #30 10/29/18 12/24/18 10/02/18 07:30 Rx Theophylline Anhydrous ER [Theodur] 150 mg PO QPM 12/24/18 12/24/18 Unknown History Theophylline Anhydrous ER [Theodur] 300 mg PO QAM 12/24/18 12/24/18 Unknown History Beclomethasone Dipropionate [Qvar 2 inhalation IH BID 12/26/18 12/26/18 Unknown History Redihaler] Gabapentin [Neurontin] 100 mg PO TID 12/26/18 12/26/18 Unknown History Indacaterol Maleate [Arcapta 75 mcg IH DAILY 12/26/18 12/26/18 12/24/18 History Neohaler] Ipratropium [place] [Atrovent Hfa] 12.9 gm IH 4XD 12/26/18 12/26/18 12/24/18 History Ipratropium/Albuterol Sulfate 1 spray IH QID 12/26/18 12/26/18 Unknown History [Combivent Respimat] Linaclotide (Nf) [Linzess (Nf)] 290 mcg PO QDAY 12/26/18 12/26/18 Unknown History Ondansetron [Zofran TAB] 4 mg PO Q6HR 12/26/18 12/26/18 12/24/18 History Ranitidine HCl [Zantac] 150 mg PO BID 12/26/18 12/26/18 12/24/18 History Sucralfate [Carafate] 1 gm PO Q6HR 12/26/18 12/26/18 Unknown History Tiotropium [place] [Spiriva] 18 mcg IH 4XD 12/26/18 12/26/18 12/24/18 History Furosemide [Lasix TAB] 40 mg PO QDAY #30 tablet 01/02/19 Unknown Rx Furosemide [Lasix TAB] 40 mg PO QDAY #30 tablet 01/02/19 Unknown Rx Insulin NPH/Regular [NovoLIN 70/30] 12 unit SUB-Q BIDDIAB #1 vial 01/02/19 Unknown Rx Pantoprazole [Protonix TAB] 40 mg PO QDAY #30 tablet 01/02/19 Unknown Rx predniSONE [Deltasone] 10 mg PO DAILY 4 Days tablet 01/02/19 Unknown Rx predniSONE [Deltasone] 20 mg PO QDAY 4 Days tab 01/02/19 Unknown Rx predniSONE [Deltasone] 40 mg PO DAILY 4 Days tablet 01/02/19 Unknown Rx predniSONE [Deltasone] 60 mg PO QDAY 4 Days tab 01/02/19 Unknown Rx Active Meds: Active Medications Acetaminophen (Tylenol) 650 mg PO Q4H PRN PRN Reason: Pain MILD(1-3)/Fever >100.5/[place] Albuterol (Proventil) 2.5 mg IH Q3HRT PRN PRN Reason: Shortness Of Breath Last Admin: 03/01/19 02:36 Dose: 2.5 mg Documented by: Albuterol/Ipratropium (Duoneb *Not For Prn Use*) 1 ampul IH TIDRT [facility] Last Admin: 03/02/19 10:12 Dose: 1 ampul Documented by: Arformoterol Tartrate (Brovana Nebu) 15 mcg IH Q12HRT [facility] Last Admin: 03/02/19 10:15 Dose: 15 mcg Documented by: Azithromycin (Zithromax) 500 mg PO QDAY [facility] Stop: 03/04/19 10:01 Last Admin: 03/02/19 10:46 Dose: 500 mg Documented by: Budesonide (Pulmicort) 0.5 mg IH Q12HRT [facility] Last Admin: 03/02/19 10:12 Dose: 0.5 mg Documented by: Furosemide (Lasix) 40 mg PO QDAY [facility] Last Admin: 03/02/19 10:45 Dose: 40 mg Documented by: Gabapentin (Neurontin) 100 mg PO TID [facility] Last Admin: 03/02/19 10:45 Dose: 100 mg Documented by: Heparin Sodium (Porcine) (Heparin) 5,000 unit SUB-Q Q12HR [facility] Last Admin: 03/02/19 10:46 Dose: 5,000 unit Documented by: Ceftriaxone Sodium (Rocephin/Ns 2 Gm/100 Ml) 2 gm in 100 mls @ 200 mls/hr IV Q24HR@2200 [facility] Last Infusion: 03/02/19 01:21 Dose: Infused Documented by: Ibuprofen (Motrin) 600 mg PO Q6H PRN PRN Reason: Pain, Mild (1-3) Last Admin: 02/28/19 10:21 Dose: 600 mg Documented by: Insulin Human Isoph/Insulin Regular (Humulin 70/30) 12 unit SUB-Q BIDDIAB [facility] Last Admin: 03/02/19 10:47 Dose: 12 unit Documented by: Insulin Human Lispro (Humalog) 0 unit SUB-Q [facility]; Protocol Last Admin: 03/02/19 11:47 Dose: Not Given Documented by: Miscellaneous Medication (Linaclotide (Nf)) 290 mcg PO QDAY [facility] Ondansetron HCl (Zofran) 4 mg IV Q8H PRN PRN Reason: Nausea And Vomiting Oxycodone/Acetaminophen (Percocet 5/325) 2 tab PO Q6H PRN PRN Reason: Pain, Moderate (4-6) Last Admin: 02/28/19 20:18 Dose: 2 tab Documented by: Pantoprazole Sodium (Protonix) 40 mg PO QDAY [facility] Last Admin: 03/02/19 10:46 Dose: 40 mg Documented by: Prednisone (Deltasone) 20 mg PO QDAY [facility] Stop: 03/05/19 11:00 Last Admin: 03/02/19 10:45 Dose: 20 mg Documented by: Sodium Bicarbonate (Sodium Bicarbonate) 650 mg PO BID [facility] Last Admin: 03/02/19 10:45 Dose: 650 mg Documented by: Sodium Chloride (Sodium Chloride Flush Syringe 10 Ml) 10 ml IV BID [facility] Last Admin: 03/02/19 10:48 Dose: 10 ml Documented by: Sodium Chloride (Sodium Chloride Flush Syringe 10 Ml) 10 ml IV PRN PRN PRN Reason: LINE FLUSH Sucralfate (Carafate) 1 gm PO Q6HR [facility] Last Admin: 03/02/19 11:37 Dose: 1 gm Documented by: Theophylline (Theodur) 150 mg PO QPM [facility] Last Admin: 03/01/19 18:34 Dose: 150 mg Documented by: Theophylline (Theodur) 300 mg PO QAM [facility] Last Admin: 03/02/19 11:04 Dose: Not Given Documented by: Verapamil HCl (Calan Sr) 180 mg PO DAILY [facility] Last Admin: 03/02/19 10:46 Dose: 180 mg Documented by: Review of Systems All systems: negative Physical Examination Vital signs: Vital Signs Pulse Ox 93 02/27/19 13:36 General appearance: no acute distress, alert, other (morbidly obese) ENT: oropharynx moist Neck: other (extremely large in circumference) Ascultation: Bilateral: diminished breath sounds (secondary to body habitus) Percussion: Bilateral: not dull Tactile fremitus: Bilateral: diminished Cardiovascular: regular rate and rhythm Gastrointestinal: other (morbidly obese) Results - Laboratory Findings CBC and BMP: 03/01/19 05:42 03/01/19 05:42 ABG POC ABG pH 7.417 (7.35-7.45) 02/27/19 14:54 POC ABG pCO2 51.7 (35-45) H 02/27/19 14:54 POC ABG pO2 74 (80-105) L 02/27/19 14:54 POC ABG HCO3 33.3 (22-26 mml/L) 02/27/19 14:54 POC ABG Total CO2 35 (23-27mmol/L) 02/27/19 14:54 POC ABG O2 Sat 95 02/27/19 14:54 PT/INR, D-dimer PT 13.0 Sec. (12.2-14.9) 02/27/19 15:10 INR 0.93 (0.87-1.13) 02/27/19 15:10 Abnormal lab findings: Abnormal Labs 02/27/19 02/27/19 02/27/19 14:54 15:10 15:10 WBC RDW 15.8 H Seg Neuts % (Manual) 76.0 H Lymphocytes % (Manual) 13.0 L Seg Neutrophils # Man Lymphocytes # (Manual) 1.0 L APTT 36.8 H POC ABG pCO2 51.7 H POC ABG pO2 74 L Chloride Carbon Dioxide BUN Creatinine Glucose POC Glucose ALT NT-Pro-B Natriuret Pep Total Protein Albumin Urine WBC (Auto) Urine Creatinine 02/27/19 02/27/19 02/28/19 15:10 15:35 04:38 WBC RDW 15.7 H Seg Neuts % (Manual) 85.0 H Lymphocytes % (Manual) 7.0 L Seg Neutrophils # Man Lymphocytes # (Manual) 0.6 L APTT POC ABG pCO2 POC ABG pO2 Chloride 96.7 L Carbon Dioxide 32 H BUN 23 H Creatinine 2.8 H Glucose 105 H POC Glucose ALT < 5 L NT-Pro-B Natriuret Pep 1875 H Total Protein 5.7 L Albumin 3.0 L Urine WBC (Auto) 7.0 H Urine Creatinine 02/28/19 02/28/19 02/28/19 04:38 07:24 09:42 WBC RDW Seg Neuts % (Manual) Lymphocytes % (Manual) Seg Neutrophils # Man Lymphocytes # (Manual) APTT POC ABG pCO2 POC ABG pO2 Chloride Carbon Dioxide BUN 23 H Creatinine 2.8 H Glucose 147 H POC Glucose 149 H 173 H ALT < 5 L NT-Pro-B Natriuret Pep Total Protein 5.8 L Albumin 3.1 L Urine WBC (Auto) Urine Creatinine 02/28/19 02/28/19 02/28/19 12:20 16:49 22:22 WBC RDW Seg Neuts % (Manual) Lymphocytes % (Manual) Seg Neutrophils # Man Lymphocytes # (Manual) APTT POC ABG pCO2 POC ABG pO2 Chloride Carbon Dioxide BUN Creatinine Glucose POC Glucose 153 H 132 H 150 H ALT NT-Pro-B Natriuret Pep Total Protein Albumin Urine WBC (Auto) Urine Creatinine 03/01/19 03/01/19 03/01/19 01:07 01:07 01:07 WBC RDW Seg Neuts % (Manual) Lymphocytes % (Manual) Seg Neutrophils # Man Lymphocytes # (Manual) APTT POC ABG pCO2 POC ABG pO2 Chloride Carbon Dioxide BUN Creatinine 3.0 H Glucose POC Glucose ALT NT-Pro-B Natriuret Pep Total Protein Albumin Urine WBC (Auto) 53.0 H Urine Creatinine 26.7 H 03/01/19 03/01/19 03/01/19 05:42 05:42 07:33 WBC 12.0 H RDW 16.0 H Seg Neuts % (Manual) 87.0 H Lymphocytes % (Manual) 5.0 L Seg Neutrophils # Man 10.4 H Lymphocytes # (Manual) 0.6 L APTT POC ABG pCO2 POC ABG pO2 Chloride 95.4 L Carbon Dioxide BUN 23 H Creatinine 3.1 H Glucose 163 H POC Glucose 126 H ALT NT-Pro-B Natriuret Pep Total Protein Albumin Urine WBC (Auto) Urine Creatinine 03/01/19 03/01/19 03/01/19 12:15 16:51 22:02 WBC RDW Seg Neuts % (Manual) Lymphocytes % (Manual) Seg Neutrophils # Man Lymphocytes # (Manual) APTT POC ABG pCO2 POC ABG pO2 Chloride Carbon Dioxide BUN Creatinine Glucose POC Glucose 152 H 164 H 145 H ALT NT-Pro-B Natriuret Pep Total Protein Albumin Urine WBC (Auto) Urine Creatinine 03/02/19 11:45 WBC RDW Seg Neuts % (Manual) Lymphocytes % (Manual) Seg Neutrophils # Man Lymphocytes # (Manual) APTT POC ABG pCO2 POC ABG pO2 Chloride Carbon Dioxide BUN Creatinine Glucose POC Glucose 114 H ALT NT-Pro-B Natriuret Pep Total Protein Albumin Urine WBC (Auto) Urine Creatinine - Diagnostic Findings Chest x-ray: image reviewed (no acute evidence of intraparenchymal lung disease.) Assessment and Plan 79 y/o female with chronic respiratory failure, known COPD, known SAKSHI, admitted with change in mental status thought to be in COPD exacerbation but appears to be resolved. 1. Suggest discharge with rapid taper of steroids from the Prednisone 20 she is on now. Likely only needs 2-3 more days of drug. Would not send out on any abx therapy. 2. She is already on her baseline oxygen therapy 3. Will arrange follow up but not sure if she will keep it. 4. Will sign off call if questions.
[2019-03-02] MEDS: PERCOCET 5/325 PO PRN (16:00)
[2019-03-02] MEDS: ROCEPHIN/NS 2 GM/100 ML 2 GM/100 ML BAG IV SCH (21:41)
[2019-03-02] MEDS: ZOFRAN IV PRN (21:45)
[2019-03-02] MEDS: IBUPROFEN PO PRN (21:48)
[2019-03-03] MEDS: CARAFATE PO SCH ×3 (00:56→16:08)
[2019-03-03] MEDS: PROVENTIL IH PRN (01:13)
[2019-03-03] MEDS: BECLOMETHASONE DIPROPIONATE IH SCH (01:21)
[2019-03-03] MEDS: [UNRECOGNIZED DRUG - OTHER] IH SCH (01:21)
[2019-03-03 05:43] LABS: Hematocrit 31.1 % (30.3-42.9); Hemoglobin 10.4 gm/dl (10.1-14.3); Mean Corpuscular HGB Conc 33 % (30-34); Mean Corpuscular Volume 85 fl (79-97); Platelet Count 306 K/mm3 (140-440); Red Blood Count 3.67 M/mm3 (3.65-5.03); Red Cell Distribution Width 15.6 % (13.2-15.2)
[2019-03-03 06:05] LABS: Calcium 8.5 mg/dL (8.4-10.2)
[2019-03-03] MEDS: PULMICORT IH SCH (08:05)
[2019-03-03] MEDS: BROVANA NEBU IH SCH (08:05)
[2019-03-03] MEDS: DUONEB *Not for PRN Use IH SCH ×2 (08:05→13:48)
[2019-03-03 08:16] LABS: Basophils % (Manual) 0 % (0.0-1.8); Eosinophils % (Manual) 0 % (0.0-4.3); Total Cells Counted 100
[2019-03-03 08:17] LABS: Anisocytosis Few; Large Platelets Rare; Platelet Estimate Consistent w Auto
[2019-03-03] MEDS: HumaLOG SUB-Q SCH ×2 (08:59→11:44)
--- NOTE | 2019-03-03 09:15 | Progress Note ---
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; AE COPD; Morbid Obesity Interval history: Patient was seen today for follow-up of multiple renal related issues No complaints of any chest pain pressure or shortness of breath she is willing to make an appointment in the office Interdisciplinary notes that also reviewed Events of 24 hours vitals labs intake output medications were reviewed Past medical history: Reviewed Family history: Reviewed Social history: Reviewed Allergies: Reviewed Physical examination: Vitals: Reviewed HEENT: No pallor or icterus oral mucosa moist Neck: Supple no JVD no thyromegaly Chest: Bilateral clear to auscultation anteriorly Heart: Regular rate and rhythm S1-S2 heard no S3-S4 Abdomen: Soft nontender no voluntary guarding rigidity rebound Extremity: Dry skin less than 1+ peripheral edema Psychiatric: No evidence of agitation and aggression noted Dermatology: No petechial rashes Labs and x-rays: Reviewed from today Assessment and plan Chronic kidney disease patient is high risk for progression Will need a follow-up appointment in the office increase dietary potassium Follow renal diet plan Monitor renal related labs Patient adequately counseled and educated She has multiple other comorbidities No evidence of anemia and chronic kidney disease last hemoglobin 11.2 History of bladder cancer patient is being followed by urology not suitable for dialysis We'll continue to follow and make recommendation for renal standpoint Objective - Vital Signs Vital signs: Vital Signs - 12hr 03/02/19 03/02/19 03/02/19 21:48 22:00 22:48 Temperature Pulse Rate Pulse Rate [ Anterior Bilateral Throughout] Respiratory 20 20 20 Rate Respiratory Rate [Anterior Bilateral Throughout] Blood Pressure O2 Sat by Pulse 95 Oximetry 03/03/19 03/03/19 03/03/19 01:13 01:20 02:22 Temperature 98.6 F Pulse Rate 102 H Pulse Rate [ 98 H 101 H Anterior Bilateral Throughout] Respiratory 20 Rate Respiratory 19 19 Rate [Anterior Bilateral Throughout] Blood Pressure 132/51 O2 Sat by Pulse 96 Oximetry 03/03/19 03/03/19 03/03/19 05:29 06:29 07:59 Temperature 98.9 F Pulse Rate 98 H Pulse Rate [ Anterior Bilateral Throughout] Respiratory 20 20 22 Rate Respiratory Rate [Anterior Bilateral Throughout] Blood Pressure 146/76 O2 Sat by Pulse 94 Oximetry 03/03/19 03/03/19 08:07 08:27 Temperature Pulse Rate Pulse Rate [ 93 H 100 H Anterior Bilateral Throughout] Respiratory Rate Respiratory 18 20 Rate [Anterior Bilateral Throughout] Blood Pressure O2 Sat by Pulse 97 Oximetry - Lab 03/03/19 05:26 03/03/19 05:26 Most recent lab results Calcium 8.5 mg/dL (8.4-10.2) 03/03/19 05:26 Magnesium 1.70 mg/dL (1.7-2.3) 02/27/19 15:10 26.7 mg/dL (0.1-20.0) H 03/01/19 01:07 57 mmol/L 03/01/19 01:07 Medications & Allergies - Medications Allergies/Adverse Reactions: Allergies aspirin Allergy (Verified 09/17/17 17:58) Shortness of Breath , CHEST PAIN escitalopram [From Lexapro] Allergy (Verified 04/17/18 11:43) Shortness of Breath levofloxacin [From Levaquin] Allergy (Verified 02/27/19 15:45) Rash salmeterol xinafoate [From Serevent] Allergy (Verified 01/22/17 08:45) Shortness of Breath Sulfa (Sulfonamide Antibiotics) Adverse Reaction (Verified 10/31/17 11:19) contraindicated due to kidney function states her doctor told her to not take sulfa due to renal insufficiency tramadol Adverse Reaction (Verified 09/19/18 16:34) Nausea contrast dye Adverse Reaction (Uncoded 04/17/18 11:59) contraindicated due to renal insufficiency Home Medications: Home Medications Medication Instructions Recorded Confirmed Last Taken Type Sodium Bicarbonate 650 mg PO BID #60 tablet 10/29/18 03/03/19 Unknown Rx Verapamil ER [Calan SR] 180 mg PO DAILY #30 10/29/18 03/03/19 10/02/18 07:30 Rx Theophylline Anhydrous ER [Theodur] 150 mg PO QPM 12/24/18 03/03/19 Unknown History Theophylline Anhydrous ER [Theodur] 300 mg PO QAM 12/24/18 03/03/19 Unknown History Beclomethasone Dipropionate [Qvar 2 inhalation IH BID 12/26/18 12/26/18 Unknown History Redihaler] Gabapentin [Neurontin] 100 mg PO TID 12/26/18 12/26/18 Unknown History Indacaterol Maleate [Arcapta 75 mcg IH DAILY 12/26/18 12/26/1819 History Neohaler] Ipratropium [place] [Atrovent Hfa] 12.9 gm IH 4XD 12/26/18 12/26/18 12/24/18 History Ipratropium/Albuterol Sulfate 1 spray IH QID 12/26/18 12/26/18 Unknown History [Combivent Respimat] Linaclotide (Nf) [Linzess (Nf)] 290 mcg PO QDAY 12/26/18 12/26/18 Unknown History Ondansetron [Zofran TAB] 4 mg PO Q6HR 12/26/18 12/26/18 12/24/18 History Sucralfate [Carafate] 1 gm PO Q6HR 12/26/18 03/03/19 Unknown History Tiotropium [place]illion [Spiriva] 18 mcg IH 4XD 12/26/18 03/03/19 12/24/18 History Furosemide [Lasix TAB] 40 mg PO QDAY #30 tablet 01/02/19 Unknown Rx Insulin NPH/Regular [NovoLIN 70/30] 12 unit SUB-Q BIDDIAB #1 vial 01/02/19 Unknown Rx Pantoprazole [Protonix TAB] 40 mg PO QDAY #30 tablet 01/02/19 Unknown Rx ALBUTEROL NEB's [Proventil 0.083% 2.5 mg IH Q3HRT PRN nebu 03/03/19 Unknown Rx NEBS] Arformoterol Nebu [Brovana Nebu] 15 mcg IH Q12HRT ml 03/03/19 Unknown Rx Budesonide [Pulmicort Respules] 0.5 mg IH Q12HRT nebu 03/03/19 Unknown Rx Ipratropium/Albuterol Sulfate 1 ampul IH TIDRT ampul.neb 03/03/19 Unknown Rx [DUONEB *Not for PRN Use*] Lispro Insulin [HumaLOG] 0 unit SUB-Q ACHS units 03/03/19 Unknown Rx oxyCODONE /ACETAMINOPHEN [Percocet 2 tab PO Q6H PRN #10 tablet 03/03/19 Unknown Rx 5/325 mg] predniSONE [Deltasone] 20 mg PO QDAY 6 Days tablet 03/03/19 Unknown Rx Active Medications: Generic Name Dose Route Start Last Admin Trade Name Freq PRN Reason Stop Dose Admin Acetaminophen 650 mg 05/09/19 21:02 03/03/19 05:29 Tylenol PO 650 mg Q4H PRN Administration Pain MILD(1-3)/Fever >100.5/[place] Albuterol 2.5 mg 02/28/19 09:33 03/03/19 01:13 Proventil IH 2.5 mg Q3HRT PRN Administration Shortness Of Breath Albuterol/Ipratropium 1 ampul 03/01/19 08:00 03/03/19 08:05 Duoneb *Not For Prn Use* IH 1 ampul TIDRT KELLY Administration Arformoterol Tartrate 15 mcg 03/01/19 20:00 03/03/19 08:05 Brovana Nebu IH 15 mcg Q12HRT KELLY Administration Azithromycin 500 mg 03/02/19 10:00 03/02/19 10:46 Zithromax PO 03/04/19 10:01 500 mg QDAY KELLY Administration Budesonide 0.5 mg 03/01/19 20:00 03/03/19 08:05 Pulmicort IH 0.5 mg Q12HRT KELLY Administration Furosemide 40 mg 02/28/19 10:00 03/02/19 10:45 Lasix PO 40 mg QDAY KELLY Administration Gabapentin 100 mg 02/28/19 09:00 03/02/19 21:39 Neurontin PO 100 mg TID KELLY Administration Heparin Sodium (Porcine) 5,000 unit 02/28/19 10:00 03/02/19 21:41 Heparin SUB-Q 5,000 unit Q12HR KELLY Administration Ceftriaxone Sodium 2 gm in 100 mls @ 200 mls/hr 02/27/19 22:00 03/02/19 21:41 Rocephin/Ns 2 Gm/100 Ml IV 200 mls/hr Q24HR@2200 KELLY Administration Ibuprofen 600 mg 02/27/19 21:02 03/02/19 21:48 Motrin PO 600 mg Q6H PRN Administration Pain, Mild (1-3) Insulin Human Isoph/Insulin Regular 12 unit 02/28/19 09:00 03/02/19 17:22 Humulin 70/30 SUB-Q 12 unit BIDDIAB KELLY Administration Insulin Human Lispro 0 unit 02/28/19 09:00 03/03/19 08:59 Humalog SUB-Q Not Given ACHS [facility] Protocol Miscellaneous Medication 290 mcg 02/28/19 10:00 Linaclotide (Nf) PO QDAY KELLY Ondansetron HCl 4 mg 02/27/19 21:02 03/02/19 21:45 Zofran IV 4 mg Q8H PRN Administration Nausea And Vomiting Oxycodone/Acetaminophen 2 tab 02/28/19 11:38 03/02/19 16:00 Percocet 5/325 PO 2 tab Q6H PRN Administration Pain, Moderate (4-6) Pantoprazole Sodium 40 mg 02/28/19 10:00 03/02/19 10:46 Protonix PO 40 mg QDAY KELLY Administration Prednisone 20 mg 03/01/19 10:00 03/02/19 10:45 Deltasone PO 03/05/19 11:00 20 mg QDAY KELLY Administration Sodium Bicarbonate 650 mg 02/28/19 10:00 03/02/19 21:40 Sodium Bicarbonate PO 650 mg BID KELLY Administration Sodium Chloride 10 ml 02/27/19 22:00 03/02/19 21:42 Sodium Chloride Flush Syringe 10 Ml IV 10 ml BID KELLY Administration Sodium Chloride 10 ml 02/27/19 21:02 Sodium Chloride Flush Syringe 10 Ml IV PRN PRN LINE FLUSH Sucralfate 1 gm 02/28/19 12:00 03/03/19 05:26 Carafate PO 1 gm Q6HR KELLY Administration Theophylline 150 mg 02/28/19 18:00 03/02/19 17:24 Theodur PO 150 mg QPM KELLY Administration Theophylline 300 mg 02/28/19 10:00 03/02/19 11:04 Theodur PO Not Given QAM [facility] Verapamil HCl 180 mg 02/28/19 10:00 03/02/19 10:46 Calan Sr PO 180 mg DAILY KELLY Administration
[2019-03-03] MEDS: ZITHROMAX PO SCH (10:04)
[2019-03-03] MEDS: PERCOCET 5/325 PO PRN (10:04)
[2019-03-03] MEDS: NEURONTIN PO SCH ×2 (10:04→16:09)
[2019-03-03] MEDS: SODIUM BICARBONATE PO SCH (10:05)
[2019-03-03] MEDS: PROTONIX PO SCH (10:05)
[2019-03-03] MEDS: LASIX PO SCH (10:05)
[2019-03-03] MEDS: HEPARIN SUB-Q SCH (10:05)
[2019-03-03] MEDS: DELTASONE PO SCH (10:05)
[2019-03-03] MEDS: SODIUM CHLORIDE FLUSH SYRINGE 10 ML IV SCH (10:13)
[2019-03-03] MEDS: CALAN SR PO SCH (10:57)
[2019-03-03] MEDS: ZOFRAN IV PRN (10:57)
[2019-03-03] MEDS: THEODUR PO SCH (10:58)
--- NOTE | 2019-03-03 12:29 | Discharge Summary ---
Providers - Providers Date of Admission: 02/27/19 17:42 Attending physician: HALI RUSS MD 02/28/19 04:27 Physical Therapy Evaluation and Treat [CONS] Routine Comment: Reason For Exam: generalized weakness 02/28/19 04:31 Occupational Therapy Evaluate and Treat [CONS] Routine Comment: Reason For Exam: generalized weakness 02/28/19 07:24 Consult to Physician [CONS] Routine Comment: Consulting Provider: JHOAN CHAMBERS Physician Instructions: Reason For Exam: CKD 02/28/19 10:31 Midline [Consult to PICC Line RN] [CONS] Urgent Reason For Exam: Needs IV access, has an IO that is painful Type Line:: Midline 03/02/19 08:20 Consult to Mental Health [CONS] Routine Reason For Exam: behavioral disturbance Place consult to:: [facility] Notified:: ADI Primary care physician: [employer] Hospitalization Condition: Stable Hospital course: 79 year old female who is status post a 3 day hospitalization at [facility] for cellulitis was transferred to correction yesterday. She was observed to be somewhat delirious per her son. She was transported to this facility for further evaluation. This is a patient with multiple medical comorbidities to include insulin-dependent diabetes, COPD with previous intubations, stage IV bladder cancer, chronic kidney disease stage IV, etc. She is morbidly obese. The patient states that she does have chronic difficulty breathing and more SOB on the DOP.Poor historian.No fever or chills. acute on chronic hypoxic and Hypercapnic respiratory failure - she was rx Duonebs IV Solumedrol and IV Abx, oxygen, bipap and cpap COPD exacerbation -she was rx steroids, nebs and abx IDDM (insulin dependent diabetes mellitus) rx with Home Insulin and coverage HTN (hypertension) Cont antihypertensives morbid obesity need outpatient weight loss clinic referral CKD (chronic kidney disease) Nephrology consult appreciated, she had progression of CKD, she received oral hydration given hx of CHF Depression psych consult UTI she received abx DVT prophylaxis On Heparin and GI prophylaxis Stage IV bladder cancer -Continue outpatient oncology care. Disposition: DC/TX-03 SNF [facility] Time spent for discharge: 33 mins Core Measure Documentation - Palliative Care Palliative Care/ Comfort Measures: Hospice Care - Core Measures Any of the following diagnoses?: none Exam - Physical Exam Narrative exam: General.: Appears well, no distress, nontoxic HEENT: Moist mucous membranes, extraocular muscles intact, no lymphadenopathy Neck: supple Cardiac: S1-S2 heard Lungs: Diminished air entry Abdomen: soft , nontender, nondistended, bowel sounds positive Extremities: no edema clubbing or cyanosis Skin: no rash or lesions Neurologic: no gross focal deficits Psych: calm, and cooperative - Constitutional Vitals: Temp Pulse Resp BP Pulse Ox 98.9 F 100 H 20 146/76 97 03/03/19 07:59 03/03/19 08:27 03/03/19 08:27 03/03/19 07:59 03/03/19 08:07 Plan Follow up with: [facility] [Outside] - 7 Days PRIMARY CARE, [Primary Care Provider] - 3-5 Days Prescriptions: predniSONE [Deltasone] 20 mg PO QDAY 6 Days tablet oxyCODONE /ACETAMINOPHEN [Percocet 5/325 mg] 2 tab PO Q6H PRN #10 tablet PRN Reason: Pain, Moderate (4-6)
[2019-03-03 14:31] VITALS: BP 158/63
[2019-03-03] MEDS: IBUPROFEN PO PRN (14:45)
== END 2019-03-03 16:30 | DRG 189 ==
LOC: ED 13:23 → 2B-ACE 17:42
PROVIDERS: ADMIT Internal Medicine; ATTEND Internal Medicine
PROC: 4A033R1 Measurement of Arterial Saturation, Peripheral, Percutaneous Approach (ICD-10-PCS; principal; 2019-02-27)
PROC: 06HY33Z Insertion of Infusion Device into Lower Vein, Percutaneous Approach (ICD-10-PCS; 2019-02-28)
PROC: 5A09357 Assistance with Respiratory Ventilation, Less than 24 Consecutive Hours, Continuous Positive Airway Pressure (ICD-10-PCS; 2019-03-01)
DX: J96.21 Acute and chronic respiratory failure with hypoxia (principal); J44.1 Chronic obstructive pulmonary disease with (acute) exacerbation; Z68.43 Body mass index [BMI] 50.0-59.9, adult; N18.4 Chronic kidney disease, stage 4 (severe); N39.0 Urinary tract infection, site not specified; L03.119 Cellulitis of unspecified part of limb; I42.9 Cardiomyopathy, unspecified; J96.22 Acute and chronic respiratory failure with hypercapnia; E66.01 Morbid (severe) obesity due to excess calories; C67.9 Malignant neoplasm of bladder, unspecified; I12.9 Hypertensive chronic kidney disease with stage 1 through stage 4 chronic kidney disease, or unspecified chronic kidney disease; F32.9 Major depressive disorder, single episode, unspecified; K21.9 Gastro-esophageal reflux disease without esophagitis; G47.33 Obstructive sleep apnea (adult) (pediatric); E11.22 Type 2 diabetes mellitus with diabetic chronic kidney disease; Z79.4 Long term (current) use of insulin; Z71.3 Dietary counseling and surveillance; Z90.49 Acquired absence of other specified parts of digestive tract; Z90.710 Acquired absence of both cervix and uterus; Z88.2 Allergy status to sulfonamides; Z88.1 Allergy status to other antibiotic agents; Z88.6 Allergy status to analgesic agent; Z91.041 Radiographic dye allergy status; Z79.899 Other long term (current) drug therapy
CPT/HCPCS: 36415; 70450; 71045; 80048; 80053; 80076; 80202; 81001; 82140; 82565; 82570; 82803; 82805; 82962; 83036; 83735; 83880; 84295; 84300; 85007; 85025; 85610; 85730; 87040; 87086; 89050; 93005; 93010; 94640; 94660; 94760; 96365; 96366; 96375; 99285; G0378; J0456; J0696; J1644; J1815; J2185; J2270; J2405; J2930; J3370; J7040; J7050; J7512

== ENCOUNTER 2020-10-12 08:57 | Emergency (ER) | payer MEDICARE, OTHER ==
--- NOTE | 2020-10-12 10:40 | Emergency Department Report ---
ED Shortness of Breath HPI - General Chief Complaint: Dyspnea/Respdistress Stated Complaint: KEVIN Time Seen by Provider: 10/12/20 10:35 Source: patient, EMS Mode of arrival: Stretcher Limitations: Physical Limitation - History of Present Illness Initial Comments: Patient is an 80-year-old oxygen dependent female presents emergency department for evaluation of worsening of chronic dyspnea over the past 3 to 4 days. Patient states that she is on 3 L home oxygen, has home nebulizers and inhalers, all of which have been helping but not completely resolving her dyspnea. Patient denies chest pain, denies cough, denies fever, notes she had dialysis yesterday. - Related Data Home Medications Medication Instructions Recorded Confirmed Last Taken Theophylline Anhydrous ER [Theodur] 150 mg PO QPM 12/24/18 03/03/19 Unknown Theophylline Anhydrous ER [Theodur] 300 mg PO QAM 12/24/18 03/03/19 Unknown Beclomethasone Dipropionate [Qvar 2 inhalation IH BID 12/26/18 12/26/18 Unknown Redihaler] Gabapentin [Neurontin] 100 mg PO TID 12/26/18 12/26/18 Unknown Indacaterol Maleate [Arcapta 75 mcg IH DAILY 12/26/18 12/26/18 12/24/18 Neohaler] Ipratropium Hall [Atrovent Hfa] 12.9 gm IH 4XD 12/26/18 12/26/18 12/24/18 Ipratropium/Albuterol Sulfate 1 spray IH QID 12/26/18 12/26/18 Unknown [Combivent Respimat] Linaclotide (Nf) [Linzess (Nf)] 290 mcg PO QDAY 12/26/18 12/26/18 Unknown Ondansetron [Zofran TAB] 4 mg PO Q6HR 12/26/18 12/26/18 12/24/18 Sucralfate [Carafate] 1 gm PO Q6HR 12/26/18 03/03/19 Unknown Tiotropium Hall [Spiriva] 18 mcg IH 4XD 12/26/18 03/03/19 12/24/18 Previous Rx's Medication Instructions Recorded Last Taken Type Sodium Bicarbonate 650 mg PO BID #60 tablet 10/29/18 Unknown Rx Verapamil ER [Calan SR] 180 mg PO DAILY #30 10/29/18 10/02/18 07:30 Rx Furosemide [Lasix TAB] 40 mg PO QDAY #30 tablet 01/02/19 Unknown Rx Insulin NPH/Regular [NovoLIN 70/30] 12 unit SUB-Q BIDDIAB #1 vial 01/02/19 Unknown Rx Pantoprazole [Protonix TAB] 40 mg PO QDAY #30 tablet 01/02/19 Unknown Rx ALBUTEROL NEB's [Proventil 0.083% 2.5 mg IH Q3HRT PRN nebu 03/03/19 Unknown Rx NEBS] Arformoterol Nebu [Brovana Nebu] 15 mcg IH Q12HRT ml 03/03/19 Unknown Rx Budesonide [Pulmicort Respules] 0.5 mg IH Q12HRT nebu 03/03/19 Unknown Rx Ipratropium/Albuterol Sulfate 1 ampul IH TIDRT ampul.neb 03/03/19 Unknown Rx [DUONEB *Not for PRN Use*] Lispro Insulin [HumaLOG] 0 unit SUB-Q ACHS units 03/03/19 Unknown Rx oxyCODONE /ACETAMINOPHEN [Percocet 2 tab PO Q6H PRN #10 tablet 03/03/19 Unknown Rx 5/325 mg] predniSONE [Deltasone] 60 mg PO QDAY 4 Days tablet 10/12/20 Unknown Rx Allergies Allergy/AdvReac Type Severity Reaction Status Date / Time aspirin Allergy Shortness Verified 09/17/17 17:58 of Breath , CHEST PAIN escitalopram [From Lexapro] Allergy Shortness Verified 04/17/18 11:43 of Breath levofloxacin [From Levaquin] Allergy Rash Verified 02/27/19 15:45 salmeterol xinafoate Allergy Shortness Verified 01/22/17 08:45 [From Serevent] of Breath Sulfa (Sulfonamide AdvReac contraindicated Verified 10/31/17 11:19 Antibiotics) due to kidney function tramadol AdvReac Nausea Verified 09/19/18 16:34 contrast dye AdvReac contraindicated Uncoded 04/17/18 11:59 due to renal insufficiency ED Review of Systems ROS: Stated complaint: KEVIN Other details as noted in HPI Comment: All other systems reviewed and negative ED Past Medical Hx - Past Medical History Hx Hypertension: Yes Hx CVA: No Hx Heart Attack/AMI: No Hx Congestive Heart Failure: Yes Hx Diabetes: Yes (RECENTLY STARTED ON INSULIN) Hx Deep Vein Thrombosis: No Hx Pulmonary Embolism: No Hx GERD: Yes Hx Liver Disease: No Hx Renal Disease: 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 Stage IV bladder cancer sleep apnea - Surgical History Hx Open Heart Surgery: No Hx Pacemaker: No Hx Internal Defibrillator: No Hx Cholecystectomy: Yes Hx Appendectomy: Yes Hx Breast Surgery: Yes (LEFT BREAST MASS REMOVED) Additional Surgical History: left foot, hysterectomy, right breast, left shoulder, right eye - cataract, left eye - macula, bladder tumor removal 09/2018. - Social History Smoking Status: Never Smoker - Medications Home Medications: Home Medications Medication Instructions Recorded Confirmed Last Taken Type Sodium Bicarbonate 650 mg PO BID #60 tablet 10/29/18 03/03/19 Unknown Rx Verapamil ER [Calan SR] 180 mg PO DAILY #30 10/29/18 03/03/19 10/02/18 07:30 Rx Theophylline Anhydrous ER [Theodur] 150 mg PO QPM 12/24/18 03/03/19 Unknown History Theophylline Anhydrous ER [Theodur] 300 mg PO QAM 12/24/18 03/03/19 Unknown History Beclomethasone Dipropionate [Qvar 2 inhalation IH BID 12/26/18 12/26/18 Unknown History Redihaler] Gabapentin [Neurontin] 100 mg PO TID 12/26/18 12/26/18 Unknown History Indacaterol Maleate [Arcapta 75 mcg IH DAILY 12/26/18 12/26/18 12/24/18 History Neohaler] Ipratropium Hall [Atrovent Hfa] 12.9 gm IH 4XD 12/26/18 12/26/18 12/24/18 History Ipratropium/Albuterol Sulfate 1 spray IH QID 12/26/18 12/26/18 Unknown History [Combivent Respimat] Linaclotide (Nf) [Linzess (Nf)] 290 mcg PO QDAY 12/26/18 12/26/18 Unknown History Ondansetron [Zofran TAB] 4 mg PO Q6HR 12/26/18 12/26/18 12/24/18 History Sucralfate [Carafate] 1 gm PO Q6HR 12/26/18 03/03/19 Unknown History Tiotropium Hall [Spiriva] 18 mcg IH 4XD 12/26/18 03/03/19 12/24/18 History Furosemide [Lasix TAB] 40 mg PO QDAY #30 tablet 01/02/19 Unknown Rx Insulin NPH/Regular [NovoLIN 70/30] 12 unit SUB-Q BIDDIAB #1 vial 01/02/19 Unknown Rx Pantoprazole [Protonix TAB] 40 mg PO QDAY #30 tablet 01/02/19 Unknown Rx ALBUTEROL NEB's [Proventil 0.083% 2.5 mg IH Q3HRT PRN nebu 03/03/19 Unknown Rx NEBS] Arformoterol Nebu [Brovana Nebu] 15 mcg IH Q12HRT ml 03/03/19 Unknown Rx Budesonide [Pulmicort Respules] 0.5 mg IH Q12HRT nebu 03/03/19 Unknown Rx Ipratropium/Albuterol Sulfate 1 ampul IH TIDRT ampul.neb 03/03/19 Unknown Rx [DUONEB *Not for PRN Use*] Lispro Insulin [HumaLOG] 0 unit SUB-Q ACHS units 03/03/19 Unknown Rx oxyCODONE /ACETAMINOPHEN [Percocet 2 tab PO Q6H PRN #10 tablet 03/03/19 Unknown Rx 5/325 mg] predniSONE [Deltasone] 60 mg PO QDAY 4 Days tablet 10/12/20 Unknown Rx ED Physical Exam - General Limitations: Physical Limitation General appearance: alert, in no apparent distress - Head Head exam: Present: atraumatic, normocephalic - Eye Eye exam: Present: normal appearance - ENT ENT exam: Present: mucous membranes moist - Neck Neck exam: Present: normal inspection - Respiratory Respiratory exam: Present: normal lung sounds bilaterally. Absent: respiratory distress - Cardiovascular Cardiovascular Exam: Present: regular rate, normal rhythm. Absent: systolic murmur, diastolic murmur, rubs, gallop - GI/Abdominal GI/Abdominal exam: Present: soft, normal bowel sounds - Extremities Exam Extremities exam: Present: normal inspection - Back Exam Back exam: Present: normal inspection - Neurological Exam Neurological exam: Present: alert, oriented X3 - Psychiatric Psychiatric exam: Present: normal affect, normal mood - Skin Skin exam: Present: warm, dry, intact, normal color. Absent: rash ED Course Vital Signs 10/12/20 10/12/20 10:31 10:46 Temperature 97.9 F Pulse Rate 85 Respiratory 18 Rate Blood Pressure 113/54 [Right] O2 Sat by Pulse 99 Oximetry - Reevaluation(s) Reevaluation #1: 10/12/20 14:49 Patient treated IV Solu-Medrol and DuoNeb x1. On reevaluation, patient in no acute distress, lungs remain clear to auscultation bilaterally, continues to breathe without accessory muscle use or respiratory distress. Oxygen saturation consistently around 100% on room air. ED Medical Decision Making - Lab Data Result diagrams: 10/12/20 11:26 10/12/20 11:26 Vital Signs 10/12/20 10/12/20 10:31 10:46 Temperature 97.9 F Pulse Rate 85 Respiratory 18 Rate Blood Pressure 113/54 [Right] O2 Sat by Pulse 99 Oximetry Lab Results 10/12/20 10/12/20 Range/Units 11:26 11:26 WBC 7.4 (4.5-11.0) K/mm3 RBC 4.26 (3.65-5.03) M/mm3 Hgb 12.2 (10.1-14.3) gm/dl Hct 38.3 (30.3-42.9) % MCV 90 (79-97) fl MCH 29 (28-32) pg MCHC 32 (30-34) % RDW 15.5 H (13.2-15.2) % Plt Count 299 (140-440) K/mm3 Add Manual Diff Complete Total Counted 100 Seg Neuts % (Manual) 79.0 H (40.0-70.0) % Lymphocytes % (Manual) 17.0 (13.4-35.0) % Monocytes % (Manual) 1.0 (0.0-7.3) % Eosinophils % (Manual) 3.0 (0.0-4.3) % Nucleated RBC % Not Reportable Seg Neutrophils # Man 5.8 (1.8-7.7) K/mm3 Band Neutrophils # 0.0 K/mm3 Lymphocytes # (Manual) 1.3 (1.2-5.4) K/mm3 Abs React Lymphs (Man) 0.0 K/mm3 Monocytes # (Manual) 0.1 (0.0-0.8) K/mm3 Eosinophils # (Manual) 0.2 (0.0-0.4) K/mm3 Basophils # (Manual) 0.0 (0.0-0.1) K/mm3 Metamyelocytes # 0.0 K/mm3 Myelocytes # 0.0 K/mm3 Promyelocytes # 0.0 K/mm3 Blast Cells # 0.0 K/mm3 WBC Morphology Not Reportable Hypersegmented Neuts Not Reportable Hyposegmented Neuts Not Reportable Hypogranular Neuts Not Reportable Smudge Cells Not Reportable Toxic Granulation Not Reportable Toxic Vacuolation Not Reportable Dohle Bodies Not Reportable Pelger-Huet Anomaly Not Reportable Aaron Rods Not Reportable Platelet Estimate Consistent w auto Clumped Platelets Not Reportable Plt Clumps, EDTA Not Reportable Large Platelets Not Reportable Giant Platelets Not Reportable Platelet Satelliting Not Reportable Plt Morphology Comment Not Reportable RBC Morphology Normal Dimorphic RBCs Not Reportable Polychromasia Not Reportable Hypochromasia Not Reportable Poikilocytosis Not Reportable Anisocytosis Not Reportable Microcytosis Not Reportable Macrocytosis Not Reportable Spherocytes Not Reportable Pappenheimer Bodies Not Reportable Sickle Cells Not Reportable Target Cells Not Reportable Tear Drop Cells Not Reportable Ovalocytes Not Reportable Helmet Cells Not Reportable Sol-[place] Bodies Not Reportable Traer Rings Not Reportable Vikash Cells Not Reportable Bite Cells Not Reportable Crenated Cell Not Reportable Elliptocytes Not Reportable Acanthocytes (Spur) Not Reportable Rouleaux Not Reportable Hemoglobin C Crystals Not Reportable Schistocytes Not Reportable Malaria parasites Not Reportable Osvaldo Bodies Not Reportable Hem Pathologist Commnt No Sodium 135 L (137-145) mmol/L Potassium 3.9 (3.6-5.0) mmol/L Chloride 100.1 (98-107) mmol/L Carbon Dioxide 29 (22-30) mmol/L Anion Gap 10 mmol/L BUN 15 (7-17) mg/dL Creatinine 2.3 H (0.6-1.2) mg/dL Estimated GFR 20 ml/min BUN/Creatinine Ratio 7 % Glucose 84 (65-100) mg/dL Calcium 8.6 (8.4-10.2) mg/dL Magnesium 2.50 H (1.7-2.3) mg/dL Troponin T 0.028 (0.00-0.029) ng/mL - EKG Data -: EKG Interpreted by Me (Sinus rhythm at 71, no ST-T changes, normal QRS as interpreted by me) - Radiology Data Radiology results: report reviewed XR chest 1V ap INDICATION / CLINICAL INFORMATION: Dyspnea. COMPARISON: February 27, 2019 FINDINGS: SUPPORT DEVICES: Internal jugular central venous access catheter terminates in the SVC. HEART / MEDIASTINUM: Patient is rotated. Mildly prominent cardiac silhouette. LUNGS / PLEURA: Patient is rotated in the left lower lung zone is difficult to evaluate. Costophrenic sulcus is sharp. No pneumothorax. ADDITIONAL FINDINGS: No significant additional findings. IMPRESSION: 1. Left lower lung zone is difficult to evaluate due to patient rotation. However there is possible atelectasis and/or effusion. Signer Name: Elmer Mchugh MD Signed: 10/12/2020 11:21 AM Workstation Name: [id number] Transcribed By: CS Dictated By: Elmer Mchugh MD Electronically Authenticated By: Elmer Mchugh MD Signed Date/Time: 10/12/20 1121 Critical care attestation.: If time is entered above; I have spent that time in minutes in the direct care of this critically ill patient, excluding procedure time. ED Disposition Clinical Impression: COPD with exacerbation Disposition: DC-01 TO HOME OR SELFCARE Is pt being admited?: No Condition: Stable Instructions: Chronic Obstructive Pulmonary Disease, Chronic Obstructive Pulmonary Disease (ED) Prescriptions: predniSONE [Deltasone] 60 mg PO QDAY 4 Days tablet Referrals: PRIMARY CARE, [Primary Care Provider] - 3-5 Days
--- NOTE | 2020-10-12 11:25 | XRay Report ---
XR chest 1V ap INDICATION / CLINICAL INFORMATION: Dyspnea. COMPARISON: February 27, 2019 FINDINGS: SUPPORT DEVICES: Internal jugular central venous access catheter terminates in the SVC. HEART / MEDIASTINUM: Patient is rotated. Mildly prominent cardiac silhouette. LUNGS / PLEURA: Patient is rotated in the left lower lung zone is difficult to evaluate. Costophrenic sulcus is sharp. No pneumothorax. ADDITIONAL FINDINGS: No significant additional findings. IMPRESSION: 1. Left lower lung zone is difficult to evaluate due to patient rotation. However there is possible a telectasis and/or effusion. Signer Name: Elmer Mchugh MD Signed: 10/12/2020 11:21 AM Workstation Name: [id number]
[2020-10-12 11:49] LABS: Hematocrit 38.3 % (30.3-42.9); Hemoglobin 12.2 gm/dl (10.1-14.3); Mean Corpuscular HGB Conc 32 % (30-34); Mean Corpuscular Volume 90 fl (79-97); Platelet Count 299 K/mm3 (140-440); Red Blood Count 4.26 M/mm3 (3.65-5.03); Red Cell Distribution Width 15.5 % (13.2-15.2)
[2020-10-12 12:11] LABS: Calcium 8.6 mg/dL (8.4-10.2)
[2020-10-12] MEDS ORDERED: IPRATROPIUM/ALBUTEROL SULFATE 3 ML AMPUL.NEB IH ONE (12:44)
[2020-10-12] MEDS ORDERED: methylPREDNISolone Sod Succinate 125 MG/2 ML INJ IV ONE (12:44)
[2020-10-12 13:06] LABS: Total Cells Counted 100
[2020-10-12 13:07] LABS: Platelet Estimate Consistent w Auto; RBC Morphology Normal
[2020-10-12 16:28] VITALS: BP 117/25
== END 2020-10-12 23:19 | disposition home or self-care (01) ==
LOC: ED 08:57
DX: J44.1 Chronic obstructive pulmonary disease with (acute) exacerbation (principal); I10 Essential (primary) hypertension; I11.0 Hypertensive heart disease with heart failure; I50.9 Heart failure, unspecified; K21.9 Gastro-esophageal reflux disease without esophagitis; M19.90 Unspecified osteoarthritis, unspecified site; Z90.710 Acquired absence of both cervix and uterus; Z90.49 Acquired absence of other specified parts of digestive tract; Z98.890 Other specified postprocedural states; Z79.4 Long term (current) use of insulin; Z79.899 Other long term (current) drug therapy; Z88.6 Allergy status to analgesic agent; Z88.8 Allergy status to other drugs, medicaments and biological substances
CPT/HCPCS: 36415; 71045; 80048; 83735; 84484; 85007; 85025; 93005; 94640; 96374; 99284; J2930

== ENCOUNTER 2020-11-05 08:37 | Day surgery (SDC) | payer MEDICARE, OTHER ==
[~2020-11-05 08:37] MED LIST changes: -ANCEF/STERILE WATER 2 GM/20 ML 2 GM/20 ML SYRINGE IV NR; +GELATIN SPONGE SIZE 100 TP ONE; +SODIUM CHLORIDE 0.9% 250ML 250 ML ONE; +THROMBIN (RECOMBINANT) 5,000 UNIT VIAL TP ONE
[2020-11-05] MEDS ORDERED: SODIUM CHLORIDE 0.9% 250 ML IVPB IV ONE ×2 (08:51→11:34)
[2020-11-05] MEDS ORDERED: HEPARIN 10,000 UNITS/10 ML VIAL IV ONE ×2 (08:52→11:34)
[2020-11-05] MEDS ORDERED: THROMBIN (RECOMBINANT) 5,000 UNIT VIAL TP ONE ×2 (08:52→11:34)
[2020-11-05] MEDS ORDERED: SODIUM CHLORIDE 0.9% IRR 1,500 ML BOTTLE IR ONE ×2 (08:53→11:34)
[2020-11-05] MEDS ORDERED: GELATIN SPONGE 12 X 7 TP ONE ×2 (08:53→11:34)
[2020-11-05] MEDS ORDERED: fentaNYL 100 MCG/2 ML INJ IV PRN (09:02)
[2020-11-05] MEDS ORDERED: SODIUM CHLORIDE 0.9% 1000 ML 1,000 ML ONE (09:07)
[2020-11-05] MEDS ORDERED: SODIUM CHLORIDE 0.9% 1000 ML 1,000 ML IV SCH (09:15)
[2020-11-05 09:31] LABS: Hematocrit 34.5 % (30.3-42.9); Hemoglobin 11.1 gm/dl (10.1-14.3); Mean Corpuscular HGB Conc 32 % (30-34); Mean Corpuscular Volume 88 fl (79-97); Platelet Count 309 K/mm3 (140-440); Red Cell Distribution Width 15.8 % (13.2-15.2)
[2020-11-05] MEDS ORDERED: LIDOCAINE MPF (2%) 20 MG/1 ML VIAL 5 ML ONE ×2 (09:31→14:18)
[2020-11-05] MEDS ORDERED: propofoL 200 MG/20 ML VIAL IV ONE ×2 (09:31→12:04)
[2020-11-05] MEDS ORDERED: HYDROmorphone 1 MG/1 ML INJ ONE (09:31)
--- NOTE | 2020-11-05 09:39 | Anesthesia Consultation ---
Anesthesia Consult and Med Hx Date of service: 11/05/20 - Airway Anesthetic Teeth Evaluation: Poor, Partials ROM Head & Neck: Adequate Mental/Hyoid Distance: Inadequate Mallampati Class: Class I Intubation Access Assessment: Possibly Difficult - Pulmonary Exam CTA: Yes - Cardiac Exam Cardiac Exam: RRR - Pre-Operative Health Status ASA Pre-Surgery Classification: ASA4 Proposed Anesthetic Plan: MAC Nerve Block: Supraclavicular + PECs - Pulmonary Hx Smoking: Yes (100pk yr hx; quit 6 yrs) Hx Asthma: Yes SOB: Yes (chronic exertional dyspnea) COPD: Yes (multiple previous exacerbations with intubations) Home Oxygen Therapy: Yes (3L NC continuous) Hx Sleep Apnea: Yes - Cardiovascular System Hx Hypertension: Yes (took antihypertensives this morning) Hx Heart Attack/AMI: No (noted in chart review though patient denies) Hx Percutaneous Transluminal Coronary Angioplasty (PTCA): No Hx Cardia Arrhythmia: No - Central Nervous System CVA: No Hx Back Pain: Yes Hx Psychiatric Problems: Yes (depression) - Gastrointestinal Hx Gastroesophageal Reflux Disease: Yes - Endocrine Hx End Stage Renal Disease: Yes (last HD 11/04/20) Hx Insulin Dependent Diabetes: Yes Hx Thyroid Disease: No - Hematic Hx Anemia: Yes - Other Systems Hx Cancer: Yes (hx bladder Ca) Hx Obesity: Yes (BMI 43) - Additional Comments Anesthesia Medical History Comments: Hx post op respiratory failure requiring intubation and ICU admissions in the past. Discussed risk of post op respiratory failure given hx and current medical morbidities. Will proceed with regional anesthetic however discussed risk of conversion to GA. Patient is in agreement with anesthetic plan. Also discussed with surgeon.
[2020-11-05] MEDS ORDERED: BUPIVACAINE/PF (0.25%) 2.5 MG/ML 30 ML VIAL INFILTRATI ONE (09:41)
--- NOTE | 2020-11-05 09:41 | Anesthesia Day of Surgery ---
Anesthesia Day of Surgery - Day of Surgery Patient Examined: Yes Patient H&P Reviewed: Yes Patient is NPO: Yes
[2020-11-05 09:46] LABS: Calcium 8.3 mg/dL (8.4-10.2)
[2020-11-05] MEDS ORDERED: MIDAZOLAM 2 MG/2 ML INJ IV NR (10:00)
--- NOTE | 2020-11-05 10:40 | Progress Note ---
Regional Anesthesia Block - Regional Anesthesia Block Start Time: 10:14 Stop Time: :27 Performed By:: DENNY WASHINGTON Procedure: [Right] Ultrasound Guided Supraclavicular Block + Right Ultrasound guided PECs Block Pt IDd, consent obtained, time out performed. Pt on monitor + O2 via NC, VS stable, sedation given. Sterile prep. Landmarks for brachial plexus at supraclavicular region identified with ultrasound. [3]cc skin wheel with 1% lidocaine. Needle advanced to brachial plexus in plane with ultrasound. [30]cc [0.25]% bupivacaine injected incrementally with negative aspiration, no paresthesias. Landmarks for PECs block indentified on ultrasound. Sterile skin prep and 3cc skin local with 1% lidocaine. Needle advanced in plane with ultrasound. 10cc 0.25% bupivicaine injected incrementally with negative aspiration. Pt tolerated procedure well, no immediate complications noted.
[2020-11-05] MEDS ORDERED: MIDAZOLAM 2 MG/2 ML INJ ONE (11:05)
[2020-11-05] MEDS ORDERED: GLYCOPYRROLATE 0.4 MG/2 ML INJ ONE ×2 (11:13→11:21)
[2020-11-05] MEDS ORDERED: BUPIVACAINE/PF (0.5%) 5 MG/1 ML 30 ML VIAL INFILTRATI ONE ×2 (11:13→11:33)
[2020-11-05] MEDS ORDERED: LIDOCAINE (1%) 10 MG/1 ML VIAL 20 ML MDV ONE (11:13)
[2020-11-05] MEDS ORDERED: ePHEDrine SULFATE 50 MG/1 ML INJ ONE (11:17)
[2020-11-05] MEDS ORDERED: PHENYLEPHRINE 10 MG/1 ML INJ SDV ONE (11:27)
[2020-11-05] MEDS ORDERED: SODIUM CHLORIDE 0.9% 100 ML ONE (11:27)
[2020-11-05] MEDS ORDERED: LIDOCAINE (1%) 10 MG/1 ML VIAL 20 ML MDV INFILTRATI ONE (11:33)
[2020-11-05] MEDS ORDERED: PROTAMINE SULFATE 50 MG/5 ML INJ ONE (12:43)
--- NOTE | 2020-11-05 13:19 | Post Operative Note ---
Date of procedure: 11/05/20 Pre-op diagnosis: ESRD Post-op diagnosis: same Procedure: Right Arm AV Graft Insertion Anesthesia: MAC, regional, local Surgeon: ANDRES VENEGAS Estimated blood loss: other (25ml) Pathology: none Condition: stable Disposition: PACU
--- NOTE | 2020-11-05 13:24 | Short Stay Summary ---
Short Stay Documentation Date of service: 11/05/20 - History H&P: obtained from office Past Medical History: COPD, ESRD, hypertension - Allergies and Medications Current Medications: Allergies aspirin Allergy (Verified 11/04/20 09:31) Shortness of Breath , CHEST PAIN escitalopram [From Lexapro] Allergy (Verified 11/04/20 09:31) Shortness of Breath levofloxacin [From Levaquin] Allergy (Verified 11/04/20 09:31) Rash salmeterol xinafoate [From Serevent] Allergy (Verified 11/04/20 09:31) Shortness of Breath Sulfa (Sulfonamide Antibiotics) Adverse Reaction (Verified 11/04/20 09:31) contraindicated due to kidney function states her doctor told her to not take sulfa due to renal insufficiency tramadol Adverse Reaction (Verified 11/04/20 09:31) Nausea contrast dye Adverse Reaction (Uncoded 11/04/20 09:31) contraindicated due to renal insufficiency Home Medications Medication Instructions Recorded Confirmed Last Taken Type Sodium Bicarbonate 650 mg PO BID #60 tablet 10/29/18 03/03/19 Unknown Rx Verapamil ER [Calan SR] 180 mg PO DAILY #30 10/29/18 03/03/19 10/02/18 07:30 Rx Theophylline Anhydrous ER [Theodur] 150 mg PO QPM 12/24/18 03/03/19 Unknown History Theophylline Anhydrous ER [Theodur] 300 mg PO QAM 12/24/18 03/03/19 Unknown History Beclomethasone Dipropionate [Qvar 2 inhalation IH BID 12/26/18 12/26/18 Unknown History Redihaler] Gabapentin [Neurontin] 100 mg PO TID 12/26/18 12/26/18 Unknown History Indacaterol Maleate [Arcapta 75 mcg IH DAILY 12/26/18 12/26/18 12/24/18 History Neohaler] Ipratropium [place] [Atrovent Hfa] 12.9 gm IH 4XD 12/26/18 12/26/18 12/24/18 History Ipratropium/Albuterol Sulfate 1 spray IH QID 12/26/18 12/26/18 Unknown History [Combivent Respimat] Linaclotide (Nf) [Linzess (Nf)] 290 mcg PO QDAY 12/26/18 12/26/18 Unknown History Ondansetron [Zofran TAB] 4 mg PO Q6HR 12/26/18 12/26/18 12/24/18 History Sucralfate [Carafate] 1 gm PO Q6HR 12/26/18 03/03/19 Unknown History Tiotropium [place] [Spiriva] 18 mcg IH 4XD 12/26/18 03/03/19 12/24/18 History Furosemide [Lasix TAB] 40 mg PO QDAY #30 tablet 01/02/19 Unknown Rx Insulin NPH/Regular [NovoLIN 70/30] 12 unit SUB-Q BIDDIAB #1 vial 01/02/19 Unknown Rx Pantoprazole [Protonix TAB] 40 mg PO QDAY #30 tablet 01/02/19 Unknown Rx ALBUTEROL NEB's [Proventil 0.083% 2.5 mg IH Q3HRT PRN nebu 03/03/19 Unknown Rx NEBS] Arformoterol Nebu [Brovana Nebu] 15 mcg IH Q12HRT ml 03/03/19 Unknown Rx Budesonide [Pulmicort Respules] 0.5 mg IH Q12HRT nebu 03/03/19 Unknown Rx Ipratropium/Albuterol Sulfate 1 ampul IH TIDRT ampul.neb 03/03/19 Unknown Rx [DUONEB *Not for PRN Use*] Lispro Insulin [HumaLOG] 0 unit SUB-Q ACHS units 03/03/19 Unknown Rx oxyCODONE /ACETAMINOPHEN [Percocet 2 tab PO Q6H PRN #10 tablet 03/03/19 Unknown Rx 5/325 mg] predniSONE [Deltasone] 60 mg PO QDAY 4 Days tablet 10/12/20 Unknown Rx Active Medications Fentanyl (Fentanyl 100 Mcg/2 Ml Inj) 25 mcg IV Q5MIN PRN PRN Reason: Pain , Severe (7-10) Stop: 11/05/20 23:00 Sodium Chloride (Nacl 0.9% 1000 Ml) 1,000 mls @ 42 mls/hr IV DIRECT KELLY Last Admin: 11/05/20 10:00 Dose: 42 mls/hr Documented by: Cefazolin Sodium 3 gm/ Sodium (Chloride) 100 mls @ 100 mls/30 min IV PREOP NR; Protocol Stop: 11/05/20 17:00 Midazolam HCl (Midazolam 2 Mg/2 Ml Inj) 2 mg IV PREOP NR Stop: 11/05/20 23:59 Last Admin: 11/05/20 10:10 Dose: 2 mg Documented by: Oxycodone/Acetaminophen (Oxycodone /Acetaminophen 5-325mg Tab) 2 tab PO Q4H PRN PRN Reason: Pain, Moderate (4-6) - Physical exam General appearance: no acute distress Lungs: Normal air movement Heart: Regular rate Extremities: no ischemia - Hospital course Hospital course: the patient was taken to the operating room and had a right arm av graft insertion performed. please refer to the operative note concerning details of the procedure. the patient tolerated the procedure well and was discharged home in stable condition. - Disposition Condition at discharge: Stable Disposition: [id number] TO HOME OR SELFCARE Short Stay Discharge Plan Follow up with: PRIMARY CARE, [Primary Care Provider] - 7 Days
--- NOTE | 2020-11-05 13:57 | Operative Report ---
STAFF SURGEON: Dr. Raul Troncoso. PREOPERATIVE DIAGNOSIS: End-stage renal disease. POSTOPERATIVE DIAGNOSIS: End-stage renal disease. PROCEDURE PERFORMED: Right arm AV graft insertion. COMPLICATIONS: None. ESTIMATED BLOOD LOSS: 25 mL. ANESTHESIA: Local regional block with MAC. INDICATIONS FOR PROCEDURE: This is an 80-year-old female with end-stage renal disease, on hemodialysis via right IJ PermCath in need of upper extremity dialysis access. The patient had already had an attempted AV graft performed at another institution in the left arm that failed and now presents in an attempt for a graft insertion in the right arm. The patient was explained the risks, benefits and alternatives of procedure, expressed understanding and wished to proceed. DESCRIPTION OF PROCEDURE: After appropriate consent was obtained, the patient was brought back to the operating room and placed on the operating table in supine position with the right arm extended. The patient was given appropriate medication for deep sedation. The right arm was prepped and draped in the usual sterile fashion with ChloraPrep. Appropriate preoperative antibiotics were administered. Appropriate time-out performed indicating correct patient, procedure, and site of procedure. We then began the operation by making a longitudinal incision near the antecubital fossa. This was carried through subcutaneous tissue with a combination of blunt dissection and electrocautery. Dissection was continued through the bicipital aponeurosis, allowed to expose the brachial artery, which was found to be suitable for arterial inflow and was mobilized for appropriate distance both proximally and distally. We then proceeded to make a transverse incision near the axilla. This was carried through subcutaneous tissue with a combination of blunt dissection and electrocautery. Dissection was continued through the fascia overlying the axillary neurovascular bundle. Axillary vein was identified and found to be suitable for venous outflow and was mobilized for appropriate distance proximally and distally. We then created a subcutaneous tunnel bringing through a 4-7 mm Propaten graft. The patient was given 5000 units of unfractionated heparin. After appropriate timeout elapsed, vascular clamps were placed on the brachial artery, both proximally and distally. Longitudinal arteriotomy was made with an 11 blade and extended with Swan scissors. An end-to-side anastomosis after spatulation of the graft was performed using a running 6-0 Prolene suture. Once complete, flow was reestablished through the graft, had a nice pulsatile flow and after several beats, the distal clamp was then removed. We then proceeded to cut the graft to appropriate length and it was then spatulated. Vascular clamps were placed on the axillary vein, both proximally and distally. Longitudinal venotomy was performed with an 11 blade and extended with Swan scissors and then end-to-side anastomosis was performed with a running 5-0 Prolene suture. Once complete, flow was established through the graft, had a nice palpable thrill. We then looked to obtain hemostasis along the suture line, which was obtained with hemostatic agents. Once we were satisfied with hemostasis, we then proceeded to close both wounds with a deep subcutaneous layer with interrupted 3-0 PDS and the skin was approximated with dia. Appropriate dressing was placed. The patient tolerated the procedure well, emerged from the deep sedation was then sent to recovery in stable condition. All sponge, instrument and needle counts were correct at completion of the operation. [facility]# [id number] [place]
[2020-11-05] MEDS ORDERED: oxyCODONE /ACETAMINOPHEN 5-325MG TAB PO PRN (14:00)
[2020-11-05] MEDS ORDERED: HEPARIN 10,000 UNIT/1 ML VIAL IV ONE (15:00)
--- NOTE | 2020-11-05 15:15 | Post Anesthesia Evaluation ---
- Post Anesthesia Evaluation Patient Participated: Yes Airway Patent: Yes Stable Respiratory Function: Yes (returned to baseline 3L NC) Nausea/Vomiting: No Temp > 96.8F: Yes Pain Manageable: Yes Adequeate Hydration: Yes Anesthesia Complications: No Block Receding Appropriately: Yes Other Comments: HD stable with BP at pre-op baseline. In PACU, RN noted suture securing permcath to chest had from the skin. No evidence of catheter movement from original position. Area cleaned with alcohol skin prep, skin localized with 1% lidocaine, and catheter re-secured with suture by myself. Patient tolerated well. D/c'd to home via medical transport.
[2020-11-05 18:50] VITALS: BP 96/38
== END 2020-11-05 08:38 | disposition home or self-care (01) ==
LOC: OR 08:37
PROVIDERS: ATTEND Surgery Vascular Surgery
DX: I13.2 Hypertensive heart and chronic kidney disease with heart failure and with stage 5 chronic kidney disease, or end stage renal disease (principal); E11.22 Type 2 diabetes mellitus with diabetic chronic kidney disease; I50.9 Heart failure, unspecified; N18.6 End stage renal disease; I48.91 Unspecified atrial fibrillation; J44.9 Chronic obstructive pulmonary disease, unspecified; G47.30 Sleep apnea, unspecified; K21.9 Gastro-esophageal reflux disease without esophagitis; M79.7 Fibromyalgia; M19.90 Unspecified osteoarthritis, unspecified site; F32.9 Major depressive disorder, single episode, unspecified; F41.9 Anxiety disorder, unspecified; E66.01 Morbid (severe) obesity due to excess calories; I25.2 Old myocardial infarction; Z98.41 Cataract extraction status, right eye; Z90.49 Acquired absence of other specified parts of digestive tract; Z90.710 Acquired absence of both cervix and uterus; Z87.440 Personal history of urinary (tract) infections; Z98.890 Other specified postprocedural states; Z68.41 Body mass index [BMI] 40.0-44.9, adult; Z88.6 Allergy status to analgesic agent; Z88.2 Allergy status to sulfonamides; Z88.8 Allergy status to other drugs, medicaments and biological substances; Z79.4 Long term (current) use of insulin; Z79.899 Other long term (current) drug therapy; Z86.2 Personal history of diseases of the blood and blood-forming organs and certain disorders involving the immune mechanism
CPT/HCPCS: 36415; 36830; 80048; 82962; 85027; A4649; C1768; J0690; J1170; J1644; J2250; J2370; J2704; J2720; J3490; J7030; J7050